=== PATIENT | female | born 1935 | race Caucasian/White ===

== ENCOUNTER 2020-03-22 14:43 | Outpatient (REF) | payer MEDICARE, SELFPAY ==
[2020-03-22 14:55] LABS: Basophils Percent Auto 0.1 % (0-2); Eosinophils Percent Auto 0.2 % (0-4); Hematocrit 34.4 % (37-47); Hemoglobin 11.2 g/dl (12.0-16.0); Imm Gran Abs Auto 0.11 X10*3/uL (0.00-0.03); Imm Gran Pct Auto 0.9 % (0.0-0.4); Lymphocytes Absolute Auto 0.6 X10*3/uL (1.2-4.9); Lymphocytes Percent Auto 4.6 % (20-40); MANUAL DIFF FLAG SCAN; Mean Corpuscular HGB Conc 32.6 g/dl (31.0-35.0); Mean Corpuscular Hemoglobin 31.7 pg (27.0-33.0); Mean Corpuscular Volume 97.5 fL (80-98); Mean Platelet Volume 9.9 fL (9.4-12.3); Monocytes Absolute Auto 0.4 X10*3/uL (0.1-1.2); Neutrophils Absolute Auto 11.2 X10*3/uL (2.0-8.3); Neutrophils Percent Auto 91.2 % (45-73); Platelet Count 164 X10*3/uL (160-400); Red Blood Count 3.53 X10*6/uL (4.20-5.50); Red Cell Distribution Width 17.9 % (11.0-16.0); SCAN SMEAR FLAG 1; White Blood Count 12.3 X10*3/uL (4.8-10.8)
[2020-03-22 15:30] LABS: Alanine Aminotransferase 16 U/L (0-31); Alkaline Phosphatase 65 U/L (39-117); Anion Gap 18 (12-20); Aspartate Amino Transferase 18 U/L (5-31); Bilirubin Total 1.1 mg/dL (0.0-1.0); Blood Urea Nitrogen 52 mg/dL (9-16); Calcium 8.4 mg/dL (8.4-10.2); Carbon Dioxide 26 mmol/L (22-29); Chloride 97 mmol/L (96-108); Estimated Glomerular Filt Rate 24; Glucose Random 171 mg/dL (60-115); Potassium 3.9 mmol/l (3.3-5.1); Sodium 137 mmol/L (135-145); Total Protein 6.2 g/dL (6.5-8.0)
[2020-03-22 15:32] LABS: SLIDE REVIEW VERIFIED
== END 2020-03-22 14:44 | disposition home or self-care (01) ==
LOC: HO.LNP 14:43
PROVIDERS: Visit Provider Internal Medicine Geriatric Medicine
DX: I12.9 Hypertensive chronic kidney disease with stage 1 through stage 4 chronic kidney disease, or unspecified chronic kidney disease (principal); I50.9 Heart failure, unspecified
CPT/HCPCS: 36415; 80053; 83735; 85025

== ENCOUNTER 2020-05-06 14:27 | Outpatient (REF) | payer MEDICARE, SELFPAY ==
[2020-05-06 14:33] LABS: MANUAL DIFF FLAG NO
[2020-05-06 14:37] LABS: Basophils Percent Auto 0.2 % (0-2); Eosinophils Absolute Auto 0.1 X10*3/uL (0.0-0.4); Eosinophils Percent Auto 0.6 % (0-4); Hematocrit 37.2 % (37-47); Hemoglobin 11.9 g/dl (12.0-16.0); Imm Gran Abs Auto 0.12 X10*3/uL (0.00-0.03); Imm Gran Pct Auto 1.1 % (0.0-0.4); Lymphocytes Absolute Auto 1.2 X10*3/uL (1.2-4.9); Lymphocytes Percent Auto 11.6 % (20-40); Mean Corpuscular Hemoglobin 31.2 pg (27.0-33.0); Mean Corpuscular Volume 97.6 fL (80-98); Monocytes Absolute Auto 0.8 X10*3/uL (0.1-1.2); Monocytes Percent Auto 7.2 % (2-11); Neutrophils Absolute Auto 8.4 X10*3/uL (2.0-8.3); Neutrophils Percent Auto 79.3 % (45-73); Platelet Count 172 X10*3/uL (160-400); Red Blood Count 3.81 X10*6/uL (4.20-5.50); Red Cell Distribution Width 16.1 % (11.0-16.0); White Blood Count 10.6 X10*3/uL (4.8-10.8)
[2020-05-06 15:14] LABS: Albumin Level 3.5 g/dL (3.5-5.0); Blood Urea Nitrogen 49 mg/dL (9-16); Estimated Glomerular Filt Rate 26
[2020-05-07 09:32] LABS: NT-proBNP 1150 pg/mL
== END 2020-05-06 14:28 | disposition home or self-care (01) ==
LOC: HO.LNP 14:27
PROVIDERS: Visit Provider Internal Medicine Geriatric Medicine
DX: I13.0 Hypertensive heart and chronic kidney disease with heart failure and stage 1 through stage 4 chronic kidney disease, or unspecified chronic kidney disease (principal); N18.9 Chronic kidney disease, unspecified; I50.9 Heart failure, unspecified
CPT/HCPCS: 36415; 82040; 82565; 83735; 83880; 84520; 85025

== ENCOUNTER 2020-05-11 15:36 | Outpatient (REF) | payer MEDICARE, SELFPAY ==
[2020-05-11 15:49] LABS: Appearance Urine CLOUDY; Color Urine YELLOW; Glucose Urine UA NEG (NEG); Leukocyte Esterase Urine 2+ (NEG); Nitrite Urine NEG (NEG); Urine Blood 2+ (NEG); Urine Ketones NEG (NEG); Urine Protein 2+ MG/DL (NEG-TRACE)
[2020-05-11 16:04] LABS: Bacteria Urine 3+ /LPF; Squamous Epithelial Cell Urine 1+ /LPF; WBC Urine TNTC /HPF (0-4)
== END 2020-05-11 15:37 | disposition home or self-care (01) ==
LOC: HO.LNP 15:36
PROVIDERS: Visit Provider Internal Medicine Geriatric Medicine
DX: R32 Unspecified urinary incontinence (principal)
CPT/HCPCS: 81001; 87086; 87088; 87186

== ENCOUNTER 2020-05-18 00:12 | Emergency (ER) | payer MEDICARE, SELFPAY ==
[2020-05-18 00:21] VITALS: BP 131/79; PULSE 76; RESP 16; TEMP 37.2; O2SAT 98; BMI 32.8
--- NOTE | 2020-05-18 00:29 | ED.ABDPAIN ---
HPI - Abdominal Pain General Chief Complaint: Abdominal Pain Stated Complaint: lower quad pain ?uti Time Seen by Provider: 05/18/20 00:27 Source: patient Mode of arrival: EMS Limitations: no limitations History of Present Illness HPI narrative: Patient came from assisted living with history of hypertension including renal disease atrial flutter coronary artery disease was treated for UTI will for 4-5 days on cephalexin UA grew E coli which was sensitive to cephalosporin patient was doing fine just an hour before arrival noticed sudden onset of pain on the right side no nausea no vomiting no fever abdominal distension patient never had any kidney stone before patient looks comfortable otherwise MD elicited complaint: abdominal pain Pertinent past history: past UTI Onset (ago): hour(s) (1) Location: RLQ Severity: mild Pain scale (0-10): 3 Quality: sharp Migration to: no migration Exacerbating factors: nothing Relieving factors: nothing Associated symptoms: denies other symptoms Related Data Allergies Allergy/AdvReac Type Severity Reaction Status Date / Time Iodinated Contrast Media Allergy Unknown UNKNOWN Verified 05/18/20 00:27 [IV CONTRAST] iodine [IODINE] Allergy Unknown UNKNOWN Verified 05/18/20 00:27 scallops [SCALLOPS] Allergy Unknown UNKNOWN Verified 05/18/20 00:27 amlodipine [AMLODIPINE] AdvReac Unknown LEG Verified 05/18/20 00:27 SWELLING Review of Systems Review of Systems Constitutional : No Weight loss, No Fever, No Chills ENT/Mouth : No sore throat, No Rhinorrhea Eyes: No Eye Pain, No Swelling Cardiovascular : No Chest Pain, no Dyspnea on Exertion, No Orthopnea, No Edema, No Palpitations, no SOB Respiratory : No Cough, No Sputum Gastrointestinal : no Nausea, No Vomiting, No Diarrhea, No Hematochezia, No Melena Genitourinary : No Dysuria, No Urinary Frequency Musculoskeletal : No joint pain, No Myalgias, No Joint Swelling Skin : No Skin Lesions, No rash Neuro : No Weakness, No Numbness, No Dizziness, No Headache Psych : No Anxiety/Panic, No Depression Heme/Lymph: No Bruising, No Lymphadenopathy Endocrine : No Polyuria, No Polydipsia All other systems reviewed and are negative Physical Exam Vital Signs: Vital Signs: Last Vital Signs Temp 100.2 F 05/18/20 05:00 Pulse 77 05/18/20 05:00 Resp 24 H 05/18/20 05:00 BP 159/53 H 05/18/20 05:00 Pulse Ox 88 L 05/18/20 05:00 Body Mass Index 32.8 Appearance: Alert. Oriented X3. No acute distress. Eyes: Pupils equal, round and reactive to light. ENT: Pharynx normal. Neck: Normal inspection. Neck supple. CVS: Normal heart rate and rhythm. Pulses normal. Respiratory: No respiratory distress. Breath sounds normal. Abdomen: Soft and tenderness R upper quadrant no rebound tenderness or guarding. Bowel sounds are present, no mass palpable, no CVA tenderness Skin: Skin warm and dry. Normal skin color. Normal skin turgor. Extremities: 4+ leg edema, pitting Neuro: Oriented X 3. No motor deficit. No sensory deficit. MDM - Abdominal Pain MDM Narrative Medical decision making narrative: Patient with right upper quadrant pain workup showed gallstones without any cholecystitis LFTs are normal at this time patient is comfortable to discharge her back urine with nitrite -5 to 9 wbc's patient already on Keflex will continue that Medical Records Attestation: I reviewed the patient's medical records. Lab Data Attestation: I reviewed the patient's lab results. Result diagrams: 05/18/20 01:03 05/18/20 01:03 Labs: Lab Results 05/18/20 05/18/20 05/18/20 Range/Units 01:03 01:03 01:21 WBC 10.8 (4.8-10.8) X10*3/uL RBC 3.78 L (4.20-5.50) X10*6/uL Hgb 11.8 L (12.0-16.0) g/dl Hct 36.3 L (37-47) % MCV 96.0 (80-98) fL MCH 31.2 (27.0-33.0) pg MCHC 32.5 (31.0-35.0) g/dl RDW 15.6 (11.0-16.0) % Plt Count 234 D (160-400) X10*3/uL MPV 9.7 (9.4-12.3) fL Immature Gran % (Auto) 4.7 H (0.0-0.4) % Neut % (Auto) 78.1 H (45-73) % Lymph % (Auto) 11.3 L (20-40) % [place] % (Auto) 4.8 (2-11) % Eos % (Auto) 0.8 (0-4) % Baso % (Auto) 0.3 (0-2) % Lymph # (Auto) 1.2 (1.2-4.9) X10*3/uL [place] # (Auto) 0.5 (0.1-1.2) X10*3/uL Eos # (Auto) 0.1 (0.0-0.4) X10*3/uL Baso # (Auto) 0.0 (0.0-0.2) X10*3/uL Abs Immat Gran (auto) 0.51 H (0.00-0.03) X10*3/uL Absolute Neuts (auto) 8.5 H (2.0-8.3) X10*3/uL Absolute Nucleated RBC 0.000 (0.0-0.012) X10*3/uL Nucleated RBC % (auto) 0.0 (0.0-0.2) /100WBC Sodium 138 (135-145) mmol/L Potassium 4.9 D (3.3-5.1) mmol/l Chloride 98 (96-108) mmol/L Carbon Dioxide 27 (22-29) mmol/L Anion Gap 18 (12-20) BUN 47 H (9-16) mg/dL Creatinine 2.00 H (0.5-1.4) mg/dL Estim Creat Clear Calc 21.8 Estimated GFR 24 Random Glucose 104 D (60-115) mg/dL Calcium 8.4 (8.4-10.2) mg/dL Total Bilirubin 0.6 (0.0-1.0) mg/dL Direct Bilirubin 0.2 (0.0-0.5) mg/dL AST 28 D (5-31) U/L ALT 12 (0-31) U/L Alkaline Phosphatase 76 (39-117) U/L Total Protein 6.6 (6.5-8.0) g/dL Albumin 3.5 (3.5-5.0) g/dL Lipase 73 (8-78) U/L Urine Color YELLOW Urine Appearance CLEAR Urine pH 7.0 (5.0-8.0) Ur Specific Reed 1.010 (1.005-1.025) Urine Protein TRACE (NEG-TRACE) MG/DL Urine Glucose (UA) NEG (NEG) MG/DL Urine Ketones NEG (NEG) MG/DL Urine Blood NEG (NEG) Urine Nitrite NEG (NEG) Ur Leukocyte Esterase 1+ H (NEG) Urine RBC 0 (0) /HPF Urine WBC 5-9 H (0-4) /HPF Urine WBC Clumps NOTED Ur Squamous Epith Cells 3+ /LPF Urine Bacteria 1+ /LPF Discharge Plan Discharge Clinical Impression: UTI (urinary tract infection) Qualifiers: Urinary tract infection type: acute cystitis Hematuria presence: without hematuria Qualified Code(s): N30.00 - Acute cystitis without hematuria Cholelithiases Qualifiers: Cholelithiasis location: gallbladder Cholecystitis presence: without cholecystitis Biliary obstruction: without biliary obstruction Qualified Code(s): K80.20 - Calculus of gallbladder without cholecystitis without obstruction Patient Disposition: er [facility] Instructions: Gallstones (ED), Urinary Tract Infection in Women (ED) Additional Instructions: Continue antibiotics as prescribed for UTI, urine is getting better. You have pain in right upper quadrant because of gallstones but it does not show any inflammation at this time. Avoid eating fried and greasy food. Follow-up with surgeon Report to the ER if high fever vomiting or increased pain Referrals: Tessy Don MD [Physician] - 1 week ([place]) [facility] Past Medical History Medical History AAA (abdominal aortic aneurysm) Atrial flutter C7 cervical fracture CAD (coronary artery disease) CKD (chronic kidney disease) Frequent UTI HTN (hypertension) Hypercholesteremia Kidney mass Osteopenia Restless leg Vitamin D deficiency Surgical History History of appendectomy Social History Social History Alcohol intake: never Smoked in Last 30 Days: No Use of substances other than those prescribed or required for medical reasons: No Advance Directives: No Advance Directives Information Provided: No
--- NOTE | 2020-05-18 00:40 | CT_ITS ---
EXAMINATION: CT ABDOMEN AND PELVIS WITHOUT CONTRAST CLINICAL INFORMATION: Right-sided pain. COMPARISON: 10/07/2018. TECHNIQUE: Contiguous axial thin section helical images of the abdomen and pelvis were performed without oral or IV contrast. The data set was reformatted in the coronal and sagittal planes and reviewed on an independent workstation. DLP: 698 mGy-cm. FINDINGS: The visualized lung bases are clear. The visualized portions of the heart are unremarkable. There is a moderate to large hiatal hernia. The liver is of normal size and attenuation without focal lesions nor intrahepatic biliary ductal dilation. There are calculi within the gallbladder lumen. There is no wall thickening or discernible pericholecystic fluid. The spleen, pancreas, adrenal glands are unremarkable. The right kidney is without hydronephrosis or nephrolithiasis. There is again noted to be cortical thinning to the left kidney. An aortobiiliac stent is in unchanged position. There is stable dilation to the right common iliac artery. There is no abdominal free fluid. There is neither mesenteric nor retroperitoneal lymphadenopathy. There is extensive diverticulosis without evidence of diverticulitis. Otherwise, unremarkable unopacified loops of small and large bowel are identified. There is no pelvic free fluid. The urinary bladder is unremarkable. There is neither pelvic nor inguinal lymphadenopathy. Bone windows: Neither sclerotic nor lytic bone lesions are identified. CT/CT abdomen pelvis wo con IMPRESSION: Cholelithiasis without evidence of cholecystitis. Diverticulosis without evidence of diverticulitis. Hiatal hernia. 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 Automated exposure control (Care Dose) Adjustment of the mA and/or kv according to patient size (this includes techniques or standardized protocols for targeted exams where dose is matched to indication / reason for exam; i.e. extremities or head).
[2020-05-18 01:07] LABS: Basophils Percent Auto 0.3 % (0-2); Eosinophils Absolute Auto 0.1 X10*3/uL (0.0-0.4); Eosinophils Percent Auto 0.8 % (0-4); Hematocrit 36.3 % (37-47); Hemoglobin 11.8 g/dl (12.0-16.0); Imm Gran Abs Auto 0.51 X10*3/uL (0.00-0.03); Imm Gran Pct Auto 4.7 % (0.0-0.4); Lymphocytes Absolute Auto 1.2 X10*3/uL (1.2-4.9); Lymphocytes Percent Auto 11.3 % (20-40); MANUAL DIFF FLAG NO; Mean Corpuscular HGB Conc 32.5 g/dl (31.0-35.0); Mean Corpuscular Hemoglobin 31.2 pg (27.0-33.0); Mean Platelet Volume 9.7 fL (9.4-12.3); Monocytes Absolute Auto 0.5 X10*3/uL (0.1-1.2); Monocytes Percent Auto 4.8 % (2-11); Neutrophils Absolute Auto 8.5 X10*3/uL (2.0-8.3); Neutrophils Percent Auto 78.1 % (45-73); Platelet Count 234 X10*3/uL (160-400); Red Blood Count 3.78 X10*6/uL (4.20-5.50); Red Cell Distribution Width 15.6 % (11.0-16.0); White Blood Count 10.8 X10*3/uL (4.8-10.8)
[2020-05-18 01:36] LABS: Anion Gap 18 (12-20); Blood Urea Nitrogen 47 mg/dL (9-16); Calcium 8.4 mg/dL (8.4-10.2); Carbon Dioxide 27 mmol/L (22-29); Chloride 98 mmol/L (96-108); Creatinine Clr Calc Pharmacy 21.8; Estimated Glomerular Filt Rate 24; Glucose Random 104 mg/dL (60-115); Potassium 4.9 mmol/l (3.3-5.1); Sodium 138 mmol/L (135-145)
[2020-05-18 01:37] LABS: Appearance Urine CLEAR; Color Urine YELLOW; Glucose Urine UA NEG (NEG); Leukocyte Esterase Urine 1+ (NEG); Nitrite Urine NEG (NEG); Urine Blood NEG (NEG); Urine Ketones NEG (NEG); Urine Protein TRACE MG/DL (NEG-TRACE)
[2020-05-18 01:47] LABS: Bacteria Urine 1+ /LPF; RBC Urine 0 /HPF (0); Squamous Epithelial Cell Urine 3+ /LPF; WBC Clumps Urine NOTED
[2020-05-18 02:41] LABS: Alanine Aminotransferase 12 U/L (0-31); Albumin Level 3.5 g/dL (3.5-5.0); Alkaline Phosphatase 76 U/L (39-117); Aspartate Amino Transferase 28 U/L (5-31); Bilirubin Direct 0.2 mg/dL (0.0-0.5); Bilirubin Total 0.6 mg/dL (0.0-1.0); Lipase 73 U/L (8-78); Total Protein 6.6 g/dL (6.5-8.0)
[2020-05-18 02:52] VITALS: BP 161/71; PULSE 79; RESP 16; TEMP 37.4; O2SAT 94
--- NOTE | 2020-05-18 03:12 | US_ITS ---
EXAMINATION: ABDOMINAL ULTRASOUND LIMITED CLINICAL INFORMATION: Right upper quadrant pain. COMPARISON: Same day abdominal and pelvic CT. TECHNIQUE: Real-time imaging of the right upper quadrant abdominal viscera. FINDINGS: PANCREAS: The visualized pancreatic head and body are normal in appearance. The remainder of the pancreas is obscured from visualization by the overlying bowel gas. LIVER: The liver is of normal size and echogenicity without focal lesions nor intrahepatic biliary ductal dilation. GALLBLADDER: There are calculi within the gallbladder lumen. There are manifestations of adenomyomatosis. There is no pericholecystic fluid. There is mild gallbladder wall thickening without adjacent hepatic edema. COMMON BILE DUCT: Normal in caliber measuring 0.4 cm in diameter. RIGHT KIDNEY: Normal. No hydronephrosis. No renal calculi or focal parenchymal lesions. The kidney measures 12.7 cm in maximum dimension. FREE FLUID: None. US/US abdomen limited IMPRESSION: Cholelithiasis and adenomyomatosis. While there is mild focal gallbladder wall thickening, that could be related to the likely adenomyomatosis. There is no pericholecystic fluid or adjacent hepatic edema.
[2020-05-18] MEDS: Morphine Sulfate 4 MG/ML CARTRIDGE 2 MG IVPUSH (04:17)
[2020-05-18] MEDS: ondansetron HCL 4 MG/2 ML VIAL IVPUSH (04:19)
[2020-05-18 05:00] VITALS: BP 159/53; PULSE 77; RESP 24; TEMP 37.9; O2SAT 88
--- NOTE | 2020-05-18 05:15 | XR_ITS ---
EXAMINATION: CHEST 1 VIEW CLINICAL INFORMATION: Shortness of breath. COMPARISON: February 19, 2020. TECHNIQUE: An AP view of the chest is provided. FINDINGS: The cardiac silhouette is stable. The mediastinal and hilar contours are unremarkable. There are neither pleural effusions nor pneumothoraces. There is a faint focus of opacification within the right midlung. The osseous structures are stable. XR/XR chest 1V IMPRESSION: Faint nonspecific focus of opacification within the right midlung. This could correspond to superimposition of shadows, atelectasis or developing infiltrate. Recommendation is for a followup chest series to be obtained following treatment and/or resolution of symptoms to assure resolution of this appearance.
--- NOTE | 2020-05-18 05:41 | PC.NURSE ---
PT ASSESSED AFTER ULTRASOUND AT 0500, FOUND TO HAVE LOW ROOM AIR SAT OF 88% AND WAS FEBRILE AT 100.2, DR. TUBBS AWARE. PLACED ON 02 NASAL CANNULA, OXYGEN SATURUATION UP TO 97%.
== END 2020-05-18 08:53 | disposition skilled nursing facility (03) ==
PROVIDERS: Emergency Provider Internal Medicine
DX: N30.00 Acute cystitis without hematuria (principal); K80.20 Calculus of gallbladder without cholecystitis without obstruction; R10.31 Right lower quadrant pain
CPT/HCPCS: 36415; 71045; 74176; 76705; 80048; 80076; 81001; 83690; 85025; 87086; 96374; 96375; 99284; J2270; J2405

== ENCOUNTER 2020-05-19 13:09 | Outpatient (REF) | payer MEDICARE, SELFPAY ==
[2020-05-19 14:36] LABS: Albumin Level 3.5 g/dL (3.5-5.0); Anion Gap 17 (12-20); Blood Urea Nitrogen 47 mg/dL (9-16); Carbon Dioxide 27 mmol/L (22-29); Chloride 97 mmol/L (96-108); Estimated Glomerular Filt Rate 19; Glucose Random 154 mg/dL (60-115); Magnesium 1.7 mg/dL (1.6-2.6); Phosphorus 3.1 mg/dL (2.7-4.5); Potassium 5.1 mmol/l (3.3-5.1); Sodium 136 mmol/L (135-145)
== END 2020-05-19 13:10 | disposition home or self-care (01) ==
LOC: HO.LNP 13:09
PROVIDERS: Visit Provider Internal Medicine Geriatric Medicine
DX: I13.0 Hypertensive heart and chronic kidney disease with heart failure and stage 1 through stage 4 chronic kidney disease, or unspecified chronic kidney disease (principal); N18.9 Chronic kidney disease, unspecified; I50.9 Heart failure, unspecified
CPT/HCPCS: 80048; 82040; 83735; 84100

== ENCOUNTER 2020-05-24 14:57 | Outpatient (REF) | payer MEDICARE, SELFPAY ==
[2020-05-24 15:37] LABS: Albumin Level 3.4 g/dL (3.5-5.0); Anion Gap 16 (12-20); Blood Urea Nitrogen 52 mg/dL (9-16); Calcium 8.1 mg/dL (8.4-10.2); Carbon Dioxide 26 mmol/L (22-29); Chloride 101 mmol/L (96-108); Estimated Glomerular Filt Rate 22; Glucose Random 110 mg/dL (60-115); Magnesium 1.8 mg/dL (1.6-2.6); Phosphorus 3.8 mg/dL (2.7-4.5); Potassium 4.2 mmol/l (3.3-5.1); Sodium 139 mmol/L (135-145)
[2020-05-24 15:39] LABS: B Type Natriuretic Peptide 120 pg/mL (<100)
== END 2020-05-24 14:58 | disposition home or self-care (01) ==
LOC: HO.HVNA 14:57
PROVIDERS: Visit Provider Internal Medicine Geriatric Medicine
DX: I13.0 Hypertensive heart and chronic kidney disease with heart failure and stage 1 through stage 4 chronic kidney disease, or unspecified chronic kidney disease (principal); N18.9 Chronic kidney disease, unspecified; I50.9 Heart failure, unspecified
CPT/HCPCS: 80048; 82040; 83735; 83880; 84100

== ENCOUNTER 2020-06-03 12:09 | Inpatient (IN) | payer MEDICARE, SELFPAY ==
[2020-06-03] VITALS (14 sets, daily range): BP systolic 140–156; BP diastolic 54–97; PULSE 69–90; RESP 16–31; TEMP 36.6–37.4; O2SAT 3–98; BMI 34.7
--- NOTE | 2020-06-03 12:20 | ECG_ITS ---
Test Reason : SOB Blood Pressure : / mmHG Vent. Rate : 071 BPM Atrial Rate : 071 BPM P-R Int : 272 ms QRS Dur : 066 ms QT Int : 338 ms P-R-T Axes : 075 -15 106 degrees QTc Int : 367 ms Poor data quality Undetermined rhythm Anteroseptal infarct , age undetermined Abnormal ECG When compared with ECG of 19-FEB-2020 23:31, Poor data quality in current ECG precludes serial comparison Referred By: Davide Catalan Electronically Signed By:Hammad Walsh
--- NOTE | 2020-06-03 12:20 | XR_ITS ---
EXAMINATION: XR CHEST CLINICAL INFORMATION: Shortness of breath and fever COMPARISON: May 18, 2020 and studies dating back to October 30, 2019 TECHNIQUE: AP portable view of the chest was obtained. FINDINGS: The cardiopericardial silhouette is enlarged. No evidence of pulmonary edema. No pneumothorax or significant pleural effusion. No confluent pneumonitis. There is scoliosis of the thoracic spine convex right. Status post previous instrumentation of the cervical spine. There is degenerative change of the left shoulder. XR/XR chest 1V IMPRESSION: No acute disease. Cardiomegaly without pulmonary edema.
[2020-06-03 13:04] LABS: Basophils Percent Auto 0.1 % (0-2); Eosinophils Percent Auto 0.1 % (0-4); Hematocrit 34.7 % (37-47); Imm Gran Abs Auto 0.13 X10*3/uL (0.00-0.03); Imm Gran Pct Auto 0.8 % (0.0-0.4); Lymphocytes Absolute Auto 0.9 X10*3/uL (1.2-4.9); Lymphocytes Percent Auto 5.4 % (20-40); MANUAL DIFF FLAG SCAN; Mean Corpuscular HGB Conc 31.7 g/dl (31.0-35.0); Mean Corpuscular Hemoglobin 30.8 pg (27.0-33.0); Mean Corpuscular Volume 97.2 fL (80-98); Mean Platelet Volume 9.5 fL (9.4-12.3); Monocytes Absolute Auto 1.9 X10*3/uL (0.1-1.2); Monocytes Percent Auto 10.7 % (2-11); Neutrophils Absolute Auto 14.3 X10*3/uL (2.0-8.3); Neutrophils Percent Auto 82.9 % (45-73); Platelet Count 196 X10*3/uL (160-400); Red Blood Count 3.57 X10*6/uL (4.20-5.50); Red Cell Distribution Width 15.9 % (11.0-16.0); SCAN SMEAR FLAG 1; White Blood Count 17.3 X10*3/uL (4.8-10.8)
[2020-06-03 13:09] LABS: INTERNATIONAL NORM RATIO 1.4 (0.9-1.1); Prothrombin Time 17.1 SEC (10.8-13.0)
[2020-06-03 13:12] LABS: Partial Thromboplastin Time 33.3 SEC (24.1-38.0)
[2020-06-03 13:18] LABS: Lactic Acid 1.1 mmol/L (0.5-2.0)
[2020-06-03 13:20] LABS: Bilirubin Total 1.2 mg/dL (0.0-1.0)
[2020-06-03 13:23] LABS: Glucose Urine UA NEG (NEG); Leukocyte Esterase Urine 2+ (NEG); Nitrite Urine NEG (NEG); Specific Gravity - Urine 1.015 (1.005-1.025); Urine Blood NEG (NEG); Urine Ketones NEG (NEG); Urine Protein 1+ MG/DL (NEG-TRACE)
[2020-06-03 13:25] LABS: Alanine Aminotransferase 20 U/L (0-31); Albumin Level 3.4 g/dL (3.5-5.0); Alkaline Phosphatase 131 U/L (39-117); Anion Gap 16 (12-20); Aspartate Amino Transferase 28 U/L (5-31); Bilirubin Direct 0.7 mg/dL (0.0-0.5); Bilirubin Total 1.2 mg/dL (0.0-1.0); Blood Urea Nitrogen 48 mg/dL (9-16); Calcium 8.4 mg/dL (8.4-10.2); Carbon Dioxide 27 mmol/L (22-29); Chloride 99 mmol/L (96-108); Estimated Glomerular Filt Rate 24; Glucose Random 142 mg/dL (60-115); Potassium 4.7 mmol/l (3.3-5.1); Sodium 137 mmol/L (135-145); Total Protein 6.3 g/dL (6.5-8.0)
[2020-06-03 13:25] LABS: Appearance Urine CLOUDY; Color Urine YELLOW
[2020-06-03 13:33] LABS: Bacteria Urine 3+ /LPF; RBC Urine 0-2 /HPF (0); WBC Urine TNTC /HPF (0-4)
[2020-06-03] MEDS: Bumetanide 1 MG/4 ML VIAL IVPUSH (13:36)
[2020-06-03 13:39] LABS: Influenza A PCR NEGATIVE (Negative); Influenza B PCR NEGATIVE (Negative); Resp Syncy Virus RNA Qual PCR NEGATIVE (Negative); SARS COV2 PCR INHOUSE NEGATIVE (Negative)
[2020-06-03 13:43] LABS: B Type Natriuretic Peptide 260 pg/mL (<100); Troponin-I High Sensitivity 25.9 ng/L (<3.5-17.0)
[2020-06-03 14:01] LABS: SLIDE REVIEW VERIFIED
[2020-06-03] MEDS: cefTRIAXone sodium 1 GM in 0.9 % Sodium Chloride 50 ML IV (14:38)
--- NOTE | 2020-06-03 14:47 | ED_ITS ---
HPI - General Adult General Chief complaint: Dyspnea Stated complaint: RESP DISTRESS Time Seen by Provider: 06/03/20 12:20 Source: EMS and RN notes reviewed Mode of arrival: EMS Limitations: other (Limited ability to talk secondary to respiratory distress) History of Present Illness HPI narrative: 85-year-old female who was brought to the emergency department by ambulance from [facility] for shortness of breath. According to EMS the 1st O2 saturation was 80% on room air. The patient had diminished lung sounds bilaterally. Patient was placed on CPAP and her O2 saturations went up to 97%. Her nursing facility was concerned that she might have a urinary tract infection and that she might have a fever as well. The patient was in respiratory distress and was placed on CPAP by the paramedics with improvement of her O2 saturation to 97%. History is limited since the patient could not talk through the BiPAP. According to the paramedics, the patient is supposed to take Bumex but she stopped her Bumex 2 days prior since she was urinating too much. Related Data Allergies Allergy/AdvReac Type Severity Reaction Status Date / Time Iodinated Contrast Media Allergy Unknown UNKNOWN Verified 05/18/20 00:27 [IV CONTRAST] iodine [IODINE] Allergy Unknown UNKNOWN Verified 05/18/20 00:27 scallops [SCALLOPS] Allergy Unknown UNKNOWN Verified 05/18/20 00:27 amlodipine [AMLODIPINE] AdvReac Unknown LEG Verified 05/18/20 00:27 SWELLING Review of Systems Review of Systems: Yes Unobtainable due to mental condition (Respiratory distr ess) Neurologic: Reports Abnormal speech present [facility] Past Medical History Medical History AAA (abdominal aortic aneurysm) Atrial flutter C7 cervical fracture CAD (coronary artery disease) CKD (chronic kidney disease) Frequent UTI HTN (hypertension) Hypercholesteremia Kidney mass Osteopenia Restless leg Vitamin D deficiency Surgical History History of appendectomy Social History Social History Alcohol intake: never Smoking Status: Never smoker Use of substances other than those prescribed or required for medical reasons: No Advance Directives: No Advance Directives Information Provided: No Physical Exam Vital Signs: Vital Signs: Last Vital Signs Temp 99.2 F 06/03/20 15:49 Pulse 72 06/03/20 15:49 Resp 19 06/03/20 15:49 BP 150/62 H 06/03/20 15:49 Pulse Ox 97 06/03/20 15:49 Body Mass Index 34.7 Const: General: cooperative, ill appearing and lethargic Orientation/consciousness: oriented to person and lethargic HENMT: Head: Yes normal to inspection, Yes normocephalic and Yes atraumatic Ears: external ears normal General nose exam: Normal external nose present Face and sinus: Yes normal facial exam Mouth: Normal oral and palatal mucosa present Throat: Yes posterior oropharynx normal Eyes: General: appearance normal, both eyes and all related structures Periorbital: periorbital findings normal Eyelids: Yes eyelids normal Conjunctivae: conjunctivae normal Sclerae: sclerae normal Corneas: corneas normal Pupils: Equal, round and reactive pupils present Direct Ophthalmoscopy: normal light reflex Neck: Neck: Yes normal visual inspection and Yes supple Lymphatic: no lymphadenopathy noted Chest: Chest palpation & inspection: normal inspection of the chest and normal palpation of entire chest wall Resp: Effort & Inspection: abnormal respiratory pattern, no audible wheezes and no respiratory distress Auscultation: no crackles, rales, no rhonchi and no wheezes Cardio: Rate: regular rate Rhythm: regular rhythm Heart sounds: S1 normal heart sound present, S2 normal heart sound present and Murmur heart sound present GI: Inspection: No distended Palpation (GI): Soft to palpation, nontender, no guarding and No hepatosplenomegaly present Auscultation: normal bowel sounds : General: Yes no CVA tenderness Back/Spine/Pelvis: Back: no CVA tenderness Cervical Spine: normal cervical lordosis Thoracic/Lumbar Spine: thoracic and lumbar spine normal to inspection Skin: General skin exam: no rashes or lesions noted Lesions: no lesions Rashes: no rashes Wounds: no wounds Neuro: General: oriented to person Cranial nerves: Yes CN's II-XII intact bilaterally and Yes Equal, round and reactive pupils present Cognition (Neur o): normal cognition Speech: Abnormal speech present Motor exam (neuro): 5/5 motor strength present throughout Extrem: General: Yes pedal edema (1to 2+ bilaterally) Psych: Appearance: grossly normal Affect: normal affect Attitude: cooperative Course Course Course Narrative: 85-year-old female who presented to the emergency department for evaluation of shortness of breath with low O2 saturations of 80% on room air treated with CPAP during transport and converted to BiPAP upon presentation to the emergency department. The patient reportedly stopped her Bumex 2 days prior. The patient also was felt to have a fever at her facility and there was a concern that she might have a urinary tract infection. Initial vital signs revealed a low-grade fever of 99.4 with an elevated respiratory rate of 24. The patient was in respiratory distress but did improve with BiPAP. She does appear to be fluid overloaded and she was ordered to give Bumex 1 mg IV. Yeager catheter was placed to follow her I/O's and the patient put out at least 600 mL urine. The patient improved on BiPAP and eventually was changed over to 3 L of oxygen via nasal cannula with O2 saturations in the 96% range. The patient's laboratory evaluation [place] [address], elevated BUN creatinine of 40 and 1.46 which I believe is consistent with chronic kidney disease your patient's urinalysis did reveal too numerous to count white blood cells and 3+ bacteria. The patient was ordered to get ceftriaxone 1 g IV. I will discuss the patient's presentation with the covering hospitalist. 1545: Patient's initial troponin was elevated at 25.9. Repeat after 2 hours revealed no significant change was 23.8. Twelve EKG revealed a first-degree AV block with no ST segment elevation depression. Fitness 1601: I did discuss the patient's presentation with the physician fast food sales assistant hospitalist, Christina Slater and the [place] will be [place] [facility]. Medical Decision Making Lab Data Result diagrams: 06/03/20 12:45 06/03/20 12:45 Labs: Lab Results 06/03/20 06/03/20 06/03/20 Range/Units 12:45 12:45 12:45 WBC 17.3 H (4.8-10.8) X10*3/uL RBC 3.57 L (4.20-5.50) X10*6/uL Hgb 11.0 L (12.0-16.0) g/dl Hct 34.7 L (37-47) % MCV 97.2 (80-98) fL MCH 30.8 (27.0-33.0) pg MCHC 31.7 (31.0-35.0) g/dl RDW 15.9 (11.0-16.0) % Plt Count 196 (160-400) X10*3/uL MPV 9.5 (9.4-12.3) fL Immature Gran % (Auto) 0.8 H (0.0-0.4) % Neut % (Auto) 82.9 H (45-73) % Lymph % (Auto) 5.4 L (20-40) % [place] % (Auto) 10.7 (2-11) % Eos % (Auto) 0.1 (0-4) % Baso % (Auto) 0.1 (0-2) % Lymph # (Auto) 0.9 L (1.2-4.9) X10*3/uL [place] # (Auto) 1.9 H (0.1-1.2) X10*3/uL Eos # (Auto) 0.0 (0.0-0.4) X10*3/uL Baso # (Auto) 0.0 (0.0-0.2) X10*3/uL Abs Immat Gran (auto) 0.13 H (0.00-0.03) X10*3/uL Absolute Neuts (auto) 14.3 H (2.0-8.3) X10*3/uL Absolute Nucleated RBC 0.000 (0.0-0.012) X10*3/uL Nucleated RBC % (auto) 0.0 (0.0-0.2) /100WBC Smear Tech's Comments VERIFIED PT (10.8-13.0) SEC INR (0.9-1.1) APTT (24.1-38.0) SEC Sodium 137 (135-145) mmol/L Potassium 4.7 (3.3-5.1) mmol/l Chloride 99 (96-108) mmol/L Carbon Dioxide 27 (22-29) mmol/L Anion Gap 16 (12-20) BUN 48 H (9-16) mg/dL Creatinine 1.96 H (0.5-1.4) mg/dL Estim Creat Clear Calc 23.0 Estimated GFR 24 Random Glucose 142 H (60-115) mg/dL Lactic Acid (0.5-2.0) mmol/L Calcium 8.4 (8.4-10.2) mg/dL Total Bilirubin 1.2 H (0.0-1.0) mg/dL Direct Bilirubin 0.7 H (0.0-0.5) mg/dL AST 28 (5-31) U/L ALT 20 (0-31) U/L Alkaline Phosphatase 131 H D (39-117) U/L Troponin I High Sens 25.9 H (<3.5-17.0) ng/L B-Natriuretic Peptide 260 H (<100) pg/mL Total Protein 6.3 L (6.5-8.0) g/dL Albumin 3.4 L (3.5-5.0) g/dL Urine Color Urine Appearance Urine pH (5.0-8.0) Ur Specific [place] (1.005-1.025) Urine Protein (NEG-TRACE) MG/DL Urine Glucose (UA) (NEG) MG/DL Urine Ketones (NEG) MG/DL Urine Blood (NEG) Urine Nitrite (NEG) Ur Leukocyte Esterase (NEG) Urine RBC (0) /HPF Urine WBC (0-4) /HPF Ur Squamous Epith Cells /LPF Urine Bacteria /LPF 06/03/20 06/03/20 06/03/20 Range/Units 12:45 12:45 12:46 WBC (4.8-10.8) X10*3/uL RBC (4.20-5.50) X10*6/uL Hgb (12.0-16.0) g/dl Hct (37-47) % MCV (80-98) fL MCH (27.0-33.0) pg MCHC (31.0-35.0) g/dl RDW (11.0-16.0) % Plt Count (160-400) X10*3/uL MPV (9.4-12.3) fL Immature Gran % (Auto) (0.0-0.4) % Neut % (Auto) (45-73) % Lymph % (Auto) (20-40) % [place] % (Auto) (2-11) % Eos % (Auto) (0-4) % Baso % (Auto) (0-2) % Lymph # (Auto) (1.2-4.9) X10*3/uL [place] # (Auto) (0.1-1.2) X10*3/uL Eos # (Auto) (0.0-0.4) X10*3/uL Baso # (Auto) (0.0-0.2) X10*3/uL Abs Immat Gran (auto) (0.00-0.03) X10*3/uL Absolute Neuts (auto) (2.0-8.3) X10*3/uL Absolute Nucleated RBC (0.0-0.012) X10*3/uL Nucleated RBC % (auto) (0.0-0.2) /100WBC Smear Tech's Comments PT 17.1 H (10.8-13.0) SEC INR 1.4 H (0.9-1.1) APTT 33.3 (24.1-38.0) SEC Sodium (135-145) mmol/L Potassium (3.3-5.1) mmol/l Chloride (96-108) mmol/L Carbon Dioxide (22-29) mmol/L Anion Gap (12-20) BUN (9-16) mg/dL Creatinine (0.5-1.4) mg/dL Estim Creat Clear Calc Estimated GFR Random Glucose (60-115) mg/dL Lactic Acid 1.1 (0.5-2.0) mmol/L Calcium (8.4-10.2) mg/dL Total Bilirubin 1.2 H (0.0-1.0) mg/dL Direct Bilirubin (0.0-0.5) mg/dL AST (5-31) U/L ALT (0-31) U/L Alkaline Phosphatase (39-117) U/L Troponin I High Sens (<3.5-17.0) ng/L B-Natriuretic Peptide (<100) pg/mL Total Protein (6.5-8.0) g/dL Albumin (3.5-5.0) g/dL Urine Color Urine Appearance Urine pH (5.0-8.0) Ur Specific [place] (1.005-1.025) Urine Protein (NEG-TRACE) MG/DL Urine Glucose (UA) (NEG) MG/DL Urine Ketones (NEG) MG/DL Urine Blood (NEG) Urine Nitrite (NEG) Ur Leukocyte Esterase (NEG) Urine RBC (0) /HPF Urine WBC (0-4) /HPF Ur Squamous Epith Cells /LPF Urine Bacteria /LPF 06/03/20 06/03/20 Range/Units 13:03 14:40 WBC (4.8-10.8) X10*3/uL RBC (4.20-5.50) X10*6/uL Hgb (12.0-16.0) g/dl Hct (37-47) % MCV (80-98) fL MCH (27.0-33.0) pg MCHC (31.0-35.0) g/dl RDW (11.0-16.0) % Plt Count (160-400) X10*3/uL MPV (9.4-12.3) fL Immature Gran % (Auto) (0.0-0.4) % Neut % (Auto) (45-73) % Lymph % (Auto) (20-40) % [place] % (Auto) (2-11) % Eos % (Auto) (0-4) % Baso % (Auto) (0-2) % Lymph # (Auto) (1.2-4.9) X10*3/uL [place] # (Auto) (0.1-1.2) X10*3/uL Eos # (Auto) (0.0-0.4) X10*3/uL Baso # (Auto) (0.0-0.2) X10*3/uL Abs Immat Gran (auto) (0.00-0.03) X10*3/uL Absolute Neuts (auto) (2.0-8.3) X10*3/uL Absolute Nucleated RBC (0.0-0.012) X10*3/uL Nucleated RBC % (auto) (0.0-0.2) /100WBC Smear Tech's Comments PT (10.8-13.0) SEC INR (0.9-1.1) APTT (24.1-38.0) SEC Sodium (135-145) mmol/L Potassium (3.3-5.1) mmol/l Chloride (96-108) mmol/L Carbon Dioxide (22-29) mmol/L Anion Gap (12-20) BUN (9-16) mg/dL Creatinine (0.5-1.4) mg/dL Estim Creat Clear Calc Estimated GFR Random Glucose (60-115) mg/dL Lactic Acid (0.5-2.0) mmol/L Calcium (8.4-10.2) mg/dL Total Bilirubin (0.0-1.0) mg/dL Direct Bilirubin (0.0-0.5) mg/dL AST (5-31) U/L ALT (0-31) U/L Alkaline Phosphatase (39-117) U/L Troponin I High Sens 23.8 H (<3.5-17.0) ng/L B-Natriuretic Peptide (<100) pg/mL Total Protein (6.5-8.0) g/dL Albumin (3.5-5.0) g/dL Urine Color YELLOW Urine Appearance CLOUDY Urine pH 6.0 (5.0-8.0) Ur Specific [place] 1.015 (1.005-1.025) Urine Protein 1+ H (NEG-TRACE) MG/DL Urine Glucose (UA) NEG (NEG) MG/DL Urine Ketones NEG (NEG) MG/DL Urine Blood NEG (NEG) Urine Nitrite NEG (NEG) Ur Leukocyte Esterase 2+ H (NEG) Urine RBC 0-2 (0) /HPF Urine WBC TNTC H (0-4) /HPF Ur Squamous Epith Cells NONE /LPF Urine Bacteria 3+ /LPF ECG Data Attestation: I personally reviewed and interpreted this ECG as follows: Interpretation: S sinus rhythm with a rate of 71, first-degree AV block with RI interval of 272 milliseconds, normal QTC interval, the baseline was very erratic making it difficult to interpret however I do not see any significant ST segment elevation or depression. Critical Care Time Critical Care Time Critical Care Time: Yes Total Critical Care Time: 75 Attestation: Critical Care: The patient was critically ill with a high probability of imminent or life threatening deterioration. I spent greater than 30 minutes of discontinuous time evaluating the patient,delivering critical care at the bedside, discussing and evaluating pertinent data with consultants. Critical care time does not include time spent performing separately billable procedures or teaching. Total time spent performing critical care was 75 minutes.
--- NOTE | 2020-06-03 15:15 | PC.NURSE ---
pt resting comfortably on stretcher, no distress observed. Ceftriaxone infusing after BC x 2 drawn. Troponin repeated at lab request, provider aware. Provider aware of pt urine appearance adn output since Bumex IVP.
[2020-06-03 15:31] LABS: Troponin-I High Sensitivity 23.8 ng/L (<3.5-17.0)
--- NOTE | 2020-06-03 15:41 | PC.NURSE ---
pt taking off bipap, now on 3 l nc and stating 97%. Pt ramon draining but very sediment and foul smelling.
--- NOTE | 2020-06-03 15:59 | ECG_ITS ---
Test Reason : Chest pain Blood Pressure : / mmHG Vent. Rate : 072 BPM Atrial Rate : 312 BPM P-R Int : 000 ms QRS Dur : 078 ms QT Int : 402 ms P-R-T Axes : 000 -36 134 degrees QTc Int : 440 ms Poor data quality Undetermined rhythm likely Atrial fibrillation Left axis deviation Possible Anterior infarct (cited on or before 03-JUN-2020) Abnormal ECG When compared with ECG of 03-JUN-2020 12:48, Poor data quality in current ECG precludes serial comparison Referred By: Davide Catalan Electronically Signed By:Hammad Walsh
--- NOTE | 2020-06-03 17:02 | PC.NURSE ---
hospitalist at bedside
--- NOTE | 2020-06-03 17:11 | P.HPHOSP_ITS ---
History of Present Illness Date of Service: 06/03/20 <DEYSI Trejo - Last Filed: 06/03/20 17:42> Chief Complaint: Shortness of breath. <DEYSI Trejo - Last Filed: 06/03/20 17:42> This is an 85-year-old female who was brought to the emergency department by ambulance due to shortness of breath. She reports a past few nights she has had shortness of breath while sleeping and also with exertion. Today her breathing was especially bad. Her Bumex was held for the past 2 days by the doc tor at [facility] because she was urinating too frequently and was ?too much for her.? EMS noted hypoxia with an oxygen saturation in the 80s and she was placed on CPAP EN route to the hospital. She was transitioned over to BiPAP in the emergency department. Lab work revealed leukocytosis of 17.3. Serum creatinine was 1.96 with which is within her baseline. Her cardiac enzymes remained flat. Her BNP was 260. Chest x-ray was unremarkable. Urinalysis was suggestive of UTI although patient denied any dysuria. She was started on IV ceftriaxone and also diuresed with IV Bumex. She was able to be weaned off the BiPAP to 3.5 L nasal cannula. <DEYSI Trejo - Last Filed: 06/03/20 17:42> Review of Systems Review of Systems: Yes all other systems are reviewed and are negative <DEYSI Trejo Last Filed: 06/03/20 17:42> Constitutional: Constitutional: Denies chills and Denies fever(s) <DEYSI Egan Last Filed: 06/03/20 17:42> Cardiovascular: Cardiovascular: Denies chest pain and Reports dyspnea <DEYSI Trejo Last Filed: 06/03/20 17:42> Respiratory: Respiratory: Denies cough and Reports dyspnea <DEYSI Trejo Last Filed: 06/03/20 17:42> Gastrointestinal: Gastrointestinal: Denies abdominal pain <DEYSI Trejo Last Filed: 06/03/20 17:42> Neurologic: Reports Abnormal speech present <DEYSI Trejo Last Filed: 06/03/20 17:42> [facility] Medical History: Medical History (Updated 06/03/20 @ 17:22 by DEYSI Trejo) AAA (abdominal aortic aneurysm) Atrial flutter C7 cervical fracture CAD (coronary artery disease) CKD (chronic kidney disease) Diastolic CHF Frequent UTI HTN (hypertension) Hypercholesteremia Kidney mass Osteopenia Restless leg Vitamin D deficiency <DEYSI Trejo - Last Filed: 06/03/20 17:42> Functional capacity: uses cane/walker <DEYSI Trejo - Last Filed: 06/03/20 17:42> Surgical History: Surgical History History of appendectomy <DEYSI Trejo - Last Filed: 06/03/20 17:42> Social History: Social History Household Members: None Housing: Assisted Living Facility Do you presently have visiting nurse or other home services: No Alcohol intake: never Smoking Status: Never smoker Use of substances other than those prescribed or required for medical reasons: No Have you been hit, kicked, punched, or otherwise hurt by someone within the past year? If so, by whom?: No Do you feel safe in your current relationship?: No Current Relationship Is there a partner from a previous relationship who is making you feel unsafe now?: No Are you made to feel afraid or neglected: No Advance Directives: No Advance Directives Information Provided: No Do you have thoughts of harming others: None Do you have a plan to hurt others: No Plan Recently lost weight without trying: No <DEYSI Trejo - Last Filed: 06/03/20 17:42> Meds Allergies/Adverse reactions: Allergies Allergy/AdvReac Type Severity Reaction Status Date / Time Iodinated Contrast Media Allergy Unknown UNKNOWN Verified 05/18/20 00:27 [IV CONTRAST] iodine [IODINE] Allergy Unknown UNKNOWN Verified 05/18/20 00:27 scallops [SCALLOPS] Allergy Unknown UNKNOWN Verified 05/18/20 00:27 amlodipine [AMLODIPINE] AdvReac Unknown LEG Verified 05/18/20 00:27 SWELLING <DEYSI Trejo - Last Filed: 06/03/20 17:42> Home medications: Home Medications Medication Instructions Recorded Confirmed Type albuterol sulfate [ProAir HFA] 2 puff INHALATION Q4-6H PRN 06/03/20 06/03/20 History apixaban [Eliquis] 2.5 mg PO BID 06/03/20 06/03/20 History atorvastatin 80 mg PO BEDTIME 06/03/20 06/03/20 History bumetanide 1 mg PO QAM 06/03/20 06/03/20 History calcitriol 0.25 mcg PO TUTH@0900 06/03/20 06/03/20 History ferrous sulfate 325 mg PO DAILY 06/03/20 06/03/20 History fluticasone propion-salmeterol 1 INHALATION BID 06/03/20 History [Advair Diskus] folic acid 1 mg PO DAILY 06/03/20 06/03/20 History hydralazine 100 mg PO TID 06/03/20 06/03/20 History ipratropium-albuterol [Combivent 1 puff INHALATION Q6H 06/03/20 06/03/20 History Respimat] isosorbide mononitrate 60 mg PO DAILY 06/03/20 06/03/20 History nifedipine [Nifedical XL] 60 mg PO DAILY 06/03/20 06/03/20 History pantoprazole 40 mg PO DAILY 06/03/20 06/03/20 History potassium chloride 27 meq PO BID 06/03/20 06/03/20 History prednisone 15 mg PO DAILY 06/03/20 06/03/20 History spironolactone 25 mg PO DAILY 06/03/20 06/03/20 History vit C,W-Ky-jcvsk-lutein-zeaxan 1 tab PO BID 06/03/20 06/03/20 History [PreserVision AREDS-2] <DEYSI Trejo - Last Filed: 06/03/20 17:42> Physical Exam Vital Signs and Narrative: Vital Signs: Last Vital Signs Temp 99.2 F 06/03/20 15:49 Pulse 72 06/03/20 15:49 Resp 19 06/03/20 15:49 BP 150/62 H 06/03/20 15:49 Pulse Ox 97 06/03/20 15:49 Body Mass Index 34.7 <DEYSI Trejo - Last Filed: 06/03/20 17:42> Const: General: alert and awake <DEYSI Trejo - Last Filed: 06/03/20 17:42> Nutritional Appearance: well nourished <DEYSI Trejo - Last Filed: 06/03/20 17:42> HENMT: Head: Yes normocephalic and Yes atraumatic <DEYSI Trejo - Last Filed: 06/03/20 17:42> Eyes: Sclerae: sclerae normal <DEYSI rTejo - Last Filed: 0 06/03/20 17:42> Chest: Chest palpation & inspection: normal inspection of the chest <DEYSI Trejo - Last Filed: 06/03/20 17:42> Resp: Effort & Inspection: tachypneic <DEYSI Trejo - Last Filed: 06/03/20 17:42> Auscultation: clear to auscultation bilaterally <DEYSI Trejo - Last Filed: 06/03/20 17:42> Cardio: Rate: regular rate <DEYSI Trejo - Last Filed: 06/03/20 17:42> Rhythm: regular rhythm <DEYSI Trejo - Last Filed: 06/03/20 17:42> GI: Palpation (GI): Soft to palpation and nontender <DEYSI Trejo - Last Filed: 06/03/20 17:42> Skin: General skin exam: no rashes or lesions noted <DEYSI Trejo - Last Filed: 06/03/20 17:42> Neuro: Cranial nerves: Yes CN's II-XII intact bilaterally and Yes Bilaterally intact EOM present <DEYSI Trejo - Last Filed: 06/03/20 17:42> Speech: Abnormal speech present <DEYSI Trejo - Last Filed: 06/03/20 17:42> Extrem: Other: b/l pitting edema <DEYSI Trejo - Last Filed: 06/03/20 17:42> Results Labs CBC and Chem 7: : 06/04/20 05:23 06/04/20 05:23 <DEYSI Trejo - Last Filed: 06/03/20 17:42> Labs: Laboratory Results - last 24 hr 06/03/20 06/03/20 06/03/20 12:45 12:45 12:45 MCV 97.2 MCH 30.8 MCHC 31.7 RDW 15.9 Plt Count 196 MPV 9.5 Immature Gran % (Auto) 0.8 H Neut % (Auto) 82.9 H Lymph % (Auto) 5.4 L [place] % (Auto) 10.7 Eos % (Auto) 0.1 Baso % (Auto) 0.1 Lymph # (Auto) 0.9 L [place] # (Auto) 1.9 H Eos # (Auto) 0.0 Baso # (Auto) 0.0 Abs Immat Gran (auto) 0.13 H Absolute Neuts (auto) 14.3 H Absolute Nucleated RBC 0.000 Nucleated RBC % (auto) 0.0 Smear Tech's Comments VERIFIED PT INR APTT Anion Gap 16 Estim Creat Clear Calc 23.0 Estimated GFR 24 Random Glucose 142 H Lactic Acid Calcium 8.4 Total Bilirubin 1.2 H Direct Bilirubin 0.7 H AST 28 ALT 20 Alkaline Phosphatase 131 H D Troponin I High Sens 25.9 H B-Natriuretic Peptide 260 H Total Protein 6.3 L Albumin 3.4 L Urine Color Urine Appearance Urine pH Ur Specific [place] Urine Protein Urine Glucose (UA) Urine Ketones Urine Blood Urine Nitrite Ur Leukocyte Esterase Urine RBC Urine WBC Ur Squamous Epith Cells Urine Bacteria Coronavirus (PCR) Influenza Type A (PCR) Influenza Type B (PCR) RSV RNA Qual (PCR) 06/03/20 06/03/20 06/03/20 12:45 12:45 12:46 MCV MCH MCHC RDW Plt Count MPV Immature Gran % (Auto) Neut % (Auto) Lymph % (Auto) [place] % (Auto) Eos % (Auto) Baso % (Auto) Lymph # (Auto) [place] # (Auto) Eos # (Auto) Baso # (Auto) Abs Immat Gran (auto) Absolute Neuts (auto) Absolute Nucleated RBC Nucleated RBC % (auto) Smear Tech's Comments PT 17.1 H INR 1.4 H APTT 33.3 Anion Gap Estim Creat Clear Calc Estimated GFR Random Glucose Lactic Acid 1.1 Calcium Total Bilirubin 1.2 H Direct Bilirubin AST ALT Alkaline Phosphatase Troponin I High Sens B-Natriuretic Peptide Total Protein Albumin Urine Color Urine Appearance Urine pH Ur Specific [place] Urine Protein Urine Glucose (UA) Urine Ketones Urine Blood Urine Nitrite Ur Leukocyte Esterase Urine RBC Urine WBC Ur Squamous Epith Cells Urine Bacteria Coronavirus (PCR) Influenza Type A (PCR) Influenza Type B (PCR) RSV RNA Qual (PCR) 06/03/20 06/03/20 06/03/20 12:49 13:03 14:40 MCV MCH MCHC RDW Plt Count MPV Immature Gran % (Auto) Neut % (Auto) Lymph % (Auto) [place] % (Auto) Eos % (Auto) Baso % (Auto) Lymph # (Auto) [place] # (Auto) Eos # (Auto) Baso # (Auto) Abs Immat Gran (auto) Absolute Neuts (auto) Absolute Nucleated RBC Nucleated RBC % (auto) Smear Tech's Comments PT INR APTT Anion Gap Estim Creat Clear Calc Estimated GFR Random Glucose Lactic Acid Calcium Total Bilirubin Direct Bilirubin AST ALT Alkaline Phosphatase Troponin I High Sens 23.8 H B-Natriuretic Peptide Total Protein Albumin Urine Color YELLOW Urine Appearance CLOUDY Urine pH 6.0 Ur Specific [place] 1.015 Urine Protein 1+ H Urine Glucose (UA) NEG Urine Ketones NEG Urine Blood NEG Urine Nitrite NEG Ur Leukocyte Esterase 2+ H Urine RBC 0-2 Urine WBC TNTC H Ur Squamous Epith Cells NONE Urine Bacteria 3+ Coronavirus (PCR) NEGATIVE Influenza Type A (PCR) NEGATIVE Influenza Type B (PCR) NEGATIVE RSV RNA Qual (PCR) NEGATIVE <DEYSI Trejo - Last Filed: 06/03/20 17:42> Imaging Radiologist's Impressions: Impressions Chest X-Ray 06/03/20 12:20 IMPRESSION: No acute disease. Cardiomegaly without pulmonary edema. <DEYSI Trejo - Last Filed: 06/03/20 17:42> Assessment and Plan (1) Acute respiratory failure with hypoxia: Status: Acute <DEYSI Trejo - Last Filed: 06/03/20 17:42> (2) Acute on chronic diastolic CHF (congestive heart failure): Status: Acute <DEYSI Trejo - Last Filed: 06/03/20 17:42> (3) UTI (urinary tract infection): Status: Acute <DEYSI Trejo - Last Filed: 06/03/20 17:42> This is an 85-year-old female old with a history of diastolic CHF, atrial flutter, CKD, CAD, others stents to the emergency department shortness of breath found to have acute exacerbation of CHF, UTI Acute respiratory failure with hypoxia Acute on chronic diastolic CHF Weaned off BiPAP and stable on 3.5 L IV Bumex, continue aldactone Is&Os, daily weight, Yeager placed in the ED Follow BNP Cardiology consult UTI h/o E coli IV ceftriaxone Follow-up urine cultures CKD4 Creatinine at baseline follow chemistries Anemia H/H at baseline A flutter Heart rate controlled Continue Eliquis, nifedipine Hypertension Continue nifedipine, aldactone CAD No chest pain Troponins flat Continue DVT prophylaxis-Eliquis Code status-MOLST form indicates wishes to be full code This case was discussed with Dr. Frye <DEYSI Trejo - Last Filed: 06/03/20 17:42>
--- NOTE | 2020-06-03 18:31 | PM.EVENT ---
Event Note Date of Service: 06/03/20 Event Note: Addendum to H and P by Mid-level Provider I saw and examined the patient and participated in the smith portion of the E/M service. I agree with the history and exam as documented by PA. Patient likely has exacerbation of systolic heart failure. Will admit for .IV diuretics and work up. Otherwise, I agree with assessment and plan as outlined in the H and P.
--- NOTE | 2020-06-03 19:18 | PC.NURSE ---
Pt sitting upright in bed, awake and alert, speaking full sentences at this time. Yeaegr draining freely, 1400 ml of UO noted. Pt denies pain/discomfort at this time, pt noted to be clean/dry at this time. Pt aware of plan to admit, awaiting bed assignment. Continue to monitor.
--- NOTE | 2020-06-03 21:12 | PC.NURSE ---
pt sleeping with oxygen saturation maintained w. 3 l nc stating 97%. Pt ramon draining with no issues. pt denies needing to be changed or repositioned in bed. call light within reach
--- NOTE | 2020-06-03 22:33 | PC.NURSE ---
Pt resting in bed, awake and alert, requesting crackers and apple juice, states she has not had anything PO intake since she arrived. Pt provided with crackers and one apple juice. VSS at this time. Pt requesting her Requip 0.5 mg, states she takes one tablet @ 1600 and three tablets @ 1900. This RN contacting hospitalist regarding medication request. Continue to monitor.
[2020-06-04] VITALS (11 sets, daily range): BP systolic 123–148; BP diastolic 51–79; PULSE 68–116; RESP 18–24; TEMP 36.6–37.4; O2SAT 93–98; BMI 34.7
[2020-06-04] MEDS: 0.9 % Sodium Chloride Flush 3 ML SYRINGE IVFLUSH ×3 (00:20→21:20)
[2020-06-04] MEDS: rOPINIRole HCL 0.5 MG TABLET PO (00:21)
--- NOTE | 2020-06-04 00:24 | PC.NURSE ---
Pt medicated with Requip per MAR. VSS. Pt provided with a warm blanket for comfort, resting in POC. Continue to monitor.
--- NOTE | 2020-06-04 03:18 | PC.NURSE ---
Pt awake and alert, repositioned in bed for comfort. Pt denies pain/discomfort/SOB. Continue to monitor.
--- NOTE | 2020-06-04 05:24 | PC.NURSE ---
AM labs obtained and sent. Pt provided with ice chips per request. VSS. Awaiting bed assignment. Continue to monitor.
[2020-06-04 05:33] LABS: Basophils Percent Auto 0.1 % (0-2); Eosinophils Percent Auto 0.3 % (0-4); Hematocrit 33.2 % (37-47); Hemoglobin 10.6 g/dl (12.0-16.0); Imm Gran Abs Auto 0.08 X10*3/uL (0.00-0.03); Imm Gran Pct Auto 0.6 % (0.0-0.4); Lymphocytes Absolute Auto 0.8 X10*3/uL (1.2-4.9); Lymphocytes Percent Auto 5.6 % (20-40); MANUAL DIFF FLAG NO; Mean Corpuscular HGB Conc 31.9 g/dl (31.0-35.0); Mean Corpuscular Hemoglobin 30.9 pg (27.0-33.0); Mean Corpuscular Volume 96.8 fL (80-98); Mean Platelet Volume 9.5 fL (9.4-12.3); Monocytes Absolute Auto 1.2 X10*3/uL (0.1-1.2); Monocytes Percent Auto 8.8 % (2-11); Neutrophils Absolute Auto 11.9 X10*3/uL (2.0-8.3); Neutrophils Percent Auto 84.6 % (45-73); Platelet Count 180 X10*3/uL (160-400); Red Blood Count 3.43 X10*6/uL (4.20-5.50); Red Cell Distribution Width 15.8 % (11.0-16.0); White Blood Count 14.1 X10*3/uL (4.8-10.8)
[2020-06-04] MEDS: cefTRIAXone sodium 1 GM in 0.9 % Sodium Chloride 50 ML IV (05:59)
--- NOTE | 2020-06-04 06:01 | PC.NURSE ---
Celia anthony per JUL. VSS. Continue to monitor.
[2020-06-04 06:05] LABS: Anion Gap 15 (12-20); Blood Urea Nitrogen 41 mg/dL (9-16); Carbon Dioxide 30 mmol/L (22-29); Chloride 97 mmol/L (96-108); Creatinine Clr Calc Pharmacy 25.3; Estimated Glomerular Filt Rate 27; Glucose Random 118 mg/dL (60-115); Potassium 3.9 mmol/l (3.3-5.1); Sodium 138 mmol/L (135-145)
[2020-06-04 06:09] LABS: B Type Natriuretic Peptide 334 pg/mL (<100)
--- NOTE | 2020-06-04 07:58 | PC.NURSE ---
report taken from anne nugent pt appears to be sleeping, vss. pt to be inpt admission r/t fluid overload. pt has patent urinary cath draining urine att. denies sob this morning. seen by hospitalist at bedside.
[2020-06-04] MEDS: Bumetanide 1 MG/4 ML VIAL IVPUSH ×2 (09:02→21:20)
--- NOTE | 2020-06-04 09:07 | PC.NURSE ---
second call for report unsuccessful
--- NOTE | 2020-06-04 09:27 | PC.NURSE ---
report given to imc rn
[2020-06-04] MEDS: Spironolactone 25 MG TABLET PO (11:30)
[2020-06-04] MEDS: Apixaban 2.5 MG TABLET PO ×2 (11:30→21:27)
[2020-06-04] MEDS: NIFEdipine ER 30 MG TAB.ER.24 PO (11:30)
--- NOTE | 2020-06-04 11:37 | P.CONCA_ITS ---
History of Present Illness History of Present Illness Date of Service: 06/04/20 Requesting physician: Lasha Frye Chief complaint: CHF, UTI Narrative: Pleasant 85-year-old female here for shortness of breath and congestive heart failure. She has known history of diastolic heart failure in the past. She also has coronary disease and went LAD PCI in the past she has paroxysmal atrial fibrillation and had Mobitz type 1 AV block previously. She presented with GI bleed in the past and was left on Eliquis only after that. She said at a nursing facility she has been short of breath chronically but over the last few days she had increased frequency of urination and her Lasix was stopped. She said she was short of breath before but then her breathing worse chrissy further leading to her coming to the emergency department. She was noticed to be hypoxic and chest x-ray showed concern for heart failure. She was given IV Bumex and has been admitted. She denies chest discomfort. She has no bleeding issues recently. She was also found to have a urinary tract infection and was started on IV antibiotics. Review of Systems Review of Systems: Shortness of breath, increased frequency urination. [facility] Past Medical History Medical History (Updated 06/04/20 @ 11:41 by Hammad Walsh MD) AAA (abdominal aortic aneurysm) Atrial flutter C7 cervical fracture CAD (coronary artery disease) CKD (chronic kidney disease) Diastolic CHF Frequent UTI HTN (hypertension) Hypercholesteremia Kidney mass Osteopenia Restless leg Vitamin D deficiency Functional capacity: uses cane/walker Surgical History Surgical History History of appendectomy Social History Social History Household Members: None Housing: Assisted Living Facility Do you presently have visiting nurse or other home services: No Alcohol intake: never Smoking Status: Never smoker Use of substances other than those prescribed or required for medical reasons: No Have you been hit, kicked, punched, or otherwise hurt by someone within the past year? If so, by whom?: No Do you feel safe in your current relationship?: No Current Relationship Is there a partner from a previous relationship who is making you feel unsafe now?: No Are you made to feel afraid or neglected: No Advance Directives: No Advance Directives Information Provided: No Do you have thoughts of harming others: None Do you have a plan to hurt others: No Plan Recently lost weight without trying: No Meds Allergies Allergy/AdvReac Type Severity Reaction Status Date / Time Iodinated Contrast Media Allergy Unknown UNKNOWN Verified 05/18/20 00:27 [IV CONTRAST] iodine [IODINE] Allergy Unknown UNKNOWN Verified 05/18/20 00:27 scallops [SCALLOPS] Allergy Unknown UNKNOWN Verified 05/18/20 00:27 amlodipine [AMLODIPINE] AdvReac Unknown LEG Verified 05/18/20 00:27 SWELLING Home Medications Medication Instructions Recorded Confirmed Type albuterol sulfate [ProAir HFA] 2 puff INHALATION Q4-6H PRN 06/03/20 06/03/20 History apixaban [Eliquis] 2.5 mg PO BID 06/03/20 06/03/20 History atorvastatin 80 mg PO BEDTIME 06/03/20 06/03/20 History bumetanide 1 mg PO QAM 06/03/20 06/03/20 History calcitriol 0.25 mcg PO TUTH@0900 06/03/20 06/03/20 History ferrous sulfate 325 mg PO DAILY 06/03/20 06/03/20 History fluticasone propion-salmeterol 1 INHALATION BID 06/03/20 History [Advair Diskus] folic acid 1 mg PO DAILY 06/03/20 06/03/20 History hydralazine 100 mg PO TID 06/03/20 06/03/20 History ipratropium-albuterol [Combivent 1 puff INHALATION Q6H 06/03/20 06/03/20 History Respimat] isosorbide mononitrate 60 mg PO DAILY 06/03/20 06/03/20 History nifedipine [Nifedical XL] 60 mg PO DAILY 06/03/20 06/03/20 History pantoprazole 40 mg PO DAILY 06/03/20 06/03/20 History potassium chloride 27 meq PO BID 06/03/20 06/03/20 History prednisone 15 mg PO DAILY 06/03/20 06/03/20 History spironolactone 25 mg PO DAILY 06/03/20 06/03/20 History vit C,M-Gd-fvpsu-lutein-zeaxan 1 tab PO BID 06/03/20 06/03/20 History [PreserVision AREDS-2] Physical Exam Vital Signs: Vital Signs: Last Vital Signs Temp 97.8 F 06/04/20 10:25 Pulse 112 H 06/04/20 11:30 Resp 22 H 06/04/20 10:25 BP 148/72 H 06/04/20 11:30 Pulse Ox 93 06/04/20 10:25 Body Mass Index 34.7 GENERAL APPEARANCE: Short of breath, obese. HEENT: unremarkable. HEAD: normocephalic, atraumatic. NECK/THYROID: no carotid bruit, JVD to angle of jaw. SKIN: no suspicious lesions, warm and dry. HEART: regular rate and rhythm, S1, S2 normal. LUNGS: Crackles at bases. ABDOMEN: normal, bowel sounds present, soft, nontender, nondistended. EXTREMITIES: no clubbing, cyanosis. 1+ pedal edema. PERIPHERAL PULSES: equal. NEUROLOGIC: nonfocal, alert and oriented. PSYCH: mood/affect full range. Results Labs and Meds Result diagrams: 06/04/20 05:23 06/04/20 05:23 Lab results: Laboratory Results - last 24 hr 06/03/20 06/03/20 06/03/20 12:45 12:45 12:45 WBC 17.3 H RBC 3.57 L Hgb 11.0 L Hct 34.7 L MCV 97.2 MCH 30.8 MCHC 31.7 RDW 15.9 Plt Count 196 MPV 9.5 Immature Gran % (Auto) 0.8 H Neut % (Auto) 82.9 H Lymph % (Auto) 5.4 L [place] % (Auto) 10.7 Eos % (Auto) 0.1 Baso % (Auto) 0.1 Lymph # (Auto) 0.9 L [place] # (Auto) 1.9 H Eos # (Auto) 0.0 Baso # (Auto) 0.0 Abs Immat Gran (auto) 0.13 H Absolute Neuts (auto) 14.3 H Absolute Nucleated RBC 0.000 Nucleated RBC % (auto) 0.0 Smear Tech's Comments VERIFIED PT INR APTT Sodium 137 Potassium 4.7 Chloride 99 Carbon Dioxide 27 Anion Gap 16 BUN 48 H Creatinine 1.96 H Estim Creat Clear Calc 23.0 Estimated GFR 24 Random Glucose 142 H Lactic Acid Calcium 8.4 Total Bilirubin 1.2 H Direct Bilirubin 0.7 H AST 28 ALT 20 Alkaline Phosphatase 131 H D Troponin I High Sens 25.9 H B-Natriuretic Peptide 260 H Total Protein 6.3 L Albumin 3.4 L Urine Color Urine Appearance Urine pH Ur Specific [place] Urine Protein Urine Glucose (UA) Urine Ketones Urine Blood Urine Nitrite Ur Leukocyte Esterase Urine RBC Urine WBC Ur Squamous Epith Cells Urine Bacteria Coronavirus (PCR) Influenza Type A (PCR) Influenza Type B (PCR) RSV RNA Qual (PCR) 06/03/20 06/03/20 06/03/20 12:45 12:45 12:46 WBC RBC Hgb Hct MCV MCH MCHC RDW Plt Count MPV Immature Gran % (Auto) Neut % (Auto) Lymph % (Auto) [place] % (Auto) Eos % (Auto) Baso % (Auto) Lymph # (Auto) [place] # (Auto) Eos # (Auto) Baso # (Auto) Abs Immat Gran (auto) Absolute Neuts (auto) Absolute Nucleated RBC Nucleated RBC % (auto) Smear Tech's Comments PT 17.1 H INR 1.4 H APTT 33.3 Sodium Potassium Chloride Carbon Dioxide Anion Gap BUN Creatinine Estim Creat Clear Calc Estimated GFR Random Glucose Lactic Acid 1.1 Calcium Total Bilirubin 1.2 H Direct Bilirubin AST ALT Alkaline Phosphatase Troponin I High Sens B-Natriuretic Peptide Total Protein Albumin Urine Color Urine Appearance Urine pH Ur Specific [place] Urine Protein Urine Glucose (UA) Urine Ketones Urine Blood Urine Nitrite Ur Leukocyte Esterase Urine RBC Urine WBC Ur Squamous Epith Cells Urine Bacteria Coronavirus (PCR) Influenza Type A (PCR) Influenza Type B (PCR) RSV RNA Qual (PCR) 06/03/20 06/03/20 06/03/20 12:49 13:03 14:40 WBC RBC Hgb Hct MCV MCH MCHC RDW Plt Count MPV Immature Gran % (Auto) Neut % (Auto) Lymph % (Auto) [place] % (Auto) Eos % (Auto) Baso % (Auto) Lymph # (Auto) [place] # (Auto) Eos # (Auto) Baso # (Auto) Abs Immat Gran (auto) Absolute Neuts (auto) Absolute Nucleated RBC Nucleated RBC % (auto) Smear Tech's Comments PT INR APTT Sodium Potassium Chloride Carbon Dioxide Anion Gap BUN Creatinine Estim Creat Clear Calc Estimated GFR Random Glucose Lactic Acid Calcium Total Bilirubin Direct Bilirubin AST ALT Alkaline Phosphatase Troponin I High Sens 23.8 H B-Natriuretic Peptide Total Protein Albumin Urine Color YELLOW Urine Appearance CLOUDY Urine pH 6.0 Ur Specific [place] 1.015 Urine Protein 1+ H Urine Glucose (UA) NEG Urine Ketones NEG Urine Blood NEG Urine Nitrite NEG Ur Leukocyte Esterase 2+ H Urine RBC 0-2 Urine WBC TNTC H Ur Squamous Epith Cells NONE Urine Bacteria 3+ Coronavirus (PCR) NEGATIVE Influenza Type A (PCR) NEGATIVE Influenza Type B (PCR) NEGATIVE RSV RNA Qual (PCR) NEGATIVE 06/04/20 06/04/20 06/04/20 05:23 05:23 05:23 WBC 14.1 H RBC 3.43 L Hgb 10.6 L Hct 33.2 L MCV 96.8 MCH 30.9 MCHC 31.9 RDW 15.8 Plt Count 180 MPV 9.5 Immature Gran % (Auto) 0.6 H Neut % (Auto) 84.6 H Lymph % (Auto) 5.6 L [place] % (Auto) 8.8 Eos % (Auto) 0.3 Baso % (Auto) 0.1 Lymph # (Auto) 0.8 L [place] # (Auto) 1.2 Eos # (Auto) 0.0 Baso # (Auto) 0.0 Abs Immat Gran (auto) 0.08 H Absolute Neuts (auto) 11.9 H Absolute Nucleated RBC 0.000 Nucleated RBC % (auto) 0.0 Smear Tech's Comments PT INR APTT Sodium 138 Potassium 3.9 Chloride 97 Carbon Dioxide 30 H Anion Gap 15 BUN 41 H Creatinine 1.78 H Estim Creat Clear Calc 25.3 Estimated GFR 27 Random Glucose 118 H Lactic Acid Calcium 8.0 L Total Bilirubin Direct Bilirubin AST ALT Alkaline Phosphatase Troponin I High Sens B-Natriuretic Peptide 334 H Total Protein Albumin Urine Color Urine Appearance Urine pH Ur Specific [place] Urine Protein Urine Glucose (UA) Urine Ketones Urine Blood Urine Nitrite Ur Leukocyte Esterase Urine RBC Urine WBC Ur Squamous Epith Cells Urine Bacteria Coronavirus (PCR) Influenza Type A (PCR) Influenza Type B (PCR) RSV RNA Qual (PCR) Imaging Radiologist's impression: Impressions Chest X-Ray 06/03/20 12:20 IMPRESSION: No acute disease. Cardiomegaly without pulmonary edema. Assessment and Plan (1) Acute on chronic diastolic CHF (congestive heart failure): Status: Acute (2) PAF (paroxysmal atrial fibrillation): Status: Acute Pleasant 85-year-old female here for shortness of breath and clinical heart failure. Volume overloaded by exam. Agree with Bumex IV 1 mg twice a day. She is on Eliquis 2.5 mg twice a day for AFib. Was previously on Plavix which was stopped because of GI bleed. She has known history of coronary disease with previous LAD PCI as well as [employer]. She goes in and out of atrial fibrillation usually and also has Mobitz type 1 Wenckebach on telemetry. Previously no indication for pacemaker was noticed. Blood pressure is mildly elevated but she is volume overloaded. I think less diurese her 1st and see how her blood pressure response to that. If he does not improve then we will adjust medications. Thank you for allowing me to participate in the care of your patient. Please feel free to contact me if you have any questions.
--- NOTE | 2020-06-04 11:48 | HO.PM.IMPN ---
Subjective Subjective Date of Service: 06/04/20 Interval History: Seen in f/u for heart failure exacerbation. Persitent sweling inthe legs, no sob. Review of Systems Shortness of breath, increased frequency urination. Constitutional Constitutional: Denies chills and Denies fever(s) Cardiovascular Cardiovascular: Denies chest pain and Reports dyspnea Respiratory Respiratory: Denies cough and Reports dyspnea Physical Exam Vital Signs: Vital Signs: Last Vital Signs Temp 97.8 F 06/04/20 10:25 Pulse 112 H 06/04/20 11:30 Resp 22 H 06/04/20 10:25 BP 148/72 H 06/04/20 11:30 Pulse Ox 93 06/04/20 10:25 Body Mass Index 34.7 Const: General: alert and awake Nutritional Appearance: well nourished Chest: Chest palpation & inspection: normal inspection of the chest Resp: Effort & Inspection: tachypneic Auscultation: clear to auscultation bilaterally Cardio: Rate: regular rate Rhythm: regular rhythm GI: Palpation (GI): Soft to palpation and nontender Skin: General skin exam: no rashes or lesions noted Extrem: Other: b/l pitting edema Objective Data Current Medications Generic Name Dose Route Start Last Admin Trade Name Freq PRN Reason Stop Dose Admin Acetaminophen 650 mg 06/03/20 17:10 Acetaminophen 325 Mg Tablet PO Q6H PRN Pain, Mild (Pain Scale 1-3) Albuterol Sulfate 2 puff 06/04/20 10:20 Albuterol Sulfate 90 Mcg 8 Gm Inhaler INHALE Q4H PRN Shortness Of Breath Apixaban 2.5 mg 06/04/20 10:20 06/04/20 11:30 Apixaban 2.5 Mg Tablet PO 2.5 mg BID YULIA Administration Atorvastatin Calcium 80 mg 06/04/20 21:00 Atorvastatin Calcium 80 Mg Tablet PO BEDTIME YULIA Bumetanide 1 mg 06/04/20 09:00 06/04/20 09:02 Bumetanide 1 Mg/4 Ml Vial IVPUSH 1 mg BID YULIA Administration Protocol Docusate Sodium 100 mg 06/03/20 17:10 Docusate Sodium 100 Mg Capsule PO DAILY PRN Constipation Ceftriaxone Sodium 1 gm/ 50 mls @ 100 mls/hr 06/04/20 06:00 06/04/20 06:30 Sodium Chloride IV Infused Q24H YULIA Infusion Nifedipine 30 mg 06/04/20 10:20 06/04/20 11:30 Nifedipine Er 30 Mg Tab.Er.24 PO 30 mg DAILY [facility] Administration Protocol Omeprazole 20 mg 06/04/20 06:30 06/04/20 11:27 Omeprazole 20 Mg Capsule.Dr PO Not Given DAILY@0630 [facility] Ondansetron HCl 4 mg 06/03/20 17:10 Ondansetron Hcl 4 Mg/2 Ml Vial IVPUSH Q8H PRN Nausea and Vomiting Sodium Chloride 3 ml 06/04/20 00:00 06/04/20 07:46 0.9 % Sodium Chloride Flush 3 Ml Syringe IVFLUSH Not Given QSHIFT [facility] Spironolactone 25 mg 06/04/20 10:20 06/04/20 11:30 Spironolactone 25 Mg Tablet PO 25 mg DAILY [facility] Administration Protocol Labs CBC & Chem 7: 06/04/20 05:23 06/04/20 05:23 Microbiology Microbiology Results: Microbiology 06/03/20 00:00 Urine [place] Urine Culture - Preliminary Gram negative christine 06/03/20 14:15 Blood - Venous Blood Culture - Preliminary Assessment and Plan (1) Acute respiratory failure with hypoxia: Status: Acute (2) Acute on chronic diastolic CHF (congestive heart failure): Status: Acute (3) UTI (urinary tract infection): Status: Acute Assessment and Plan: 85-year-old female old with a history of diastolic CHF, atrial flutter, CKD, CAD, others stents to the emergency department shortness of breath found to have acute exacerbation of CHF, UTI Acute respiratory failure with hypoxia Acute on chronic diastolic CHF Off BiPAP IV Bumex 1 bid, continue aldactone Cardiology following UTI h/o E coli IV ceftriaxone Follow-up urine cultures CKD4 Creatinine at baseline follow chemistries Anemia H/H at baseline A flutter Heart rate controlled Continue Eliquis, nifedipine Hypertension Continue nifedipine, aldactone CAD No chest pain Troponins flat Continue DVT prophylaxis-Eliquis Code status-MOLST form indicates wishes to be full code
--- NOTE | 2020-06-04 12:23 | MHC.CM.PN ---
pt lives at [facility], she says she likes it there. she uses a walker c ambulation and does not use o2. she has two adult children that live in the area and typically provide transportation for her , they will be giving patient a ride back to [facility]. pt does not want to go to [facility] as she has been to [facility] in the past and said it was terrible. she prefers to return to [facility] for which a ref. has been made. this is the co plan. cm to cont. to follow.
[2020-06-04] MEDS: Atorvastatin Calcium 80 MG TABLET PO (21:20)
[2020-06-05] VITALS: BP 137/63; PULSE 77; RESP 20; TEMP 36.9; O2SAT 96
[2020-06-05] MEDS: Docusate Sodium 100 MG CAPSULE PO ×2 (01:09→19:34)
[2020-06-05] MEDS: rOPINIRole HCL 1 MG TABLET PO (01:09)
--- NOTE | 2020-06-05 01:48 | PC.NURSE ---
0100 lab called with +blood culture 1/2 bottles gram + cocci in clusters. notified.
[2020-06-05] MEDS: Acetaminophen 325 MG TABLET 650 MG PO (02:24)
[2020-06-05 03:53] VITALS: BP 150/65; PULSE 67; RESP 20; O2SAT 96
[2020-06-05] MEDS: Gabapentin 100 MG CAPSULE 200 MG PO (04:06)
--- NOTE | 2020-06-05 04:27 | PC.NURSE ---
0400 P-PT C/O 02/04 THROBBING PAIN IN LEFT LEG.MEDICATED WITH TYLENOL AT 0230 WITH NO EFFECT. I- NOTIFIED.ORDERED GABAPENTIN 200MG PO.LEGS ELEVATED ON PILLOWS. E-WILL CONTINUE TO MONITOR
[2020-06-05] MEDS: cefTRIAXone sodium 1 GM in 0.9 % Sodium Chloride 50 ML IV (05:21)
--- NOTE | 2020-06-05 06:26 | PC.NURSE ---
pt states good effect from gabapentin
[2020-06-05 07:57] VITALS: BP 147/70; PULSE 86; RESP 18; TEMP 36.6; O2SAT 98
[2020-06-05] MEDS: 0.9 % Sodium Chloride Flush 3 ML SYRINGE IVFLUSH ×3 (09:02→23:58)
[2020-06-05] MEDS: NIFEdipine ER 30 MG TAB.ER.24 PO (09:03)
[2020-06-05] MEDS: Spironolactone 25 MG TABLET PO (09:03)
[2020-06-05] MEDS: Apixaban 2.5 MG TABLET PO ×2 (09:03→19:27)
[2020-06-05] MEDS: Bumetanide 1 MG/4 ML VIAL IVPUSH ×2 (09:03→19:27)
[2020-06-05 11:24] VITALS: BP 124/66; PULSE 55; RESP 20; TEMP 36.2; O2SAT 95
--- NOTE | 2020-06-05 12:13 | P.PNCA_ITS ---
Subjective Subjective Date of Service: 06/05/20 Principal diagnosis: Congestive heart failure, AFib Interval history: Patient examined at the bedside. Reports to be feeling better. Reports that her swelling in her legs decreased. Denies any CP, PND, palpitations, SOB. Review of Systems Constitutional: Reports no additional constitutional complaints Cardiovascular: Denies chest pain, Denies Epigastric Pain, Denies rapid heart rate, Reports pedal edema and Reports leg edema Respiratory: Reports no additional respiratory complaints Gastrointestinal: Reports no additional gastrointestinal complaints and Denies abdominal pain Musculoskeletal: Reports no additional musculoskeletal complaints Reports system reviewed and no additional complaints, except as documented Psychiatric: Reports no additional psychiatric complaints Physical Exam Vital Signs: Last Vital Signs Temp 97.2 F 06/05/20 11:24 Pulse 55 06/05/20 11:24 Resp 20 06/05/20 11:24 BP 124/66 06/05/20 11:24 Pulse Ox 95 06/05/20 11:24 Body Mass Index 34.7 Const General: cooperative, comfortable and no acute distress Orientation/consciousness: patient oriented x3 Neck Neck: Yes normal visual inspection, Yes trachea midline, Yes supple and Yes JVD (Mild) Resp Effort & Inspection: able to speak in complete sentences Auscultation: wheezes expiratory wheezes and upper bilaterally and diminished lung sounds bilateral in the lower lung hernandez Cardio Jugular venous distension: JVD (Mild) Rhythm: abnormal rhythm ( atrial flutter rate 60- 70s) GI Inspection: Yes normal to inspection and Yes distended Palpation (GI): nontender and no guarding Auscultation: normal bowel sounds Skin General skin exam: ecchymosis (BLE) Neuro General: patient oriented x3 Psych Mental Status: mental status grossly normal Speech and movement: Normal speech and movement present Affect: normal affect Results Labs and Meds Result diagrams: 06/04/20 05:23 06/04/20 05:23 Progress Note: A&P Assessment and plan (1) CHF (congestive heart failure): Status: Acute Assessment and Plan: Volume overloaded by exam. Lower extremity edema improving, however continue to have 3+ edema in BLE. Lung sounds diminished with expiratory wheeze. Continue on Bumex IV 1 mg twice a day. Diuresing with -635 fluid output in 24 hours. Monitor kidney functions and BNP. Blood pressure normalized this morning is 124/66. (2) PAF (paroxysmal atrial fibrillation): Status: Acute Assessment and Plan: Patient's monitor strips reviewed and looking more like A-flutter. Patient on Eliquis for AFib. on renal dose as her renal functions are abnormal. Yesterday BUN 41, creatinine 1.78, BNP 3 3 4. Please monitor kidney functions. Patient w as previously on Plavix that was stopped due to history of GI bleed. History of coronary disease PCI to LAD as well as [employer]. Tele atrial fib to atrial flutter. (3) Acute on chronic diastolic CHF (congestive heart failure): Status: Acute Assessment and Plan: Same as above. Symptoms improving however still volume overloaded on exam this morning. Continue Bumex IV, BNP and BMP in a.m.. Fall Risk Details Current Medications: Current Medications Generic Name Dose Route Start Last Admin Trade Name Freq PRN Reason Stop Dose Admin Acetaminophen 650 mg 06/03/20 17:10 06/05/20 02:24 Acetaminophen 325 Mg Tablet PO 650 mg Q6H PRN Administration Pain, Mild (Pain Scale 1-3) Albuterol Sulfate 2 puff 06/04/20 10:20 Albuterol Sulfate 90 Mcg 8 Gm Inhaler INHALE Q4H PRN Shortness Of Breath Apixaban 2.5 mg 06/04/20 10:20 06/05/20 09:03 Apixaban 2.5 Mg Tablet PO 2.5 mg BID YULIA Administration Atorvastatin Calcium 80 mg 06/04/20 21:00 06/04/20 21:20 Atorvastatin Calcium 80 Mg Tablet PO 80 mg BEDTIME YULIA Administration Bumetanide 1 mg 06/04/20 09:00 06/05/20 09:03 Bumetanide 1 Mg/4 Ml Vial IVPUSH 1 mg BID YULIA Administration Protocol Docusate Sodium 100 mg 06/03/20 17:10 06/05/20 01:09 Docusate Sodium 100 Mg Capsule PO 100 mg DAILY PRN Administration Constipation Ceftriaxone Sodium 1 gm/ 50 mls @ 100 mls/hr 06/04/20 06:00 06/05/20 06:06 Sodium Chloride IV Infused Q24H YULIA Infusion Nifedipine 30 mg 06/04/20 10:20 06/05/20 09:03 Nifedipine Er 30 Mg Tab.Er.24 PO 30 mg DAILY [facility] Administration Protocol Omeprazole 20 mg 06/04/20 06:30 06/05/20 05:22 Omeprazole 20 Mg Capsule. PO Not Given DAILY@0630 [facility] Ondansetron HCl 4 mg 06/03/20 17:10 Ondansetron Hcl 4 Mg/2 Ml Vial IVPUSH Q8H PRN Nausea and Vomiting Sodium Chloride 3 ml 06/04/20 00:00 06/05/20 09:02 0.9 % Sodium Chloride Flush 3 Ml Syringe IVFLUSH 3 ml QSHIFT YULIA Administration Spironolactone 25 mg 06/04/20 10:20 06/05/20 09:03 Spironolactone 25 Mg Tablet PO 25 mg DAILY [facility]ULIA Administration Protocol Time Spent With Patient Time: Total time spent is greater than 50% in coordination of care (as documented) at patient's floor/unit and/or counseling patient: Time with patient: 15 - 24 minutes
--- NOTE | 2020-06-05 12:20 | P.PNIM_ITS ---
Subjective Subjective Date of Service: 06/05/20 Interval History: Seen in f/u for heart failure exacerbation. Swelling is better and has no mild sob Review of Systems Shortness of breath, leg swelling Constitutional Constitutional: Denies chills and Denies fever(s) Cardiovascular Cardiovascular: Denies chest pain and Reports dyspnea Respiratory Respiratory: Denies cough and Reports dyspnea Physical Exam Vital Signs: Vital Signs: Last Vital Signs Temp 97.2 F 06/05/20 11:24 Pulse 55 06/05/20 11:24 Resp 20 06/05/20 11:24 BP 124/66 06/05/20 11:24 Pulse Ox 95 06/05/20 11:24 Body Mass Index 34.7 Const: General: alert and awake Nutritional Appearance: well nourished Resp: Effort & Inspection: tachypneic Auscultation: clear to auscultation bilaterally Cardio: Rhythm: regular rhythm GI: Palpation (GI): Soft to palpation and nontender Skin: General skin exam: no rashes or lesions noted Extrem: Other: b/l pitting edema Objective Data Current Medications Generic Name Dose Route Start Last Admin Trade Name Freq PRN Reason Stop Dose Admin Acetaminophen 650 mg 06/03/20 17:10 06/05/20 02:24 Acetaminophen 325 Mg Tablet PO 650 mg Q6H PRN Administration Pain, Mild (Pain Scale 1-3) Albuterol Sulfate 2 puff 06/04/20 10:20 Albuterol Sulfate 90 Mcg 8 Gm Inhaler INHALE Q4H PRN Shortness Of Breath Apixaban 2.5 mg 06/04/20 10:20 06/05/20 09:03 Apixaban 2.5 Mg Tablet PO 2.5 mg BID YULIA Administration Atorvastatin Calcium 80 mg 06/04/20 21:00 06/04/20 21:20 Atorvastatin Calcium 80 Mg Tablet PO 80 mg BEDTIME YULIA Administration Bumetanide 1 mg 06/04/20 09:00 06/05/20 09:03 Bumetanide 1 Mg/4 Ml Vial IVPUSH 1 mg BID YULIA Administration Protocol Docusate Sodium 100 mg 06/03/20 17:10 06/05/20 01:09 Docusate Sodium 100 Mg Capsule PO 100 mg DAILY PRN Administration Constipation Ceftriaxone Sodium 1 gm/ 50 mls @ 100 mls/hr 06/04/20 06:00 06/05/20 06:06 Sodium Chloride IV Infused Q24H YULIA Infusion Nifedipine 30 mg 06/04/20 10:20 06/05/20 09:03 Nifedipine Er 30 Mg Tab.Er.24 PO 30 mg DAILY [facility] Administration Protocol Omeprazole 20 mg 06/04/20 06:30 06/05/20 05:22 Omeprazole 20 Mg Capsule. PO Not Given DAILY@0630 [facility] Ondansetron HCl 4 mg 06/03/20 17:10 Ondansetron Hcl 4 Mg/2 Ml Vial IVPUSH Q8H PRN Nausea and Vomiting Sodium Chloride 3 ml 06/04/20 00:00 06/05/20 09:02 0.9 % Sodium Chloride Flush 3 Ml Syringe IVFLUSH 3 ml QSHIFT [facility] Administration Spironolactone 25 mg 06/04/20 10:20 06/05/20 09:03 Spironolactone 25 Mg Tablet PO 25 mg DAILY Y[facility]IA Administration Protocol Labs CBC & Chem 7: 06/04/20 05:23 06/04/20 05:23 Microbiology Microbiology Results: Microbiology 06/03/20 14:15 Blood - Venous Blood Culture - Preliminary Gram negative christine 06/03/20 00:00 Urine [place] Urine Culture - Final Escherichia coli 06/03/20 12:46 Blood - Venous Blood Culture - Preliminary Assessment and Plan (1) Acute respiratory failure with hypoxia: Status: Acute (2) Acute on chronic diastolic CHF (congestive heart failure): Status: Acute (3) UTI (urinary tract infection): Status: Acute Assessment and Plan: 85-year-old female old with a history of diastolic CHF, atrial flutter, CKD, CAD, others stents to the emergency department shortness of breath found to have acute exacerbation of CHF, UTI Acute respiratory failure with hypoxia Acute on chronic diastolic CHF Off BiPAP IV Bumex 1 bid for one more day, continue aldactone Cardiology following UTI--culture growing EColi Gram negative christine bacteremia IV ceftriaxone Follow-up urine cultures CKD4 Creatinine at baseline follow chemistries Anemia H/H at baseline A flutter Heart rate controlled Continue Eliquis, nifedipine Hypertension Continue nifedipine, aldactone CAD No chest pain Troponins flat Continue DVT prophylaxis-Eliquis Code status-MOLST form indicates wishes to be full code
[2020-06-05 15:59] VITALS: BP 126/60; PULSE 78; RESP 18; TEMP 36.8; O2SAT 98
[2020-06-05] MEDS: rOPINIRole HCL 0.5 MG TABLET 1.5 MG PO (19:27)
[2020-06-05] MEDS: Atorvastatin Calcium 80 MG TABLET PO (19:27)
[2020-06-05 19:28] VITALS: BP 130/62; PULSE 75; RESP 18; TEMP 37.3; O2SAT 97
[2020-06-06] VITALS (9 sets, daily range): BP systolic 141–179; BP diastolic 64–75; PULSE 58–73; RESP 18–20; TEMP 36.4–37.6; O2SAT 94–99; BMI 32.7
[2020-06-06] MEDS: cefTRIAXone sodium 1 GM in 0.9 % Sodium Chloride 50 ML IV (05:03)
[2020-06-06 07:43] LABS: B Type Natriuretic Peptide 190 pg/mL (<100)
[2020-06-06 07:44] LABS: Anion Gap 15 (12-20); Blood Urea Nitrogen 40 mg/dL (9-16); Calcium 7.7 mg/dL (8.4-10.2); Carbon Dioxide 31 mmol/L (22-29); Chloride 96 mmol/L (96-108); Creatinine Clr Calc Pharmacy 26.8; Estimated Glomerular Filt Rate 30; Glucose Random 117 mg/dL (60-115); Potassium 3.5 mmol/l (3.3-5.1); Sodium 138 mmol/L (135-145)
[2020-06-06] MEDS: NIFEdipine ER 30 MG TAB.ER.24 PO (08:28)
[2020-06-06] MEDS: Bumetanide 1 MG TABLET PO ×2 (08:28→16:21)
[2020-06-06] MEDS: 0.9 % Sodium Chloride Flush 3 ML SYRINGE IVFLUSH ×3 (08:29→19:50)
[2020-06-06] MEDS: Spironolactone 25 MG TABLET PO (08:29)
[2020-06-06] MEDS: Apixaban 2.5 MG TABLET PO ×2 (08:29→19:50)
--- NOTE | 2020-06-06 11:58 | P.PNIM_ITS ---
Subjective Subjective Date of Service: 06/07/20 Interval History: Seen in f/u for heart failure exacerbation. Swelling continues to go down Review of Systems Shortness of breath, leg swelling Constitutional Constitutional: Denies chills and Denies fever(s) Cardiovascular Cardiovascular: Denies chest pain, Denies dyspnea and Reports dyspnea on exertion Respiratory Respiratory: Denies cough, Denies dyspnea and Reports dyspnea on exertion Physical Exam Vital Signs: Vital Signs: Last Vital Signs Temp 97.6 F 06/06/20 11:40 Pulse 66 06/06/20 11:40 Resp 18 06/06/20 11:40 BP 179/75 H 06/06/20 11:40 Pulse Ox 95 06/06/20 11:40 Body Mass Index 32.7 Const: General: alert and awake Nutritional Appearance: well nourished Chest: Chest palpation & inspection: normal inspection of the chest Resp: Effort & Inspection: tachypneic Auscultation: clear to auscultation bilaterally Cardio: Rate: regular rate Rhythm: regular rhythm GI: Palpation (GI): Soft to palpation and nontender Skin: General skin exam: no rashes or lesions noted Extrem: Other: b/l pitting edema better Objective Data Current Medications Generic Name Dose Route Start Last Admin Trade Name Freq PRN Reason Stop Dose Admin Acetaminophen 650 mg 06/03/20 17:10 06/05/20 02:24 Acetaminophen 325 Mg Tablet PO 650 mg Q6H PRN Administration Pain, Mild (Pain Scale 1-3) Albuterol Sulfate 2 puff 06/04/20 10:20 Albuterol Sulfate 90 Mcg 8 Gm Inhaler INHALE Q4H PRN Shortness Of Breath Apixaban 2.5 mg 06/04/20 10:20 06/06/20 08:29 Apixaban 2.5 Mg Tablet PO 2.5 mg BID YULIA Administration Atorvastatin Calcium 80 mg 06/04/20 21:00 06/05/20 19:27 Atorvastatin Calcium 80 Mg Tablet PO 80 mg BEDTIME YULIA Administration Bumetanide 1 mg 06/06/20 08:00 06/06/20 08:28 Bumetanide 1 Mg Tablet PO 1 mg BID@0800,1700 YULIA Administration Protocol Docusate Sodium 100 mg 06/03/20 17:10 06/05/20 19:34 Docusate Sodium 100 Mg Capsule PO 100 mg DAILY PRN Administration Constipation Docusate Sodium 100 mg 06/06/20 12:00 Docusate Sodium 100 Mg Capsule PO BID [facility] Ceftriaxone Sodium 1 gm/ 50 mls @ 100 mls/hr 06/04/20 06:00 06/06/20 05:34 Sodium Chloride IV Infused Q24H [facility] Infusion Magnesium Hydroxide 30 ml 06/06/20 11:56 Milk Of Magnesia 30 Ml Oral.Susp PO DAILY PRN Constipation Nifedipine 30 mg 06/04/20 10:20 06/06/20 08:28 Nifedipine Er 30 Mg Tab.Er.24 PO 30 mg DAILY [facility] Administration Protocol Omeprazole 20 mg 06/04/20 06:30 06/06/20 05:34 Omeprazole 20 Mg Capsule.Dr PO Not Given DAILY@0630 [facility] Ondansetron HCl 4 mg 06/03/20 17:10 Ondansetron Hcl 4 Mg/2 Ml Vial IVPUSH Q8H PRN Nausea and Vomiting Polyethylene Glycol 17 gm 06/06/20 11:56 Polyethylene Glycol 3350 17 Gm Powd.Pack PO DAILY PRN Constipation Ropinirole HCl 0.5 mg 06/06/20 16:00 Ropinirole Hcl 0.5 Mg Tablet PO DAILY@1600 [facility] Ropinirole HCl 1.5 mg 06/05/20 19:00 06/05/20 19:27 Ropinirole Hcl 0.5 Mg Tablet PO 1.5 mg DAILY@1900 [facility] Administration Sodium Chloride 3 ml 06/04/20 00:00 06/06/20 08:29 0.9 % Sodium Chloride Flush 3 Ml Syringe IVFLUSH 3 ml QSHIFT [facility] Administration Spironolactone 25 mg 06/04/20 10:20 06/06/20 08:29 Spironolactone 25 Mg Tablet PO 25 mg DAILY [facility] Administration Protocol Labs CBC & Chem 7: 06/04/20 05:23 06/07/20 06:13 Microbiology Microbiology Results: Microbiology 06/03/20 12:46 Blood - Venous Blood Culture - Final Coag negative Staphylococcus 06/03/20 14:15 Blood - Venous Blood Culture - Final Escherichia coli 06/03/20 00:00 Urine [place] Urine Culture - Final Escherichia coli Assessment and Plan (1) Acute respiratory failure with hypoxia: Status: Acute (2) Acute on chronic diastolic CHF (congestive heart failure): Status: Acute (3) UTI (urinary tract infection): Status: Acute Assessment and Plan: 85-year-old female old with a history of diastolic CHF, atrial flutter, CKD, CAD, others stents to the emergency department shortness of breath found to have acute exacerbation of CHF, UTI Acute respiratory failure with hypoxia Acute on chronic diastolic CHF IV Bumex 1 to oral Bumex 1 bid , continue aldactone Cardiology following. check labs UTI--culture growing EColi Coga negative staph bacteremia--conamination change IV Ceftriaxone to PO Ceftin 250 bid Follow-up urine cultures CKD4 Creatinine at baseline follow chemistries Anemia H/H at baseline A flutter Heart rate controlled Continue Eliquis, nifedipine Hypertension Continue nifedipine, aldactone CAD No chest pain Troponins flat Continue DVT prophylaxis-Eliquis D/C in the morning Code status-MOLST form indicates wishes to be full code
[2020-06-06] MEDS: Milk of Magnesia 30 ML ORAL.SUSP PO (13:37)
[2020-06-06] MEDS: Docusate Sodium 100 MG CAPSULE PO ×2 (13:37→19:50)
[2020-06-06] MEDS: rOPINIRole HCL 0.5 MG TABLET PO (16:21)
--- NOTE | 2020-06-06 18:53 | P.PNCA_ITS ---
Subjective Subjective Date of Service: 06/06/20 Principal diagnosis: Congestive heart failure, AFib Interval history: She is saying she is feeling better. No chest pain. Edema improving. On p.o. Bumex now. Blood pressure is still elevated. Review of Systems Reports system reviewed and no additional complaints, except as documented Physical Exam Vital Signs: Last Vital Signs Temp 98.4 F 06/06/20 15:30 Pulse 71 06/06/20 15:30 Resp 19 06/06/20 15:30 BP 150/67 H 06/06/20 15:30 Pulse Ox 95 06/06/20 15:30 Body Mass Index 32.7 GENERAL APPEARANCE: Breathing better. HEENT: unremarkable. HEAD: normocephalic, atraumatic. NECK/THYROID: no carotid bruit, no significant JVD. SKIN: no suspicious lesions, warm and dry. HEART: regular rate and rhythm, S1, S2 normal. LUNGS: Crackles at bases. ABDOMEN: normal, bowel sounds present, soft, nontender, nondistended. EXTREMITIES: no clubbing, cyanosis. 1+ pedal edema. PERIPHERAL PULSES: equal. NEUROLOGIC: nonfocal, alert and oriented. PSYCH: mood/affect full range. Results Labs and Meds Result diagrams: 06/04/20 05:23 06/06/20 05:33 Lab results: Laboratory Results - last 24 hr 06/06/20 06/06/20 05:33 05:33 Sodium 138 Potassium 3.5 Chloride 96 Carbon Dioxide 31 H Anion Gap 15 BUN 40 H Creatinine 1.63 H Estim Creat Clear Calc 26.8 Estimated GFR 30 Random Glucose 117 H Calcium 7.7 L B-Natriuretic Peptide 190 H Progress Note: A&P Assessment and plan (1) CHF (congestive heart failure): Status: Acute Assessment and Plan: 85-year-old female who is presenting with shortness of breath and hypoxia and clinical heart failure. She has known history of heart failure and coronary disease with previous LAD PCI. She has SIGN ARTIST of the right coronary artery. She was significantly volume overloaded but is improving with diuresis. She has been changed back to oral Bumex which is appropriate. Her blood pressure is elevated and I think we can go back to her home dose of nifedipine 60 mg once a day. Continue anticoagulation as before for AFib. Thank you for allowing me to participate in the care of your patient. Please feel free to contact me if you have any questions. Fall Risk Details Current Medications: Current Medications Generic Name Dose Route Start Last Admin Trade Name Freq PRN Reason Stop Dose Admin Acetaminophen 650 mg 06/03/20 17:10 06/05/20 02:24 Acetaminophen 325 Mg Tablet PO 650 mg Q6H PRN Administration Pain, Mild (Pain Scale 1-3) Albuterol Sulfate 2 puff 06/04/20 10:20 Albuterol Sulfate 90 Mcg 8 Gm Inhaler INHALE Q4H PRN Shortness Of Breath Apixaban 2.5 mg 06/04/20 10:20 06/06/20 08:29 Apixaban 2.5 Mg Tablet PO 2.5 mg BID YULIA Administration Atorvastatin Calcium 80 mg 06/04/20 21:00 06/05/20 19:27 Atorvastatin Calcium 80 Mg Tablet PO 80 mg BEDTIME YULIA Administration Bumetanide 1 mg 06/06/20 08:00 06/06/20 16:21 Bumetanide 1 Mg Tablet PO 1 mg BID@0800,1700 [facility] Administration Protocol Cefuroxime Axetil 250 mg 06/07/20 08:00 Cefuroxime Axetil 250 Mg Tablet PO Q12H [facility] Docusate Sodium 100 mg 06/03/20 17:10 06/05/20 19:34 Docusate Sodium 100 Mg Capsule PO 100 mg DAILY PRN Administration Constipation Docusate Sodium 100 mg 06/06/20 12:00 06/06/20 13:37 Docusate Sodium 100 Mg Capsule PO 100 mg BID YULIA Administration Magnesium Hydroxide 30 ml 06/06/20 11:56 06/06/20 13:37 Milk Of Magnesia 30 Ml Oral.Susp PO 30 ml DAILY PRN Administration Constipation Nifedipine 30 mg 06/04/20 10:20 06/06/20 08:28 Nifedipine Er 30 Mg Tab.Er.24 PO 30 mg DAILY [facility] Administration Protocol Omeprazole 20 mg 06/04/20 06:30 06/06/20 05:34 Omeprazole 20 Mg Capsule.Dr PO Not Given DAILY@0630 [facility] Ondansetron HCl 4 mg 06/03/20 17:10 Ondansetron Hcl 4 Mg/2 Ml Vial IVPUSH Q8H PRN Nausea and Vomiting Polyethylene Glycol 17 gm 06/06/20 11:56 Polyethylene Glycol 3350 17 Gm Powd.Pack PO DAILY PRN Constipation Ropinirole HCl 0.5 mg 06/06/20 16:00 06/06/20 16:21 Ropinirole Hcl 0.5 Mg Tablet PO 0.5 mg DAILY@1600 [facility] Administration Ropinirole HCl 1.5 mg 06/05/20 19:00 06/05/20 19:27 Ropinirole Hcl 0.5 Mg Tablet PO 1.5 mg DAILY@1900 [facility] Administration Sodium Chloride 3 ml 06/04/20 00:00 06/06/20 16:22 0.9 % Sodium Chloride Flush 3 Ml Syringe IVFLUSH 3 ml QSHIFT [facility] Administration Spironolactone 25 mg 06/04/20 10:20 06/06/20 08:29 Spironolactone 25 Mg Tablet PO 25 mg DAILY [facility] Administration Protocol Time Spent With Patient Time: Total time spent is greater than 50% in coordination of care (as documented) at patient's floor/unit and/or counseling patient: Time with patient: less than 15 minutes
[2020-06-06] MEDS: Atorvastatin Calcium 80 MG TABLET PO (19:50)
[2020-06-06] MEDS: rOPINIRole HCL 0.5 MG TABLET 1.5 MG PO (19:51)
[2020-06-07] VITALS (7 sets, daily range): BP systolic 115–156; BP diastolic 54–86; PULSE 50–75; RESP 18–20; TEMP 36.2–37.2; O2SAT 92–100; BMI 32.3
[2020-06-07] MEDS: polyethylene glycoL 3350 17 GM POWD.PACK PO (04:50)
[2020-06-07 07:13] LABS: Anion Gap 15 (12-20); Blood Urea Nitrogen 38 mg/dL (9-16); Carbon Dioxide 31 mmol/L (22-29); Chloride 96 mmol/L (96-108); Creatinine Clr Calc Pharmacy 26.9; Estimated Glomerular Filt Rate 30; Glucose Random 108 mg/dL (60-115); Sodium 138 mmol/L (135-145)
[2020-06-07] MEDS: Spironolactone 25 MG TABLET PO (08:58)
[2020-06-07] MEDS: Docusate Sodium 100 MG CAPSULE PO ×3 (08:58→20:09)
[2020-06-07] MEDS: Bumetanide 1 MG TABLET PO ×2 (08:58→15:59)
[2020-06-07] MEDS: 0.9 % Sodium Chloride Flush 3 ML SYRINGE IVFLUSH ×3 (08:59→20:09)
[2020-06-07] MEDS: Apixaban 2.5 MG TABLET PO ×2 (08:59→20:08)
[2020-06-07] MEDS: NIFEdipine ER 60 MG TAB.ER.24 PO (08:59)
--- NOTE | 2020-06-07 09:14 | PC.NURSE ---
tristen removed at 0900. dtv #1 at 1500. Call ortega in reach.
--- NOTE | 2020-06-07 09:56 | PM.DS ---
DS: Providers Provider Date of Service: 06/28/20 Date of admission: 06/03/20 17:10 Primary care physician: Unknown Physician Consults: 06/03/20 17:10 Consult to Cardiology Routine Consulting Provider: Manjeet Nicholas Reason for consultation: CHF Has provider been notified: No DS: Diagnosis Discharge Diagnosis (1) Acute respiratory failure with hypoxia: Status: Acute (2) Acute on chronic diastolic CHF (congestive heart failure): Status: Acute (3) UTI (urinary tract infection): Status: Acute DS: Medications Discharge Medications Home Medications: Home Medications Medication Instructions Recorded Confirmed albuterol sulfate [ProAir HFA] 2 puff INHALATION Q4-6H PRN 06/03/20 06/03/20 apixaban [Eliquis] 2.5 mg PO BID 06/03/20 06/03/20 atorvastatin 80 mg PO BEDTIME 06/03/20 06/03/20 bumetanide 1 mg PO QAM 06/03/20 06/03/20 calcitriol 0.25 mcg PO TUTH@0900 06/03/20 06/03/20 ferrous sulfate 325 mg PO DAILY 06/03/20 06/03/20 fluticasone propion-salmeterol 1 INHALATION BID 06/03/20 [Advair Diskus] folic acid 1 mg PO DAILY 06/03/20 06/03/20 hydralazine 100 mg PO TID 06/03/20 06/03/20 ipratropium-albuterol [Combivent 1 puff INHALATION Q6H 06/03/20 06/03/20 Respimat] isosorbide mononitrate 60 mg PO DAILY 06/03/20 06/03/20 nifedipine [Nifedical XL] 60 mg PO DAILY 06/03/20 06/03/20 pantoprazole 40 mg PO DAILY 06/03/20 06/03/20 potassium chloride 27 meq PO BID 06/03/20 06/03/20 prednisone 15 mg PO DAILY 06/03/20 06/03/20 spironolactone 25 mg PO DAILY 06/03/20 06/03/20 vit C,T-Ku-acxpu-lutein-zeaxan 1 tab PO BID 06/03/20 06/03/20 [PreserVision AREDS-2] ropinirole 0.5 mg PO DAILY@1600 06/05/20 06/05/20 ropinirole 1.5 mg PO DAILY@1900 06/05/20 06/05/20 DS: Summary Hospital Course Hospital Course: HPI:Chief Complaint: Shortness of breath. <DEYSI Trejo - Last Filed: 06/03/20 17:42> This is an 85-year-old female who was brought to the emergency department by ambulance due to shortness of breath. She reports a past few nights she has had shortness of breath while sleeping and also with exertion. Today her breathing was especially bad. Her Bumex was held for the past 2 days by the doctor at [facility] because she was urinating too frequently and was ?too much for her.? EMS noted hypoxia with an oxygen saturation in the 80s and she was placed on CPAP EN route to the hospital. She was transitioned over to BiPAP in the emergency department. Lab work revealed leukocytosis of 17.3. Serum creatinine was 1.96 with which is within her baseline. Her cardiac enzymes remained flat. Her BNP was 260. Chest x-ray was unremarkable. Urinalysis was suggestive of UTI although patient denied any dysuria. She was started on IV ceftriaxone and also diuresed with IV Bumex. She was able to be weaned off the BiPAP to 3.5 L nasal cannula. Hospital course: Acute respiratory failure with hypoxia--due to a acute on chronic diastolic heart failure. Heart failure was managed with IV Bumex of 1 mg daily. She has significantly improved and at this point will be transitioned to oral Bumex at 1 mg twice a day which is double of her usual dose at home. Patient was seen in consultation by Cardiology. She will continue her Aldactone as well. Potassium level is normal. UTI--culture growing EColi--culture growing E coli that is multidrug sensitive. She has been on ceftriaxone while in the hospital. Will transition to oral Ceftin at discharge. CKD4--stable Anemia of chronic disease H/H at baseline A flutter Heart rate controlled Continue Eliquis, nifedipine Hypertension Continue nifedipine, aldactone CAD--stable. Patient will be going to short-term rehab before going back to her assisted living. Covid test is negative. Time Spent with Patient Time attestation: Total time spent providing and/or coordinating discharge services: Discharge coordination time: Greater than 30 minutes Physical Exam Vital Signs: Vital Signs: Last Vital Signs Temp 97.3 F 06/07/20 07:43 Pulse 50 06/07/20 07:43 Resp 20 06/07/20 07:43 BP 153/60 H 06/07/20 07:43 Pulse Ox 92 06/07/20 07:43 Body Mass Index 32.3 DS: Data Data Completed and Pending Labs on day of discharge: Laboratory Tests 06/03/20 06/03/20 06/03/20 12:45 12:45 12:45 WBC 17.3 H RBC 3.57 L Hgb 11.0 L Hct 34.7 L MCV 97.2 MCH 30.8 MCHC 31.7 RDW 15.9 Plt Count 196 MPV 9.5 Immature Gran % (Auto) 0.8 H Neut % (Auto) 82.9 H Lymph % (Auto) 5.4 L [place] % (Auto) 10.7 Eos % (Auto) 0.1 Baso % (Auto) 0.1 Lymph # (Auto) 0.9 L [place] # (Auto) 1.9 H Eos # (Auto) 0.0 Baso # (Auto) 0.0 Abs Immat Gran (auto) 0.13 H Absolute Neuts (auto) 14.3 H Absolute Nucleated RBC 0.000 Nucleated RBC % (auto) 0.0 Smear Tech's Comments VERIFIED PT INR APTT Sodium 137 Potassium 4.7 Chloride 99 Carbon Dioxide 27 Anion Gap 16 BUN 48 H Creatinine 1.96 H Estim Creat Clear Calc 23.0 Estimated GFR 24 Random Glucose 142 H Lactic Acid Calcium 8.4 Total Bilirubin 1.2 H Direct Bilirubin 0.7 H AST 28 ALT 20 Alkaline Phosphatase 131 H D Troponin I High Sens 25.9 H B-Natriuretic Peptide 260 H Total Protein 6.3 L Albumin 3.4 L Urine Color Urine Appearance Urine pH Ur Specific Nikolai Urine Protein Urine Glucose (UA) Urine Ketones Urine Blood Urine Nitrite Ur Leukocyte Esterase Urine RBC Urine WBC Ur Squamous Epith Cells Urine Bacteria Coronavirus (PCR) Influenza Type A (PCR) Influenza Type B (PCR) RSV RNA Qual (PCR) 06/03/20 06/03/20 06/03/20 12:45 12:45 12:46 WBC RBC Hgb Hct MCV MCH MCHC RDW Plt Count MPV Immature Gran % (Auto) Neut % (Auto) Lymph % (Auto) [place] % (Auto) Eos % (Auto) Baso % (Auto) Lymph # (Auto) [place] # (Auto) Eos # (Auto) Baso # (Auto) Abs Immat Gran (auto) Absolute Neuts (auto) Absolute Nucleated RBC Nucleated RBC % (auto) Smear Tech's Comments PT 17.1 H INR 1.4 H APTT 33.3 Sodium Potassium Chloride Carbon Dioxide Anion Gap BUN Creatinine Estim Creat Clear Calc Estimated GFR Random Glucose Lactic Acid 1.1 Calcium Total Bilirubin 1.2 H Direct Bilirubin AST ALT Alkaline Phosphatase Troponin I High Sens B-Natriuretic Peptide Total Protein Albumin Urine Color Urine Appearance Urine pH Ur Specific [place]ai Urine Protein Urine Glucose (UA) Urine Ketones Urine Blood Urine Nitrite Ur Leukocyte Esterase Urine RBC Urine WBC Ur Squamous Epith Cells Urine Bacteria Coronavirus (PCR) Influenza Type A (PCR) Influenza Type B (PCR) RSV RNA Qual (PCR) 06/03/20 06/03/20 06/03/20 12:49 13:03 14:40 WBC RBC Hgb Hct MCV MCH MCHC RDW Plt Count MPV Immature Gran % (Auto) Neut % (Auto) Lymph % (Auto) [place] % (Auto) Eos % (Auto) Baso % (Auto) Lymph # (Auto) [place] # (Auto) Eos # (Auto) Baso # (Auto) Abs Immat Gran (auto) Absolute Neuts (auto) Absolute Nucleated RBC Nucleated RBC % (auto) Smear Tech's Comments PT INR APTT Sodium Potassium Chloride Carbon Dioxide Anion Gap BUN Creatinine Estim Creat Clear Calc Estimated GFR Random Glucose Lactic Acid Calcium Total Bilirubin Direct Bilirubin AST ALT Alkaline Phosphatase Troponin I High Sens 23.8 H B-Natriuretic Peptide Total Protein Albumin Urine Color YELLOW Urine Appearance CLOUDY Urine pH 6.0 Ur Specific Nikolai 1.015 Urine Protein 1+ H Urine Glucose (UA) NEG Urine Ketones NEG Urine Blood NEG Urine Nitrite NEG Ur Leukocyte Esterase 2+ H Urine RBC 0-2 Urine WBC TNTC H Ur Squamous Epith Cells NONE Urine Bacteria 3+ Coronavirus (PCR) NEGATIVE Influenza Type A (PCR) NEGATIVE Influenza Type B (PCR) NEGATIVE RSV RNA Qual (PCR) NEGATIVE 06/04/20 06/04/20 06/04/20 05:23 05:23 05:23 WBC 14.1 H RBC 3.43 L Hgb 10.6 L Hct 33.2 L MCV 96.8 MCH 30.9 MCHC 31.9 RDW 15.8 Plt Count 180 MPV 9.5 Immature Gran % (Auto) 0.6 H Neut % (Auto) 84.6 H Lymph % (Auto) 5.6 L [place] % (Auto) 8.8 Eos % (Auto) 0.3 Baso % (Auto) 0.1 Lymph # (Auto) 0.8 L [place] # (Auto) 1.2 Eos # (Auto) 0.0 Baso # (Auto) 0.0 Abs Immat Gran (auto) 0.08 H Absolute Neuts (auto) 11.9 H Absolute Nucleated RBC 0.000 Nucleated RBC % (auto) 0.0 Smear Tech's Comments PT INR APTT Sodium 138 Potassium 3.9 Chloride 97 Carbon Dioxide 30 H Anion Gap 15 BUN 41 H Creatinine 1.78 H Estim Creat Clear Calc 25.3 Estimated GFR 27 Random Glucose 118 H Lactic Acid Calcium 8.0 L Total Bilirubin Direct Bilirubin AST ALT Alkaline Phosphatase Troponin I High Sens B-Natriuretic Peptide 334 H Total Protein Albumin Urine Color Urine Appearance Urine pH Ur Specific Nikolai Urine Protein Urine Glucose (UA) Urine Ketones Urine Blood Urine Nitrite Ur Leukocyte Esterase Urine RBC Urine WBC Ur Squamous Epith Cells Urine Bacteria Coronavirus (PCR) Influenza Type A (PCR) Influenza Type B (PCR) RSV RNA Qual (PCR) 06/06/20 06/06/20 06/07/20 05:33 05:33 06:13 WBC RBC Hgb Hct MCV MCH MCHC RDW Plt Count MPV Immature Gran % (Auto) Neut % (Auto) Lymph % (Auto) [place] % (Auto) Eos % (Auto) Baso % (Auto) Lymph # (Auto) [place] # (Auto) Eos # (Auto) Baso # (Auto) Abs Immat Gran (auto) Absolute Neuts (auto) Absolute Nucleated RBC Nucleated RBC % (auto) Smear Tech's Comments PT INR APTT Sodium 138 138 Potassium 3.5 4.0 Chloride 96 96 Carbon Dioxide 31 H 31 H Anion Gap 15 15 BUN 40 H 38 H Creatinine 1.63 H 1.61 H Estim Creat Clear Calc 26.8 26.9 Estimated GFR 30 30 Random Glucose 117 H 108 Lactic Acid Calcium 7.7 L 8.0 L Total Bilirubin Direct Bilirubin AST ALT Alkaline Phosphatase Troponin I High Sens B-Natriuretic Peptide 190 H Total Protein Albumin Urine Color Urine Appearance Urine pH Ur Specific [place]ai Urine Protein Urine Glucose (UA) Urine Ketones Urine Blood Urine Nitrite Ur Leukocyte Esterase Urine RBC Urine WBC Ur Squamous Epith Cells Urine Bacteria Coronavirus (PCR) Influenza Type A (PCR) Influenza Type B (PCR) RSV RNA Qual (PCR) Discharge Plan Discharge Anticipated Discharge Date/Time: 06/08/20 10:56 Patient Disposition: [facility] Referrals: Physician,Unknown [Primary Care Provider] - Discharge Medications: New docusate sodium [Colace] 100 mg capsule 100 mg PO BID Qty: 60 RF: 0 polyethylene glycol 3350 [Miralax] 17 gram/dose powder 17 g PO DAILY PRN (Reason: constipation) Qty: 238 RF: 0 Continued atorvastatin 80 mg Tablet 80 mg PO BEDTIME RF: 0 pantoprazole 40 mg Tablet,Delayed Release (Dr/Ec) 40 mg PO DAILY RF: 0 Eliquis 2.5 mg Tablet 2.5 mg PO BID RF: 0 nifedipine 30 mg Tablet Extended Release 24hr 60 mg PO DAILY RF: 0 spironolactone 25 mg Tablet 25 mg PO DAILY RF: 0 albuterol sulfate [ProAir HFA] 90 mcg/actuation Hfa Aerosol Inhaler 2 puff INHALATION Q4-6H PRN (Reason: Shortness Of Breath) RF: 0 calcitriol 0.25 mcg Capsule 0.25 mcg PO TUTH@0900 RF: 0 prednisone 10 mg Tablet 15 mg PO DAILY RF: 0 fluticasone propion-salmeterol [Advair Diskus] 250-50 mcg/dose Blister With Device 1 INHALATION BID RF: 0 potassium chloride 40 mEq/15 mL Liquid 27 meq PO BID RF: 0 ferrous sulfate 325 mg (65 mg iron) Tablet 325 mg PO DAILY RF: 0 folic acid 1 mg Tablet 1 mg PO DAILY RF: 0 hydralazine 50 mg Tablet 100 mg PO TID RF: 0 isosorbide mononitrate 60 mg Tablet Extended Release 24 Hr 60 mg PO DAILY RF: 0 PreserVision AREDS-2 [id number] Capsule 1 tab PO BID RF: 0 Combivent Respimat 20-100 mcg/actuation Mist 1 puff INHALATION Q6H RF: 0 ropinirole 0.5 mg tablet 0.5 mg PO DAILY@1600 RF: 0 ropinirole 0.5 mg tablet 1.5 mg PO DAILY@1900 RF: 0 Changed bumetanide 1 mg Tablet 1 mg PO BID Qty: 0 RF: 0 Discharge Orders: Discharge Order (Routine); Ordered 06/08/20 Ordered By: Lasha Frye Diet: advance to usual diet and low salt diet Activity on Discharge: As tolerated Visit Report Forms: Patient Portal Discharge page Care Plan Goals: Prevent flare of heart failure and rehospitalization. Health Concerns: Chronic heart failure Plan of Treatment: Taking medication as directed (Bumex has been increased to 1 mg twice a day). Follow-up with her primary care doctor within a week, call for appointment. Discharge Date/Time: 06/08/20 17:50
[2020-06-07] MEDS: Mineral OiL enema 133 ML ENEMA PR (12:17)
[2020-06-07 12:44] LABS: COVID-19 Test Negative (Negative)
--- NOTE | 2020-06-07 13:46 | MHC.CM.PN ---
CM met with pt this morning to discuss DC planning. Pt reported she feels she needs STR but does not know what facilities are contracted with her [facility] insurance. CM provided a list of contracted facilities from [facility]. Pt is aware referrals will be made to preferred facilities however a PT eval would be necessary in order to obtain insurance authorization. Pt has requested referrals be sent to [facility]. PT eval still pending as pt was unable to complete the first one attempted. Referrals were placed and they will review however cannot offer a bed until they receive pts eval.
--- NOTE | 2020-06-07 15:44 | PC.NURSE ---
P: patient reports constipation. I: Had been previously medicated with milk of mag yesterday, miralax this AM and is on scheduled colace. Requesting enema. Dr. Frye notified. Fleets enema ordered and given. E: No results from enema. Encouraged patient oob to BR but unable even with PT assistance.Patient requesting manual disimpaction. Dr. Frye notified. Attempt made for small amount hard stool. Patient reported too much pain and refused further disimpaction. Barrier cream applied to reddend buttocks.
[2020-06-07] MEDS: rOPINIRole HCL 0.5 MG TABLET PO (15:59)
[2020-06-07] MEDS: Milk of Magnesia 30 ML ORAL.SUSP PO (16:01)
--- NOTE | 2020-06-07 16:26 | MHC.CM.PN ---
[facility] OFFERING PT A BED HOWEVER [facility] HAS NOT YET PROVIDED AUTH. CURRENT DC PLAN IS FOR PT TO GO TO [facility] FOR STR ON SUNDAY VIA BLS
--- NOTE | 2020-06-07 18:03 | P.PNIM_ITS ---
Subjective Subjective Date of Service: 06/07/20 Interval History: Seen in f/u for heart failure exacerbation. Overall better. Legs swelling are better. Feel constipated Review of Systems Shortness of breath, leg swelling Constitutional Constitutional: Reports no additional constitutional complaints, Denies chills and Denies fever(s) Cardiovascular Cardiovascular: Denies chest pain, Reports leg edema, Denies dyspnea and Reports dyspnea on exertion Respiratory Respiratory: Reports no additional respiratory complaints, Denies cough, Denies dyspnea and Reports dyspnea on exertion Gastrointestinal Gastrointestinal: Reports no additional gastrointestinal complaints and Denies abdominal pain Musculoskeletal Musculoskeletal: Reports no additional musculoskeletal complaints Neurologic Neurologic: Reports system reviewed and no additional complaints, except as documented and Reports Abnormal speech present Psychiatric Psychiatric: Reports no additional psychiatric complaints Physical Exam Vital Signs: Vital Signs: Last Vital Signs Temp 98.2 F 06/07/20 16:00 Pulse 75 06/07/20 16:00 Resp 19 06/07/20 16:00 BP 115/86 06/07/20 16:00 Pulse Ox 93 06/07/20 16:00 Body Mass Index 32.3 Const: General: alert and awake Nutritional Appearance: well nourished Chest: Chest palpation & inspection: normal inspection of the chest Resp: Effort & Inspection: tachypneic Auscultation: clear to auscultation bilaterally Cardio: Rate: regular rate Rhythm: regular rhythm GI: Palpation (GI): Soft to palpation and nontender Skin: General skin exam: no rashes or lesions noted Neuro: Speech: Abnormal speech present Extrem: Other: b/l pitting edema better Objective Data Current Medications Generic Name Dose Route Start Last Admin Trade Name Freq PRN Reason Stop Dose Admin Acetaminophen 650 mg 06/03/20 17:10 06/05/20 02:24 Acetaminophen 325 Mg Tablet PO 650 mg Q6H PRN Administration Pain, Mild (Pain Scale 1-3) Albuterol Sulfate 2 puff 06/04/20 10:20 Albuterol Sulfate 90 Mcg 8 Gm Inhaler INHALE Q4H PRN Shortness Of Breath Apixaban 2.5 mg 06/04/20 10:20 06/07/20 08:59 Apixaban 2.5 Mg Tablet PO 2.5 mg BID YULIA Administration Atorvastatin Calcium 80 mg 06/04/20 21:00 06/06/20 19:50 Atorvastatin Calcium 80 Mg Tablet PO 80 mg BEDTIME YULIA Administration Bumetanide 1 mg 06/06/20 08:00 06/07/20 15:59 Bumetanide 1 Mg Tablet PO 1 mg BID@0800,1700 [facility] Administration Protocol Cefuroxime Axetil 250 mg 06/07/20 08:00 06/07/20 08:58 Cefuroxime Axetil 250 Mg Tablet PO 250 mg Q12H YULIA Administration Docusate Sodium 100 mg 06/03/20 17:10 06/05/20 19:34 Docusate Sodium 100 Mg Capsule PO 100 mg DAILY PRN Administration Constipation Docusate Sodium 100 mg 06/06/20 12:00 06/07/20 08:58 Docusate Sodium 100 Mg Capsule PO 100 mg BID YULIA Administration Magnesium Hydroxide 30 ml 06/06/20 11:56 06/07/20 16:01 Milk Of Magnesia 30 Ml Oral.Susp PO 30 ml DAILY PRN Administration Constipation Nifedipine 60 mg 06/07/20 09:00 06/07/20 08:59 Nifedipine Er 60 Mg Tab.Er.24 PO 60 mg DAILY [facility] Administration Protocol Omeprazole 20 mg 06/04/20 06:30 06/07/20 03:38 Omeprazole 20 Mg Capsule.Dr PO Not Given DAILY@0630 [facility] Ondansetron HCl 4 mg 06/03/20 17:10 Ondansetron Hcl 4 Mg/2 Ml Vial IVPUSH Q8H PRN Nausea and Vomiting Polyethylene Glycol 17 gm 06/06/20 11:56 06/07/20 04:50 Polyethylene Glycol 3350 17 Gm Powd.Pack PO 17 gm DAILY PRN Administration Constipation Ropinirole HCl 0.5 mg 06/06/20 16:00 06/07/20 15:59 Ropinirole Hcl 0.5 Mg Tablet PO 0.5 mg DAILY@1600 YULIA Administration Ropinirole HCl 1.5 mg 06/05/20 19:00 06/06/20 19:51 Ropinirole Hcl 0.5 Mg Tablet PO 1.5 mg DAILY@1900 [facility] Administration Sodium Chloride 3 ml 06/04/20 00:00 06/07/20 15:59 0.9 % Sodium Chloride Flush 3 Ml Syringe IVFLUSH 3 ml QSHIFT YULIA Administration Spironolactone 25 mg 06/04/20 10:20 06/07/20 08:58 Spironolactone 25 Mg Tablet PO 25 mg DAILY YULIA Administration Protocol Labs CBC & Chem 7: 06/04/20 05:23 06/07/20 06:13 Microbiology Microbiology Results: Microbiology 06/03/20 12:46 Blood - Venous Blood Culture - Final Coag negative Staphylococcus 06/03/20 14:15 Blood - Venous Blood Culture - Final Escherichia coli 06/03/20 00:00 Urine [place] Urine Culture - Final Escherichia coli Assessment and Plan (1) Acute respiratory failure with hypoxia: Status: Acute (2) Acute on chronic diastolic CHF (congestive heart failure): Status: Acute (3) UTI (urinary tract infection): Status: Acute Assessment and Plan: 85-year-old female old with a history of diastolic CHF, atrial flutter, CKD, CAD, others stents to the emergency department shortness of breath found to have acute exacerbation of CHF, UTI Acute respiratory failure with hypoxia Acute on chronic diastolic CHF Diuresse with IV Bumex and now on PO Cardiology following. UTI--culture growing EColi Coga negative staph bacteremia--conamination change IV Ceftriaxone to PO Ceftin 250 bid Follow-up urine cultures CKD4 Creatinine at baseline follow chemistries Anemia H/H at baseline A flutter Heart rate controlled Continue Eliquis, nifedipine Hypertension Continue nifedipine, aldactone CAD No chest pain Troponins flat Continue Constipation--Bowerl regimen DVT prophylaxis-Eliquis D/C in the morning Code status-MOLST form indicates wishes to be full code
[2020-06-07] MEDS: rOPINIRole HCL 0.5 MG TABLET 1.5 MG PO (18:27)
[2020-06-07] MEDS: Lactulose 20 GM/30 ML SOLUTION PO (18:27)
[2020-06-07] MEDS: Atorvastatin Calcium 80 MG TABLET PO (20:08)
[2020-06-07] MEDS: Acetaminophen 325 MG TABLET 650 MG PO (21:13)
[2020-06-08] VITALS (9 sets, daily range): BP systolic 133–183; BP diastolic 45–65; PULSE 56–82; RESP 16–18; TEMP 36.3–37; O2SAT 94–98; BMI 32.5
[2020-06-08] MEDS: Omeprazole 20 MG CAPSULE.DR PO (04:38)
[2020-06-08] MEDS: polyethylene glycoL 3350 17 GM POWD.PACK PO (04:41)
[2020-06-08] MEDS: Spironolactone 25 MG TABLET PO (07:54)
[2020-06-08] MEDS: 0.9 % Sodium Chloride Flush 3 ML SYRINGE IVFLUSH (07:54)
[2020-06-08] MEDS: ondansetron HCL 4 MG/2 ML VIAL IVPUSH (07:54)
[2020-06-08] MEDS: Bumetanide 1 MG TABLET PO ×2 (07:54→15:45)
[2020-06-08] MEDS: NIFEdipine ER 60 MG TAB.ER.24 PO (07:54)
[2020-06-08] MEDS: Apixaban 2.5 MG TABLET PO (07:55)
[2020-06-08] MEDS: Docusate Sodium 100 MG CAPSULE PO (07:55)
--- NOTE | 2020-06-08 10:58 | MHC.CM.PN ---
Addendum entered by Nicolasa Olson 06/08/20 14:38: recived confirmation of insurance authorization from, [facility] , action bls set up for transportation , call made to patient daughter brenden several times and the ine is busy, i called to secndary contact patient son diane and informed him of the planned d/c to [facility] and the insurance gave auth and transportation is set up for 4pm patient is aware as well as staff nurse and community health promoter Original Note: nurse healthcare technician note electronic medical record reviewed along with case discussed on mutiple disciplainry rounds, met with patient she is anticipating to be discharged to [facility] she reported that her daughter recived a call from the facility infomring her of their acceptance, clin ical updates sent to the facility awaiting insurance authorization . discharge plan medicare imm 06/08/20 ,[facility]SP[facility] ACTION BLS POST D/C FROM STR [facility] SKILLED NURSING PT/OT
[2020-06-08] MEDS: rOPINIRole HCL 0.5 MG TABLET PO (15:45)
== END 2020-06-08 17:50 | disposition skilled nursing facility (03) | DRG 291 ==
LOC: HO.ED 12:25 → HO.IMC 06-04 07:01 → HO.S3 06-07 04:09
PROVIDERS: Nurse Practitioner Family; Physician Assistant Medical; Admitting Provider Internal Medicine; Emergency Provider Emergency Medicine Emergency Medical Services; PCP Internal Medicine; Visit Provider Internal Medicine
DX: I13.0 Hypertensive heart and chronic kidney disease with heart failure and stage 1 through stage 4 chronic kidney disease, or unspecified chronic kidney disease (principal); J96.01 Acute respiratory failure with hypoxia; I50.33 Acute on chronic diastolic (congestive) heart failure; N39.0 Urinary tract infection, site not specified; N18.4 Chronic kidney disease, stage 4 (severe); I44.1 Atrioventricular block, second degree; D63.1 Anemia in chronic kidney disease; I48.0 Paroxysmal atrial fibrillation; B96.20 Unspecified Escherichia coli [E. coli] as the cause of diseases classified elsewhere; I25.10 Atherosclerotic heart disease of native coronary artery without angina pectoris; G25.81 Restless legs syndrome; Z20.828 Contact with and (suspected) exposure to other viral communicable diseases; Z87.440 Personal history of urinary (tract) infections; Z79.01 Long term (current) use of anticoagulants; Z79.899 Other long term (current) drug therapy
CPT/HCPCS: 0241U; 36415; 71045; 80048; 80076; 81001; 82247; 83605; 83880; 84484; 85025; 85610; 85730; 87040; 87086; 87088; 87147; 87186; 87205; 87635; 93005; 94660; 96365; 96375; 97162; 99285; 99291; 99292; J0696; J2405

== ENCOUNTER 2020-07-06 14:10 | Outpatient (REF) | payer MEDICARE, SELFPAY ==
[2020-07-06 14:21] LABS: MANUAL DIFF FLAG NO
[2020-07-06 14:25] LABS: Basophils Percent Auto 0.1 % (0-2); Eosinophils Absolute Auto 0.1 X10*3/uL (0.0-0.4); Eosinophils Percent Auto 0.9 % (0-4); Hematocrit 33.2 % (37-47); Hemoglobin 10.4 g/dl (12.0-16.0); Imm Gran Abs Auto 0.03 X10*3/uL (0.00-0.03); Imm Gran Pct Auto 0.4 % (0.0-0.4); Lymphocytes Absolute Auto 1.5 X10*3/uL (1.2-4.9); Lymphocytes Percent Auto 18.3 % (20-40); Mean Corpuscular HGB Conc 31.3 g/dl (31.0-35.0); Mean Corpuscular Hemoglobin 31.3 pg (27.0-33.0); Mean Platelet Volume 9.9 fL (9.4-12.3); Monocytes Absolute Auto 0.6 X10*3/uL (0.1-1.2); Monocytes Percent Auto 6.8 % (2-11); Neutrophils Percent Auto 73.5 % (45-73); Platelet Count 150 X10*3/uL (160-400); Red Blood Count 3.32 X10*6/uL (4.20-5.50); Red Cell Distribution Width 18.9 % (11.0-16.0); White Blood Count 8.2 X10*3/uL (4.8-10.8)
[2020-07-06 14:50] LABS: Anion Gap 12 (12-20); Blood Urea Nitrogen 29 mg/dL (9-16); Calcium 8.2 mg/dL (8.4-10.2); Carbon Dioxide 29 mmol/L (22-29); Chloride 101 mmol/L (96-108); Estimated Glomerular Filt Rate 31; Iron 43 mcg/dL (30-160); Percent Iron Saturation 17 % (15-50); Potassium 3.3 mmol/L (3.3-5.1); Sodium 139 mmol/L (135-145); Total Iron Binding Capacity 247 mcg/dL (228-428); Unsaturated Iron Binding 204 ug/dL
[2020-07-06 15:10] LABS: Ferritin 151 ng/mL (10-250)
[2020-07-06 15:14] LABS: Renal w Reflex Lab Use Only Order verified
== END 2020-07-06 14:11 | disposition home or self-care (01) ==
LOC: HO.LNP 14:10
PROVIDERS: Visit Provider Internal Medicine Nephrology
DX: N17.9 Acute kidney failure, unspecified (principal); I12.9 Hypertensive chronic kidney disease with stage 1 through stage 4 chronic kidney disease, or unspecified chronic kidney disease; N18.30 Chronic kidney disease, stage 3 unspecified; D63.1 Anemia in chronic kidney disease; I13.0 Hypertensive heart and chronic kidney disease with heart failure and stage 1 through stage 4 chronic kidney disease, or unspecified chronic kidney disease
CPT/HCPCS: 80051; 82310; 82565; 82728; 83540; 84100; 84520; 85025

== ENCOUNTER → 2020-07-07 10:51 | Outpatient (BNVA) | payer BC, SELFPAY | PROVIDERS: PCP Internal Medicine; Visit Provider Hospitalist ==

== ENCOUNTER 2020-07-09 10:54 | Outpatient (REF) | payer MEDICARE, SELFPAY ==
[2020-07-09 11:13] LABS: Glucose Urine UA NEG (NEG); Leukocyte Esterase Urine 3+ (NEG); Nitrite Urine NEG (NEG); Specific Gravity - Urine 1.015 (1.005-1.025); Urine Blood NEG (NEG); Urine Ketones NEG (NEG); Urine Protein 1+ MG/DL (NEG-TRACE)
[2020-07-09 11:15] LABS: Appearance Urine CLOUDY; Color Urine YELLOW
[2020-07-09 11:47] LABS: Bacteria Urine 3+ /LPF; RBC Urine 0 /HPF (0); Squamous Epithelial Cell Urine TRACE /LPF
== END 2020-07-09 10:55 | disposition home or self-care (01) ==
LOC: HO.LNP 10:54
PROVIDERS: Visit Provider Internal Medicine
DX: N39.0 Urinary tract infection, site not specified (principal); I50.20 Unspecified systolic (congestive) heart failure
CPT/HCPCS: 81001; 87086; 87088; 87186

== ENCOUNTER 2020-08-17 10:09 | Outpatient (REF) | payer MEDICARE, SELFPAY | END 2020-08-17 10:10 | disposition home or self-care (01) | LOC: HO.RESP 10:09 | PROVIDERS: PCP Internal Medicine; Visit Provider Hospitalist | DX: J41.8 Mixed simple and mucopurulent chronic bronchitis (principal) | CPT/HCPCS: 99212 ==

== ENCOUNTER 2020-09-12 16:19 | Emergency (ER) | payer MEDICARE, SELFPAY ==
--- NOTE | ~2020-09-12 | CT_ITS ---
EXAM: CT scan of the head and cervical spine. INDICATION: Reason for Exam fell, hit head TECHNIQUE: A noncontrast CT scan was performed from the skull base to the vertex. A noncontrast CT scan of the cervical spine was performed from the base of the skull through T1 at 2.5 mm and 1.25 mm collimation. Coronal and sagittal reformats were obtained at the acquisition workstation. This CT examination was performed using dose optimization techniques as appropriate, variously including the following: *Automated exposure control *Adjustment of mA and/or kV according to patient size (this includes techniques or standardized protocols for targeted exams where dose is matched to indication/reason for exam; i.e. extremities or head) *Use of iterative reconstruction technique DLP: 332 mGy-cm COMPARISON: 11/21/2019 FINDINGS: Head: There is no evidence of acute intracranial hemorrhage or territorial infarction. Fernandez-white matter differentiation is preserved. No abnormal mass effect or midline shift. No extra-axial fluid collections. No abnormal attenuation is demonstrated within the brain parenchyma. Scattered periventricular and deep white matter hypodensities consistent with microangiopathy. The ventricles and sulcal spaces are proportional without hydrocephalus. Proportional prominence of the ventricles and sulcal spaces. No acute osseous or soft tissue abnormalities. The mastoid air cells and visualized portions of the paranasal sinuses are well aerated. 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 The great 1/2 anterolisthesis at C3-C4 appears similar to baseline. There is a new finding at the C7-T1 level which favors a chronic finding as well. There is subtle anterior wedging of the T1 vertebral body which appears similar and slightly more pronounced anterolisthesis grade 1. There is posterior orthopedic hardware at this level unchanged from baseline. Advanced spondylosis again noted throughout. The atlantooccipital and atlantoaxial articulations remain well aligned. No evidence of acute fracture or subluxation. There is no prevertebral soft tissue swelling. The thyroid gland and remaining cervical soft tissues are normal in appearance. The lung apices demonstrate no abnormalities. CT/CT cervical spine wo con IMPRESSION: No acute intracranial pathology. No fracture. Slightly more accentuated anterolisthesis C7-T1 which may be due to patient's kyphosis. Orthopedic hardware again noted.
[2020-09-12 16:46] VITALS: BP 144/72; PULSE 74; RESP 20; TEMP 36.7; O2SAT 94; BMI 32.5
--- NOTE | 2020-09-12 17:38 | ED.FALL ---
HPI - Fall General Chief Complaint: Fall Stated Complaint: FALL Time Seen by Provider: 09/12/20 17:33 Source: patient Mode of arrival: wheelchair Limitations: no limitations History of Present Illness HPI Narrative: 85-year-old female with a past medical history of congestive heart failure, UTIs, AFib on Eliquis, congestive heart failure, COPD, hypertension, hyperlipidemia here with complaints of fall. Patient tells me she missed her chair falling backwards hitting her posterior head on the ground. Fall from standing. Witnessed by family. No loss of consciousness. No headache, vision changes, neck pain, back pain, vomiting. Patient is on Eliquis. complaint: fall Related Data Home Medications Medication Instructions Recorded Confirmed Combivent Respimat 1 puff INHALATION Q6H 06/03/20 08/17/20 Eliquis 2.5 mg PO BID 06/03/20 08/17/20 PreserVision AREDS-2 1 tab PO BID 06/03/20 08/17/20 albuterol sulfate [ProAir HFA] 2 puff INHALATION Q4-6H PRN 06/03/20 08/17/20 atorvastatin 80 mg PO BEDTIME 06/03/20 08/17/20 calcitriol 0.25 mcg PO TUTH@0900 06/03/20 08/17/20 ferrous sulfate 325 mg PO DAILY 06/03/20 08/17/20 fluticasone propion-salmeterol 1 INHALATION BID 06/03/20 08/17/20 [Advair Diskus] folic acid 1 mg PO DAILY 06/03/20 08/17/20 hydralazine 100 mg PO TID 06/03/20 08/17/20 isosorbide mononitrate 60 mg PO DAILY 06/03/20 08/17/20 nifedipine 60 mg PO DAILY 06/03/20 08/17/20 pantoprazole 40 mg PO DAILY 06/03/20 08/17/20 potassium chloride 27 meq PO BID 06/03/20 08/17/20 prednisone 15 mg PO DAILY 06/03/20 08/17/20 spironolactone 25 mg PO DAILY 06/03/20 08/17/20 ropinirole 0.5 mg PO DAILY@1600 06/05/20 08/17/20 ropinirole 1.5 mg PO DAILY@1900 06/05/20 07/07/20 COVID-19 vacc,mRNA(Pfizer)(PF) 30 ml IM 07/07/20 08/17/20 mcg/0.3 mL IM susp (EUA) darifenacin 7.5 mg tablet,extended 7.5 mg PO DAILY 08/17/20 08/17/20 release 24 hr fosfomycin tromethamine 3 gram 0 packet PO 08/17/20 08/17/20 oral packet nystatin 100,000 unit/gram topical TOPICAL 08/17/20 08/17/20 powder oxycodone 5 mg tablet 0 mg PO 08/17/20 08/17/20 Previous Rx's Medication Instructions Recorded bumetanide 1 mg PO BID #0 tab 06/07/20 docusate sodium [Colace] 100 mg PO BID #60 cap 06/08/20 polyethylene glycol 3350 [Miralax] 17 g PO DAILY PRN #238 g 06/08/20 budesonide 0.5 mg/2 mL suspension 0.5 mg INHALATION BID 30 Days #120 07/07/20 for nebulization ml ipratropium 0.5 mg-albuterol 3 mg 3 ml INHALATION BID 30 Days #180 ml 07/07/20 (2.5 mg base)/3 mL nebulization soln Allergies Allergy/AdvReac Type Severity Reaction Status Date / Time Iodinated Contrast Media Allergy Severe Vomiting Verified 08/17/20 11:30 [IV CONTRAST] scallops [SCALLOPS] Allergy Severe Vomiting Verified 08/17/20 11:30 amlodipine [AMLODIPINE] AdvReac Severe LEG Verified 08/17/20 11:30 SWELLING Review of Systems Review of Systems: Yes all other systems are reviewed and are negative Constitutional: Constitutional: Reports no additional constitutional complaints, Denies body ache(s), Denies chills, Denies fever(s), Denies headache(s) and Denies weakness Eyes: Eyes: Reports no additional eye complaints and Denies change in vision ENT: Reports system reviewed and no additional complaints, except as documented, Denies dizziness, Denies headache(s), Denies nasal congestion, Denies nasal discharge and Denies neck pain Cardiovascular: Cardiovascular: Reports no additional cardiovascular complaints, Denies chest pain, Denies leg edema and Denies dyspnea Respiratory: Respiratory: Reports no additional respiratory complaints, Denies cough and Denies dyspnea Gastrointestinal: Gastrointestinal: Reports no additional gastrointestinal complaints, Denies abdominal pain, Denies diarrhea, Denies nausea and Denies vomiting Genitourinary: Genitourinary: Reports no additional female genitourinary complaints and Denies urinary incontinence Musculoskeletal: Musculoskeletal: Reports no additional musculoskeletal complaints, Denies back pain, Denies arthralgias, Denies joint swelling, Denies neck pain, Denies numbness and Denies tingling Integumentary/Breasts: Skin/Breast: Reports system reviewed and no additional complaints, except as docu and Denies rash Neurologic: Reports system reviewed and no additional complaints, except as documented, Denies Abnormal speech present, Denies dizziness, Denies headache(s), Denies numbness, Denies tingling and Denies weakness PMFSH Past Medical History Attestation statement: The following information was validated with the patient. Source: old records reviewed and nursing notes reviewed Medical History AAA (abdominal aortic aneurysm) Afib Atrial flutter C7 cervical fracture CAD (coronary artery disease) Chronic restrictive lung disease CKD (chronic kidney disease) COPD (chronic obstructive pulmonary disease) Diastolic CHF Dyspnea Frequent UTI HTN (hypertension) Hypercholesteremia Kidney mass Osteopenia Restless leg Vitamin D deficiency Surgical History History of appendectomy Social History Social History Household Members: None Housing: Assisted Living Facility Alcohol intake: never Smoking Status: Never smoker Use of substances other than those prescribed or required for medical reasons: No Advance Directives: Yes Advance Directives on File: Yes Advance Directives Date on File: 05/19/20 service: No Current occupational status: retired Physical Exam Vital Signs: Vital Signs: Last Vital Signs Temp 98.1 F 09/12/20 16:46 Pulse 74 09/12/20 16:46 Resp 20 09/12/20 16:46 BP 144/72 H 09/12/20 16:46 Pulse Ox 94 09/12/20 16:46 Body Mass Index 32.5 Const: General: cooperative, healthy appearing, comfortable and no acute distress Orientation/consciousness: patient oriented x3 Limitations: no limitations HENMT: Head: Yes normal to inspection Ears: hearing grossly normal bilaterally General nose exam: Normal external nose present Face and sinus: Yes normal facial exam Mouth: Normal oral and palatal mucosa present Throat: Yes posterior oropharynx normal Eyes: General: appearance normal, both eyes and all related structures Pupils: Equal, round and reactive pupils present Neck: Other: No step-offs, midline tenderness or deformity Neck: Yes normal visual inspection, Yes full ROM and Yes no lymphadenopathy Chest: Chest palpation & inspection: normal inspection of the chest Resp: Effort & Inspection: normal respiratory effort Auscultation: clear to auscultation bilaterally Cardio: Rate: regular rate Rhythm: regular rhythm Peripheral pulses: Peripheral pulses 2+ throughout GI: Inspection: Yes normal to inspection Palpation (GI): Soft to palpation and nontender Auscultation: normal bowel sounds Back/Spine/Pelvis: Thoracic/Lumbar Spine: thoracic and lumbar spine normal to inspection Skin: General skin exam: no rashes or lesions noted Neuro: General: patient oriented x3, no focal motor deficits and normal sensation to monofilament Cranial nerves: Yes CN's II-XII intact bilaterally, Yes Equal, round and reactive pupils present, Yes Bilaterally intact EOM present, Yes Nystagmus not present, Yes Normal facial strength present and Yes Midline tongue present Cognition (Neuro): normal cognition Speech: No Abnormal speech present Gait exam (Neuro): Normal gait present Motor exam (neuro): 5/5 motor strength present throughout Sensory Exam: Normal double simultaneous stimulation for sensation Extrem: General: Yes normal to inspection Course Course Course Narrative: 85-year-old female here with posterior head pain status post mechanical fall. She is on Eliquis. No neck pain. Neuro intact. Will need CT head, neck. 1914-Imaging negative. There is orthopedic hardware noted in the cervical spine the patient tells me she had a previous fracture. No new fracture. She is at her baseline and neurologically is intact. Discharge in care of daughter. Reviewed worrisome signs and symptoms and when to return to the emergency department. Comfortable discharge home. MDM - Fall Medical Records Attestation: I reviewed the patient's medical records. Lab Data Attestation: I reviewed the patient's lab results. Imaging Data CT head/neck: Attestation: I personally reviewed and interpreted this imaging study as follows: Radiologist's impression: No acute intracranial pathology. No fracture. Slightly more accentuated anterolisthesis C7-T1 which may be due to patient's kyphosis. Orthopedic hardware again noted. Discharge Plan Discharge Clinical Impression: Contusion of head Patient Disposition: Home, Self-Care Instructions: Contusion in Adults (ED) Additional Instructions: Ice to the area as needed Return for changes in mental status, 2 more vomiting episodes, vision changes, severe headache Prescriptions: No Action atorvastatin 80 mg Tablet 80 mg PO BEDTIME RF: 0 pantoprazole 40 mg Tablet,Delayed Release (Dr/Ec) 40 mg PO DAILY RF: 0 Eliquis 2.5 mg Tablet 2.5 mg PO BID RF: 0 nifedipine 30 mg Tablet Extended Release 24hr 60 mg PO DAILY RF: 0 spironolactone 25 mg Tablet 25 mg PO DAILY RF: 0 albuterol sulfate [ProAir HFA] 90 mcg/actuation Hfa Aerosol Inhaler 2 puff INHALATION Q4-6H PRN (Reason: Shortness Of Breath) RF: 0 calcitriol 0.25 mcg Capsule 0.25 mcg PO TUTH@0900 RF: 0 prednisone 10 mg Tablet 15 mg PO DAILY RF: 0 fluticasone propion-salmeterol [Advair Diskus] 250-50 mcg/dose Blister With Device 1 INHALATION BID RF: 0 potassium chloride 40 mEq/15 mL Liquid 27 meq PO BID RF: 0 ferrous sulfate 325 mg (65 mg iron) Tablet 325 mg PO DAILY RF: 0 folic acid 1 mg Tablet 1 mg PO DAILY RF: 0 hydralazine 50 mg Tablet 100 mg PO TID RF: 0 isosorbide mononitrate 60 mg Tablet Extended Release 24 Hr 60 mg PO DAILY RF: 0 PreserVision AREDS-2 [phone] md-gebt-tn-mg Capsule 1 tab PO BID RF: 0 Combivent Respimat 20-100 mcg/actuation Mist 1 puff INHALATION Q6H RF: 0 ropinirole 0.5 mg tablet 0.5 mg PO DAILY@1600 RF: 0 ropinirole 0.5 mg tablet 1.5 mg PO DAILY@1900 RF: 0 bumetanide 1 mg Tablet 1 mg PO BID Qty: 0 RF: 0 docusate sodium [Colace] 100 mg capsule 100 mg PO BID Qty: 60 RF: 0 polyethylene glycol 3350 [Miralax] 17 gram/dose powder 17 g PO DAILY PRN (Reason: constipation) Qty: 238 RF: 0 Pfizer COVID-19 Vaccine (EUA) 30 mcg/0.3 mL suspension for reconstitution IM RF: 0 ipratropium-albuterol 0.5 mg-3 mg(2.5 mg base)/3 mL solution for nebulization 3 ml inhalation BID 30 Days Qty: 180 RF: 11 budesonide 0.5 mg/2 mL suspension for nebulization 0.5 mg inhalation BID 30 Days Qty: 120 RF: 11 fosfomycin tromethamine 3 gram packet 0 packet PO RF: 0 nystatin 100,000 unit/gram powder topical RF: 0 oxycodone 5 mg tablet 0 mg PO RF: 0 darifenacin 7.5 mg tablet extended release 24 hr 7.5 mg PO DAILY RF: 0 Referrals: hPoenix Garvin MD [Primary Care Provider] - 2 days
[2020-09-12 19:22] VITALS: BP 154/62; PULSE 72; RESP 16; O2SAT 93
== END 2020-09-12 19:30 | disposition home or self-care (01) ==
PROVIDERS: Emergency Provider Internal Medicine; PCP Internal Medicine
DX: S00.93XA Contusion of unspecified part of head, initial encounter (principal); W18.39XA Other fall on same level, initial encounter; Z91.81 History of falling; I13.0 Hypertensive heart and chronic kidney disease with heart failure and stage 1 through stage 4 chronic kidney disease, or unspecified chronic kidney disease; N18.9 Chronic kidney disease, unspecified; I50.30 Unspecified diastolic (congestive) heart failure; I48.91 Unspecified atrial fibrillation; J44.9 Chronic obstructive pulmonary disease, unspecified; Y93.89 Activity, other specified; Y92.099 Unspecified place in other non-institutional residence as the place of occurrence of the external cause; Y99.9 Unspecified external cause status; Z79.01 Long term (current) use of anticoagulants; Z87.440 Personal history of urinary (tract) infections; Z79.899 Other long term (current) drug therapy
CPT/HCPCS: 70450; 72125; 99284

== ENCOUNTER 2020-09-22 17:51 | Inpatient (IN) | payer MEDICARE, SELFPAY ==
--- NOTE | ~2020-09-22 | NM_ITS ---
EXAMINATION: NM BONE SCAN OF THE WHOLE BODY CLINICAL INFORMATION: Vertebral body fracture COMPARISON: Bone windows from CT dated 05/18/2020, MR report from 09/23/2020 TECHNIQUE: Multiple gamma scintillation camera images of the whole body were performed 2.75 hours following the intravenous administration of 31 mCi Tc-99m MDP. FINDINGS: In the head, unremarkable In the thoracic cage and upper extremities, unremarkable. Some uptake at the sternoclavicular joint on the right is likely degenerative in nature In the spine, planar uptake at D11. This correlates to compression injury reported on MR. Uptake is moderate Only mild uptake in the region of L5 which is also plain are but more in the left versus the right In the pelvis, unremarkable In the lower extremities, some uptake in the left tarsal region likely degenerative in nature No other definite bony abnormalities are noted. The urinary bladder and faint visualization of both kidneys are noted. NM/NM bone scan whole body IMPRESSION: Exam is demonstrating moderate uptake at T11 consistent with compression fracture documented on MR from 09/23/2020. More mild uptake at L5 correlating to area of injury there. Otherwise mild degenerative changes are felt to be present. No scintigraphic evidence for metastatic disease
--- NOTE | ~2020-09-22 | XR_ITS ---
EXAMINATION: XR LUMBOSACRAL SPINE CLINICAL INFORMATION: Low back pain COMPARISON: CT 05/16/2020 TECHNIQUE: Three views of the lumbosacral spine. FINDINGS: There are age-indeterminate superior endplate fractures of T11 and L5, new since 05/16/2020. Normal alignment and lordosis with mild to moderate multilevel degenerative disc disease and advanced facet arthropathy at the lower lumbar levels. Aortobiiliac stent graft is noted. XR/XR lumbar spine 2-3V IMPRESSION: Age-indeterminate mild superior endplate fractures of T11 and L5, new since 05/18/2020.
--- NOTE | ~2020-09-22 | CT_ITS ---
EXAMINATION: CT ABDOMEN AND PELVIS WITHOUT CONTRAST CLINICAL INFORMATION: Acute low back pain. COMPARISON: CT abdomen and pelvis 05/18/2020. TECHNIQUE: Multidetector volumetric imaging was performed from the superior aspect of the liver through the pubic symphysis. Sagittal and coronal reformatted images were obtained on the technologist's workstation. This CT examination was performed using dose optimization techniques as appropriate, variously including the following: *Automated exposure control. *Adjustment of mA and/or kV according to patient size (this includes techniques or standardized protocols for targeted exams where dose is matched to indication/reason for exam; i.e. extremities or head). *Use of iterative reconstruction technique. DLP: 875 mGy-cm FINDINGS: LUNG BASES: Heart size is enlarged. Large hiatal hernia. Normal aeration of the lung bases. No pleural effusion. LIVER, GALLBLADDER, AND BILIARY TREE: The liver is normal in size, shape, and attenuation. No focal hepatic lesion or biliary ductal dilatation is present. Gallstones in the gallbladder. There is no edema around the gallbladder. There is no bile duct dilatation. PANCREAS: There is fatty atrophy of the pancreas. No inflammation or mass. SPLEEN: Unremarkable. ADRENAL GLANDS: Unremarkable. KIDNEYS AND URETERS: The left kidney is atrophic. There are multiple cysts in the left kidney. These are unchanged since prior study of 05/18/2020. No follow up imaging is recommended for simple renal cyst. No renal or ureteral calculi. No hydronephrosis. BLADDER: Unremarkable. GASTROINTESTINAL TRACT: There are numerous diverticula throughout the colon. Diverticula most severe at the sigmoid colon. There is no diverticulitis. There is no bowel wall thickening/edema. There is no bowel obstruction. There is a moderate to large volume of stool in the colon. The appendix is not visualized. The small bowel loops are unremarkable. There is a large hiatal hernia. ABDOMINAL WALL: No significant hernia is appreciated. LYMPH NODES: Normal. VASCULAR: Vascular stent in the aorta and iliac arteries. These are stable in appearance since prior CAT scan of 05/18/2020. 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 PELVIC VISCERA: Unremarkable. OSSEOUS STRUCTURES: Multilevel degenerative spondylosis of the spine. There is a comminuted compression fracture of L5 vertebrae with about 30% loss of height of the vertebral body. This is acute. There is also compression deformity of the T11 vertebrae with about 50% loss of height of the vertebral body. No displaced fracture fragment seen. The vertebrae appears to be a osteosclerotic. This is likely old. This was not present however on the CAT scan of 05/18/2020. Multilevel degenerative spondylosis of the spine. Moderate degenerative joint disease of hips. CT/CT abdomen pelvis wo con IMPRESSION: 1. Acute compression fracture of the L5 vertebrae. Compression deformity of T11 vertebrae as well. This vertebrae is osteosclerotic and the compression deformity may therefore be old. 2. Aortoiliac vascular stents unchanged since CAT scan of 05/18/2020. 3. Chronic atrophic left kidney with multiple cysts. 4. Large hiatal hernia. Diverticulosis of the colon. There is no acute abnormality of the bowel. 5. Cholelithiasis. No edema around the gallbladder or bile duct dilatation.
--- NOTE | ~2020-09-22 | MR_ITS ---
EXAMINATION: MR LUMBAR SPINE WITHOUT CONTRAST CLINICAL INFORMATION: L5 fracture. Back pain. COMPARISON: CT scan of the abdomen and pelvis 09/22/2020. TECHNIQUE: MRI of the lumbar spine was obtained using routine sequences without contrast. FINDINGS: There is bone marrow edema associated with compression fractures of the T11 and L5 vertebral bodies. There are also subtle sclerotic changes associated with an upper T12 endplate impaction that is new when compared to prior imaging from 05/18/2020. There is 40% vertebral height loss centrally at T11 with plantar wedging. No retropulsion of posterior cortex. The compression fracture at L5 is distracted in the supine position with separation of the upper L5 endplate with the resulting cleft filled with blood. In the supine position there is approximately 20% vertebral height loss centrally at this level. There is grade 1 anterolisthesis of L4 on L5. There is slight loss of intervertebral disc height and T2 signal intensity at multiple levels related to disc degeneration. The tip of the conus medullaris is located at L1-L2. No mass effect on the conus. Visualized distal cord signal intensity is normal. At L1-L2 the annular contour is normal. No canal or neuroforaminal compromise. At L2-L3 there is a slightly bulging disc. Bilateral facet degenerative change. No canal stenosis. No mass effect on the traversing or foraminal nerve roots. At L3-L4 there is a diffusely bulging disc. Bilateral facet degenerative change. No canal stenosis. No mass effect on the traversing or foraminal nerve roots. At L4-L5 there is a pseudodisc bulge. Advanced bilateral facet degenerative change. Mild canal stenosis. Subarticular zone narrowing causes abutment and possible compression of both traversing L5 nerve roots. No foraminal nerve root compression. At L5-S1 there is an asymmetrically bulging disc to the left. Advanced bilateral facet degenerative change. No canal stenosis. No mass effect on the traversing or foraminal nerve roots. Limited visualization of the retroperitoneal anatomy reveals multiple well marginated benign-appearing cystic lesions within both kidneys. The left kidney is atrophic. Chronic changes related to the endovascular repair of an abdominal aortic aneurysm is noted. MR/MR lumbar spine wo con IMPRESSION: There is bone marrow edema associated with acute to subacute compression fractures of the T11 and L5 vertebral bodies. There is also subtle impaction of the upper T12 endplate with no substantial loss of vertebral body height at this level. In addition there is multilevel degenerative spondylosis of the lumbar spine with slight grade 1 anterolisthesis of L4 on L5 related to advanced facet degenerative changes at this level. Mild canal stenosis at L4-L5. Otherwise no canal compromise. No distal cord compression.
[2020-09-22 18:02] VITALS: BP 157/55; PULSE 75; RESP 18; TEMP 37.1; O2SAT 94; BMI 33.5
[2020-09-22] MEDS: Morphine Sulfate 2 MG/ML CARTRIDGE IVPUSH (19:14)
[2020-09-22 19:15] VITALS: BP 157/58; PULSE 75; RESP 16; O2SAT 96
[2020-09-22 19:16] LABS: MANUAL DIFF FLAG NO
[2020-09-22 19:18] LABS: Basophils Percent Auto 0.2 % (0-2); Eosinophils Absolute Auto 0.1 X10*3/uL (0.0-0.4); Eosinophils Percent Auto 1.1 % (0-4); Hematocrit 39.1 % (37-47); Hemoglobin 12.6 g/dl (12.0-16.0); Imm Gran Abs Auto 0.07 X10*3/uL (0.00-0.03); Imm Gran Pct Auto 0.7 % (0.0-0.4); Lymphocytes Absolute Auto 1.7 X10*3/uL (1.2-4.9); Lymphocytes Percent Auto 17.5 % (20-40); Mean Corpuscular HGB Conc 32.2 g/dl (31.0-35.0); Mean Corpuscular Hemoglobin 31.8 pg (27.0-33.0); Mean Corpuscular Volume 98.7 fL (80-98); Mean Platelet Volume 9.3 fL (9.4-12.3); Monocytes Absolute Auto 1.1 X10*3/uL (0.1-1.2); Monocytes Percent Auto 10.8 % (2-11); Neutrophils Absolute Auto 6.9 X10*3/uL (2.0-8.3); Neutrophils Percent Auto 69.7 % (45-73); Platelet Count 175 X10*3/uL (160-400); Red Blood Count 3.96 X10*6/uL (4.20-5.50); Red Cell Distribution Width 15.2 % (11.0-16.0); White Blood Count 9.9 X10*3/uL (4.8-10.8)
--- NOTE | 2020-09-22 19:30 | PC.NURSE ---
PT C/O BACK. IV PLACED AND LABS DRAWN PER ORDERS. PT MEDICATED FOR PAIN PER EMAR. PT RATING PAIN 10/10. FAMILY AT BEDSIDE WITH PT. PT DENIES ANY OTHER COMPLAINTS. WILL CONTINUE TO MONITOR PT.
[2020-09-22 19:44] VITALS: BP 151/55; PULSE 74; RESP 16; O2SAT 94
[2020-09-22 19:45] LABS: Alanine Aminotransferase 8 U/L (0-31); Albumin Level 3.5 g/dL (3.5-5.0); Alkaline Phosphatase 83 U/L (39-117); Anion Gap 17 (12-20); Aspartate Amino Transferase 17 U/L (5-31); Bilirubin Direct 0.4 mg/dL (0.0-0.5); Bilirubin Total 0.9 mg/dL (0.0-1.0); Blood Urea Nitrogen 33 mg/dL (9-16); Calcium 8.5 mg/dL (8.4-10.2); Carbon Dioxide 28 mmol/L (22-29); Chloride 100 mmol/L (96-108); Creatinine Clr Calc Pharmacy 32.6; Estimated Glomerular Filt Rate 37; Glucose Random 118 mg/dL (60-115); Lipase 36 U/L (8-78); Potassium 3.9 mmol/L (3.3-5.1); Sodium 141 mmol/L (135-145)
[2020-09-22 20:06] VITALS: BP 147/58; PULSE 72; RESP 18; O2SAT 93
[2020-09-22] MEDS: Morphine Sulfate 4 MG/ML CARTRIDGE IVPUSH (20:18)
[2020-09-22] MEDS: ondansetron HCL 4 MG/2 ML VIAL IVPUSH (20:18)
--- NOTE | 2020-09-22 20:52 | ED_ITS ---
HPI - Back Pain/Injury General Chief Complaint: Back Pain/Injury Stated Complaint: BACK PAIN Time Seen by Provider: 09/22/20 18:14 Source: patient Mode of arrival: ambulatory Limitations: no limitations History of Present Illness HPI Narrative: Patient complaining of low back pain for last 4 days apparently fell 1 week ago without injuring back, at that time no back pain , hit her head at that time woke up 4 days ago noticed pain in the lower back. No nausea no vomiting no abdominal pain no fever no chills no urinary symptoms no blood in the urine bowel movements are normal no focal weakness MD elicited complaint: back pain Related Data Home Medications Medication Instructions Recorded Confirmed apixaban [Eliquis] 1 tab PO BID 09/22/20 09/22/20 budesonide 1 vial INHALATION BID 09/22/20 09/22/20 bumetanide 1 tab PO DAILY 09/22/20 09/22/20 darifenacin 1 tab PO DAILY 09/22/20 09/22/20 hydralazine 1 tab PO DAILY 09/22/20 09/22/20 ipratropium-albuterol 3 ml INHALATION BID 09/22/20 09/22/20 isosorbide mononitrate 1 tab PO DAILY 09/22/20 09/22/20 nifedipine 1 tab PO DAILY 09/22/20 09/22/20 nystatin [Nyamyc] 1 appl TOPICAL DAILY 09/22/20 09/22/20 oxycodone 1 tab PO Q6-8H PRN 09/22/20 09/22/20 prednisone 1 tab PO BID 09/22/20 09/22/20 ropinirole 1 tab PO DAILY 09/22/20 09/22/20 spironolactone 1 tab PO DAILY 09/22/20 09/22/20 Allergies Allergy/AdvReac Type Severity Reaction Status Date / Time Iodinated Contrast Media Allergy Severe Vomiting Verified 08/17/20 11:30 [IV CONTRAST] scallops [SCALLOPS] Allergy Severe Vomiting Verified 08/17/20 11:30 amlodipine [AMLODIPINE] AdvReac Severe LEG Verified 08/17/20 11:30 SWELLING Review of Systems Review of Systems: Constitutional : No Weight loss, No Fever, No Chills ENT/Mouth : No sore throat, No Rhinorrhea Eyes: No Eye Pain, No Swelling Cardiovascular : No Chest Pain, no palpitations Respiratory : No Cough, No Sputum, no shortness of breath Gastrointestinal : no Nausea, No Vomiting, No Diarrhea, No abdominal Pain, no black stools Genitourinary : No Dysuria, No Urinary Frequency Musculoskeletal : No joint pain, No Myalgias, No Joint Swelling Skin : No Skin Lesions, No rash Neuro : No Weakness, No Numbness, No Dizziness, No Headache Psych : No Anxiety/Panic, No Depression Heme/Lymph: No Bruising, No Lymphadenopathy Endocrine : No Polyuria, No Polydipsia All other systems reviewed and are negative [facility] Past Medical History Medical History AAA (abdominal aortic aneurysm) Afib Atrial flutter C7 cervical fracture CAD (coronary artery disease) Chronic restrictive lung disease CKD (chronic kidney disease) COPD (chronic obstructive pulmonary disease) Diastolic CHF Dyspnea Frequent UTI HTN (hypertension) Hypercholesteremia Kidney mass Osteopenia Restless leg Vitamin D deficiency Surgical History History of appendectomy Social History Social History Household Members: None Housing: Assisted Living Facility Alcohol intake: never Smoking Status: Never smoker Advance Directives: Yes Advance Directives on File: Yes Advance Directives Date on File: 05/19/20 service: No Current occupational status: retired Physical Exam Vital Signs: Vital Signs: Last Vital Signs Temp 98.7 F 09/22/20 18:02 Pulse 72 09/22/20 20:06 Resp 18 09/22/20 20:06 BP 147/58 H 09/22/20 20:06 Pulse Ox 93 09/22/20 20:06 Body Mass Index 33.5 Appearance: Alert. Oriented X3. No acute distress. Eyes: PERRLA, No Nystagmus ENT: Pharynx normal. Oral Mucosa moist Neck: Normal inspection. Neck supple. CVS: Normal heart rate and rhythm. Pulses normal. Respiratory: No respiratory distress. Equal air entry bilateral, no wheezing/rales/rhonchi Abdomen: Soft and nontender. Bowel sounds are present, no mass palpable, no CVA tenderness Skin: Skin warm and dry. Normal skin color. Normal skin turgor. Extremities: No lower extremity edema. No calf tenderness back: Focal tenderness L4-L5 and T12. No deformity, no signs of cord compression, no sacral sparing of sensation Neuro: Oriented X 3. No motor deficit. No sensory deficit.No cerebellar signs , cranial nerves II-XII intact MDM - Back Pain/Injury MDM Narrative Medical decision making narrative: Patient with lower back pain CT scan showed L5 compression fracture patient unable to ambulate and function because of pain will admit patient for pain control and possible vertebroplasty in the morning Medical Records Attestation: I reviewed the patient's medical records. Lab Data Attestation: I reviewed the patient's lab results. Result diagrams: 09/22/20 19:04 09/22/20 19:04 Labs: Lab Results 09/22/20 09/22/20 09/22/20 Range/Units 19:04 19:04 20:55 WBC 9.9 (4.8-10.8) X10*3/uL RBC 3.96 L (4.20-5.50) X10*6/uL Hgb 12.6 D (12.0-16.0) g/dl Hct 39.1 (37-47) % MCV 98.7 H (80-98) fL MCH 31.8 (27.0-33.0) pg MCHC 32.2 (31.0-35.0) g/dl RDW 15.2 (11.0-16.0) % Plt Count 175 (160-400) X10*3/uL MPV 9.3 L (9.4-12.3) fL Immature Gran % (Auto) 0.7 H (0.0-0.4) % Neut % (Auto) 69.7 (45-73) % Lymph % (Auto) 17.5 L (20-40) % [place] % (Auto) 10.8 (2-11) % Eos % (Auto) 1.1 (0-4) % Baso % (Auto) 0.2 (0-2) % Lymph # (Auto) 1.7 (1.2-4.9) X10*3/uL [place] # (Auto) 1.1 (0.1-1.2) X10*3/uL Eos # (Auto) 0.1 (0.0-0.4) X10*3/uL Baso # (Auto) 0.0 (0.0-0.2) X10*3/uL Abs Immat Gran (auto) 0.07 H (0.00-0.03) X10*3/uL Absolute Neuts (auto) 6.9 (2.0-8.3) X10*3/uL Absolute Nucleated RBC 0.000 (0.0-0.012) X10*3/uL Nucleated RBC % (auto) 0.0 (0.0-0.2) /100WBC Sodium 141 (135-145) mmol/L Potassium 3.9 (3.3-5.1) mmol/L Chloride 100 (96-108) mmol/L Carbon Dioxide 28 (22-29) mmol/L Anion Gap 17 (12-20) BUN 33 H (9-16) mg/dL Creatinine 1.36 (0.5-1.4) mg/dL Estim Creat Clear Calc 32.6 Estimated GFR 37 Random Glucose 118 H (60-115) mg/dL Calcium 8.5 (8.4-10.2) mg/dL Total Bilirubin 0.9 (0.0-1.0) mg/dL Direct Bilirubin 0.4 (0.0-0.5) mg/dL AST 17 (5-31) U/L ALT 8 (0-31) U/L Alkaline Phosphatase 83 D (39-117) U/L Total Protein 6.0 L (6.5-8.0) g/dL Albumin 3.5 (3.5-5.0) g/dL Lipase 36 (8-78) U/L COVID-19 (NICOL) Negative (Negative) COVID-19 Clin Com See Note
--- NOTE | 2020-09-22 20:56 | PC.NURSE ---
SHILPA OBTAINED TO LAB
[2020-09-22 21:19] LABS: COVID-19 Test Negative (Negative)
--- NOTE | 2020-09-22 22:02 | P.HPHOSP_ITS ---
History of Present Illness Date of Service: 09/22/20 Chief Complaint: Back pain 85-year-old female with a past medical history of hypertension, hyperlipidemia, diastolic CHF, chronic kidney disease, COPD, CAD, history of C7 cervical fracture, atrial flutter, abdominal aortic aneurysm, osteoporosis, vitamin-D deficiency presented to the hospital with a chief complaint of acute onset of back pain since last Sunday. Patient denies any fall or trauma. Patient mentioned that she had a fall few days ago when she came to the ER and with a CT head done which was negative and subsequently sent home. Denies any headaches or blurry visions. Denies any numbness tingling. Denies any focal weakness in the legs. Denies any urinary trouble or stool incontinence. Mentioned that her back pain is severe/03/06 and limiting her ambulation. Generally she uses walker at home. Denies any urinary symptoms. Review of all other systems is negative except mentioned above ER course: Per ER team patient exam was nonfocal, CT scan showed acute L5 compression fracture and T11 fracture-old; admitted to the hospital for further management. REPLACED BY [facility] Medical History AAA (abdominal aortic aneurysm) Afib Atrial flutter C7 cervical fracture CAD (coronary artery disease) Chronic restrictive lung disease CKD (chronic kidney disease) COPD (chronic obstructive pulmonary disease) Diastolic CHF Dyspnea Frequent UTI HTN (hypertension) Hypercholesteremia Kidney mass Osteopenia Restless leg Vitamin D deficiency Surgical History History of appendectomy Social History Household Members: Children Housing: House Do you presently have visiting nurse or other home services: Yes (visiting [employer] that helps bathe her on Mondays and ) Alcohol intake: never Smoking Status: Former smoker Use of substances other than those prescribed or required for medical reasons: No Currently Displaying Signs/Symptoms of Drug Intoxication Withdrawal: No Have you been hit, kicked, punched, or otherwise hurt by someone within the past year? If so, by whom?: No Do you feel safe in your current relationship?: No Is there a partner from a previous relationship who is making you feel unsafe n ow?: No Are you made to feel afraid or neglected: No Advance Directives: Yes Advance Directives Information Provided: No Advance Directives on File: Yes Advance Directives Date on File: 05/19/20 Do you have thoughts of harming others: None Do you have a plan to hurt others: No Plan Recently lost weight without trying: No service: No Current occupational status: retired Meds Allergies Allergy/AdvReac Type Severity Reaction Status Date / Time Iodinated Contrast Media Allergy Severe Vomiting Verified 08/17/20 11:30 [IV CONTRAST] scallops [SCALLOPS] Allergy Severe Vomiting Verified 08/17/20 11:30 amlodipine [AMLODIPINE] AdvReac Severe LEG Verified 08/17/20 11:30 SWELLING Active Medications: Current Medications Generic Name Dose Route Start Last Admin Trade Name Freq PRN Reason Stop Dose Admin Acetaminophen 650 mg 09/22/20 21:58 Acetaminophen 325 Mg Tablet PO Q6H PRN Pain, Mild (Pain Scale 1-3) Albuterol/Ipratropium 3 ml 09/22/20 21:58 Albuterol/Iprat 2.5/0.5mg 3 Ml Ampul.Neb INHALE RQ4H PRN Shortness of Breath/Wheezing Docusate Sodium 100 mg 09/23/20 09:00 Docusate Sodium 100 Mg Capsule PO BID YULIA Hydromorphone HCl 0.5 mg 09/22/20 21:58 Hydromorphone Hcl 0.5 Mg/0.5 Ml Syringe IVPUSH Q4H PRN Pain, Severe (Pain Scale 7-10) Senna 17.2 mg 09/22/20 21:58 Sennosides 8.6 Mg Tablet PO BEDTIME PRN Constipation Sodium Chloride 3 ml 09/23/20 00:00 0.9 % Sodium Chloride Flush 3 Ml Syringe IVFLUSH QSHIFT [facility] Home Medications Medication Instructions Recorded Confirmed Last Taken Type apixaban [Eliquis] 1 tab PO BID 09/22/20 09/22/20 Unknown History budesonide 1 vial INHALATION BID 09/22/20 09/22/20 Unknown History bumetanide 1 tab PO DAILY 09/22/20 09/22/20 Unknown History darifenacin 1 tab PO DAILY 09/22/20 09/22/20 Unknown History hydralazine 1 tab PO DAILY 09/22/20 09/22/20 Unknown History ipratropium-albuterol 3 ml INHALATION BID 09/22/20 09/22/20 Unknown History isosorbide mononitrate 1 tab PO DAILY 09/22/20 09/22/20 Unknown History nifedipine 1 tab PO DAILY 09/22/20 09/22/20 Unknown History nystatin [Nyamyc] 1 appl TOPICAL DAILY 09/22/20 09/22/20 Unknown History oxycodone 1 tab PO Q6-8H PRN 09/22/20 09/22/20 Unknown History prednisone 1 tab PO BID 09/22/20 09/22/20 Unknown History ropinirole 1 tab PO DAILY 09/22/20 09/22/20 Unknown History spironolactone 1 tab PO DAILY 09/22/20 09/22/20 Unknown History Physical Exam Vital Signs and Narrative: Vital Signs: Last Vital Signs Temp 98.7 F 09/22/20 18:02 Pulse 72 09/22/20 20:06 Resp 18 09/22/20 20:06 BP 147/58 H 09/22/20 20:06 Pulse Ox 93 09/22/20 20:06 Body Mass Index 33.5 Gen: Appears be in no acute distress HEENT: NCAT, Moist mucosa. Pulmonary: Vesicular breath sounds, fair air entry CVS: Normal S1-S2 Abdomen: BS+, Soft, Nontender Extremities: Warm well perfused Neuro: Alert and awake. Grossly nonfocal; sensations intact. Able to move all extremities equally. Exam is partially limited secondary to pain Results Labs CBC and Chem 7: 09/23/20 06:19 09/23/20 06:19 Labs: Laboratory Results - last 24 hr 09/22/20 09/22/20 09/22/20 19:04 19:04 20:55 MCV 98.7 H MCH 31.8 MCHC 32.2 RDW 15.2 Plt Count 175 MPV 9.3 L Immature Gran % (Auto) 0.7 H Neut % (Auto) 69.7 Lymph % (Auto) 17.5 L [place] % (Auto) 10.8 Eos % (Auto) 1.1 Baso % (Auto) 0.2 Lymph # (Auto) 1.7 [place] # (Auto) 1.1 Eos # (Auto) 0.1 Baso # (Auto) 0.0 Abs Immat Gran (auto) 0.07 H Absolute Neuts (auto) 6.9 Absolute Nucleated RBC 0.000 Nucleated RBC % (auto) 0.0 Anion Gap 17 Estim Creat Clear Calc 32.6 Estimated GFR 37 Random Glucose 118 H Calcium 8.5 Total Bilirubin 0.9 Direct Bilirubin 0.4 AST 17 ALT 8 Alkaline Phosphatase 83 D Total Protein 6.0 L Albumin 3.5 Lipase 36 COVID-19 (NICOL) Negative COVID-19 Clin Com See Note Imaging Radiologist's Impressions: Impressions Lumbar Spine X-Ray 09/22/20 18:14 IMPRESSION: Age-indeterminate mild superior endplate fractures of T11 and L5, new since 05/18/2020. Abdomen/Pelvis CT 09/22/20 19:00 IMPRESSION: 1. Acute compression fracture of the L5 vertebrae. Compression deformity of T11 vertebrae as well. This vertebrae is osteosclerotic and the compression deformity may therefore be old. 2. Aortoiliac vascular stents unchanged since CAT scan of 05/18/2020. 3. Chronic atrophic left kidney with multiple cysts. 4. Large hiatal hernia. Diverticulosis of the colon. There is no acute abnormality of the bowel. 5. Cholelithiasis. No edema around the gallbladder or bile duct dilatation. Assessment and Plan (1) Compression fracture of L5 vertebra: Status: Acute 85-year-old female with past medical history of hypertension, hyperlipidemia, CAD, CHF, osteopenia, vitamin-D deficiency, paroxysmal AFib, CO PD, restless legs syndrome presented to the hospital with a chief complaint of back pain since last Sunday. Noted to have acute L5 compression fracture. Acute L5 compression fracture/subacute to old T11 compression fracture: Patient grossly nonfocal. Pain control with Dilaudid and bowel regimen p.r.n.. Spoke to the patient and patient's son Elieser-mention that no neurosurgery available at [facility]-agreed to stay in the hospital. Given the exam is partially limited secondary to the pain will also obtain MRI L spine. History of CHF: Euvolemic. Continue home medications. History of COPD: Stable. Hypertension/hyperlipidemia: Continue home medications. Afib: rate controlled;Hold home eliquis for now DVT prophylaxis: SCD boots Code status: Full code
[2020-09-22] MEDS: HYDROmorphone HCl 0.5 MG/0.5 ML SYRINGE IVPUSH (22:58)
[2020-09-23] VITALS (11 sets, daily range): BP systolic 129–182; BP diastolic 55–90; PULSE 47–72; RESP 16–20; TEMP 36–36.6; O2SAT 87–98
--- NOTE | 2020-09-23 01:05 | PC.NURSE ---
PT SLEEPING, WAKES TO VOICE, RESPIRATIONS EASY, N/L. SKIN W/D.
[2020-09-23] MEDS: 0.9 % Sodium Chloride Flush 3 ML SYRINGE IVFLUSH ×4 (02:18→21:41)
[2020-09-23] MEDS: HYDROmorphone HCl 0.5 MG/0.5 ML SYRINGE IVPUSH ×3 (03:04→21:41)
--- NOTE | 2020-09-23 03:18 | PC.NURSE ---
PT C/O PAIN TO BACK. PT MEDICATED FOR PAIN PER EMAR.
--- NOTE | 2020-09-23 03:19 | PC.NURSE ---
REPORT GIVEN TO FLOOR. PT TO FLOOR ON STRETCHER AT THIS TIME. PT LEFT ED IN NAD.
[2020-09-23] MEDS: Acetaminophen 325 MG TABLET 650 MG PO (04:29)
[2020-09-23] MEDS: oxyCODONE HCl Immed Release 5 MG TABLET PO ×2 (04:29→15:03)
[2020-09-23 06:35] LABS: MANUAL DIFF FLAG NO
[2020-09-23 06:56] LABS: Basophils Percent Auto 0.3 % (0-2); Eosinophils Absolute Auto 0.1 X10*3/uL (0.0-0.4); Eosinophils Percent Auto 1.7 % (0-4); Hematocrit 36.9 % (37-47); Hemoglobin 11.6 g/dl (12.0-16.0); Imm Gran Abs Auto 0.05 X10*3/uL (0.00-0.03); Imm Gran Pct Auto 0.7 % (0.0-0.4); Lymphocytes Absolute Auto 1.1 X10*3/uL (1.2-4.9); Lymphocytes Percent Auto 14.8 % (20-40); Mean Corpuscular HGB Conc 31.4 g/dl (31.0-35.0); Mean Corpuscular Hemoglobin 31.8 pg (27.0-33.0); Mean Corpuscular Volume 101.1 fL (80-98); Mean Platelet Volume 9.4 fL (9.4-12.3); Monocytes Absolute Auto 0.9 X10*3/uL (0.1-1.2); Monocytes Percent Auto 11.6 % (2-11); Neutrophils Absolute Auto 5.3 X10*3/uL (2.0-8.3); Neutrophils Percent Auto 70.9 % (45-73); Platelet Count 147 X10*3/uL (160-400); Red Blood Count 3.65 X10*6/uL (4.20-5.50); Red Cell Distribution Width 15.4 % (11.0-16.0); White Blood Count 7.5 X10*3/uL (4.8-10.8)
[2020-09-23] MEDS: Albuterol/Iprat 2.5/0.5MG 3 ML AMPUL.NEB INHALE ×2 (07:45→20:19)
[2020-09-23 07:48] LABS: Anion Gap 12 (12-20); Blood Urea Nitrogen 30 mg/dL (9-16); Calcium 8.3 mg/dL (8.4-10.2); Carbon Dioxide 33 mmol/L (22-29); Chloride 101 mmol/L (96-108); Creatinine Clr Calc Pharmacy 32.7; Estimated Glomerular Filt Rate 37; Glucose Random 140 mg/dL (60-115); Potassium 3.8 mmol/L (3.3-5.1); Sodium 142 mmol/L (135-145)
[2020-09-23] MEDS: hydrALAZINE HCl 50 MG TABLET PO (08:01)
[2020-09-23] MEDS: NIFEdipine ER 30 MG TAB.ER.24 PO (08:01)
[2020-09-23] MEDS: Bumetanide 1 MG TABLET PO (08:01)
[2020-09-23] MEDS: Docusate Sodium 100 MG CAPSULE PO ×2 (08:01→21:41)
[2020-09-23] MEDS: Isosorbide Mononitrate 60 MG TAB.ER.24H PO (08:02)
[2020-09-23] MEDS: Spironolactone 25 MG TABLET PO (08:02)
[2020-09-23] MEDS: rOPINIRole HCL 0.5 MG TABLET PO (08:02)
[2020-09-23] MEDS: predniSONE 10 MG TABLET PO ×2 (08:02→21:41)
--- NOTE | 2020-09-23 08:10 | PC.NURSE ---
Patient BP 182/90, Dr. Frye made aware. NNO. Medicated with scheduled medications
--- NOTE | 2020-09-23 08:51 | HO.PM.IMPN ---
Subjective Subjective Date of Service: 09/23/20 Interval History: Seen in f/u for compression fracture of L-spine, has signficiant pain with movment. Review of Systems Gen: no fever Resp: no sob, no cough CV: no chest, no MORRISON, no leg edema GI: No n/v, no abd pain Neuro: No confusion MusK: back pain Physical Exam Vital Signs: Vital Signs: Last Vital Signs Temp 97.8 F 09/23/20 07:20 Pulse 60 09/23/20 08:02 Resp 20 09/23/20 08:01 BP 182/90 H 09/23/20 08:02 Pulse Ox 91 L 09/23/20 07:20 Body Mass Index 33.5 Const: Other: General: AO X 3, no acute distress Resp: CTA bilateral CVS: S1,S2,RRR GI: +BS, NT, no distention Skin: some brusies Neuro: motor grossly intact Psych: appropriate affect Objective Data Current Medications Generic Name Dose Route Start Last Admin Trade Name Freq PRN Reason Stop Dose Admin Acetaminophen 650 mg 09/22/20 21:58 09/23/20 04:29 Acetaminophen 325 Mg Tablet PO 650 mg Q6H PRN Administration Pain, Mild (Pain Scale 1-3) Albuterol/Ipratropium 3 ml 09/22/20 21:58 Albuterol/Iprat 2.5/0.5mg 3 Ml Ampul.Neb INHALE Q4H PRN Shortness of Breath/Wheezing Albuterol/Ipratropium 3 ml 09/23/20 09:00 09/23/20 07:45 Albuterol/Iprat 2.5/0.5mg 3 Ml Ampul.Neb INHALE 3 ml BID YULIA Administration Bumetanide 1 mg 09/23/20 09:00 09/23/20 08:01 Bumetanide 1 Mg Tablet PO 1 mg DAILY YULIA Administration Protocol Docusate Sodium 100 mg 09/23/20 09:00 09/23/20 08:01 Docusate Sodium 100 Mg Capsule PO 100 mg BID YULIA Administration Hydralazine HCl 50 mg 09/23/20 09:00 09/23/20 08:01 Hydralazine Hcl 50 Mg Tablet PO 50 mg DAILY YULIA Administration Protocol Hydromorphone HCl 0.5 mg 09/22/20 21:58 09/23/20 08:01 Hydromorphone Hcl 0.5 Mg/0.5 Ml Syringe IVPUSH 0.5 mg Q4H PRN Administration Pain, Severe (Pain Scale 7-10) Isosorbide Mononitrate 60 mg 09/23/20 09:00 09/23/20 08:02 Isosorbide Mononitrate 60 Mg Tab.Er.24h PO 60 mg DAILY YULIA Administration Protocol Nifedipine 30 mg 09/23/20 09:00 09/23/20 08:01 Nifedipine Er 30 Mg Tab.Er.24 PO 30 mg DAILY YULIA Administration Protocol Oxycodone HCl 5 mg 09/22/20 22:17 09/23/20 04:29 Oxycodone Hcl Immed Release 5 Mg Tablet PO 5 mg Q6H PRN Administration pain Prednisone 10 mg 09/23/20 09:00 09/23/20 08:02 Prednisone 10 Mg Tablet PO 10 mg BID YULIA Administration Ropinirole HCl 0.5 mg 09/23/20 09:00 09/23/20 08:02 Ropinirole Hcl 0.5 Mg Tablet PO 0.5 mg DAILY YULIA Administration Senna 17.2 mg 09/22/20 21:58 Sennosides 8.6 Mg Tablet PO BEDTIME PRN Constipation Sodium Chloride 3 ml 09/23/20 00:00 09/23/20 08:02 0.9 % Sodium Chloride Flush 3 Ml Syringe IVFLUSH 3 ml QSHIFT YULIA Administration Spironolactone 25 mg 09/23/20 09:00 09/23/20 08:02 Spironolactone 25 Mg Tablet PO 25 mg DAILY YULIA Administration Protocol Labs CBC & Chem 7: 09/23/20 06:19 09/23/20 06:19 Assessment and Plan (1) Compression fracture of L5 vertebra: Status: Acute Assessment and Plan: 85-year-old female with past medical history of hypertension, hyperlipidemia, CAD, CHF, osteopenia, vitamin-D deficiency, paroxysmal AFib, COPD, restless legs syndrome presented to the hospital with a chief complaint of back pain since last Sunday. Noted to have acute L5 compression fracture. Acute L5 compression fracture/subacute to old T11 compression fracture: Pain control with Dilaudid PRN IR consult for Kyphoplaysty Add Calcitonin nasal spray MRI is requested but uncertain if she can tolerate this History of CHF: Euvolemic. -continue Bumex History of COPD: Stable. Hypertension/hyperlipidemia: Continue home medications. Afib: rate controlled. Hold Eliquis for possible procedure DVT prophylaxis: SCD boots Code status: Full code
--- NOTE | 2020-09-23 09:13 | PC.NURSE ---
Pt heart rate 52, Dr. Frye made aware
[2020-09-23 09:33] LABS: INTERNATIONAL NORM RATIO 1.1 (0.9-1.1)
--- NOTE | 2020-09-23 13:32 | MHC.CM.PN ---
PATIENT LIVES WITH HER DAUGHTER AND FAMILY HCP IS ON FILE AND VERIFIED. COPY PLACED IN FRONT OF CHART. PLAN WAS FOR KYPHOPLASTY TODAY, BUT THAT IS NOW CHANGED UNTIL TOMORROW. PATIENT HAS PRIVATE PAY OFFICE SUPPORT 2X/WEEK, AND MONTHLY RN VISITS [facility]ROUGH [facility]. PATIENT IS AWARE OF LIKELY NEED FOR REHAB, AND WOULD LIKE TO COMPLETE THIS AT HOME. CASE MANAGEMENT FOLLOWING FOR DISCHARGE PLANS. IMM 09/23 IN CHART.
[2020-09-24] VITALS (9 sets, daily range): BP systolic 138–192; BP diastolic 66–80; PULSE 53–72; RESP 16–20; TEMP 36–37.1; O2SAT 92–97
[2020-09-24] MEDS: HYDROmorphone HCl 0.5 MG/0.5 ML SYRINGE IVPUSH ×4 (01:45→20:42)
[2020-09-24] MEDS: rOPINIRole HCL 0.5 MG TABLET PO (08:11)
[2020-09-24] MEDS: Spironolactone 25 MG TABLET PO (08:12)
[2020-09-24] MEDS: predniSONE 10 MG TABLET PO ×2 (08:12→20:42)
[2020-09-24] MEDS: Isosorbide Mononitrate 60 MG TAB.ER.24H PO (08:12)
[2020-09-24] MEDS: hydrALAZINE HCl 50 MG TABLET PO (08:12)
[2020-09-24] MEDS: NIFEdipine ER 30 MG TAB.ER.24 PO (08:13)
[2020-09-24] MEDS: Bumetanide 1 MG TABLET PO (08:13)
[2020-09-24] MEDS: 0.9 % Sodium Chloride Flush 3 ML SYRINGE IVFLUSH ×3 (08:13→20:45)
[2020-09-24] MEDS: Docusate Sodium 100 MG CAPSULE PO ×2 (08:19→20:42)
[2020-09-24] MEDS: Albuterol/Iprat 2.5/0.5MG 3 ML AMPUL.NEB INHALE ×2 (08:21→19:55)
--- NOTE | 2020-09-24 09:28 | P.PNIM_ITS ---
Subjective Subjective Date of Service: 09/24/20 Interval History: Examined at bedside. She feels slightly better today. She reports that her back pain is 8/10, would like to get out of bed with physical therapy. denies any N/V, diarrhea or constipation. She denies any urinary symptoms. Physical Exam Vital Signs: Vital Signs: Last Vital Signs Temp 97.6 F 09/24/20 07:34 Pulse 59 09/24/20 08:23 Resp 19 09/24/20 07:34 BP 173/70 H 09/24/20 07:34 Pulse Ox 95 09/24/20 07:34 Body Mass Index 33.5 Const: General: cooperative and no acute distress Orientation/co nsciousness: patient oriented x3 Eyes: General: appearance normal, both eyes and all related structures Resp: Effort & Inspection: normal respiratory effort and able to speak in co mplete sentences Cardio: Rate: regular rate Rhythm: regular rhythm GI: Palpation (GI): Soft to palpation Auscultation: normal bowel sounds Skin: General skin exam: no rashes or lesions noted Neuro: General: patient oriented x3 Cognition (Neuro): normal cognition Extrem: General: Yes normal to inspection Objective Data Current Medications Generic Name Dose Route Start Last Admin Trade Name Freq PRN Reason Stop Dose Admin Acetaminophen 650 mg 09/22/20 21:58 09/23/20 04:29 Acetaminophen 325 Mg Tablet PO 650 mg Q6H PRN Administration Pain, Mild (Pain Scale 1-3) Albuterol/Ipratropium 3 ml 09/22/20 21:58 09/23/20 20:19 Albuterol/Iprat 2.5/0.5mg 3 Ml Ampul.Neb INHALE 3 ml Q4H PRN Administration Shortness of Breath/Wheezing Albuterol/Ipratropium 3 ml 09/23/20 09:00 09/24/20 08:21 Albuterol/Iprat 2.5/0.5mg 3 Ml Ampul.Neb INHALE 3 ml BID YULIA Administration Bumetanide 1 mg 09/23/20 09:00 09/24/20 08:13 Bumetanide 1 Mg Tablet PO 1 mg DAILY YULIA Administration Protocol Docusate Sodium 100 mg 09/23/20 09:00 09/24/20 08:19 Docusate Sodium 100 Mg Capsule PO 100 mg BID YULIA Administration Hydralazine HCl 50 mg 09/23/20 09:00 09/24/20 08:12 Hydralazine Hcl 50 Mg Tablet PO 50 mg DAILY YULIA Administration Protocol Hydromorphone HCl 0.5 mg 09/22/20 21:58 09/24/20 08:11 Hydromorphone Hcl 0.5 Mg/0.5 Ml Syringe IVPUSH 0.5 mg Q4H PRN Administration Pain, Severe (Pain Scale 7-10) Isosorbide Mononitrate 60 mg 09/23/20 09:00 09/24/20 08:12 Isosorbide Mononitrate 60 Mg Tab.Er.24h PO 60 mg DAILY YULIA Administration Protocol Nifedipine 30 mg 09/23/20 09:00 09/24/20 08:13 Nifedipine Er 30 Mg Tab.Er.24 PO 30 mg DAILY [facility] Administration Protocol Oxycodone HCl 5 mg 09/22/20 22:17 09/23/20 15:03 Oxycodone Hcl Immed Release 5 Mg Tablet PO 5 mg Q6H PRN Administration pain Prednisone 10 mg 09/23/20 09:00 09/24/20 08:12 Prednisone 10 Mg Tablet PO 10 mg BID YULIA Administration Ropinirole HCl 0.5 mg 09/23/20 09:00 09/24/20 08:11 Ropinirole Hcl 0.5 Mg Tablet PO 0.5 mg DAILY YULIA Administration Senna 17.2 mg 09/22/20 21:58 Sennosides 8.6 Mg Tablet PO BEDTIME PRN Constipation Sodium Chloride 3 ml 09/23/20 00:00 09/24/20 08:13 0.9 % Sodium Chloride Flush 3 Ml Syringe IVFLUSH 3 ml QSHIFT YULIA Administration Spironolactone 25 mg 09/23/20 09:00 09/24/20 08:12 Spironolactone 25 Mg Tablet PO 25 mg DAILY [facility] Administration Protocol Labs CBC & Chem 7: 09/23/20 06:19 09/23/20 06:19 Assessment and Plan (1) Compression fracture of L5 vertebra: Status: Acute Assessment and Plan: 85-year-old female with past medical history of hypertension, hyperlipidemia, CAD, CHF, osteopenia, vitamin-D deficiency, paroxysmal AFib, COPD, restless legs syndrome presented to the hospital with a chief complaint of back pain since last Sunday. Noted to have acute L5 compression fracture. # Acute L5 compression fracture/subacute to old T11 compression fracture: - Pt reports pain is still 01/04 - will continue Pain control with Dilaudid PRN - IR consult for Kyphoplaysty - will need to be off her Eliqyis for 3 total days - Calcitonin nasal spray - MRI of spine showed bone marrow edema associated with acute to subacute compression fracture of the T11 and L5 vertebral bodies. Subtle impaction of the upper T12 endplate with no substantial loss of vertebral body height. Spondylosis at multiple levels, #History of CHF: - Euvolemic with no acute exacerbation -continue Bumex # History of COPD: - Stable #Hypertension/hyperlipidemia: - Continue home medications. #Afib: - rate controlled. - Hold Eliquis for kyphoplasty DVT prophylaxis: SCD boots Code status: Full code
[2020-09-24 10:39] LABS: Alanine Aminotransferase 9 U/L (0-31); Albumin Level 3.5 g/dL (3.5-5.0); Alkaline Phosphatase 77 U/L (39-117); Anion Gap 15 (12-20); Aspartate Amino Transferase 13 U/L (5-31); Bilirubin Total 0.9 mg/dL (0.0-1.0); Blood Urea Nitrogen 28 mg/dL (9-16); Calcium 8.5 mg/dL (8.4-10.2); Carbon Dioxide 33 mmol/L (22-29); Chloride 97 mmol/L (96-108); Creatinine Clr Calc Pharmacy 46.6; Estimated Glomerular Filt Rate 56; Glucose Random 155 mg/dL (60-115); Potassium 4.1 mmol/L (3.3-5.1); Sodium 141 mmol/L (135-145); Total Protein 5.8 g/dL (6.5-8.0)
[2020-09-24] MEDS: Calcitonin,Salmon,Synth Nasal 3.7 ML BOTTLE 1 SPRAY NOSTRILALT (12:24)
[2020-09-24 14:12] LABS: Appearance Urine CLEAR; Color Urine YELLOW; Glucose Urine UA NEG (NEG); Leukocyte Esterase Urine NEG (NEG); Nitrite Urine NEG (NEG); Specific Gravity - Urine 1.015 (1.005-1.025); Urine Blood NEG (NEG); Urine Ketones NEG (NEG); Urine Protein NEG (NEG-TRACE)
--- NOTE | 2020-09-24 14:53 | MHC.CM.PN ---
PLAN IS NOW FOR [facility] Sunday09/27/20. PLAN IS FOR PATIENT TO RETURN HOME WITH POSSIBLE SERVICES. CASE MANAGEMENT FOLLOWING
[2020-09-24] MEDS: oxyCODONE HCl Immed Release 5 MG TABLET PO ×2 (16:00→22:52)
[2020-09-25] VITALS (10 sets, daily range): BP systolic 158–173; BP diastolic 59–97; PULSE 52–74; RESP 16–20; TEMP 36.2–37.5; O2SAT 92–98
[2020-09-25] MEDS: HYDROmorphone HCl 0.5 MG/0.5 ML SYRINGE IVPUSH ×3 (01:13→21:40)
[2020-09-25] MEDS: oxyCODONE HCl Immed Release 5 MG TABLET PO ×2 (07:12→14:33)
[2020-09-25] MEDS: rOPINIRole HCL 0.5 MG TABLET PO (07:12)
[2020-09-25] MEDS: Docusate Sodium 100 MG CAPSULE PO ×2 (07:13→21:40)
[2020-09-25] MEDS: Calcitonin,Salmon,Synth Nasal 3.7 ML BOTTLE 1 SPRAY NOSTRILALT (07:14)
[2020-09-25] MEDS: 0.9 % Sodium Chloride Flush 3 ML SYRINGE IVFLUSH ×3 (07:15→23:42)
[2020-09-25] MEDS: Albuterol/Iprat 2.5/0.5MG 3 ML AMPUL.NEB INHALE ×2 (07:37→20:07)
[2020-09-25] MEDS: Bumetanide 1 MG TABLET PO (08:21)
[2020-09-25] MEDS: NIFEdipine ER 30 MG TAB.ER.24 PO (08:22)
[2020-09-25] MEDS: Spironolactone 25 MG TABLET PO (08:22)
[2020-09-25] MEDS: predniSONE 10 MG TABLET PO ×2 (08:22→21:40)
[2020-09-25] MEDS: hydrALAZINE HCl 50 MG TABLET PO (08:22)
[2020-09-25] MEDS: Isosorbide Mononitrate 60 MG TAB.ER.24H PO (08:22)
--- NOTE | 2020-09-25 09:55 | P.PNIM_ITS ---
Subjective Subjective Date of Service: 09/25/20 Interval History: Seen in follow-up for back pain due to L5 compression fracture. She continued to have pain albeit better. Review of Systems Gen: no fever Resp: no sob, no cough CV: no chest, no MORRISON, no leg edema GI: No n/v, no abd pain Neuro: No confusion MusK: back pain Physical Exam Vital Signs: Vital Signs: Last Vital Signs Temp 98.6 F 09/25/20 07:59 Pulse 71 09/25/20 07:59 Resp 19 09/25/20 07:59 BP 170/97 H 09/25/20 07:59 Pulse Ox 95 09/25/20 07:59 Body Mass Index 33.5 Const: Other: General: AO X 3, no acute distress Resp: CTA bilateral CVS: S1,S2,RRR GI: +BS, NT, no distention Skin: some brusies on arms Neuro: motor grossly intact Psych: appropriate affect Objective Data Current Medications Generic Name Dose Route Start Last Admin Trade Name Freq PRN Reason Stop Dose Admin Acetaminophen 650 mg 09/22/20 21:58 09/23/20 04:29 Acetaminophen 325 Mg Tablet PO 650 mg Q6H PRN Administration Pain, Mild (Pain Scale 1-3) Albuterol/Ipratropium 3 ml 09/22/20 21:58 09/23/20 20:19 Albuterol/Iprat 2.5/0.5mg 3 Ml Ampul.Neb INHALE 3 ml Q4H PRN Administration Shortness of Breath/Wheezing Albuterol/Ipratropium 3 ml 09/23/20 09:00 09/25/20 07:37 Albuterol/Iprat 2.5/0.5mg 3 Ml Ampul.Neb INHALE 3 ml BID YULIA Administration Bumetanide 1 mg 09/23/20 09:00 09/25/20 08:21 Bumetanide 1 Mg Tablet PO 1 mg DAILY YULIA Administration Protocol Calcitonin [place] 1 spray 09/24/20 10:00 09/25/20 07:14 Calcitonin,[place],Synth Nasal 3.7 Ml Bottle NOSTRILALT 1 spray DAILY YULIA Administration Docusate Sodium 100 mg 09/23/20 09:00 09/25/20 07:13 Docusate Sodium 100 Mg Capsule PO 100 mg BID YULIA Administration Hydralazine HCl 50 mg 09/23/20 09:00 09/25/20 08:22 Hydralazine Hcl 50 Mg Tablet PO 50 mg DAILY YULIA Administration Protocol Hydromorphone HCl 0.5 mg 09/22/20 21:58 09/25/20 01:13 Hydromorphone Hcl 0.5 Mg/0.5 Ml Syringe IVPUSH 0.5 mg Q4H PRN Administration Pain, Severe (Pain Scale 7-10) Isosorbide Mononitrate 60 mg 09/23/20 09:00 09/25/20 08:22 Isosorbide Mononitrate 60 Mg Tab.Er.24h PO 60 mg DAILY YULIA Administration Protocol Nifedipine 30 mg 09/23/20 09:00 09/25/20 08:22 Nifedipine Er 30 Mg Tab.Er.24 PO 30 mg DAILY YULIA Administration Protocol Oxycodone HCl 5 mg 09/22/20 22:17 09/25/20 07:12 Oxycodone Hcl Immed Release 5 Mg Tablet PO 5 mg Q6H PRN Administration pain Prednisone 10 mg 09/23/20 09:00 09/25/20 08:22 Prednisone 10 Mg Tablet PO 10 mg BID YULIA Administration Ropinirole HCl 0.5 mg 09/23/20 09:00 09/25/20 07:12 Ropinirole Hcl 0.5 Mg Tablet PO 0.5 mg DAILY YULIA Administration Senna 17.2 mg 09/22/20 21:58 Sennosides 8.6 Mg Tablet PO BEDTIME PRN Constipation Sodium Chloride 3 ml 09/23/20 00:00 09/25/20 07:15 0.9 % Sodium Chloride Flush 3 Ml Syringe IVFLUSH 3 ml QSHIFT YULIA Administration Spironolactone 25 mg 09/23/20 09:00 09/25/20 08:22 Spironolactone 25 Mg Tablet PO 25 mg DAILY [facility] Administration Protocol Labs CBC & Chem 7: 09/23/20 06:19 09/24/20 09:46 Assessment and Plan (1) Compression fracture of L5 vertebra: Status: Acute Assessment and Plan: 85-year-old female with past medical history of hypertension, hyperlipidemia, CAD, CHF, osteopenia, vitamin-D deficiency, paroxysmal AFib, COPD, restless legs syndrome presented to the hospital with a chief complaint of back pain since last Sunday. Noted to have acute L5 compression fracture. # Acute L5 compression fracture/subacute to old T11 compression fracture:- MRI of spine showed bone marrow edema associated with acute to subacute compression fracture of the T11 and L5 vertebral bodies. Subtle impaction of the upper T12 endplate with no substantial loss of vertebral body height. Spondylosis at multiple levels, - has persistent debilitating pain. - will continue Pain control with Dilaudid PRN -kyphoplasty on Sunday - will need to be off her Eliqyis for 3 total days - Calcitonin nasal spray #History of CHF: - Euvolemic with no acute exacerbation -continue Bumex # History of COPD: - Stable #Hypertension/hyperlipidemia: - Continue home medications. #Afib: - rate controlled. - Hold Eliquis for kyphoplasty DVT prophylaxis: SCD boots Code status: Full code
[2020-09-26] VITALS (9 sets, daily range): BP systolic 140–186; BP diastolic 65–92; PULSE 50–79; RESP 14–20; TEMP 36.4–36.8; O2SAT 93–99
[2020-09-26] MEDS: hydrALAZINE HCl 10 MG TABLET PO (05:36)
[2020-09-26] MEDS: Isosorbide Mononitrate 60 MG TAB.ER.24H PO (07:58)
[2020-09-26] MEDS: NIFEdipine ER 30 MG TAB.ER.24 PO (07:58)
[2020-09-26] MEDS: rOPINIRole HCL 0.5 MG TABLET PO (07:58)
[2020-09-26] MEDS: predniSONE 10 MG TABLET PO ×2 (07:58→21:56)
[2020-09-26] MEDS: hydrALAZINE HCl 50 MG TABLET PO (07:58)
[2020-09-26] MEDS: Bumetanide 1 MG TABLET PO (07:58)
[2020-09-26] MEDS: Spironolactone 25 MG TABLET PO (07:59)
[2020-09-26] MEDS: Docusate Sodium 100 MG CAPSULE PO ×2 (07:59→21:56)
[2020-09-26] MEDS: 0.9 % Sodium Chloride Flush 3 ML SYRINGE IVFLUSH ×3 (08:00→21:56)
[2020-09-26] MEDS: Albuterol/Iprat 2.5/0.5MG 3 ML AMPUL.NEB INHALE ×2 (08:48→19:46)
[2020-09-26] MEDS: Calcitonin,Salmon,Synth Nasal 3.7 ML BOTTLE 1 SPRAY NOSTRILALT (09:39)
[2020-09-26] MEDS: oxyCODONE HCl Immed Release 5 MG TABLET PO ×2 (09:41→16:29)
--- NOTE | 2020-09-26 10:05 | HO.PM.IMPN ---
Subjective Subjective Date of Service: 09/26/20 Interval History: Seen in follow-up for back pain due to L5 compression fracture. has 8/10 pain worse with movment Review of Systems Gen: no fever Resp: no sob, no cough CV: no chest, no MORRISON, no leg edema GI: No n/v, no abd pain Neuro: No confusion MusK: back pain Physical Exam Vital Signs: Vital Signs: Last Vital Signs Temp 98.2 F 09/26/20 07:44 Pulse 66 09/26/20 08:49 Resp 19 09/26/20 07:44 BP 172/65 H 09/26/20 07:44 Pulse Ox 96 09/26/20 07:44 Body Mass Index 33.5 Const: Other: General: AO X 3, no acute distress Resp: CTA bilateral CVS: S1,S2,RRR GI: +BS, NT, no distention Skin: some brusies on arms--unchanged Neuro: motor grossly intact Psych: appropriate affect Objective Data Current Medications Generic Name Dose Route Start Last Admin Trade Name Mariana PRN Reason Stop Dose Admin Acetaminophen 650 mg 09/22/20 21:58 09/23/20 04:29 Acetaminophen 325 Mg Tablet PO 650 mg Q6H PRN Administration Pain, Mild (Pain Scale 1-3) Albuterol/Ipratropium 3 ml 09/22/20 21:58 09/23/20 20:19 Albuterol/Iprat 2.5/0.5mg 3 Ml Ampul.Neb INHALE 3 ml Q4H PRN Administration Shortness of Breath/Wheezing Albuterol/Ipratropium 3 ml 09/23/20 09:00 09/26/20 08:48 Albuterol/Iprat 2.5/0.5mg 3 Ml Ampul.Neb INHALE 3 ml BID YUILA Administration Bumetanide 1 mg 09/23/20 09:00 09/26/20 07:58 Bumetanide 1 Mg Tablet PO 1 mg DAILY YULIA Administration Protocol Calcitonin [place] 1 spray 09/24/20 10:00 09/26/20 09:39 Calcitonin,[place],Synth Nasal 3.7 Ml Bottle NOSTRILALT 1 spray DAILY YULIA Administration Docusate Sodium 100 mg 09/23/20 09:00 09/26/20 07:59 Docusate Sodium 100 Mg Capsule PO 100 mg BID YULIA Administration Hydralazine HCl 50 mg 09/23/20 09:00 09/26/20 07:58 Hydralazine Hcl 50 Mg Tablet PO 50 mg DAILY YULIA Administration Protocol Hydromorphone HCl 0.5 mg 09/22/20 21:58 09/25/20 21:40 Hydromorphone Hcl 0.5 Mg/0.5 Ml Syringe IVPUSH 0.5 mg Q4H PRN Administration Pain, Severe (Pain Scale 7-10) Isosorbide Mononitrate 60 mg 09/23/20 09:00 09/26/20 07:58 Isosorbide Mononitrate 60 Mg Tab.Er.24h PO 60 mg DAILY [facility] Administration Protocol Nifedipine 30 mg 09/23/20 09:00 09/26/20 07:58 Nifedipine Er 30 Mg Tab.Er.24 PO 30 mg DAILY [facility] Administration Protocol Oxycodone HCl 5 mg 09/22/20 22:17 09/26/20 09:41 Oxycodone Hcl Immed Release 5 Mg Tablet PO 5 mg Q6H PRN Administration pain Prednisone 10 mg 09/23/20 09:00 09/26/20 07:58 Prednisone 10 Mg Tablet PO 10 mg BID YULIA Administration Ropinirole HCl 0.5 mg 09/23/20 09:00 09/26/20 07:58 Ropinirole Hcl 0.5 Mg Tablet PO 0.5 mg DAILY YULIA Administration Senna 17.2 mg 09/22/20 21:58 Sennosides 8.6 Mg Tablet PO BEDTIME PRN Constipation Sodium Chloride 3 ml 09/23/20 00:00 09/26/20 08:00 0.9 % Sodium Chloride Flush 3 Ml Syringe IVFLUSH 3 ml QSHIFT YULIA Administration Spironolactone 25 mg 09/23/20 09:00 09/26/20 07:59 Spironolactone 25 Mg Tablet PO 25 mg DAILY [facility] Administration Protocol Labs CBC & Chem 7: 09/23/20 06:19 09/24/20 09:46 Assessment and Plan (1) Compression fracture of L5 vertebra: Status: Acute Assessment and Plan: 85-year-old female with past medical history of hypertension, hyperlipidemia, CAD, CHF, osteopenia, vitamin-D deficiency, paroxysmal AFib, COPD, restless legs syndrome presented to the hospital with a chief complaint of back pain since last Sunday. Noted to have acute L5 compression fracture. # Acute L5 compression fracture/subacute to old T11 compression fracture:- MRI of spine showed bone marrow edema associated with acute to subacute compression fracture of the T11 and L5 vertebral bodies. Subtle impaction of the upper T12 endplate with no substantial loss of vertebral body height. Spondylosis at multiple levels, - has persistent debilitating pain. - will continue Pain control with Dilaudid PRN -kyphoplasty on Wednesday 09/27 - will need to be off her Eliqyis for 3 total days - Calcitonin nasal spray #History of CHF: - Euvolemic with no acute exacerbation -continue Bumex # History of COPD: - Stable #Hypertension/hyperlipidemia: - Continue home medications. #Afib: - rate controlled. - Hold Eliquis for kyphoplasty DVT prophylaxis: SCD boots Code status: Full code
[2020-09-26] MEDS: HYDROmorphone HCl 0.5 MG/0.5 ML SYRINGE IVPUSH (21:56)
[2020-09-27] VITALS (8 sets, daily range): BP systolic 121–186; BP diastolic 65–88; PULSE 48–82; RESP 16–18; TEMP 36.6–37.2; O2SAT 92–98
[2020-09-27] MEDS: HYDROmorphone HCl 0.5 MG/0.5 ML SYRINGE IVPUSH ×2 (02:52→08:01)
[2020-09-27] MEDS: Albuterol/Iprat 2.5/0.5MG 3 ML AMPUL.NEB INHALE ×2 (07:30→20:34)
[2020-09-27] MEDS: predniSONE 10 MG TABLET PO ×2 (07:56→19:32)
[2020-09-27] MEDS: rOPINIRole HCL 0.5 MG TABLET PO (07:56)
[2020-09-27] MEDS: Isosorbide Mononitrate 60 MG TAB.ER.24H PO (07:57)
[2020-09-27] MEDS: 0.9 % Sodium Chloride Flush 3 ML SYRINGE IVFLUSH ×3 (07:57→23:07)
[2020-09-27] MEDS: NIFEdipine ER 30 MG TAB.ER.24 PO (07:57)
[2020-09-27] MEDS: hydrALAZINE HCl 50 MG TABLET PO (07:57)
[2020-09-27] MEDS: Calcitonin,Salmon,Synth Nasal 3.7 ML BOTTLE 1 SPRAY NOSTRILALT (08:10)
[2020-09-27] MEDS: Spironolactone 25 MG TABLET PO (08:48)
[2020-09-27] MEDS: Docusate Sodium 100 MG CAPSULE PO ×2 (08:48→19:32)
[2020-09-27] MEDS: Bumetanide 1 MG TABLET PO (08:48)
--- NOTE | 2020-09-27 09:39 | HO.PM.IMPN ---
Subjective Subjective Date of Service: 09/27/20 Interval History: Seen in follow-up for back pain due to L5 compression fracture. She 01/04, worse with movment. Procedure is now planned for tomorrow Review of Systems Gen: no fever Resp: no sob, no cough CV: no chest, no MORRISON, no leg edema GI: No n/v, no abd pain Neuro: No confusion MusK: back pain Physical Exam Vital Signs: Vital Signs: Last Vital Signs Temp 97.8 F 09/27/20 07:36 Pulse 49 L 09/27/20 07:36 Resp 18 09/27/20 07:36 BP 186/79 H 09/27/20 07:36 Pulse Ox 96 09/27/20 07:36 Body Mass Index 33.5 Const: Other: General: AO X 3, no acute distress Resp: CTA bilateral CVS: S1,S2,RRR GI: +BS, NT, no distention Skin: some brusies on arms--unchanged Neuro: motor grossly intact Psych: appropriate affect Objective Data Current Medications Generic Name Dose Route Start Last Admin Trade Name Mariana PRN Reason Stop Dose Admin Acetaminophen 650 mg 09/22/20 21:58 09/23/20 04:29 Acetaminophen 325 Mg Tablet PO 650 mg Q6H PRN Administration Pain, Mild (Pain Scale 1-3) Albuterol/Ipratropium 3 ml 09/22/20 21:58 09/23/20 20:19 Albuterol/Iprat 2.5/0.5mg 3 Ml Ampul.Neb INHALE 3 ml Q4H PRN Administration Shortness of Breath/Wheezing Albuterol/Ipratropium 3 ml 09/23/20 09:00 09/27/20 07:30 Albuterol/Iprat 2.5/0.5mg 3 Ml Ampul.Neb INHALE 3 ml BID YULIA Administration Bumetanide 1 mg 09/23/20 09:00 09/27/20 08:48 Bumetanide 1 Mg Tablet PO 1 mg DAILY YULIA Administration Protocol Calcitonin [place] 1 spray 09/24/20 10:00 09/27/20 08:10 Calcitonin,[place],Synth Nasal 3.7 Ml Bottle NOSTRILALT 1 spray DAILY YULIA Administration Docusate Sodium 100 mg 09/23/20 09:00 09/27/20 08:48 Docusate Sodium 100 Mg Capsule PO 100 mg BID YULIA Administration Hydralazine HCl 50 mg 09/23/20 09:00 09/27/20 07:57 Hydralazine Hcl 50 Mg Tablet PO 50 mg DAILY YULIA Administration Protocol Hydromorphone HCl 0.5 mg 09/22/20 21:58 09/27/20 08:01 Hydromorphone Hcl 0.5 Mg/0.5 Ml Syringe IVPUSH 0.5 mg Q4H PRN Administration Pain, Severe (Pain Scale 7-10) Isosorbide Mononitrate 60 mg 09/23/20 09:00 09/27/20 07:57 Isosorbide Mononitrate 60 Mg Tab.Er.24h PO 60 mg DAILY [facility] Administration Protocol Nifedipine 30 mg 09/23/20 09:00 09/27/20 07:57 Nifedipine Er 30 Mg Tab.Er.24 PO 30 mg DAILY [facility] Administration Protocol Oxycodone HCl 5 mg 09/22/20 22:17 09/26/20 16:29 Oxycodone Hcl Immed Release 5 Mg Tablet PO 5 mg Q6H PRN Administration pain Prednisone 10 mg 09/23/20 09:00 09/27/20 07:56 Prednisone 10 Mg Tablet PO 10 mg BID YULIA Administration Ropinirole HCl 0.5 mg 09/23/20 09:00 09/27/20 07:56 Ropinirole Hcl 0.5 Mg Tablet PO 0.5 mg DAILY YULIA Administration Senna 17.2 mg 09/22/20 21:58 Sennosides 8.6 Mg Tablet PO BEDTIME PRN Constipation Sodium Chloride 3 ml 09/23/20 00:00 09/27/20 07:57 0.9 % Sodium Chloride Flush 3 Ml Syringe IVFLUSH 3 ml QSHIFT YULIA Administration Spironolactone 25 mg 09/23/20 09:00 09/27/20 08:48 Spironolactone 25 Mg Tablet PO 25 mg DAILY [facility] Administration Protocol Labs CBC & Chem 7: 09/23/20 06:19 09/24/20 09:46 Assessment and Plan (1) Compression fracture of L5 vertebra: Status: Acute Assessment and Plan: 85-year-old female with past medical history of hypertension, hyperlipidemia, CAD, CHF, osteopenia, vitamin-D deficiency, paroxysmal AFib, COPD, restless legs syndrome presented to the hospital with a chief complaint of back pain since last Sunday. Noted to have acute L5 compression fracture. # Acute L5 compression fracture/subacute to old T11 compression fracture:- MRI of spine showed bone marrow edema associated with acute to subacute compression fracture of the T11 and L5 vertebral bodies. Subtle impaction of the upper T12 endplate with no substantial loss of vertebral body height. Spondylosis at multiple levels, - has persistent debilitating pain. - will continue Pain control with Dilaudid PRN, add xycodne -kyphoplasty on Thursday 09/28 - will need to be off her Eliquis for 3 total days - Calcitonin nasal spray #History of CHF: - Euvolemic with no acute exacerbation -continue Bumex # History of COPD: - Stable #Hypertension/hyperlipidemia: - Continue home medications and adjust as needed #Afib: - rate controlled. - Hold Eliquis for kyphoplasty DVT prophylaxis: SCD boots Code status: Full code
--- NOTE | 2020-09-27 12:08 | MHC.CM.PN ---
CM MET W/PT TO DISCUSS D/C PLAN, PER PT SHE WOULD LIKE TO WAIT TO SEE HOW PROCEDURE GOES BEFORE DECIDING WHETHER SHE WILL GO TO [facility], PT DID REPORT IF SHE WERE TO GO SHE WOULD WANT TO GO TO [facility] AND BELIEVES SHE WAS IN THE [facility], CM TO SEND REFERRAL TO [facility]IA [employer]. D/C PLAN HOME W/SERVICES VS STR, FAMILY VS BLS TRANSPORT
[2020-09-27] MEDS: oxyCODONE HCl Immed Release 5 MG TABLET PO (14:35)
[2020-09-28] VITALS (12 sets, daily range): BP systolic 151–195; BP diastolic 66–85; PULSE 48–137; RESP 18–20; TEMP 36–36.8; O2SAT 93–99
--- NOTE | 2020-09-28 | ECG_ITS ---
Test Reason : CP Blood Pressure : / mmHG Vent. Rate : 038 BPM Atrial Rate : 293 BPM P-R Int : 000 ms QRS Dur : 082 ms QT Int : 458 ms P-R-T Axes : 242 -22 096 degrees QTc Int : 364 ms Atrial flutter with variable A-V block Left ventricular hypertrophy with repolarization abnormality Abnormal ECG When compared with ECG of 04-JUN-2020 07:20, Vent. rate has decreased BY 34 BPM Referred By: Lasha Frye Electronically Signed By:CARMEN MANZANO
[2020-09-28] MEDS: HYDROmorphone HCl 0.5 MG/0.5 ML SYRINGE IVPUSH ×2 (03:10→20:49)
[2020-09-28] MEDS: NIFEdipine ER 30 MG TAB.ER.24 PO (07:22)
[2020-09-28] MEDS: Isosorbide Mononitrate 60 MG TAB.ER.24H PO (07:22)
[2020-09-28] MEDS: hydrALAZINE HCl 50 MG TABLET PO ×3 (07:23→20:47)
--- NOTE | 2020-09-28 08:06 | PC.NURSE ---
patient omid to 35, asymptomatic. Afib/flutter on monitor. pacer pads in place. anesthesia aware. bp 180/63, 16/66
--- NOTE | 2020-09-28 08:17 | PC.NURSE ---
anesthesia spoke to Dr Frye, pt to be transferred to monitored bed and assessed by Dr Walsh. Dr Woodall spoke to Dr Walsh pt remains asymptomatic, hr down to 35bpm at times. patient aware of plan. Kyphoplasty cancelled.
--- NOTE | 2020-09-28 08:29 | P.CONAN_ITS ---
[facility] Active Problems Active Problems: All Active Problems (Updated 09/23/20 @ 01:54 by Femi Gudino MD) Compression fracture of L5 vertebra (Acute) Acute respiratory failure with hypoxia (Acute) Acute on chronic diastolic CHF (congestive heart failure) (Acute) UTI (urinary tract infection) (Acute) PAF (paroxysmal atrial fibrillation) (Acute) CHF (congestive heart failure) (Acute) Dyspnea (Acute) Chronic restrictive lung disease (Acute) COPD (chronic obstructive pulmonary disease) (Acute) Past Medical History Medical History AAA (abdominal aortic aneurysm) Afib Atrial flutter C7 cervical fracture CAD (coronary artery disease) Chronic restrictive lung disease CKD (chronic kidney disease) COPD (chronic obstructive pulmonary disease) Diastolic CHF Dyspnea Frequent UTI HTN (hypertension) Hypercholesteremia Kidney mass Osteopenia Restless leg Vitamin D deficiency Surgical History Surgical History History of appendectomy Social History Social History Household Members: Children Housing: House Do you presently have visiting nurse or other home services: Yes (visiting [employer] that helps bathe her on Mondays and ) Alcohol intake: never Smoking Status: Former smoker Use of substances other than those prescribed or required for medical reasons: No Currently Displaying Signs/Symptoms of Drug Intoxication Withdrawal: No Have you been hit, kicked, punched, or otherwise hurt by someone within the past year? If so, by whom?: No Do you feel safe in your current relationship?: No Is there a partner from a previous relationship who is making you feel unsafe now?: No Are you made to feel afraid or neglected: No Advance Directives: Yes Advance Directives Information Provided: No Advance Directives on File: Yes Advance Directives Date on File: 05/19/20 Do you have thoughts of harming others: None Do you have a plan to hurt others: No Plan Recently lost weight without trying: No Eating poorly because of decreased appetite: No Nutrition Risks: No Nutritional Risk service: No Current occupational status: retired Meds Allergies Allergy/AdvReac Type Severity Reaction Status Date / Time Iodinated Contrast Media Allergy Severe Vomiting Verified 08/17/20 11:30 [IV CONTRAST] scallops [SCALLOPS] Allergy Severe Vomiting Verified 08/17/20 11:30 amlodipine [AMLODIPINE] AdvReac Severe LEG Verified 08/17/20 11:30 SWELLING Active Medications: Current Medications Generic Name Dose Route Start Last Admin Trade Name Freq PRN Reason Stop Dose Admin Acetaminophen 650 mg 09/22/20 21:58 09/23/20 04:29 Acetaminophen 325 Mg Tablet PO 650 mg Q6H PRN Administration Pain, Mild (Pain Scale 1-3) Albuterol/Ipratropium 3 ml 09/22/20 21:58 09/23/20 20:19 Albuterol/Iprat 2.5/0.5mg 3 Ml Ampul.Neb INHALE 3 ml Q4H PRN Administration Shortness of Breath/Wheezing Albuterol/Ipratropium 3 ml 09/23/20 09:00 09/28/20 08:05 Albuterol/Iprat 2.5/0.5mg 3 Ml Ampul.Neb INHALE Not Given BID YULIA Bumetanide 1 mg 09/23/20 09:00 09/27/20 08:48 Bumetanide 1 Mg Tablet PO 1 mg DAILY [facility] Administration Protocol Calcitonin [place] 1 spray 09/24/20 10:00 09/27/20 08:10 Calcitonin,[place],Synth Nasal 3.7 Ml Bottle NOSTRILALT 1 spray DAILY [facility] Administration Docusate Sodium 100 mg 09/23/20 09:00 09/27/20 19:32 Docusate Sodium 100 Mg Capsule PO 100 mg BID YULIA Administration Hydralazine HCl 50 mg 09/23/20 09:00 09/28/20 07:23 Hydralazine Hcl 50 Mg Tablet PO 50 mg DAILY [facility] Administration Protocol Hydromorphone HCl 0.5 mg 09/28/20 00:23 09/28/20 03:10 Hydromorphone Hcl 0.5 Mg/0.5 Ml Syringe IVPUSH 0.5 mg Q4H PRN Administration Pain, Severe (Pain Scale 7-10) Isosorbide Mononitrate 60 mg 09/23/20 09:00 09/28/20 07:22 Isosorbide Mononitrate 60 Mg Tab.Er.24h PO 60 mg DAILY [facility] Administration Protocol Nifedipine 30 mg 09/23/20 09:00 09/28/20 07:22 Nifedipine Er 30 Mg Tab.Er.24 PO 30 mg DAILY [facility] Administration Protocol Oxycodone HCl 5 mg 09/28/20 00:22 Oxycodone Hcl Immed Release 5 Mg Tablet PO Q6H PRN Pain, Moderate (Pain Scale 4-6 Prednisone 10 mg 09/23/20 09:00 09/27/20 19:32 Prednisone 10 Mg Tablet PO 10 mg BID [facility] Administration Ropinirole HCl 0.5 mg 09/23/20 09:00 09/27/20 07:56 Ropinirole Hcl 0.5 Mg Tablet PO 0.5 mg DAILY [facility] Administration Senna 17.2 mg 09/22/20 21:58 Sennosides 8.6 Mg Tablet PO BEDTIME PRN Constipation Sodium Chloride 3 ml 09/23/20 00:00 09/27/20 23:07 0.9 % Sodium Chloride Flush 3 Ml Syringe IVFLUSH 3 ml QSHIFT [facility] Administration Spironolactone 25 mg 09/23/20 09:00 09/27/20 08:48 Spironolactone 25 Mg Tablet PO 25 mg DAILY [facility] Administration Protocol Home Medications Medication Instructions Recorded Confirmed Last Taken Type apixaban [Eliquis] 1 tab PO BID 09/22/20 09/22/20 Unknown History budesonide 1 vial INHALATION BID 09/22/20 09/22/20 Unknown History bumetanide 1 tab PO DAILY 09/22/20 09/22/20 Unknown History darifenacin 1 tab PO DAILY 09/22/20 09/22/20 Unknown History hydralazine 1 tab PO DAILY 09/22/20 09/22/20 Unknown History ipratropium-albuterol 3 ml INHALATION BID 09/22/20 09/22/20 Unknown History isosorbide mononitrate 1 tab PO DAILY 09/22/20 09/22/20 Unknown History nifedipine 1 tab PO DAILY 09/22/20 09/22/20 Unknown History nystatin [Nyamyc] 1 appl TOPICAL DAILY 09/22/20 09/22/20 Unknown History oxycodone 1 tab PO Q6-8H PRN 09/22/20 09/22/20 Unknown History prednisone 1 tab PO BID 09/22/20 09/22/20 Unknown History ropinirole 1 tab PO DAILY 09/22/20 09/22/20 Unknown History spironolactone 1 tab PO DAILY 09/22/20 09/22/20 Unknown History Exam Exam Date and Time: September 28, 2020 0829 Height,Weight and Vital Signs: Height 5 ft 4 in Weight 88.451 kg Last Vital Signs Temp 97.6 F 09/28/20 03:33 Pulse 60 09/28/20 07:23 Resp 20 09/28/20 03:33 BP 178/84 H 09/28/20 07:23 Pulse Ox 99 09/28/20 03:33 Pertinent Lab Results Pertinent Lab Results: Laboratory Tests 09/22/20 09/22/20 09/22/20 19:04 19:04 20:55 WBC 9.9 RBC 3.96 L Hgb 12.6 D Hct 39.1 MCV 98.7 H MCH 31.8 MCHC 32.2 RDW 15.2 Plt Count 175 MPV 9.3 L Immature Gran % (Auto) 0.7 H Neut % (Auto) 69.7 Lymph % (Auto) 17.5 L [place] % (Auto) 10.8 Eos % (Auto) 1.1 Baso % (Auto) 0.2 Lymph # (Auto) 1.7 [place] # (Auto) 1.1 Eos # (Auto) 0.1 Baso # (Auto) 0.0 Abs Immat Gran (auto) 0.07 H Absolute Neuts (auto) 6.9 Absolute Nucleated RBC 0.000 Nucleated RBC % (auto) 0.0 PT INR Sodium 141 Potassium 3.9 Chloride 100 Carbon Dioxide 28 Anion Gap 17 BUN 33 H Creatinine 1.36 Estim Creat Clear Calc 32.6 Estimated GFR 37 Random Glucose 118 H Calcium 8.5 Total Bilirubin 0.9 Direct Bilirubin 0.4 AST 17 ALT 8 Alkaline Phosphatase 83 D Total Protein 6.0 L Albumin 3.5 Lipase 36 Urine Color Urine Appearance Urine pH Ur Specific [place] Urine Protein Urine Glucose (UA) Urine Ketones Urine Blood Urine Nitrite Ur Leukocyte Esterase COVID-19 (NICOL) Negative COVID-19 Clin Com See Note 09/23/20 09/23/20 09/23/20 06:19 06:19 09:21 WBC 7.5 RBC 3.65 L Hgb 11.6 L Hct 36.9 L MCV 101.1 H MCH 31.8 MCHC 31.4 RDW 15.4 Plt Count 147 L MPV 9.4 Immature Gran % (Auto) 0.7 H Neut % (Auto) 70.9 Lymph % (Auto) 14.8 L [place] % (Auto) 11.6 H Eos % (Auto) 1.7 Baso % (Auto) 0.3 Lymph # (Auto) 1.1 L [place] # (Auto) 0.9 Eos # (Auto) 0.1 Baso # (Auto) 0.0 Abs Immat Gran (auto) 0.05 H Absolute Neuts (auto) 5.3 Absolute Nucleated RBC 0.000 Nucleated RBC % (auto) 0.0 PT 13.0 D INR 1.1 Sodium 142 Potassium 3.8 Chloride 101 Carbon Dioxide 33 H Anion Gap 12 BUN 30 H Creatinine 1.35 Estim Creat Clear Calc 32.7 Estimated GFR 37 Random Glucose 140 H Calcium 8.3 L Total Bilirubin Direct Bilirubin AST ALT Alkaline Phosphatase Total Protein Albumin Lipase Urine Color Urine Appearance Urine pH Ur Specific [place] Urine Protein Urine Glucose (UA) Urine Ketones Urine Blood Urine Nitrite Ur Leukocyte Esterase COVID-19 (NICOL) [email or web address] 09/24/20 09/24/20 09/24/20 09:46 09:46 14:00 WBC RBC Hgb Hct MCV MCH MCHC RDW Plt Count MPV Immature Gran % (Auto) Neut % (Auto) Lymph % (Auto) [place] % (Auto) Eos % (Auto) Baso % (Auto) Lymph # (Auto) [place] # (Auto) Eos # (Auto) Baso # (Auto) Abs Immat Gran (auto) Absolute Neuts (auto) Absolute Nucleated RBC Nucleated RBC % (auto) PT INR Sodium Cancelled 141 Potassium Cancelled 4.1 Chloride Cancelled 97 Carbon Dioxide Cancelled 33 H Anion Gap Cancelled 15 BUN Cancelled 28 H Creatinine Cancelled 0.95 Estim Creat Clear Calc Cancelled 46.6 Estimated GFR Cancelled 56 Random Glucose Cancelled 155 H Calcium Cancelled 8.5 Total Bilirubin 0.9 Direct Bilirubin AST 13 ALT 9 Alkaline Phosphatase 77 Total Protein 5.8 L Albumin 3.5 Lipase Urine Color YELLOW Urine Appearance CLEAR Urine pH 6.0 Ur Specific [place] 1.015 Urine Protein NEG Urine Glucose (UA) NEG Urine Ketones NEG Urine Blood NEG Urine Nitrite NEG Ur Leukocyte Esterase NEG COVID-19 (NICOL) COVID-19 [facility] 09/28/20 07:43 WBC RBC Hgb Hct MCV MCH MCHC RDW Plt Count MPV Immature Gran % (Auto) Neut % (Auto) Lymph % (Auto) [place] % (Auto) Eos % (Auto) Baso % (Auto) Lymph # (Auto) [place] # (Auto) Eos # (Auto) Baso # (Auto) Abs Immat Gran (auto) Absolute Neuts (auto) Absolute Nucleated RBC Nucleated RBC % (auto) PT 12.0 INR 1.0 Sodium Potassium Chloride Carbon Dioxide Anion Gap BUN Creatinine Estim Creat Clear Calc Estimated GFR Random Glucose Calcium Total Bilirubin Direct Bilirubin AST ALT Alkaline Phosphatase Total Protein Albumin Lipase Urine Color Urine Appearance Urine pH Ur Specific [place] Urine Protein Urine Glucose (UA) Urine Ketones Urine Blood Urine Nitrite Ur Leukocyte Esterase COVID-19 (NIOCL) COVID-19 Clin Com Narrative Narrative: Patient arrived to preop holding area with rhythm of atrial flutter (chronic) and HR dropping frequently to the 30s with bp stable. Will cancel planned sedation for khyphoplasty today. Spoke with Dr. Alcantar who will return patient to a monitored bed on the floor pending cardiology input. Spoke with Dr. Walsh who has seen patient in the past; he suggested calling ribbon lap machine tender pit hoist operator Dr. Gutierrez.
--- NOTE | 2020-09-28 09:08 | MHC.CM.PN ---
CM NOTIFIED PT IN AFIB, KYPHOPLASTY CANCELLED FOR TODAY, REFERRALS HAVE BEEN DONE FOR [facility] IN ANTIC OF HOME SERVICES PER INITIAL PT EVAL, PT DOES MONTHLY RN VISITS ONLY. REFERRAL ALSO DONE FOR [facility] IN CASE STR IS RECOMMENDED. CM TO CONT TO FOLLOW FOR D/C NEEDS.
--- NOTE | 2020-09-28 10:30 | HO.PM.IMPN ---
Subjective Subjective Date of Service: 09/28/20 Interval History: Seen in follow-up for back pain due to L5 compression fracture. Kyphoplasty was cancelled because heart rate was in 30s and 40, this chronic, and assymptomatic, she's not BB and is hemodynamically stable. Review of Systems Gen: no fever Resp: no sob, no cough CV: no chest, no MORRISON, no leg edema GI: No n/v, no abd pain Neuro: No confusion MusK: back pain Physical Exam Vital Signs: Vital Signs: Last Vital Signs Temp 97.0 F 09/28/20 08:45 Pulse 48 L 09/28/20 08:45 Resp 19 09/28/20 08:45 BP 195/70 H 09/28/20 08:45 Pulse Ox 95 09/28/20 08:45 Body Mass Index 33.5 Const: Other: General: AO X 3, no acute distress Resp: CTA bilateral CVS: S1,S2,RRR GI: +BS, NT, no distention Skin: some brusies on arms--unchanged Neuro: motor grossly intact Psych: appropriate affect Objective Data Current Medications Generic Name Dose Route Start Last Admin Trade Name Freq PRN Reason Stop Dose Admin Acetaminophen 650 mg 09/22/20 21:58 09/23/20 04:29 Acetaminophen 325 Mg Tablet PO 650 mg Q6H PRN Administration Pain, Mild (Pain Scale 1-3) Albuterol/Ipratropium 3 ml 09/22/20 21:58 09/23/20 20:19 Albuterol/Iprat 2.5/0.5mg 3 Ml Ampul.Neb INHALE 3 ml Q4H PRN Administration Shortness of Breath/Wheezing Albuterol/Ipratropium 3 ml 09/23/20 09:00 09/28/20 08:05 Albuterol/Iprat 2.5/0.5mg 3 Ml Ampul.Neb INHALE Not Given BID YULIA Bumetanide 1 mg 09/23/20 09:00 09/27/20 08:48 Bumetanide 1 Mg Tablet PO 1 mg DAILY [facility] Administration Protocol Calcitonin [place] 1 spray 09/24/20 10:00 09/27/20 08:10 Calcitonin,[place],Synth Nasal 3.7 Ml Bottle NOSTRILALT 1 spray DAILY [facility] Administration Docusate Sodium 100 mg 09/23/20 09:00 09/27/20 19:32 Docusate Sodium 100 Mg Capsule PO 100 mg BID [facility] Administration Hydralazine HCl 50 mg 09/23/20 09:00 09/28/20 07:23 Hydralazine Hcl 50 Mg Tablet PO 50 mg DAILY [facility] Administration Protocol Hydromorphone HCl 0.5 mg 09/28/20 00:23 09/28/20 03:10 Hydromorphone Hcl 0.5 Mg/0.5 Ml Syringe IVPUSH 0.5 mg Q4H PRN Administration Pain, Severe (Pain Scale 7-10) Isosorbide Mononitrate 60 mg 09/23/20 09:00 09/28/20 07:22 Isosorbide Mononitrate 60 Mg Tab.Er.24h PO 60 mg DAILY [facility] Administration Protocol Nifedipine 30 mg 09/23/20 09:00 09/28/20 07:22 Nifedipine Er 30 Mg Tab.Er.24 PO 30 mg DAILY [facility] Administration Protocol Oxycodone HCl 5 mg 09/28/20 00:22 Oxycodone Hcl Immed Release 5 Mg Tablet PO Q6H PRN Pain, Moderate (Pain Scale 4-6 Prednisone 10 mg 09/23/20 09:00 09/27/20 19:32 Prednisone 10 Mg Tablet PO 10 mg BID Y[facility] Administration Ropinirole HCl 0.5 mg 09/23/20 09:00 09/27/20 07:56 Ropinirole Hcl 0.5 Mg Tablet PO 0.5 mg DAILY [facility] Administration Senna 17.2 mg 09/22/20 21:58 Sennosides 8.6 Mg Tablet PO BEDTIME PRN Constipation Sodium Chloride 3 ml 09/23/20 00:00 09/27/20 23:07 0.9 % Sodium Chloride Flush 3 Ml Syringe IVFLUSH 3 ml QSHIFT [facility] Administration Spironolactone 25 mg 09/23/20 09:00 09/27/20 08:48 Spironolactone 25 Mg Tablet PO 25 mg DAILY [facility] Administration Protocol Labs CBC & Chem 7: 09/23/20 06:19 09/24/20 09:46 Assessment and Plan (1) Compression fracture of L5 vertebra: Status: Acute Assessment and Plan: 85-year-old female with past medical history of hypertension, hyperlipidemia, CAD, CHF, osteopenia, vitamin-D deficiency, paroxysmal AFib, COPD, restless legs syndrome presented to the hospital with a chief complaint of back pain since last Sunday. Noted to have acute L5 compression fracture. # Acute L5 compression fracture/subacute to old T11 compression fracture:- MRI of spine showed bone marrow edema associated with acute to subacute compression fracture of the T11 and L5 vertebral bodies. Subtle impaction of the upper T12 endplate with no substantial loss of vertebral body height. Spondylosis at multiple levels, -Kyphoplasty cancelled again, will attempt pain control with oral pain med and consider STR, as it is unclear if this will ever be done #History of CHF: - Euvolemic with no acute exacerbation -continue Bumex # History of COPD: - Stable #Hypertensio--ABDIRAHMAN remains high on hydralazine, Nifedipine and Bumex, increase Hydralazine to 50 tid hyperlipidemia: - Continue home medications and adjust as needed #Afib with likly SSS, no sinus pauses, hemodynamically stable and no indication for pace maker at this time - Restart eliquis as there is no indication she will have kyphoplasty done DVT prophylaxis: SCD boots Code status: Full code
--- NOTE | 2020-09-28 10:36 | PM.CNCAR ---
History of Present Illness History of Present Illness Date of Service: 09/28/20 Consult reason: pre-op evaluation Chief complaint: L5 compress fracture Narrative: This is a cardiology consultation regarding preoperative risk stratification for kyphoplasty procedure. She was actually taken for the procedure today but then noted to be bradycardic and hence it was canceled. Patient has a history of coronary disease and based on the last consultation, LAD PCI. She also has chronic atrial flutter versus fibrillation but not on any rate control meds. Current admission is mainly for back pain and in that context, kyphoplasty has been planned. Due to bradycardia, we have been asked to see her. Patient states that she has no cardiac symptoms whatsoever at this time. She has no dizziness, presyncope or in fact any other cardiac symptoms. She has chronic shortness of breath related to her COPD. No anginal-type symptoms. Review of Systems Review of Systems: Yes all other systems are reviewed and are negative Cardiovascular: Cardiovascular: Reports as per HPI, Reports no additional cardiovascular complaints, Denies acrocyanosis, Denies cool extremities, Denies painful fingertips, Denies chest pain, Denies chest pain at rest, Denies diaphoresis, Denies syncope, Denies irregular heart rhythm, Denies claudication, Denies leg edema, Denies lightheadedness, Denies palpitations and Reports dyspnea Respiratory: Respiratory: Reports dyspnea Neurologic: Denies syncope Endocrine: Endocrine: Denies palpitations [facility] Past Medical History Medical History (Updated 09/28/20 @ 10:44 by Junior Gutierrez MD) AAA (abdominal aortic aneurysm) Afib Atherosclerotic cardiovascular disease Atrial flutter C7 cervical fracture CAD (coronary artery disease) Chronic restrictive lung disease CKD (chronic kidney disease) COPD (chronic obstructive pulmonary disease) Diastolic CHF Dyspnea Essential hypertension Frequent UTI HTN (hypertension) Hypercholesteremia Kidney mass Osteopenia Restless leg Vitamin D deficiency Surgical History Surgical History History of appendectomy Social History Social History Household Members: Children Housing: House Alcohol intake: never Smoking Status: Former smoker Advance Directives Date on File: 05/19/20 service: No Current occupational status: retired Meds Allergies Allergy/AdvReac Type Severity Reaction Status Date / Time Iodinated Contrast Media Allergy Severe Vomiting Verified 08/17/20 11:30 [IV CONTRAST] scallops [SCALLOPS] Allergy Severe Vomiting Verified 08/17/20 11:30 amlodipine [AMLODIPINE] AdvReac Severe LEG Verified 08/17/20 11:30 SWELLING Active Medications: Current Medications Generic Name Dose Route Start Last Admin Trade Name Freq PRN Reason Stop Dose Admin Acetaminophen 650 mg 09/22/20 21:58 09/23/20 04:29 Acetaminophen 325 Mg Tablet PO 650 mg Q6H PRN Administration Pain, Mild (Pain Scale 1-3) Albuterol/Ipratropium 3 ml 09/22/20 21:58 09/23/20 20:19 Albuterol/Iprat 2.5/0.5mg 3 Ml Ampul.Neb INHALE 3 ml Q4H PRN Administration Shortness of Breath/Wheezing Albuterol/Ipratropium 3 ml 09/23/20 09:00 09/28/20 08:05 Albuterol/Iprat 2.5/0.5mg 3 Ml Ampul.Neb INHALE Not Given BID YULIA Bumetanide 1 mg 09/23/20 09:00 09/27/20 08:48 Bumetanide 1 Mg Tablet PO 1 mg DAILY [facility] Administration Protocol Calcitonin [place] 1 spray 09/24/20 10:00 09/27/20 08:10 Calcitonin,[place],Synth Nasal 3.7 Ml Bottle NOSTRILALT 1 spray DAILY [facility] Administration Docusate Sodium 100 mg 09/23/20 09:00 09/27/20 19:32 Docusate Sodium 100 Mg Capsule PO 100 mg BID [facility] Administration Hydralazine HCl 50 mg 09/23/20 09:00 09/28/20 07:23 Hydralazine Hcl 50 Mg Tablet PO 50 mg DAILY [facility] Administration Protocol Hydromorphone HCl 0.5 mg 09/28/20 00:23 09/28/20 03:10 Hydromorphone Hcl 0.5 Mg/0.5 Ml Syringe IVPUSH 0.5 mg Q4H PRN Administration Pain, Severe (Pain Scale 7-10) Isosorbide Mononitrate 60 mg 09/23/20 09:00 09/28/20 07:22 Isosorbide Mononitrate 60 Mg Tab.Er.24h PO 60 mg DAILY [facility] Administration Protocol Nifedipine 30 mg 09/23/20 09:00 09/28/20 07:22 Nifedipine Er 30 Mg Tab.Er.24 PO 30 mg DAILY [facility] Administration Protocol Oxycodone HCl 5 mg 09/28/20 00:22 Oxycodone Hcl Immed Release 5 Mg Tablet PO Q6H PRN Pain, Moderate (Pain Scale 4-6 Prednisone 10 mg 09/23/20 09:00 09/27/20 19:32 Prednisone 10 Mg Tablet PO 10 mg BID [facility] Administration Ropinirole HCl 0.5 mg 09/23/20 09:00 09/27/20 07:56 Ropinirole Hcl 0.5 Mg Tablet PO 0.5 mg DAILY [facility] Administration Senna 17.2 mg 09/22/20 21:58 Sennosides 8.6 Mg Tablet PO BEDTIME PRN Constipation Sodium Chloride 3 ml 09/23/20 00:00 09/27/20 23:07 0.9 % Sodium Chloride Flush 3 Ml Syringe IVFLUSH 3 ml QSHIFT [facility] Administration Spironolactone 25 mg 09/23/20 09:00 09/27/20 08:48 Spironolactone 25 Mg Tablet PO 25 mg DAILY [facility] Administration Protocol Home Medications Medication Instructions Recorded Confirmed Last Taken Type apixaban [Eliquis] 1 tab PO BID 09/22/20 09/22/20 Unknown History budesonide 1 vial INHALATION BID 09/22/20 09/22/20 Unknown History bumetanide 1 tab PO DAILY 09/22/20 09/22/20 Unknown History darifenacin 1 tab PO DAILY 09/22/20 09/22/20 Unknown History hydralazine 1 tab PO DAILY 09/22/20 09/22/20 Unknown History ipratropium-albuterol 3 ml INHALATION BID 09/22/20 09/22/20 Unknown History isosorbide mononitrate 1 tab PO DAILY 09/22/20 09/22/20 Unknown History nifedipine 1 tab PO DAILY 09/22/20 09/22/20 Unknown History nystatin [Nyamyc] 1 appl TOPICAL DAILY 09/22/20 09/22/20 Unknown History oxycodone 1 tab PO Q6-8H PRN 09/22/20 09/22/20 Unknown History prednisone 1 tab PO BID 09/22/20 09/22/20 Unknown History ropinirole 1 tab PO DAILY 09/22/20 09/22/20 Unknown History spironolactone 1 tab PO DAILY 09/22/20 09/22/20 Unknown History Physical Exam Vital Signs: Vital Signs: Last Vital Signs Temp 97.0 F 09/28/20 08:45 Pulse 48 L 09/28/20 08:45 Resp 19 09/28/20 08:45 BP 195/70 H 09/28/20 08:45 Pulse Ox 95 09/28/20 08:45 Body Mass Index 33.5 Const: General: cooperative, comfortable and no acute distress Orientation/consciousness: patient oriented x3 HENMT: Other: Unremarkable Neck: Neck: Yes normal visual inspection Chest: Chest palpation & inspection: normal inspection of the chest Resp: Auscultation: rhonchi and diminished lung sounds Cardio: Jugular venous distension: no JVD Palpation: normal PMI Heart sounds: S1 normal heart sound present, S2 normal heart sound present, no gallops, Murmur heart sound present systolic early and II/ and no rubs GI: Palpation (GI): Soft to palpation Back/Spine/Pelvis: Other: unremarkable Skin: General skin exam: no rashes or lesions noted Neuro: General: patient oriented x3 Extrem: General: Yes no clubbing, cyanosis or edema Psych: Mental Status: mental status grossly normal Results Labs and Meds Result diagrams: 09/23/20 06:19 09/24/20 09:46 Lab results: Laboratory Results - last 24 hr 09/28/20 07:43 PT 12.0 INR 1.0 ECG Attestation: I personally reviewed and interpreted this ECG as follows: Interpretation: Last EKGs from May of this year in that shows underlying atrial fibrillation versus flutter at about 72/Min. In telemetry, atrial flutter in 40s to 50s. Assessment and Plan (1) Preoperative cardiovascular examination: Status: Acute (2) Chronic atrial flutter: Status: Acute (3) Atherosclerotic cardiovascular disease: Status: Acute (4) Essential hypertension: Status: Acute With regard to the atrial flutter, slow rate, clinically she has no symptoms. Does not require permanent pacemaker for that reason. However from the preoperative perspective, she is bradycardic and medications used for sedation purposes may slow her down further. Discussed with the patient about this and she understands. If the procedure needs to be performed for pain relief, then use temporary pacer pads. Atropine could be used as needed. Will discuss with Anesthesia about this. Otherwise, her blood pressure is quite high. Unclear if that is from pain. May consider going up on hydralazine. Last echocardiogram is from 2019 and she has preserved LVEF without any significant valvular pathology then. She needs a 12 lead EKG as there is nothing in the last 3-4 months.
[2020-09-28] MEDS: rOPINIRole HCL 0.5 MG TABLET PO (10:47)
[2020-09-28] MEDS: Bumetanide 1 MG TABLET PO (10:47)
[2020-09-28] MEDS: predniSONE 10 MG TABLET PO ×2 (10:47→20:47)
[2020-09-28] MEDS: Docusate Sodium 100 MG CAPSULE PO ×2 (10:47→20:47)
[2020-09-28] MEDS: oxyCODONE HCl Immed Release 5 MG TABLET PO (10:47)
[2020-09-28] MEDS: Spironolactone 25 MG TABLET PO (10:47)
[2020-09-28] MEDS: 0.9 % Sodium Chloride Flush 3 ML SYRINGE IVFLUSH ×3 (10:48→20:49)
[2020-09-28] MEDS: Acetaminophen 325 MG TABLET 650 MG PO (10:48)
[2020-09-28] MEDS: Calcitonin,Salmon,Synth Nasal 3.7 ML BOTTLE 1 SPRAY NOSTRILALT (10:49)
[2020-09-28] MEDS: Atropine Sulfate 1 MG/10 ML SYRINGE 0.5 MG IVPUSH (14:32)
[2020-09-28] MEDS: Apixaban 2.5 MG TABLET PO (20:47)
[2020-09-28] MEDS: Albuterol/Iprat 2.5/0.5MG 3 ML AMPUL.NEB INHALE (21:37)
[2020-09-29] VITALS (12 sets, daily range): BP systolic 125–194; BP diastolic 58–81; PULSE 48–95; RESP 18–20; TEMP 36.7–37.3; O2SAT 94–98
[2020-09-29] MEDS: HYDROmorphone HCl 0.5 MG/0.5 ML SYRINGE IVPUSH ×3 (03:18→23:58)
[2020-09-29] MEDS: rOPINIRole HCL 0.5 MG TABLET PO (07:42)
[2020-09-29] MEDS: Isosorbide Mononitrate 60 MG TAB.ER.24H PO (07:42)
[2020-09-29] MEDS: hydrALAZINE HCl 50 MG TABLET PO ×3 (07:42→21:06)
[2020-09-29] MEDS: Apixaban 2.5 MG TABLET PO ×2 (07:42→21:06)
[2020-09-29] MEDS: NIFEdipine ER 30 MG TAB.ER.24 PO (07:43)
[2020-09-29] MEDS: Docusate Sodium 100 MG CAPSULE PO ×2 (07:43→21:06)
[2020-09-29] MEDS: 0.9 % Sodium Chloride Flush 3 ML SYRINGE IVFLUSH ×2 (07:43→14:28)
[2020-09-29] MEDS: predniSONE 10 MG TABLET PO ×2 (07:43→21:06)
[2020-09-29] MEDS: oxyCODONE HCl Immed Release 5 MG TABLET PO (08:09)
[2020-09-29] MEDS: Albuterol/Iprat 2.5/0.5MG 3 ML AMPUL.NEB INHALE ×3 (08:17→21:21)
--- NOTE | 2020-09-29 09:46 | CA_ITS ---
Transthoracic Echocardiogram Patient (Last, First, Middle): Sayda Reynolds, Gender: Female Date of : 1935 Age: 85 Procedure Date: 09/29/2020 Procedure Type: Transthoracic Echocardiogram Location[place] [facility] [place] Height: 162.56 cm Weight: 88.45 kg BSA: 1.94 m2 Heart Rate: bpm BP: 185 / 74 mmHg Milk Treater: Referring MD: Junior Gutierrez MD Symptoms: Aortic sclerosis/stenosis Study Quality: Fair ECG Rhythm: Atrial flutter Conclusions: - The left ventricular systolic function is hyperdynamic. The visually estimated ejection fraction is >70%. - There is mild calcification of the aortic valve. - No obvious valvular pathology seen on this study. Findings Left Ventricle Normal left ventricular cavity size. There is mildly increased left ventricular wall thickness. The left ventricular systolic function is hyperdynamic. The visually estimated ejection fraction is >70%. There is no evidence of regional wall motion abnormalities. Diastolic function is indeterminate on the basis of available data. Right Ventricle Mildly increased right ventricular cavity size. There is normal right ventricular systolic function. Atria The left atrium is moderately dilated. The right atrium is mildly dilated. Aortic Valve There is mild calcification of the aortic valve. There is no aortic valve stenosis. The mean gradient is 6 mmHg. There is no aortic valve regurgitation. Mitral Valve The mitral valve appears normal. There is trace mitral valve regurgitation. There is no mitral valve stenosis. Pulmonic Valve The pulmonic valve was not well visualized. Tricuspid Valve The tricuspid valve was not well visualized. There is trace tricuspid valve regurgitation. The pulmonary artery systolic pressure is normal. Great Vessels The aortic annulus, sinuses of valsalva, and asc aorta are normal in size. Venous The inferior vena cava is normal in size and collapses greater than 50% with inspiration. Pericardium/Pleural There is no evidence of pericardial effusion. Prior Study Comparison No significant change compared to prior study dated: 02/26/2019. Recommendations, Care & Conclusions No obvious valvular pathology seen on this study. Measurements 2D Linear Measurements IVSd: 1.21 0.6-0.9/0.6-1.0 cm LVIDd: 3.96 3.9-5.3/4.2-5.9 cm LVIDd Index: 2.04 2.4-3.2/2.2-3.1 cm/m2 LVIDs: 2.20 2.0-3.6 cm LVPWd: 1.25 0.7-1.1 cm Ao Root: 3.20 2.1-3.5 cm LA Diam: 4.00 2.7-3.8/3.0-4.0 cm LAIDs Index: 2.06 1.5-2.3 cm/m2 LV Mass: 210.61 67-162/88-224 g LV Mass Index: 108.56 43-95/49-115 g/m2 LVOT Diam: 2.00 3.0+(-)1.3 cm Mitral Valve MV Pk E: 1.14 MV Decel Time: 158.00 E'Lateral: 17.30 E'Medial: 11.70 E/E' Med: 9.70 E/E' Lat: 6.60 PHT: 46.00 MVA PHT: 4.78 Decel Beckham: 7.23 Aortic Valve AoV Pk Gibson: 1.84 AoV Mn Gibson: 1.12 AoV VTI: 0.36 AoV Pk Grad: 14.00 Aov Mn Grad: 6.00 HETAL Cont.VTI: 1.70 LVOT LVOT Pk Gibson: 0.84 LVOT Mn Gibson: 0.55 LVOT VTI: 0.20 LVOT Pk Grad: 3.00 LVOT Mn Grad: 2.00 LVOT Diam: 2.00 LVOT Area: 3.14 Diastolic Function MV Pk E: 1.14 E'Medial: 11.70 E/E' Med: 9.70 E' Laterial: 17.30 E/E' Lat: 6.60 Tricuspid Valve TR Pk Gibson: 2.53 TR Pk Grad: 26.00 RA Press: 3.00 RVSP: 29.00 Great Vessels Aorta Ao Root-2D: 3.20 2.0-3.7 cm Ao Asc: 3.10 2.1-3.4 cm Pulmonary Valve PV Pk Gibson: 1.85 Peak PV Grad: 14.00 Updated in Other Vendor System with Status of Final Junior Gutierrez MD electronically signed on 09/29/2020 3:48:54 PM with status of Final
--- NOTE | 2020-09-29 10:19 | PM.PNCARD ---
Subjective Subjective Date of Service: 09/29/20 Interval history: She states that she feels okay from cardiac. No dizziness or presyncopal symptoms or in fact anything else cardiac. Review of Systems Review of Systems Yes all other systems are reviewed and are negative Cardiovascular: Reports as per HPI, Reports no additional cardiovascular complaints, Denies acrocyanosis, Denies cool extremities, Denies painful fingertips, Denies chest pain, Denies chest pain at rest, Denies diaphoresis, Denies syncope, Denies irregular heart rhythm, Denies claudication, Denies leg edema, Denies lightheadedness, Denies palpitations and Reports dyspnea Respiratory: Reports dyspnea Denies syncope Endocrine: Denies palpitations Physical Exam Vital Signs: Last Vital Signs Temp 98.2 F 09/29/20 07:29 Pulse 60 09/29/20 08:19 Resp 20 09/29/20 07:29 BP 185/74 H 09/29/20 07:29 Pulse Ox 98 09/29/20 07:29 Body Mass Index 33.5 Const General: cooperative, comfortable and no acute distress Orientation/consciousness: patient oriented x3 HENMT Other: Unremarkable Neck Neck: Yes normal visual inspection Chest Chest palpation & inspection: normal inspection of the chest Resp Auscultation: rhonchi and diminished lung sounds Cardio Jugular venous distension: no JVD Palpation: normal PMI Heart sounds: S1 normal heart sound present, S2 normal heart sound present, no gallops, Murmur heart sound present systolic early and II/ and no rubs GI Palpation (GI): Soft to palpation Back/Spine/Pelvis Other: unremarkable Skin General skin exam: no rashes or lesions noted Neuro General: patient oriented x3 Extrem General: Yes no clubbing, cyanosis or edema Psych Mental Status: mental status grossly normal Results Labs and Meds Result diagrams: 09/23/20 06:19 09/24/20 09:46 Progress Note: A&P Assessment and plan (1) Preoperative cardiovascular examination: Status: Acute (2) Chronic atrial flutter: Status: Acute (3) Atherosclerotic cardiovascular disease: Status: Acute (4) Essential hypertension: Status: Acute Assessment and Plan: After discussion with Anesthesia, her procedure for back pain-kyphoplasty has been cancel due to bradycardia concerns. However, her heart rate is approximately 50/Min at this time. Overnight rates have been lower but clinically she has no symptoms whatsoever. Hence no indication for a pacemaker at this time. May optimize pain medications at this time. She does have an aortic sclerotic murmur on auscultation and may get an echocardiogram. Otherwise her blood pressures are still running high and meds will need to be optimized. May go up on the nifedipine. Not clear if that is due to pain causing the blood pressure elevation. Fall Risk Details Current Medications: Current Medications Generic Name Dose Route Start Last Admin Trade Name Robertq PRN Reason Stop Dose Admin Acetaminophen 650 mg 09/22/20 21:58 09/28/20 10:48 Acetaminophen 325 Mg Tablet PO 650 mg Q6H PRN Administration Pain, Mild (Pain Scale 1-3) Albuterol/Ipratropium 3 ml 09/22/20 21:58 09/29/20 08:17 Albuterol/Iprat 2.5/0.5mg 3 Ml Ampul.Neb INHALE 3 ml Q4H PRN Administration Shortness of Breath/Wheezing Albuterol/Ipratropium 3 ml 09/23/20 09:00 09/29/20 08:19 Albuterol/Iprat 2.5/0.5mg 3 Ml Ampul.Neb INHALE 3 ml BID YULIA Administration Apixaban 2.5 mg 09/28/20 21:00 09/29/20 07:42 Apixaban 2.5 Mg Tablet PO 2.5 mg BID YULIA Administration Bumetanide 1 mg 09/23/20 09:00 09/28/20 10:47 Bumetanide 1 Mg Tablet PO 1 mg DAILY YULIA Administration Protocol Calcitonin [place] 1 spray 09/24/20 10:00 09/28/20 10:49 Calcitonin,[place],Synth Nasal 3.7 Ml Bottle NOSTRILALT 1 spray DAILY YULIA Administration Docusate Sodium 100 mg 09/23/20 09:00 09/29/20 07:43 Docusate Sodium 100 Mg Capsule PO 100 mg BID YULIA Administration Hydralazine HCl 50 mg 09/28/20 15:00 09/29/20 07:42 Hydralazine Hcl 50 Mg Tablet PO 50 mg TID YULIA Administration Protocol Hydromorphone HCl 0.5 mg 09/28/20 00:23 09/29/20 03:18 Hydromorphone Hcl 0.5 Mg/0.5 Ml Syringe IVPUSH 0.5 mg Q4H PRN Administration Pain, Severe (Pain Scale 7-10) Isosorbide Mononitrate 60 mg 09/23/20 09:00 09/29/20 07:42 Isosorbide Mononitrate 60 Mg Tab.Er.24h PO 60 mg DAILY [facility] Administration Protocol Nifedipine 30 mg 09/23/20 09:00 09/29/20 07:43 Nifedipine Er 30 Mg Tab.Er.24 PO 30 mg DAILY YULIA Administration Protocol Oxycodone HCl 5 mg 09/28/20 00:22 09/28/20 10:47 Oxycodone Hcl Immed Release 5 Mg Tablet PO 5 mg Q6H PRN Administration Pain, Moderate (Pain Scale 4-6 Oxycodone HCl 5 mg 09/28/20 13:54 09/29/20 08:09 Oxycodone Hcl Immed Release 5 Mg Tablet PO 5 mg Q6H PRN Administration Pain, Severe (Pain Scale 7-10) Prednisone 10 mg 09/23/20 09:00 09/29/20 07:43 Prednisone 10 Mg Tablet PO 10 mg BID YULIA Administration Ropinirole HCl 0.5 mg 09/23/20 09:00 09/29/20 07:42 Ropinirole Hcl 0.5 Mg Tablet PO 0.5 mg DAILY YULIA Administration Senna 17.2 mg 09/22/20 21:58 Sennosides 8.6 Mg Tablet PO BEDTIME PRN Constipation Sodium Chloride 3 ml 09/23/20 00:00 09/29/20 07:43 0.9 % Sodium Chloride Flush 3 Ml Syringe IVFLUSH 3 ml QSHIFT YULIA Administration Spironolactone 25 mg 09/23/20 09:00 09/28/20 10:47 Spironolactone 25 Mg Tablet PO 25 mg DAILY [facility] Administration Protocol Time Spent With Patient Time: Total time spent is greater than 50% in coordination of care (as documented) at patient's floor/unit and/or counseling patient: Time with patient: less than 15 minutes
[2020-09-29] MEDS: Calcitonin,Salmon,Synth Nasal 3.7 ML BOTTLE 1 SPRAY NOSTRILALT (11:02)
[2020-09-29] MEDS: Spironolactone 25 MG TABLET PO (11:03)
[2020-09-29] MEDS: Bumetanide 1 MG TABLET PO (11:06)
--- NOTE | 2020-09-29 12:07 | MHC.CM.PN ---
per rounds pts bp is elevated md expects dc [facility] notified and requested them to go for b auth as dc ?of
--- NOTE | 2020-09-29 16:26 | HO.PM.IMPN ---
Subjective Subjective Date of Service: 09/29/20 Interval History: Seen in f/u for compression fracture, back pain and braycardia. Heart rate is much better at this point, she still has pain but better. Kyphoplasty is not being done Review of Systems Back pain no chest pain no dizziness Physical Exam Vital Signs: Vital Signs: Last Vital Signs Temp 99.1 F 09/29/20 15:08 Pulse 76 09/29/20 15:08 Resp 19 09/29/20 15:08 BP 137/62 09/29/20 15:08 Pulse Ox 95 09/29/20 15:08 Body Mass Index 33.5 General: AO X 3, no acute distress Resp: CTA bilateral CVS: iregular iregular GI: +BS, NT, no distention Skin:bruses on arms Neuro: motor grossly intact Psych: appropriate affect Objective Data Current Medications Generic Name Dose Route Start Last Admin Trade Name Freq PRN Reason Stop Dose Admin Acetaminophen 650 mg 09/22/20 21:58 09/28/20 10:48 Acetaminophen 325 Mg Tablet PO 650 mg Q6H PRN Administration Pain, Mild (Pain Scale 1-3) Albuterol/Ipratropium 3 ml 09/22/20 21:58 09/29/20 08:17 Albuterol/Iprat 2.5/0.5mg 3 Ml Ampul.Neb INHALE 3 ml Q4H PRN Administration Shortness of Breath/Wheezing Albuterol/Ipratropium 3 ml 09/23/20 09:00 09/29/20 08:19 Albuterol/Iprat 2.5/0.5mg 3 Ml Ampul.Neb INHALE 3 ml BID YULIA Administration Apixaban 2.5 mg 09/28/20 21:00 09/29/20 07:42 Apixaban 2.5 Mg Tablet PO 2.5 mg BID YULIA Administration Bumetanide 1 mg 09/23/20 09:00 09/29/20 11:06 Bumetanide 1 Mg Tablet PO 1 mg DAILY YULIA Administration Protocol Calcitonin [place] 1 spray 09/24/20 10:00 09/29/20 11:02 Calcitonin,[place],Synth Nasal 3.7 Ml Bottle NOSTRILALT 1 spray DAILY YULIA Administration Docusate Sodium 100 mg 09/23/20 09:00 09/29/20 07:43 Docusate Sodium 100 Mg Capsule PO 100 mg BID YULIA Administration Hydralazine HCl 50 mg 09/28/20 15:00 09/29/20 14:28 Hydralazine Hcl 50 Mg Tablet PO 50 mg TID [facility] Administration Protocol Hydromorphone HCl 0.5 mg 09/28/20 00:23 09/29/20 14:28 Hydromorphone Hcl 0.5 Mg/0.5 Ml Syringe IVPUSH 0.5 mg Q4H PRN Administration Pain, Severe (Pain Scale 7-10) Isosorbide Mononitrate 60 mg 09/23/20 09:00 09/29/20 07:42 Isosorbide Mononitrate 60 Mg Tab.Er.24h PO 60 mg DAILY [facility] Administration Protocol Nifedipine 30 mg 09/23/20 09:00 09/29/20 07:43 Nifedipine Er 30 Mg Tab.Er.24 PO 30 mg DAILY [facility] Administration Protocol Oxycodone HCl 5 mg 09/28/20 00:22 09/28/20 10:47 Oxycodone Hcl Immed Release 5 Mg Tablet PO 5 mg Q6H PRN Administration Pain, Moderate (Pain Scale 4-6 Oxycodone HCl 5 mg 09/28/20 13:54 09/29/20 08:09 Oxycodone Hcl Immed Release 5 Mg Tablet PO 5 mg Q6H PRN Administration Pain, Severe (Pain Scale 7-10) Prednisone 10 mg 09/23/20 09:00 09/29/20 07:43 Prednisone 10 Mg Tablet PO 10 mg BID YULIA Administration Ropinirole HCl 0.5 mg 09/23/20 09:00 09/29/20 07:42 Ropinirole Hcl 0.5 Mg Tablet PO 0.5 mg DAILY [facility] Administration Senna 17.2 mg 09/22/20 21:58 Sennosides 8.6 Mg Tablet PO BEDTIME PRN Constipation Sodium Chloride 3 ml 09/23/20 00:00 09/29/20 14:28 0.9 % Sodium Chloride Flush 3 Ml Syringe IVFLUSH 3 ml QSHIFT [facility] Administration Spironolactone 25 mg 09/23/20 09:00 09/29/20 11:03 Spironolactone 25 Mg Tablet PO 25 mg DAILY [facility] Administration Protocol Labs CBC & Chem 7: 09/23/20 06:19 09/24/20 09:46 Assessment and Plan (1) Preoperative cardiovascular examination: Status: Acute (2) Chronic atrial flutter: Status: Acute (3) Atherosclerotic cardiovascular disease: Status: Acute (4) Essential hypertension: Status: Acute Assessment and Plan: 85-year-old female with past medical history of hypertension, hyperlipidemia, CAD, CHF, osteopenia, vitamin-D deficiency, paroxysmal AFib, COPD, restless legs syndrome presented to the hospital with a chief complaint of back pain since last Sunday. Noted to have acute L5 compression fracture. # Acute L5 compression. MRI of spine showed bone marrow edema associated with acute to subacute compression fracture of the T11 and L5 vertebral bodies. Subtle impaction of the upper T12 endplate with no substantial loss of vertebral body height. Spondylosis at multiple levels, -Kyphoplasty is off due to concern for bradycardia #History of CHF: - Euvolemic with no acute exacerbation -continue Bumex # History of COPD: - Stable #Hypertensio--Blood pressure is finally better, #Afib with likly SSS, no sinus pauses, hemodynamically stable and no indication for pace maker at this time, restarted eliquid. DVT prophylaxis: SCD boots Code status: Full code
[2020-09-30] MEDS: 0.9 % Sodium Chloride Flush 3 ML SYRINGE IVFLUSH ×2 (00:01→07:44)
[2020-09-30 03:36] VITALS: BP 130/69; PULSE 70; RESP 18; TEMP 36.6; O2SAT 96
[2020-09-30 07:07] VITALS: PULSE 47
[2020-09-30] MEDS: Albuterol/Iprat 2.5/0.5MG 3 ML AMPUL.NEB INHALE (07:07)
[2020-09-30 07:15] VITALS: BP 181/78; PULSE 86; RESP 19; TEMP 36.4; O2SAT 99
[2020-09-30 07:41] VITALS: BP 150/62; PULSE 86
[2020-09-30] MEDS: Bumetanide 1 MG TABLET PO (07:41)
[2020-09-30] MEDS: Spironolactone 25 MG TABLET PO (07:41)
[2020-09-30] MEDS: Isosorbide Mononitrate 60 MG TAB.ER.24H PO (07:41)
[2020-09-30] MEDS: predniSONE 10 MG TABLET PO (07:41)
[2020-09-30] MEDS: Apixaban 2.5 MG TABLET PO (07:41)
[2020-09-30 07:42] VITALS: BP 150/62; PULSE 86
[2020-09-30] MEDS: NIFEdipine ER 30 MG TAB.ER.24 PO (07:42)
[2020-09-30] MEDS: Docusate Sodium 100 MG CAPSULE PO (07:42)
[2020-09-30] MEDS: hydrALAZINE HCl 50 MG TABLET PO (07:42)
[2020-09-30] MEDS: rOPINIRole HCL 0.5 MG TABLET PO (07:42)
[2020-09-30] MEDS: Calcitonin,Salmon,Synth Nasal 3.7 ML BOTTLE 1 SPRAY NOSTRILALT (07:44)
[2020-09-30 09:27] LABS: COVID-19 Test Negative (Negative)
--- NOTE | 2020-09-30 09:37 | MHC.CM.PN ---
CM met with Patient at bedside. Per Patient, he is being transferred to [facility] today for Cardiac Cath. Patient lives in an apartment with his Girlfriend and he is functionally independent. New PCP is Dr. Carolina Mcgovern and 1st PCP apt. is . CM has initiated and will follow for dc planning.
--- NOTE | 2020-09-30 10:09 | PM.DS ---
DS: Providers Provider Date of Service: 10/06/20 Date of admission: 09/22/20 21:58 Primary care physician: Unknown Physician Consults: 09/28/20 08:48 Consult to Cardiology Routine Consulting Provider: Junior Gutierrez Reason for consultation: afib, omid DS: Diagnosis Discharge Diagnosis (1) Preoperative cardiovascular examination: Status: Acute (2) Chronic atrial flutter: Status: Acute (3) Atherosclerotic cardiovascular disease: Status: Acute (4) Essential hypertension: Status: Acute DS: Medications Discharge Medications Home Medications: Home Medications Medication Instructions Recorded Confirmed apixaban [Eliquis] 1 tab PO BID 09/22/20 09/22/20 budesonide 1 vial INHALATION BID 09/22/20 09/22/20 bumetanide 1 tab PO DAILY 09/22/20 09/22/20 darifenacin 1 tab PO DAILY 09/22/20 09/22/20 hydralazine 1 tab PO DAILY 09/22/20 09/22/20 ipratropium-albuterol 3 ml INHALATION BID 09/22/20 09/22/20 isosorbide mononitrate 1 tab PO DAILY 09/22/20 09/22/20 nifedipine 1 tab PO DAILY 09/22/20 09/22/20 nystatin [Nyamyc] 1 appl TOPICAL DAILY 09/22/20 09/22/20 oxycodone 1 tab PO Q6-8H PRN 09/22/20 09/22/20 prednisone 1 tab PO BID 09/22/20 09/22/20 ropinirole 1 tab PO DAILY 09/22/20 09/22/20 spironolactone 1 tab PO DAILY 09/22/20 09/22/20 Previous Rx's Medication Instructions Recorded oxycodone 5 mg PO Q6H PRN #20 tab 09/30/20 DS: Summary Hospital Course Hospital Course: Date of Service: 09/22/20 Chief Complaint: Back pain 85-year-old female with a past medical history of hypertension, hyperlipidemia, diastolic CHF, chronic kidney disease, COPD, CAD, history of C7 cervical fracture, atrial flutter, abdominal aortic aneurysm, osteoporosis, vitamin-D deficiency presented to the hospital with a chief complaint of acute onset of back pain since last Sunday. Patient denies any fall or trauma. Patient mentioned that she had a fall few days ago when she came to the ER and with a CT head done which was negative and subsequently sent home. Denies any headaches or blurry visions. Denies any numbness tingling. Denies any focal weakness in the legs. Denies any urinary trouble or stool incontinence. Mentioned that her back pain is severe/10/10 and limiting her ambulation. Generally she uses walker at home. Denies any urinary symptoms. Review of all other systems is negative except mentioned above ER course: Per ER team patient exam was nonfocal, CT scan showed acute L5 compression fracture and T11 fracture-old; admitted to the hospital for further management. Hospital course: # Acute L5 compression fracture MRI of spine showed bone marrow edema associated with acute to subacute compression fracture of the T11 and L5 vertebral bodies. Subtle impaction of the upper T12 endplate with no substantial loss of vertebral body height. Spondylosis at multiple levels. Kyphoplasty was considered bed because the patient was on Eliquis the procedures was delayed. When she was finally ready to have it done on Sunday, while under the watch of anesthesia she was noted to be bradycardic with heart rate dropping to as low as in the 30s. She was subsequently sent back up and was evaluated by cardiology she did not have cardia pause. Her heart rate has been mainly in the 40s to 50s and has been evaluated about for the need for pacemaker bed at this point we do not believe that is indication for pacemaker however given the possibility of her heart rate going down to as low as the 30s anesthesia and I enter ventral Radiology are not comfortable proceeding with a such a procedure and therefore the procedure was canceled and instead patient's out compression fracture is been managed with pain medication present with oxycodone calcitonin nasal spray and calcium with vitamin D. She should be re-evaluated on outpatient basis for a need for this kyphoplasty if she continued to be having significant pain. #History of CHF: - Euvolemic with no acute exacerbation -continue Bumex # History of COPD: - Stable #Hypertensio--Blood pressure is finally better, we have increase Hydralazine to TID #Afib with likly SSS, no sinus pauses, hemodynamically stable and no indication for pace maker at this time, restarted eliquid. She is not on beta gracia or calcium lynnette gracia Discharge plan discussed with son and daughter over the phone Time Spent with Patient Time attestation: Total time spent providing and/or coordinating discharge services: Discharge coordination time: Greater than 30 minutes Physical Exam Vital Signs: Vital Signs: Last Vital Signs Temp 97.5 F 09/30/20 07:15 Pulse 86 09/30/20 07:42 Resp 19 09/30/20 07:15 BP 150/62 H 09/30/20 07:42 Pulse Ox 99 09/30/20 07:15 Body Mass Index 33.5 Const: General: cooperative, comfortable and no acute distress Orientation/consciousness: patient oriented x3 Eyes: General: appearance normal, both eyes and all related structures Neck: Neck: Yes normal visual inspection Chest: Chest palpation & inspection: normal inspection of the chest Resp: Effort & Inspection: normal respiratory effort and able to speak in complete sentences Auscultation: rhonchi and diminished lung sounds Cardio: Jugular venous distension: no JVD Palpation: normal PMI Rate: regular rate Rhythm: regular rhythm Heart sounds: S1 normal heart sound present, S2 normal heart sound present, no gallops, Murmur heart sound present systolic early and II/ and no rubs GI: Palpation (GI): Soft to palpation Auscultation: normal bowel sounds Skin: General skin exam: no rashes or lesions noted Neuro: General: patient oriented x3 Cognition (Neuro): normal cognition Extrem: General: Yes normal to inspection and Yes no clubbing, cyanosis or edema Psych: Mental Status: mental status grossly normal DS: Data Data Completed and Pending Completed studies during hospitalization [Text1]: Procedures Assistance with Respiratory Ventilation, Less than 24 Consecutive Hours, Continuous Positive Airway Pressure (06/03/20) Labs on day of discharge: Laboratory Results - last 24 hr 09/30/20 09:06 COVID-19 (NICOL) Negative COVID-19 Clin Com See Note Discharge Plan Discharge Anticipated Discharge Date/Time: 09/30/20 10:01 Patient Disposition: Xfer SNF Discharge Diagnosis: Compression fracture Referrals: [facility] [Outside] - 1 Week Physician,Unknown [Primary Care Provider] - 1 Week Discharge Medications: New oxycodone 5 mg Tablet 5 mg PO Q6H PRN (Reason: Pain, Moderate (Pain Scale 4-6) Qty: 20 RF: 0 calcitonin (salmon) 200 unit/actuation [place],Non-Aerosol 1 spray intranasal (ALT) DAILY Qty: 3.7 RF: 0 acetaminophen 325 mg Tablet 650 mg PO Q6H PRN (Reason: Pain, Mild (Pain Scale 1-3)) Qty: 30 RF: 0 docusate sodium [Colace] 100 mg capsule 100 mg PO BID Qty: 60 RF: 0 calcium carbonate-vitamin D3 [Calcium 500 + D] 500 mg(1,250mg) -400 unit tablet 1 tab PO BID Qty: 60 RF: 0 Continued nifedipine 30 mg tablet extended release 24hr 1 tab PO DAILY RF: 0 prednisone 10 mg tablet 1 tab PO BID RF: 0 ipratropium-albuterol 0.5 mg-3 mg(2.5 mg base)/3 mL solution for nebulization 3 ml inhalation BID RF: 0 spironolactone 25 mg tablet 1 tab PO DAILY RF: 0 isosorbide mononitrate 60 mg tablet extended release 24 hr 1 tab PO DAILY RF: 0 ropinirole 0.5 mg tablet 1 tab PO DAILY RF: 0 budesonide 0.5 mg/2 mL suspension for nebulization 1 vial inhalation BID RF: 0 bumetanide 1 mg tablet 1 tab PO DAILY RF: 0 nystatin [Nyamyc] 100,000 unit/gram powder 1 appl topical DAILY RF: 0 oxycodone 5 mg tablet 1 tab PO Q6-8H PRN (Reason: pain) RF: 0 darifenacin 7.5 mg tablet extended release 24 hr 1 tab PO DAILY RF: 0 Eliquis 2.5 mg tablet 1 tab PO BID RF: 0 Changed hydralazine 50 mg tablet 1 tab PO TID Qty: 0 RF: 0 Discharge Orders: Discharge Order (Routine); Ordered 09/30/20 Ordered By: Lasha Frye Diet: advance to usual diet Activity on Discharge: As tolerated Stand Alone Forms: Patient Portal Discharge page Care Plan Goals: compression Health Concerns: compression fracture Plan of Treatment: Pain management Assessment: To short rehab Discharge Date/Time: 09/30/20 13:10
[2020-09-30] MEDS: oxyCODONE HCl Immed Release 5 MG TABLET PO (10:37)
[2020-09-30 11:19] VITALS: BP 170/62; PULSE 71; RESP 19; TEMP 36.7; O2SAT 94
--- NOTE | 2020-09-30 11:21 | MHC.CM.PN ---
Per MD, Patient will be medically cleared for dc to STR/SNF today at 1PM, going to [facility] via [facility].Last IMM addressed on 09/29/20.Patient and Daughter/Andrey @ [phone] [place] of and in agreement with the dc plan.
== END 2020-09-30 13:10 | disposition skilled nursing facility (03) | DRG 552 ==
LOC: HO.ED 18:02 → HO.EDOVER 22:05 → HO.S3 09-23 01:30 → HO.IMC 09-28 10:40
PROVIDERS: Internal Medicine; Admitting Provider Hospitalist; Emergency Provider Internal Medicine; PCP Internal Medicine Geriatric Medicine; Visit Provider Internal Medicine
DX: S32.050A Wedge compression fracture of fifth lumbar vertebra, initial encounter for closed fracture (principal); I25.10 Atherosclerotic heart disease of native coronary artery without angina pectoris; G25.81 Restless legs syndrome; E78.5 Hyperlipidemia, unspecified; I48.91 Unspecified atrial fibrillation; J44.9 Chronic obstructive pulmonary disease, unspecified; I11.0 Hypertensive heart disease with heart failure; I49.5 Sick sinus syndrome; W19.XXXA Unspecified fall, initial encounter; Y93.9 Activity, unspecified; Y92.009 Unspecified place in unspecified non-institutional (private) residence as the place of occurrence of the external cause; Y99.9 Unspecified external cause status; Z20.822 Contact with and (suspected) exposure to COVID-19; Z87.891 Personal history of nicotine dependence; Z79.01 Long term (current) use of anticoagulants; Z79.890 Hormone replacement therapy; Z79.899 Other long term (current) drug therapy
CPT/HCPCS: 36415; 72100; 72148; 74176; 78306; 80048; 80053; 80076; 81003; 83690; 85025; 85610; 87635; 93005; 93306; 94640; 94644; 96374; 96375; 97116; 97162; 97166; 97530; 97535; 99284; 99285; A9503; J0461; J1170; J2270; J2405

== ENCOUNTER → 2020-11-01 11:10 | Outpatient (BNVA) | payer MEDICARE, SELFPAY | PROVIDERS: PCP Internal Medicine; Referring Provider Internal Medicine; Visit Provider Internal Medicine Cardiovascular Disease | DX: I48.0 Paroxysmal atrial fibrillation (principal); I11.0 Hypertensive heart disease with heart failure; I50.9 Heart failure, unspecified | CPT/HCPCS: 99212 ==

== ENCOUNTER → 2020-12-10 13:39 | Outpatient (BNVA) | payer MEDICARE, SELFPAY | PROVIDERS: PCP Internal Medicine; Visit Provider Hospitalist | DX: J96.01 Acute respiratory failure with hypoxia (principal); J41.8 Mixed simple and mucopurulent chronic bronchitis; J98.4 Other disorders of lung; I50.9 Heart failure, unspecified | CPT/HCPCS: 99212 ==

== ENCOUNTER 2020-12-11 11:34 | Outpatient (REF) | payer MEDICARE, SELFPAY ==
[2020-12-11 13:51] LABS: MANUAL DIFF FLAG NO
[2020-12-11 13:53] LABS: Basophils Percent Auto 0.4 % (0-2); Eosinophils Absolute Auto 0.1 X10*3/uL (0.0-0.4); Eosinophils Percent Auto 1.1 % (0-4); Hematocrit 40.7 % (37-47); Hemoglobin 12.7 g/dl (12.0-16.0); Imm Gran Abs Auto 0.04 X10*3/uL (0.00-0.03); Imm Gran Pct Auto 0.5 % (0.0-0.4); Lymphocytes Absolute Auto 2.1 X10*3/uL (1.2-4.9); Lymphocytes Percent Auto 24.6 % (20-40); Mean Corpuscular HGB Conc 31.2 g/dl (31.0-35.0); Mean Corpuscular Hemoglobin 32.2 pg (27.0-33.0); Mean Platelet Volume 9.6 fL (9.4-12.3); Monocytes Absolute Auto 0.7 X10*3/uL (0.1-1.2); Monocytes Percent Auto 8.5 % (2-11); Neutrophils Absolute Auto 5.4 X10*3/uL (2.0-8.3); Neutrophils Percent Auto 64.9 % (45-73); Platelet Count 194 X10*3/uL (160-400); Red Blood Count 3.95 X10*6/uL (4.20-5.50); Red Cell Distribution Width 14.7 % (11.0-16.0); White Blood Count 8.3 X10*3/uL (4.8-10.8)
[2020-12-11 14:07] LABS: Iron 66 mcg/dL (30-160); Percent Iron Saturation 28 % (15-50); Total Iron Binding Capacity 239 mcg/dL (228-428); Unsaturated Iron Binding 173 ug/dL
[2020-12-11 14:26] LABS: Anion Gap 15 (12-20); Blood Urea Nitrogen 33 mg/dL (9-16); Calcium 9.1 mg/dL (8.4-10.2); Carbon Dioxide 28 mmol/L (22-29); Chloride 100 mmol/L (96-108); Estimated Glomerular Filt Rate 39; Potassium 3.4 mmol/L (3.3-5.1); Sodium 140 mmol/L (135-145)
[2020-12-11 14:27] LABS: Ferritin 288 ng/mL (10-250)
== END 2020-12-11 11:35 | disposition home or self-care (01) ==
LOC: HO.HMGCLNP 11:34
PROVIDERS: Visit Provider Internal Medicine Nephrology
DX: N18.32 Chronic kidney disease, stage 3b (principal)
CPT/HCPCS: 80051; 82310; 82565; 82728; 83540; 84520; 85025

== ENCOUNTER → 2021-03-03 13:58 | Outpatient (BNVA) | payer MEDICARE, SELFPAY | PROVIDERS: PCP Internal Medicine; Referring Provider Internal Medicine; Visit Provider Internal Medicine Cardiovascular Disease | DX: I48.0 Paroxysmal atrial fibrillation (principal); I11.0 Hypertensive heart disease with heart failure; I50.9 Heart failure, unspecified | CPT/HCPCS: 99212 ==

== ENCOUNTER 2021-06-15 18:31 | Inpatient (IN) | payer MEDICARE, SELFPAY ==
--- NOTE | ~2021-06-15 | XR_ITS ---
EXAMINATION: XR CHEST CLINICAL INFORMATION: CHF. COMPARISON: Chest 06/03/2020 TECHNIQUE: Frontal view of the chest was obtained. FINDINGS: The lungs are hypoexpanded with patchy opacity right middle lobe likely new infiltrate. There is prominent interstitial markings seen throughout both lungs. Heart size is borderline enlarged. Pulmonary vascularity is normal. Ectatic right brachiocephalic arteries seen. XR/XR chest 1V IMPRESSION: New right middle lobe infiltrate. Cardiomegaly. Prominent interstitial markings in both lungs.
--- NOTE | 2021-06-15 18:43 | ED_ITS ---
HPI - General Adult General Chief complaint: Weakness Stated complaint: WEAKNESS Time Seen by Provider: 06/15/21 18:41 Source: patient and EMS Mode of arrival: EMS Limitations: no limitations History of Present Illness HPI narrative: Patient with history of diastolic heart failure spinal AFib COPD nonspecific weakness since morning today. Patient does feel weak all day no fever no chills no cough no chest pain no dysuria or frequency no hematuria no abdominal pain no back pain no other family member sick. Patient has received COVID vaccine along with booster dose Related Data Home Medications Medication Instructions Recorded Confirmed apixaban 2.5 mg tablet (Eliquis) 1 tab PO BID 09/22/20 06/15/21 bumetanide 1 mg tablet 1 tab PO DAILY 09/22/20 06/15/21 darifenacin 7.5 mg tablet,extended 1 tab PO DAILY 09/22/20 06/15/21 release 24 hr isosorbide mononitrate 60 mg 1 tab PO DAILY 09/22/20 06/15/21 tablet,extended release 24 hr nifedipine 30 mg tablet,extended 1 tab PO DAILY 09/22/20 06/15/21 release 24 hr ropinirole 0.5 mg tablet 1 tab PO QPM 09/22/20 06/15/21 spironolactone 25 mg tablet 1 tab PO DAILY 09/22/20 06/15/21 prednisone 10 mg tablet 15 mg PO DAILY tab 11/01/20 06/15/21 calcitriol 0.25 mcg capsule 250 mcg PO USEASDIRECTD 12/10/20 06/15/21 ferrous sulfate 325 mg (65 mg 325 mg PO QPM 12/10/20 06/15/21 iron) tablet folic acid 1 mg tablet 1 mg PO QPM 12/10/20 06/15/21 docusate sodium 100 mg capsule 100 mg PO BID PRN 06/15/21 06/15/21 (Colace) guaifenesin 100 mg/5 mL oral syrup 200 mg PO Q4H PRN 06/15/21 06/15/21 hydralazine 50 mg tablet 2 tab PO TID 06/15/21 06/15/21 pantoprazole 40 mg tablet,delayed 1 tab PO BEDTIME 06/15/21 06/15/21 release ropinirole 0.5 mg tablet 3 tab PO BEDTIME 06/15/21 06/15/21 Allergies Allergy/AdvReac Type Severity Reaction Status Date / Time Iodinated Contrast Media Allergy Severe Vomiting Verified 03/03/21 13:59 [IV CONTRAST] scallops [SCALLOPS] Allergy Severe Vomiting Verified 03/03/21 13:59 amlodipine [AMLODIPINE] AdvReac Severe LEG Verified 03/03/21 13:59 SWELLING Review of Systems Review of Systems: Yes all other systems are reviewed and are negative [facility] Past Medical History Medical History AAA (abdominal aortic aneurysm) Afib Atherosclerotic cardiovascular disease Atrial flutter C7 cervical fracture CAD (coronary artery disease) Chronic atrial flutter Chronic respiratory failure Chronic restrictive lung disease CKD (chronic kidney disease) COPD (chronic obstructive pulmonary disease) Diastolic CHF Dyspnea Essential hypertension Frequent UTI HTN (hypertension) Hypercholesteremia Kidney mass Osteopenia Preoperative cardiovascular examination Restless leg Vitamin D deficiency Surgical History H/O cervical spine surgery History of appendectomy S/P AAA repair Family History Family History Mother Aortic aneurysm Father Stroke Social History Social History Household Members: Children Housing: House Do you presently have visiting nurse or other home services: Yes (visiting [employer] that helps bathe her on Mondays and ) Alcohol intake: never Patient Tobacco Use Status: Former Tobacco user Quit Date: 2000 Years Smoked: 40 Advance Directives: Yes Advance Directives on File: Yes Advance Directives Date on File: 05/19/20 service: No Current occupational status: retired Physical Exam 2 Vital Signs: Vital Signs: Last Vital Signs Temp 98.2 F 06/15/21 22:24 Pulse 45 L 06/15/21 22:24 Resp 16 06/15/21 22:24 BP 162/51 H 06/15/21 22:24 Pulse Ox 96 06/15/21 22:24 Oxygen Flow Rate 4 06/15/21 19:12 BMI result Body Mass Index 33.1 Appearance: Alert. Oriented X3. No acute distress. Eyes: No pallor or icterus ENT: Pharynx normal. Oral Mucosa moist Neck: Normal inspection. Neck supple. CVS: Normal heart rate and rhythm. Pulses normal. Respiratory: No respiratory distress. Equal air entry bilateral, no wheezing/rales/rhonchi Abdomen: Soft and nontender. Bowel sounds are present, no mass palpable, no CVA tenderness Skin: Skin warm and dry. Normal skin color. Normal skin turgor. Extremities: Chronic left lower extremity edema. No calf tenderness Neuro: Oriented X 3. No motor deficit. Medical Decision Making MDM Narrative Medical decision making narrative: Patient has generalized weakness no fever no cough workup showed slight leukocytosis chest x-ray showed right middle lobe pneumonia possible aspiration. Will admit patient for IV antibiotics Lab Data Lab results reviewed: Yes I reviewed the patient's lab results. Result diagrams: 06/15/21 20:55 06/15/21 20:55 Labs: Lab Results 06/15/21 06/15/21 06/15/21 Range/Units 19:47 20:55 20:55 WBC 12.4 H (4.8-10.8) X10*3/uL RBC 3.86 L (4.20-5.50) X10*6/uL Hgb 12.1 (12.0-16.0) g/dl Hct 37.9 (37.0-47.0) % MCV 98.2 H (80.0-98.0) fL MCH 31.3 (27.0-33.0) pg MCHC 31.9 (31.0-35.0) g/dl RDW 15.3 (11.0-16.0) % Plt Count 144 L (160-400) X10*3/uL MPV 9.6 (9.4-12.3) fL Immature Gran % (Auto) 0.3 (0.0-0.4) % Neut % (Auto) 84.8 H (45-73) % Lymph % (Auto) 8.1 L (20-40) % [place] % (Auto) 6.4 (2-11) % Eos % (Auto) 0.2 (0-4) % Baso % (Auto) 0.2 (0-2) % Lymph # (Auto) 1.0 L (1.2-4.9) X10*3/uL [place] # (Auto) 0.8 (0.1-1.2) X10*3/uL Eos # (Auto) 0.0 (0.0-0.4) X10*3/uL Baso # (Auto) 0.0 (0.0-0.2) X10*3/uL Abs Immat Gran (auto) 0.04 H (0.00-0.03) X10*3/uL Absolute Neuts (auto) 10.5 H (2.0-8.3) x10*3/uL Absolute Nucleated RBC 0.000 (0.0-0.012) X10*3/uL Nucleated RBC % (auto) 0.0 (0.0-0.2) /100WBC Sodium 142 (135-145) mmol/L Potassium 4.1 D (3.3-5.1) mmol/L Chloride 101 (96-108) mmol/L Carbon Dioxide 34 H (22-29) mmol/L Anion Gap 11 L (12-20) BUN 33 H (9-16) mg/dL Creatinine 1.33 (0.5-1.4) mg/dL Estim Creat Clear Calc 32.5 Estimated GFR 38 Random Glucose 99 (60-115) mg/dL Calcium 8.5 D (8.4-10.2) mg/dL Total Bilirubin 1.1 H (0.0-1.0) mg/dL AST 18 (5-31) U/L ALT 13 (0-31) U/L Alkaline Phosphatase 85 (39-117) U/L B-Natriuretic Peptide (<100) pg/mL Total Protein 5.3 L (6.5-8.0) g/dL Albumin 3.1 L (3.5-5.0) g/dL Urine Color YELLOW Urine Appearance CLEAR Urine pH 6.0 (5.0-8.0) Ur Specific [place] 1.010 (1.005-1.025) Urine Protein NEG (NEG-TRACE) MG/DL Urine Glucose (UA) NEG (NEG) MG/DL Urine Ketones NEG (NEG) MG/DL Urine Blood NEG (NEG) Urine Nitrite NEG (NEG) Ur Leukocyte Esterase NEG (NEG) COVID-19 (NICOL) (Negative) COVID-19 Clin Com 06/15/21 06/15/21 Range/Units 20:55 20:55 WBC (4.8-10.8) X10*3/uL RBC (4.20-5.50) X10*6/uL Hgb (12.0-16.0) g/dl Hct (37.0-47.0) % MCV (80.0-98.0) fL MCH (27.0-33.0) pg MCHC (31.0-35.0) g/dl RDW (11.0-16.0) % Plt Count (160-400) X10*3/uL MPV (9.4-12.3) fL Immature Gran % (Auto) (0.0-0.4) % Neut % (Auto) (45-73) % Lymph % (Auto) (20-40) % [place] % (Auto) (2-11) % Eos % (Auto) (0-4) % Baso % (Auto) (0-2) % Lymph # (Auto) (1.2-4.9) X10*3/uL [place] # (Auto) (0.1-1.2) X10*3/uL Eos # (Auto) (0.0-0.4) X10*3/uL Baso # (Auto) (0.0-0.2) X10*3/uL Abs Immat Gran (auto) (0.00-0.03) X10*3/uL Absolute Neuts (auto) (2.0-8.3) x10*3/uL Absolute Nucleated RBC (0.0-0.012) X10*3/uL Nucleated RBC % (auto) (0.0-0.2) /100WBC Sodium (135-145) mmol/L Potassium (3.3-5.1) mmol/L Chloride (96-108) mmol/L Carbon Dioxide (22-29) mmol/L Anion Gap (12-20) BUN (9-16) mg/dL Creatinine (0.5-1.4) mg/dL Estim Creat Clear Calc Estimated GFR Random Glucose (60-115) mg/dL Calcium (8.4-10.2) mg/dL Total Bilirubin (0.0-1.0) mg/dL AST (5-31) U/L ALT (0-31) U/L Alkaline Phosphatase (39-117) U/L B-Natriuretic Peptide 117 H (<100) pg/mL Total Protein (6.5-8.0) g/dL Albumin (3.5-5.0) g/dL Urine Color Urine Appearance Urine pH (5.0-8.0) Ur Specific [place] (1.005-1.025) Urine Protein (NEG-TRACE) MG/DL Urine Glucose (UA) (NEG) MG/DL Urine Ketones (NEG) MG/DL Urine Blood (NEG) Urine Nitrite (NEG) Ur Leukocyte Esterase (NEG) COVID-19 (NICOL) Negative (Negative) COVID-19 Clin Com See Note ECG Data Attestation: I personally reviewed and interpreted this ECG as follows: Interpretation: Atrial flutter left axis deviation LVH heart rate 66 beats per minute no acute ischemic changes Discharge Plan Discharge Clinical Impression: Weakness Pneumonia Qualifiers: Pneumonia type: due to unspecified organism Laterality: right Lung location: middle lobe of lung Qualified Code(s): J18.9 - Pneumonia, unspecified organism Patient Disposition: Admitted As Inpatient
--- NOTE | 2021-06-15 18:51 | ECG_ITS ---
Test Reason : WEAKNESS Blood Pressure : / mmHG Vent. Rate : 066 BPM Atrial Rate : 258 BPM P-R Int : 000 ms QRS Dur : 128 ms QT Int : 436 ms P-R-T Axes : 102 -46 101 degrees QTc Int : 457 ms Atrial flutter with 4:1 A-V conduction Left axis deviation Left ventricular hypertrophy with QRS widening ( R in aVL , Ramses product ) Abnormal ECG When compared with ECG of 28-SEP-2020 11:09, Vent. rate has increased BY 28 BPM QRS duration has increased QT has lengthened Referred By: Femi Yeh Electronically Signed By:Hammad Walsh
[2021-06-15 19:12] VITALS: BP 117/56; PULSE 69; RESP 22; TEMP 37.1; O2SAT 95; BMI 33.1
[2021-06-15 20:06] LABS: Appearance Urine CLEAR; Color Urine YELLOW; Glucose Urine UA NEG (NEG); Leukocyte Esterase Urine NEG (NEG); Nitrite Urine NEG (NEG); Urine Blood NEG (NEG); Urine Ketones NEG (NEG); Urine Protein NEG (NEG-TRACE)
[2021-06-15 20:59] LABS: MANUAL DIFF FLAG NO
[2021-06-15 21:01] LABS: Basophils Percent Auto 0.2 % (0-2); Eosinophils Percent Auto 0.2 % (0-4); Hematocrit 37.9 % (37.0-47.0); Hemoglobin 12.1 g/dl (12.0-16.0); Imm Gran Abs Auto 0.04 X10*3/uL (0.00-0.03); Imm Gran Pct Auto 0.3 % (0.0-0.4); Lymphocytes Percent Auto 8.1 % (20-40); Mean Corpuscular HGB Conc 31.9 g/dl (31.0-35.0); Mean Corpuscular Hemoglobin 31.3 pg (27.0-33.0); Mean Corpuscular Volume 98.2 fL (80.0-98.0); Mean Platelet Volume 9.6 fL (9.4-12.3); Monocytes Absolute Auto 0.8 X10*3/uL (0.1-1.2); Monocytes Percent Auto 6.4 % (2-11); Neutrophils Absolute Auto 10.5 x10*3/uL (2.0-8.3); Neutrophils Percent Auto 84.8 % (45-73); Platelet Count 144 X10*3/uL (160-400); Red Blood Count 3.86 X10*6/uL (4.20-5.50); Red Cell Distribution Width 15.3 % (11.0-16.0); White Blood Count 12.4 X10*3/uL (4.8-10.8)
[2021-06-15 21:17] LABS: COVID-19 Test Negative (Negative); IDNOW Serial# 55D5AD1C
[2021-06-15 21:19] LABS: Alanine Aminotransferase 13 U/L (0-31); Albumin Level 3.1 g/dL (3.5-5.0); Alkaline Phosphatase 85 U/L (39-117); Anion Gap 11 (12-20); Aspartate Amino Transferase 18 U/L (5-31); Bilirubin Total 1.1 mg/dL (0.0-1.0); Blood Urea Nitrogen 33 mg/dL (9-16); Calcium 8.5 mg/dL (8.4-10.2); Carbon Dioxide 34 mmol/L (22-29); Chloride 101 mmol/L (96-108); Creatinine Clr Calc Pharmacy 32.5; Estimated Glomerular Filt Rate 38; Glucose Random 99 mg/dL (60-115); Potassium 4.1 mmol/L (3.3-5.1); Sodium 142 mmol/L (135-145); Total Protein 5.3 g/dL (6.5-8.0)
[2021-06-15 21:24] LABS: B Type Natriuretic Peptide 117 pg/mL (<100)
[2021-06-15 22:24] VITALS: BP 162/51; PULSE 45; RESP 16; TEMP 36.8; O2SAT 96
--- NOTE | 2021-06-15 22:28 | P.HPHOSP_ITS ---
History of Present Illness Date of Service: 06/15/21 Chief Complaint: not feeling well/cough 86-year-old female with a past medical history of hypertension, hyperlipidemia, diabetes, diastolic CHF, CAD, atrial flutter / AFib on Eliquis, osteopenia, history of recurrent UTIs, COPD, chronic kidney disease, restrictive lung disease, abdominal aortic aneurysm status post repair, history of cervical spine surgery presented to the hospital with a chief complaint of generalized weakness/ not feeling well over the past few days. pt reports cough but denies any sputum production. says feels congested. denies any aspiration. Denies any fever chills. Denies any chest pain or palpitations. Denies any shortness of breath or dyspnea on exertion. Review of all other systems is negative except mentioned above ER course: Per ER team patient on presentation noted mild leukocytosis a labs; exam fairly benign; chest x-ray showed right middle lobe pneumonia; urinalysis negative; admitted to the hospital for further management. Given IV antibiotics. [facility] Medical History AAA (abdominal aortic aneurysm) Afib Atherosclerotic cardiovascular disease Atrial flutter C7 cervical fracture CAD (coronary artery disease) Chronic atrial flutter Chronic respiratory failure Chronic restrictive lung disease CKD (chronic kidney disease) COPD (chronic obstructive pulmonary disease) Diastolic CHF Dyspnea Essential hypertension Frequent UTI HTN (hypertension) Hypercholesteremia Kidney mass Osteopenia Preoperative cardiovascular examination Restless leg Vitamin D deficiency Family History Mother Aortic aneurysm Father Stroke Pertinent family history: as above Surgical History H/O cervical spine surgery History of appendectomy S/P AAA repair Social History Household Members: Children Housing: House Do you presently have visiting nurse or other home services: Yes (visiting [employer] that helps bathe her on Mondays and ) Alcohol intake: never Patient Tobacco Use Status: Former Tobacco user Quit Date: 2000 Years Smoked: 40 Advance Directives: Yes Advance Directives on File: Yes Advance Directives Date on File: 05/19/20 service: No Current occupational status: retired Meds Allergies Allergy/AdvReac Type Severity Reaction Status Date / Time Iodinated Contrast Media Allergy Severe Vomiting Verified 03/03/21 13:59 [IV CONTRAST] scallops [SCALLOPS] Allergy Severe Vomiting Verified 03/03/21 13:59 amlodipine [AMLODIPINE] AdvReac Severe LEG Verified 03/03/21 13:59 SWELLING Active Medications: Current Medications Doxycycline Hyclate 100 mg/ (Sodium Chloride) 250 mls @ 166.67 mls/hr IV ONCE ONE Stop: 06/15/21 23:12 Ceftriaxone Sodium 1 gm/ (Sodium Chloride) 50 mls @ 100 mls/hr IV Q24H YULIA Ceftriaxone Sodium 1 gm/ (Sodium Chloride) 50 mls @ 100 mls/hr IV ONCE ONE Stop: 06/16/21 22:12 Doxycycline Hyclate 100 mg/ (Sodium Chloride) 250 mls @ 166.67 mls/hr IV Q12H YULIA Melatonin (Melatonin 3 Mg Tablet) 6 mg PO BEDTIME PRN PRN Reason: Insomnia Pharmacy Consult (Consult Rx Perform Med Rec) 1 each MISCELLANE ONCE PRN PRN Reason: Consult order Senna (Sennosides 8.6 Mg Tablet) 17.2 mg PO BEDTIME PRN PRN Reason: Constipation Sodium Chloride (0.9 % Sodium Chloride Flush 3 Ml Syringe) 3 ml IVFLUSH QSHIFT [facility] Home Medications Medication Instructions Recorded Confirmed Last Taken Type apixaban 2.5 mg 1 tab PO BID 09/22/20 06/15/21 06/15/21 History tablet (Eliquis) bumetanide 1 mg 1 tab PO DAILY 09/22/20 06/15/21 06/15/21 History tablet darifenacin 7.5 1 tab PO DAILY 09/22/20 06/15/21 Unknown History mg tablet,extended release 24 hr isosorbide 1 tab PO DAILY 09/22/20 06/15/21 06/15/21 History mononitrate 60 mg tablet,extended release 24 hr nifedipine 30 mg 1 tab PO DAILY 09/22/20 06/15/21 Unknown History tablet,extended release 24 hr ropinirole 0.5 mg 1 tab PO QPM 09/22/20 06/15/21 Unknown History tablet spironolactone 25 1 tab PO DAILY 09/22/20 06/15/21 Unknown History mg tablet prednisone 10 mg 15 mg PO DAILY 11/01/20 06/15/21 06/15/21 History tablet tab calcitriol 0.25 250 mcg PO 12/10/20 06/15/21 Unknown History mcg capsule USEASDIRECTD ferrous sulfate 325 mg PO QPM 12/10/20 06/15/21 06/15/21 History 325 mg (65 mg iron) tablet folic acid 1 mg 1 mg PO QPM 12/10/20 06/15/21 Unknown History tablet docusate sodium 100 mg PO BID 06/15/21 06/15/21 Unknown History 100 mg capsule PRN (Colace) guaifenesin 100 200 mg PO Q4H 06/15/21 06/15/21 Unknown History mg/5 mL oral PRN syrup hydralazine 50 mg 2 tab PO TID 06/15/21 06/15/21 Unknown History tablet pantoprazole 40 1 tab PO BEDTIME 06/15/21 06/15/21 Unknown History mg tablet,delayed release ropinirole 0.5 mg 3 tab PO BEDTIME 06/15/21 06/15/21 Unknown History tablet Physical Exam Verdana 4l Vital Signs and Narrative: Verdana 4d Verdana 4d Vital Signs: Verdana 4d Verdana 4Bd Last Vital Signs Verdana 4d Cookie Breaker New 4d Cookie Breaker New 4d Temp 98.8 F 06/15/21 19:12 Cookie Breaker New 4d Pulse 69 06/15/21 19:12 Cookie Breaker NewNew 4d Resp 22 H 06/15/21 19:12 BP 117/56 L 06/15/21 19:12 Pulse Ox 95 06/15/21 19:12 Oxygen Flow Rate 4 06/15/21 19:12 BMI result Body Mass Index 33.1 Results Labs CBC and Chem 7: 06/15/21 20:55 06/15/21 20:55 Labs: Laboratory Results - last 24 hr 06/15/21 06/15/21 06/15/21 19:47 20:55 20:55 MCV 98.2 H MCH 31.3 MCHC 31.9 RDW 15.3 Plt Count 144 L MPV 9.6 Immature Gran % (Auto) 0.3 Neut % (Auto) 84.8 H Lymph % (Auto) 8.1 L [place] % (Auto) 6.4 Eos % (Auto) 0.2 Baso % (Auto) 0.2 Lymph # (Auto) 1.0 L [place] # (Auto) 0.8 Eos # (Auto) 0.0 Baso # (Auto) 0.0 Abs Immat Gran (auto) 0.04 H Absolute Neuts (auto) 10.5 H Absolute Nucleated RBC 0.000 Nucleated RBC % (auto) 0.0 Anion Gap 11 L Estim Creat Clear Calc 32.5 Estimated GFR 38 Random Glucose 99 Calcium 8.5 D Total Bilirubin 1.1 H AST 18 ALT 13 Alkaline Phosphatase 85 B-Natriuretic Peptide Total Protein 5.3 L Albumin 3.1 L Urine Color YELLOW Urine Appearance CLEAR Urine pH 6.0 Ur Specific [place] 1.010 Urine Protein NEG Urine Glucose (UA) NEG Urine Ketones NEG Urine Blood NEG Urine Nitrite NEG Ur Leukocyte Esterase NEG COVID-19 (NICOL) COVID-Mobile Embrace 06/15/21 06/15/21 20:55 20:55 MCV MCH MCHC RDW Plt Count MPV Immature Gran % (Auto) Neut % (Auto) Lymph % (Auto) [place] % (Auto) Eos % (Auto) Baso % (Auto) Lymph # (Auto) [place] # (Auto) Eos # (Auto) Baso # (Auto) Abs Immat Gran (auto) Absolute Neuts (auto) Absolute Nucleated RBC Nucleated RBC % (auto) Anion Gap Estim Creat Clear Calc Estimated GFR Random Glucose Calcium Total Bilirubin AST ALT Alkaline Phosphatase B-Natriuretic Peptide 117 H Total Protein Albumin Urine Color Urine Appearance Urine pH Ur Specific [place] Urine Protein Urine Glucose (UA) Urine Ketones Urine Blood Urine Nitrite Ur Leukocyte Esterase COVID-19 (NICOL) Negative COVID-19 Clin Com See Note Imaging Radiologist's Impressions: Impressions Chest X-Ray 06/15/21 16:20 IMPRESSION: New right middle lobe infiltrate. Cardiomegaly. Prominent interstitial markings in both lungs. Assessment and Plan 86-year-old female with a past medical history of hypertension, hyperlipidemia, diabetes, diastolic CHF, CAD, atrial flutter / AFib on Eliquis, osteopenia, history of recurrent UTIs, COPD, chronic kidney disease, restrictive lung disease, abdominal aortic aneurysm status post repair, history of cervical spine surgery presented to the hospital with a chief complaint of generalized weakness/ not feeling well Noted to have right middle lobe pneumonia. Admitted for further management. Right middle lobe pneumonia: Patient denies any signs of aspiration. Speech and swallow eval Continue ceftriaxone Doxycycline Bradycardia: patient noted to be ready as low as 29 on telemetry. Patient asymptomatic. Cardiology consult. Bedside pacer placed. history of CHF: Currently not in fluid overload. Continue home diuretics. History of AFib: Rate controlled. Continue home Eliquis History of diabetes: Insulin sliding scale History of hypertension /hyperlipidemia: Continue home medications History of COPD: Stable. [place] p.r.n. DVT prophylaxis: Patient on Eliquis Code status: Full code Quality Stroke Does the patient have a stroke diagnosis?: No VTE Prior VTE?: No VTE Risk Level:: Medical - moderate - high VTE Device Contraindication: N/A - Device Ordered VTE Drug Contraindication: Treatment Not Indicated
[2021-06-15] MEDS: cefTRIAXone sodium 1 GM in 0.9 % Sodium Chloride 50 ML IV (22:39)
[2021-06-15] MEDS: Doxycycline Hyclate 100 MG in 0.9 % Sodium Chloride 250 ML 166.67 MG IV (22:41)
[2021-06-15 22:45] LABS: Lactic Acid 0.5 mmol/L (0.5-2.0)
[2021-06-16] VITALS (11 sets, daily range): BP systolic 119–179; BP diastolic 39–73; PULSE 36–67; RESP 15–22; TEMP 36.4–37.4; O2SAT 94–97
[2021-06-16] MEDS: Apixaban 2.5 MG TABLET PO ×3 (00:39→21:38)
[2021-06-16] MEDS: hydrALAZINE HCl 50 MG TABLET 100 MG PO ×5 (00:39→21:38)
--- NOTE | 2021-06-16 01:31 | PC.NURSE ---
After scanning ropinerole and melatonin, attempted to administer, pt too lethargic to take pills. Wakes to voice but falls right back asleep. Meds not administered
--- NOTE | 2021-06-16 01:37 | PC.NURSE ---
Pt requiring sternal rub to wake and continues to immediately fall back to sleep. MD Gonzáles notified of change. Vitals as charted, sugar WNL.
[2021-06-16 01:40] LABS: Glucose, Whole Blood 98 mg/dL (60-115)
[2021-06-16 06:28] LABS: MANUAL DIFF FLAG NO
[2021-06-16 06:33] LABS: Basophils Percent Auto 0.2 % (0-2); Eosinophils Absolute Auto 0.1 X10*3/uL (0.0-0.4); Eosinophils Percent Auto 0.6 % (0-4); Hematocrit 38.4 % (37.0-47.0); Hemoglobin 11.9 g/dl (12.0-16.0); Imm Gran Abs Auto 0.04 X10*3/uL (0.00-0.03); Imm Gran Pct Auto 0.5 % (0.0-0.4); Lymphocytes Absolute Auto 1.4 X10*3/uL (1.2-4.9); Lymphocytes Percent Auto 16.2 % (20-40); Mean Corpuscular Hemoglobin 30.7 pg (27.0-33.0); Mean Corpuscular Volume 99.2 fL (80.0-98.0); Mean Platelet Volume 9.8 fL (9.4-12.3); Monocytes Absolute Auto 0.6 X10*3/uL (0.1-1.2); Monocytes Percent Auto 7.4 % (2-11); Neutrophils Absolute Auto 6.3 x10*3/uL (2.0-8.3); Neutrophils Percent Auto 75.1 % (45-73); Platelet Count 142 X10*3/uL (160-400); Red Blood Count 3.87 X10*6/uL (4.20-5.50); Red Cell Distribution Width 15.2 % (11.0-16.0); White Blood Count 8.4 X10*3/uL (4.8-10.8)
[2021-06-16 06:49] LABS: Anion Gap 13 (12-20); Blood Urea Nitrogen 32 mg/dL (9-16); Calcium 8.5 mg/dL (8.4-10.2); Carbon Dioxide 34 mmol/L (22-29); Chloride 99 mmol/L (96-108); Creatinine Clr Calc Pharmacy 32.5; Estimated Glomerular Filt Rate 38; Glucose Random 163 mg/dL (60-115); Potassium 3.5 mmol/L (3.3-5.1); Sodium 142 mmol/L (135-145)
[2021-06-16 07:35] LABS: Glucose, Whole Blood 129 mg/dL (60-115)
--- NOTE | 2021-06-16 09:09 | PC.NURSE ---
update to mat, daughter [phone]. baseline is axox3 with moderate ability for ADLs. HR dips to 20's while sleeping routinely.
--- NOTE | 2021-06-16 09:50 | PC.NURSE ---
axox3 once awake. able to assist with bed mobility and changing. pure wick in place and putting out sml amounts of urine. has been evaluated by hospitalist and speech. sitting up to eat breakfast. skin pwd. unlabored resp at rest. good skin integrity
--- NOTE | 2021-06-16 09:53 | P.CONCA_ITS ---
History of Present Illness History of Present Illness Date of Service: 06/16/21 Requesting physician: Rishi Pretty Chief complaint: PNA, bradycardia Narrative: 86-year-old female who has background history of diastolic heart failure, atrial fibrillation, coronary artery disease with previous LAD PCI and chronic total occlusion of the right coronary artery. She has a longstanding history of bradycardia and previously was admitted at [facility] with bradycardia incidentally found while she was admitted for heart failure. She mostly had AV Wenckebach. She mostly is in atrial flutter with variable block and the has bradycardia at baseline. She has been completely asymptomatic from the bradycardia point of view. No dizziness or lightheadedness. She is now presenting for fatigue and pneumonia. She has been noticed to have heart rate in 30s to 40s in atrial flutter. While awake she is in 40s right now and has no symptoms. She is saying after antibiotics she is feeling better. Blood pressure is elevated. [facility] Past Medical History Medical History AAA (abdominal aortic aneurysm) Afib Atherosclerotic cardiovascular disease Atrial flutter C7 cervical fracture CAD (coronary artery disease) Chronic atrial flutter Chronic respiratory failure Chronic restrictive lung disease CKD (chronic kidney disease) COPD (chronic obstructive pulmonary disease) Diastolic CHF Dyspnea Essential hypertension Frequent UTI HTN (hypertension) Hypercholesteremia Kidney mass Osteopenia Preoperative cardiovascular examination Restless leg Vitamin D deficiency Family History Family History Mother Aortic aneurysm Father Stroke Surgical History Surgical History H/O cervical spine surgery History of appendectomy S/P AAA repair Social History Social History Household Members: Children Housing: House Do you presently have visiting nurse or other home services: Yes (visiting [employer] that helps bathe her on Mondays and ) Alcohol intake: never Patient Tobacco Use Status: Former Tobacco user Quit Date: 2000 Years Smoked: 40 Use of substances other than those prescribed or required for medical reasons: No Advance Directives: Yes Advance Directives on File: Yes Advance Directives Date on File: 05/19/20 service: No Current occupational status: retired Meds Allergies Allergy/AdvReac Type Severity Reaction Status Date / Time Iodinated Contrast Media Allergy Severe Vomiting Verified 03/03/21 13:59 [IV CONTRAST] scallops [SCALLOPS] Allergy Severe Vomiting Verified 03/03/21 13:59 amlodipine [AMLODIPINE] AdvReac Severe LEG Verified 03/03/21 13:59 SWELLING Active Medications: Current Medications Albuterol/Ipratropium (Albuterol/Iprat 2.5/0.5mg 3 Ml Ampul.Neb) 3 ml INHALE Q4H PRN PRN Reason: Shortness of Breath/Wheezing Apixaban (Apixaban 2.5 Mg Tablet) 2.5 mg PO BID [facility] Last Admin: 06/16/21 00:39 Dose: 2.5 mg Documented by: Bumetanide (Bumetanide 1 Mg Tablet) 1 mg PO DAILY [facility]; Protocol Dextrose (Dextrose 50 % 25 Gm/50 Ml Syringe) 25 gm IVPUSH Q15M PRN; Protocol PRN Reason: per Hypoglycemia Standing Ord. Docusate Sodium (Docusate Sodium 100 Mg Capsule) 100 mg PO BID PRN PRN Reason: Constipation Folic Acid (Folic Acid 1 Mg Tablet) 1 mg PO BEDTIME [facility] Last Admin: 06/16/21 00:39 Dose: Not Given Documented by: Glucose (Glucose Gel 15 Gm Gel..Gram.) 15 gm PO Q15M PRN; Protocol PRN Reason: per Hypoglycemia Standing Ord. Hydralazine HCl (Hydralazine Hcl 50 Mg Tablet) 100 mg PO TID [facility]; Protocol Last Admin: 06/16/21 00:39 Dose: 100 mg Documented by: Doxycycline Hyclate 100 mg/ (Sodium Chloride) 250 mls @ 166.67 mls/hr IV Q12H YULIA Ceftriaxone Sodium 1 gm/ (Sodium Chloride) 50 mls @ 100 mls/hr IV Q24H [facility] Last Infusion: 06/16/21 00:47 Dose: Infused Documented by: Insulin Human Lispro (Insulin Lispro 100 Unit/Ml 3 Ml Vial) 0 unit SUBCUT QIDACHS [facility]; Protocol Last Admin: 06/16/21 09:16 Dose: Not Given Documented by: Isosorbide Mononitrate (Isosorbide Mononitrate 60 Mg Tab.Er.24h) 60 mg PO DAILY [facility]; Protocol Lidocaine (Lidocaine 4 % Patch Adh..Patch) 1 patch TRANSDERMA DAILY [facility]; Protocol Melatonin (Melatonin 3 Mg Tablet) 6 mg PO BEDTIME PRN PRN Reason: Insomnia Nifedipine (Nifedipine Er 30 Mg Tab.Er.24) 30 mg PO DAILY [facility]; Protocol Non-Formulary Medication (Darifenacin) 1 tab PO DAILY [facility] Omeprazole (Omeprazole 20 Mg Capsule.Dr) 20 mg PO BEDTIME [facility] Pharmacy Consult (Consult Rx Perform Med Rec) 1 each MISCELLANE ONCE PRN PRN Reason: Consult order Ropinirole HCl (Ropinirole Hcl 0.5 Mg Tablet) 0.5 mg PO DAILY@1700 [facility] Ropinirole HCl (Ropinirole Hcl 0.25 Mg Tablet) 1.5 mg PO BEDTIME [facility] Last Admin: 06/16/21 01:41 Dose: Not Given Documented by: Senna (Sennosides 8.6 Mg Tablet) 17.2 mg PO BEDTIME PRN PRN Reason: Constipation Sodium Chloride (0.9 % Sodium Chloride Flush 3 Ml Syringe) 3 ml IVFLUSH QSHIFT [facility] Last Admin: 06/16/21 09:16 Dose: Not Given Documented by: Spironolactone (Spironolactone 25 Mg Tablet) 25 mg PO DAILY [facility]; Protocol Home Medications Medication Instructions Recorded Confirmed Last Taken Type apixaban 2.5 mg tablet (Eliquis) 1 tab PO BID 09/22/20 06/15/21 06/15/21 History bumetanide 1 mg tablet 1 tab PO DAILY 09/22/20 06/15/21 06/15/21 History darifenacin 7.5 mg tablet,extended 1 tab PO DAILY 09/22/20 06/15/21 Unknown History release 24 hr isosorbide mononitrate 60 mg 1 tab PO DAILY 09/22/20 06/15/21 06/15/21 History tablet,extended release 24 hr nifedipine 30 mg tablet,extended 1 tab PO DAILY 09/22/20 06/15/21 Unknown History release 24 hr ropinirole 0.5 mg tablet 1 tab PO DAILY@1600 09/22/20 06/16/21 Unknown History spironolactone 25 mg tablet 1 tab PO DAILY 09/22/20 06/15/21 Unknown History prednisone 10 mg tablet 15 mg PO DAILY tab 11/01/20 06/15/21 06/15/21 History calcitriol 0.25 mcg capsule 250 mcg PO TUTH@159912/10/20 06/16/21 Unknown History ferrous sulfate 325 mg (65 mg 325 mg PO DAILY@159912/10/20 06/16/21 06/15/21 History iron) tablet folic acid 1 mg tablet 1 mg PO DAILY@159912/10/20 06/16/21 Unknown History docusate sodium 100 mg capsule 100 mg PO BID PRN 06/15/21 06/15/21 Unknown History (Colace) guaifenesin 100 mg/5 mL oral syrup 200 mg PO Q4H PRN 06/15/21 06/15/21 Unknown History hydralazine 50 mg tablet 2 tab PO TID 06/15/21 06/15/21 Unknown History pantoprazole 40 mg tablet,delayed 1 tab PO BEDTIME 06/15/21 06/15/21 Unknown History release ropinirole 0.5 mg tablet 3 tab PO BEDTIME 06/15/21 06/15/21 Unknown History Physical Exam Vital Signs: Vital Signs: Last Vital Signs Temp 97.8 F 06/16/21 09:35 Pulse 38 L 06/16/21 09:35 Resp 18 06/16/21 09:35 BP 148/56 H 06/16/21 09:35 Pulse Ox 96 06/16/21 09:35 Oxygen Flow Rate 4 06/15/21 19:12 BMI result Body Mass Index 33.1 GENERAL APPEARANCE: in no acute distress, pleasant. NECK: no carotid bruit, no jugular venous distention. SKIN: no suspicious lesions, warm and dry. HEART: no murmurs, bradycardic. LUNGS: clear to auscultation bilaterally. ABDOMEN: soft, nontender. EXTREMITIES: no edema. PERIPHERAL PULSES: equal. NEUROLOGIC: No gross deficits, AAO X 3 Objective Labs and Meds Result diagrams: 06/16/21 06:22 06/16/21 06:22 Lab results: Laboratory Results - last 24 hr 06/15/21 06/15/21 06/15/21 19:47 20:55 20:55 WBC 12.4 H RBC 3.86 L Hgb 12.1 Hct 37.9 MCV 98.2 H MCH 31.3 MCHC 31.9 RDW 15.3 Plt Count 144 L MPV 9.6 Immature Gran % (Auto) 0.3 Neut % (Auto) 84.8 H Lymph % (Auto) 8.1 L [place] % (Auto) 6.4 Eos % (Auto) 0.2 Baso % (Auto) 0.2 Lymph # (Auto) 1.0 L [place] # (Auto) 0.8 Eos # (Auto) 0.0 Baso # (Auto) 0.0 Abs Immat Gran (auto) 0.04 H Absolute Neuts (auto) 10.5 H Absolute Nucleated RBC 0.000 Nucleated RBC % (auto) 0.0 Sodium 142 Potassium 4.1 D Chloride 101 Carbon Dioxide 34 H Anion Gap 11 L BUN 33 H Creatinine 1.33 Estim Creat Clear Calc 32.5 Estimated GFR 38 POC Glucose Random Glucose 99 Lactic Acid Calcium 8.5 D Total Bilirubin 1.1 H AST 18 ALT 13 Alkaline Phosphatase 85 B-Natriuretic Peptide Total Protein 5.3 L Albumin 3.1 L Urine Color YELLOW Urine Appearance CLEAR Urine pH 6.0 Ur Specific [place] 1.010 Urine Protein NEG Urine Glucose (UA) NEG Urine Ketones NEG Urine Blood NEG Urine Nitrite NEG Ur Leukocyte Esterase NEG COVID-19 (NICOL) COVID-[employer] 06/15/21 06/15/21 06/15/21 20:55 20:55 22:22 WBC RBC Hgb Hct MCV MCH MCHC RDW Plt Count MPV Immature Gran % (Auto) Neut % (Auto) Lymph % (Auto) [place] % (Auto) Eos % (Auto) Baso % (Auto) Lymph # (Auto) [place] # (Auto) Eos # (Auto) Baso # (Auto) Abs Immat Gran (auto) Absolute Neuts (auto) Absolute Nucleated RBC Nucleated RBC % (auto) Sodium Potassium Chloride Carbon Dioxide Anion Gap BUN Creatinine Estim Creat Clear Calc Estimated GFR POC Glucose Random Glucose Lactic Acid 0.5 Calcium Total Bilirubin AST ALT Alkaline Phosphatase B-Natriuretic Peptide 117 H Total Protein Albumin Urine Color Urine Appearance Urine pH Ur Specific [place] Urine Protein Urine Glucose (UA) Urine Ketones Urine Blood Urine Nitrite Ur Leukocyte Esterase COVID-19 (NICOL) Negative COVID-[employer] See Note 06/16/21 06/16/21 06/16/21 01:36 06:22 06:22 WBC 8.4 RBC 3.87 L Hgb 11.9 L Hct 38.4 MCV 99.2 H MCH 30.7 MCHC 31.0 RDW 15.2 Plt Count 142 L MPV 9.8 Immature Gran % (Auto) 0.5 H Neut % (Auto) 75.1 H Lymph % (Auto) 16.2 L [place] % (Auto) 7.4 Eos % (Auto) 0.6 Baso % (Auto) 0.2 Lymph # (Auto) 1.4 [place] # (Auto) 0.6 Eos # (Auto) 0.1 Baso # (Auto) 0.0 Abs Immat Gran (auto) 0.04 H Absolute Neuts (auto) 6.3 Absolute Nucleated RBC 0.000 Nucleated RBC % (auto) 0.0 Sodium 142 Potassium 3.5 Chloride 99 Carbon Dioxide 34 H Anion Gap 13 BUN 32 H Creatinine 1.33 Estim Creat Clear Calc 32.5 Estimated GFR 38 POC Glucose 98 Random Glucose 163 H Lactic Acid Calcium 8.5 Total Bilirubin AST ALT Alkaline Phosphatase B-Natriuretic Peptide Total Protein Albumin Urine Color Urine Appearance Urine pH Ur Specific [place] Urine Protein Urine Glucose (UA) Urine Ketones Urine Blood Urine Nitrite Ur Leukocyte Esterase COVID-19 (NICOL) [employer] 06/16/21 07:31 WBC RBC Hgb Hct MCV MCH MCHC RDW Plt Count MPV Immature Gran % (Auto) Neut % (Auto) Lymph % (Auto) [place] % (Auto) Eos % (Auto) Baso % (Auto) Lymph # (Auto) [place] # (Auto) Eos # (Auto) Baso # (Auto) Abs Immat Gran (auto) Absolute Neuts (auto) Absolute Nucleated RBC Nucleated RBC % (auto) Sodium Potassium Chloride Carbon Dioxide Anion Gap BUN Creatinine Estim Creat Clear Calc Estimated GFR POC Glucose 129 H Random Glucose Lactic Acid Calcium Total Bilirubin AST ALT Alkaline Phosphatase B-Natriuretic Peptide Total Protein Albumin Urine Color Urine Appearance Urine pH Ur Specific [place] Urine Protein Urine Glucose (UA) Urine Ketones Urine Blood Urine Nitrite Ur Leukocyte Esterase COVID-19 (NICOL) COVID-19 [facility] Com Imaging Radiologist's impression: Impressions Chest X-Ray 06/15/21 16:20 IMPRESSION: New right middle lobe infiltrate. Cardiomegaly. Prominent interstitial markings in both lungs. Assessment and Plan (1) Pneumonia: Qualifiers: Laterality: right Lung location: middle lobe of lung Pneumonia type: due to unspecified organism Qualified Code(s): J18.9 - Pneumonia, unspecified organism Status: Acute (2) HTN (hypertension): Status: Acute (3) Bradycardia: Status: Acute 86-year-old female who is presenting for pneumonia and fatigue. She also is noted to be bradycardic. She has longstanding history of bradycardia with AV Wenckebach in the past. She also has mostly atrial flutter and heart rates in 40s. She has no dizziness or lightheadedness and actually is hypertensive while bradycardic. Her blood pressure medications need to be titrated and I think we increase the nifedipine to 60 mg once a day. From bradycardia point of view she has been stable at this is not a new finding. If while awake she has bradycardia and any symptoms then we can consider discussion for pacemaker otherwise right now this is a chronic issue. He may have worsening of bradycar delmi in her sleep due to increased vagal tone which is a normal finding. Clinically euvolemic right now. Thank you for allowing me to participate in the care of your patient. Please feel free to contact me if you have any questions. Procedures Date of Service Date of Service: 06/16/21
[2021-06-16] MEDS: Spironolactone 25 MG TABLET PO (09:54)
[2021-06-16] MEDS: Bumetanide 1 MG TABLET PO (09:55)
[2021-06-16] MEDS: Isosorbide Mononitrate 60 MG TAB.ER.24H PO (09:55)
[2021-06-16] MEDS: NIFEdipine ER 30 MG TAB.ER.24 PO (09:55)
--- NOTE | 2021-06-16 11:18 | MHC.SL.SWA ---
Speech Pathologist Impression: Within Functional Limits Risk of Aspiration Due to: History of Pneumonia Dysphasia Diet Status: Liquid Consistency and Strategies for Safe Swallow: Liquid Intake Recommendation: Thin Liquid Intake Strategies: Small Sips Solid Food Consistency: Dietary Recommendations: Regular Additional Modifications to Solid Foods: Alternate liquid and solid consistencies. Pt will need assistance w/ tray and to have food cut up into bites to aid self-feeding, due to vision issues. Oral Medication Intake: Whole with Liquid Compensatory Strategies and Precautions to be Taken for Safe Swallow: Sitting Upright (90 deg) Liquids from Cup Alternate Liquids/Solids Supervision While Eating and Drinking for Safe Swallow: Intermittent Supervision Foods to Avoid: Swallowing Recommended Treatments: Compens. Strategy Educat. Recommendation for Speech: NA:Typical Evaluation Comment: Pt presents w/ swallow function WNL, w/timely oral and pharyngeal phases of swallow, evident swallow trigger and laryngeal transit wnl, on all consistencies presented. Pt has advanced macular degeneration, has difficulty seeing, and therefore will need some assistance during meals (set up of tray, utensils w/in clear reach, some foods may need to be cut up to make it easier to access if she is self feeding). Recommend PT Continue on Regular Diet w/thin liquids, w/ Pills whole w/liquid. Nursing aware of recommendation, , Property Economist sent recommendation by secure text. ENTRY LEVEL MANAGER will see 1X to check for toleration of diet recommendations, then d/c Frequency/Duration: 1X for toleration of regular diet. Date Range for Service Req: Timeline to reassess: Bridal Consultant Clinican/Clinical Fellow: No Supervisory Statement: I have reviewed and agree with the student/clinical fellow's documentation: N/A Speech Language Pathologist: Aliyah Oliva M.A., [facility]-ENTRY LEVEL MANAGER
[2021-06-16] MEDS: Doxycycline Hyclate 100 MG in 0.9 % Sodium Chloride 250 ML 166.67 MG IV (12:16)
[2021-06-16 12:18] LABS: Glucose, Whole Blood 82 mg/dL (60-115)
--- NOTE | 2021-06-16 12:24 | PC.NURSE ---
patient a&ox3, mold cleaner intact- a-flutter 40s, vitals stable, pt medicated with antibiotics per order, call ortega within reach, will continue to monitor.
--- NOTE | 2021-06-16 13:09 | HO.PM.IMPN ---
Subjective Subjective Date of Service: 06/16/21 Interval History: cc: weakness interval history: still weak Cardiovascular Cardiovascular: Reports no additional cardiovascular complaints Respiratory Respiratory: Reports no additional respiratory complaints Physical Exam Vital Signs: Vital Signs: Last Vital Signs Temp 98.0 F 06/16/21 12:24 Pulse 47 L 06/16/21 12:24 Resp 17 06/16/21 12:24 BP 179/65 H 06/16/21 12:24 Pulse Ox 96 06/16/21 12:24 Oxygen Flow Rate 4 06/15/21 19:12 BMI result Body Mass Index 33.1 General: AO X 3, no acute distress Resp: CTA bilateral, no accessory muscles used CVS: S1,S2,RRR GI: soft, non tender, non distended Neuro: motor grossly intact, alert Psych: appropriate affect, appropriate insight Objective Data Active Medications Albuterol/Ipratropium (Albuterol/Iprat 2.5/0.5mg 3 Ml Ampul.Neb) 3 ml INHALE Q4H PRN PRN Reason: Shortness of Breath/Wheezing Apixaban (Apixaban 2.5 Mg Tablet) 2.5 mg PO BID [facility] Last Admin: 06/16/21 09:54 Dose: 2.5 mg Documented by: ALEC Bumetanide (Bumetanide 1 Mg Tablet) 1 mg PO DAILY [facility]; Protocol Last Admin: 06/16/21 09:55 Dose: 1 mg Documented by: ALEC Dextrose (Dextrose 50 % 25 Gm/50 Ml Syringe) 25 gm IVPUSH Q15M PRN; Protocol PRN Reason: per Hypoglycemia Standing Ord. Docusate Sodium (Docusate Sodium 100 Mg Capsule) 100 mg PO BID PRN PRN Reason: Constipation Folic Acid (Folic Acid 1 Mg Tablet) 1 mg PO BEDTIME [facility] Last Admin: 06/16/21 00:39 Dose: Not Given Documented by: GEORGIANA Non-Admin Reason: Previously Administered Glucose (Glucose Gel 15 Gm Gel..Gram.) 15 gm PO Q15M PRN; Protocol PRN Reason: per Hypoglycemia Standing Ord. Hydralazine HCl (Hydralazine Hcl 50 Mg Tablet) 100 mg PO TID [facility]; Protocol Last Admin: 06/16/21 09:59 Dose: 100 mg Documented by: ALEC Doxycycline Hyclate 100 mg/ (Sodium Chloride) 250 mls @ 166.67 mls/hr IV Q12H [facility] Last Admin: 06/16/21 12:16 Dose: 166.67 mls/hr Documented by: GEOVANNA Ceftriaxone Sodium 1 gm/ (Sodium Chloride) 50 mls @ 100 mls/hr IV Q24H [facility] Last Infusion: 06/16/21 00:47 Dose: 0 mls/hr Documented by: GEORGIANA Insulin Human Lispro (Insulin Lispro 100 Unit/Ml 3 Ml Vial) 0 unit SUBCUT QIDACHS [facility]; Protocol Last Admin: 06/16/21 12:16 Dose: Not Given Documented by: GEOVANNA Non-Admin Reason: No Insulin Coverage Isosorbide Mononitrate (Isosorbide Mononitrate 60 Mg Tab.Er.24h) 60 mg PO DAILY [facility]; Protocol Last Admin: 06/16/21 09:55 Dose: 60 mg Documented by: ALEC Lidocaine (Lidocaine 4 % Patch Adh..Patch) 1 patch TRANSDERMA DAILY [facility]; Protocol Last Admin: 06/16/21 09:58 Dose: Not Given Documented by: ALEC Non-Admin Reason: Patient Refused Melatonin (Melatonin 3 Mg Tablet) 6 mg PO BEDTIME PRN PRN Reason: Insomnia Nifedipine (Nifedipine Er 30 Mg Tab.Er.24) 60 mg PO DAILY [facility]; Protocol Non-Formulary Medication (Darifenacin) 1 tab PO DAILY [facility] Omeprazole (Omeprazole 20 Mg Capsule.Dr) 20 mg PO BEDTIME [facility] Pharmacy Consult (Consult Rx Perform Med Rec) 1 each MISCELLANE ONCE PRN PRN Reason: Consult order Ropinirole HCl (Ropinirole Hcl 0.5 Mg Tablet) 0.5 mg PO DAILY@1700 [facility] Ropinirole HCl (Ropinirole Hcl 0.25 Mg Tablet) 1.5 mg PO BEDTIME [facility] Last Admin: 06/16/21 01:41 Dose: Not Given Documented by: GEORGIANA Non-Admin Reason: See Note Senna (Sennosides 8.6 Mg Tablet) 17.2 mg PO BEDTIME PRN PRN Reason: Constipation Sodium Chloride (0.9 % Sodium Chloride Flush 3 Ml Syringe) 3 ml IVFLUSH QSHIFT [facility] Last Admin: 06/16/21 09:16 Dose: Not Given Documented by: ALEC Non-Admin Reason: IV Running Spironolactone (Spironolactone 25 Mg Tablet) 25 mg PO DAILY [facility]; Protocol Last Admin: 06/16/21 09:54 Dose: 25 mg Documented by: ALEC Labs CBC & Chem 7: 06/16/21 06:22 06/16/21 06:22 Labs: Laboratory Results - last 24 hr 06/15/21 06/15/21 06/15/21 19:47 20:55 20:55 MCV 98.2 H MCH 31.3 MCHC 31.9 RDW 15.3 Plt Count 144 L MPV 9.6 Immature Gran % (Auto) 0.3 Neut % (Auto) 84.8 H Lymph % (Auto) 8.1 L [place] % (Auto) 6.4 Eos % (Auto) 0.2 Baso % (Auto) 0.2 Lymph # (Auto) 1.0 L [place] # (Auto) 0.8 Eos # (Auto) 0.0 Baso # (Auto) 0.0 Abs Immat Gran (auto) 0.04 H Absolute Neuts (auto) 10.5 H Absolute Nucleated RBC 0.000 Nucleated RBC % (auto) 0.0 Anion Gap 11 L Estim Creat Clear Calc 32.5 Estimated GFR 38 POC Glucose Random Glucose 99 Lactic Acid Calcium 8.5 D Total Bilirubin 1.1 H AST 18 ALT 13 Alkaline Phosphatase 85 B-Natriuretic Peptide Total Protein 5.3 L Albumin 3.1 L Urine Color YELLOW Urine Appearance CLEAR Urine pH 6.0 Ur Specific [place] 1.010 Urine Protein NEG Urine Glucose (UA) NEG Urine Ketones NEG Urine Blood NEG Urine Nitrite NEG Ur Leukocyte Esterase NEG COVID-19 (NICOL) COVID-19 Clin Com 06/15/21 06/15/21 06/15/21 20:55 20:55 22:22 MCV MCH MCHC RDW Plt Count MPV Immature Gran % (Auto) Neut % (Auto) Lymph % (Auto) [place] % (Auto) Eos % (Auto) Baso % (Auto) Lymph # (Auto) [place] # (Auto) Eos # (Auto) Baso # (Auto) Abs Immat Gran (auto) Absolute Neuts (auto) Absolute Nucleated RBC Nucleated RBC % (auto) Anion Gap Estim Creat Clear Calc Estimated GFR POC Glucose Random Glucose Lactic Acid 0.5 Calcium Total Bilirubin AST ALT Alkaline Phosphatase B-Natriuretic Peptide 117 H Total Protein Albumin Urine Color Urine Appearance Urine pH Ur Specific [place] Urine Protein Urine Glucose (UA) Urine Ketones Urine Blood Urine Nitrite Ur Leukocyte Esterase COVID-19 (NICOL) Negative COVID-19 [employer] Com See Note 06/16/21 06/16/21 06/16/21 01:36 06:22 06:22 MCV 99.2 H MCH 30.7 MCHC 31.0 RDW 15.2 Plt Count 142 L MPV 9.8 Immature Gran % (Auto) 0.5 H Neut % (Auto) 75.1 H Lymph % (Auto) 16.2 L [place] % (Auto) 7.4 Eos % (Auto) 0.6 Baso % (Auto) 0.2 Lymph # (Auto) 1.4 [place] # (Auto) 0.6 Eos # (Auto) 0.1 Baso # (Auto) 0.0 Abs Immat Gran (auto) 0.04 H Absolute Neuts (auto) 6.3 Absolute Nucleated RBC 0.000 Nucleated RBC % (auto) 0.0 Anion Gap 13 Estim Creat Clear Calc 32.5 Estimated GFR 38 POC Glucose 98 Random Glucose 163 H Lactic Acid Calcium 8.5 Total Bilirubin AST ALT Alkaline Phosphatase B-Natriuretic Peptide Total Protein Albumin Urine Color Urine Appearance Urine pH Ur Specific [place] Urine Protein Urine Glucose (UA) Urine Ketones Urine Blood Urine Nitrite Ur Leukocyte Esterase COVID-19 (NICOL) COVID-[employer] 06/16/21 06/16/21 07:31 12:12 MCV MCH MCHC RDW Plt Count MPV Immature Gran % (Auto) Neut % (Auto) Lymph % (Auto) [place] % (Auto) Eos % (Auto) Baso % (Auto) Lymph # (Auto) [place] # (Auto) Eos # (Auto) Baso # (Auto) Abs Immat Gran (auto) Absolute Neuts (auto) Absolute Nucleated RBC Nucleated RBC % (auto) Anion Gap Estim Creat Clear Calc Estimated GFR POC Glucose 129 H 82 Random Glucose Lactic Acid Calcium Total Bilirubin AST ALT Alkaline Phosphatase B-Natriuretic Peptide Total Protein Albumin Urine Color Urine Appearance Urine pH Ur Specific [place] Urine Protein Urine Glucose (UA) Urine Ketones Urine Blood Urine Nitrite Ur Leukocyte Esterase COVID-19 (NICOL) COVID-19 [employer] Com Assessment and Plan (1) Pneumonia: Status: Acute Assessment and Plan: 86F prsented with weakness, found to have RML pneumonia right middle lobe pneumonia continue rocephin, doxy did well with [employer] chronic atrial flutter with slow ventricular response omid is chronic, asymptomatic, cardio appreciate, no plan for pacer for now eliquis chronic diastolic chf euvolemic, continue bumex htn, uncontrolled increased nifedipine to 60mg daily continue imdur, hydralazine, aldactone copd, uses home o2 only at night nebs as needed ?DM dont see mentioned previously, not on meds check a1c, monitor poc, will dc insulin for now CAD eliquis, not on statin? full code dispo - likely home with daughter in next 24-48hrs if improved Quality Stroke Does the patient have a stroke diagnosis?: No VTE Prior VTE?: No VTE Risk Level:: Medical - moderate - high VTE Device Contraindication: N/A - Device Ordered VTE Drug Contraindication: Treatment Not Indicated
[2021-06-16 13:46] LABS: Estimated Average Glucose 91 mg/dL; Hemoglobin A1c % 4.8 %
[2021-06-16] MEDS: rOPINIRole HCL 0.5 MG TABLET PO (15:44)
[2021-06-16] MEDS: 0.9 % Sodium Chloride Flush 3 ML SYRINGE IVFLUSH (15:48)
[2021-06-16 16:03] LABS: Glucose, Whole Blood 157 mg/dL (60-115)
--- NOTE | 2021-06-16 16:19 | MHC.CM.PN ---
CM CALLED PTS DAUGHTER, ESPINOZA ([phone]) WHO REPORTS THE PT LIVES WITH HER. SHE REPORTS THE PT HAS A PRIVATELY PAID ENTRY LEVEL RECEPTIONIST THAT COMES 2X/WEEK TO HELP HER WITH BATHING AND A RN FROM [facility] THAT CHECKS IN 1X/MONTH SHE REPORTS THE PTS PCP IS ROSEMARY JOY PT HAS A HCP AND MAHI ON FILE SHE REPORTS THE PT HAS RECEIVED THE COVID-19 VACCINE (PFIZER X 3) PTS MEDICARE RIGHTS WERE REVIEWED, A COPY WAS EMAILED TO ESPINOZA AT PER HER REQUEST, AND A COPY WAS SENT TO [facility] CURRENT DC PLAN IS HOME WITH RESUMPTION OF CARE FAMILY TO TRANSPORT
[2021-06-16] MEDS: Omeprazole 20 MG CAPSULE.DR PO (21:38)
[2021-06-16] MEDS: Folic Acid 1 MG TABLET PO (21:38)
[2021-06-16] MEDS: rOPINIRole HCL 1 MG TABLET 1.5 MG PO (21:38)
[2021-06-16] MEDS: cefTRIAXone sodium 1 GM in 0.9 % Sodium Chloride 50 ML IV (21:39)
[2021-06-17] MEDS: Doxycycline Hyclate 100 MG in 0.9 % Sodium Chloride 250 ML 166.67 MG IV ×2 (00:55→09:42)
[2021-06-17] MEDS: 0.9 % Sodium Chloride Flush 3 ML SYRINGE IVFLUSH ×3 (00:56→15:52)
[2021-06-17] MEDS: Melatonin 3 MG TABLET 6 MG PO (01:06)
--- NOTE | 2021-06-17 03:02 | PC.NURSE ---
0230; [facility] calls to report pt is omid in atrial flutter. This rn assessed patient, patient is asymptomatic. Dr. Gonzáles made aware. Per notes, omid is chronic, cardio is following patient.
[2021-06-17 03:03] VITALS: BP 156/71; PULSE 65; RESP 17; TEMP 36.3; O2SAT 97
[2021-06-17 05:47] LABS: Hematocrit 36.5 % (37.0-47.0); Hemoglobin 11.3 g/dl (12.0-16.0); Mean Corpuscular Hemoglobin 30.7 pg (27.0-33.0); Mean Corpuscular Volume 99.2 fL (80.0-98.0); Mean Platelet Volume 10.2 fL (9.4-12.3); Platelet Count 154 X10*3/uL (160-400); Red Blood Count 3.68 X10*6/uL (4.20-5.50); White Blood Count 7.7 X10*3/uL (4.8-10.8)
[2021-06-17 06:22] LABS: Anion Gap 12 (12-20); Blood Urea Nitrogen 33 mg/dL (9-16); Calcium 8.6 mg/dL (8.4-10.2); Carbon Dioxide 36 mmol/L (22-29); Chloride 98 mmol/L (96-108); Creatinine Clr Calc Pharmacy 33.2; Estimated Glomerular Filt Rate 39; Glucose Fasting 98 mg/dL (60-99); Potassium 3.7 mmol/L (3.3-5.1); Sodium 142 mmol/L (135-145)
[2021-06-17 07:32] VITALS: BP 175/70; PULSE 64; RESP 19; TEMP 36.1; O2SAT 94
[2021-06-17] MEDS: Isosorbide Mononitrate 60 MG TAB.ER.24H PO (09:42)
[2021-06-17] MEDS: Lidocaine 4 % Patch ADH..PATCH 1 PATCH TRANSDERMA (09:42)
[2021-06-17] MEDS: hydrALAZINE HCl 50 MG TABLET 100 MG PO (09:42)
[2021-06-17] MEDS: Apixaban 2.5 MG TABLET PO ×2 (09:43→21:49)
[2021-06-17] MEDS: NIFEdipine ER 60 MG TAB.ER.24 PO (09:43)
[2021-06-17] MEDS: Bumetanide 1 MG TABLET PO (09:43)
[2021-06-17] MEDS: Spironolactone 25 MG TABLET PO (09:43)
--- NOTE | 2021-06-17 11:49 | MHC.SL.SWA ---
Speech Pathologist Impression: Within Functional Limits Risk of Aspiration Due to: History of Pneumonia Dysphasia Diet Status: Liquid Consistency and Strategies for Safe Swallow: Liquid Intake Recommendation: Thin Liquid Intake Strategies: Unrestricted Solid Food Consistency: Dietary Recommendations: Regular Additional Modifications to Solid Foods: Patient was unaware of her allergy to shellfish (scallops) as detailed when she tried to order a clam chowder for lunch and had difficulty understanding why she could not have it. No follow-up with PAINTER APPRENTICE services warranted Oral Medication Intake: Whole with Liquid Compensatory Strategies and Precautions to be Taken for Safe Swallow: Sitting Upright (90 deg) Supervision While Eating and Drinking for Safe Swallow: Intermittent Supervision Foods to Avoid: shellfish Swallowing Recommended Treatments: Compens. Strategy Educat. Recommendation for Speech: NA:RADHA Handle Turner Clinican/Clinical Fellow: No Supervisory Statement: I have reviewed and agree with the student/clinical fellow's documentation: N/A Speech Language Pathologist: Roseanna Desir MA, CCC-PAINTER APPRENTICE
[2021-06-17 11:57] VITALS: BP 128/60; PULSE 62; RESP 18; TEMP 36.9; O2SAT 93
--- NOTE | 2021-06-17 13:14 | HO.PM.IMPN ---
Subjective Subjective Date of Service: 06/17/21 Interval History: Pt seen and examined at bedside. No overnight events. Reports no chest pain, no increased work of breathing. continues to have cough. no fever or chills this am or overnight . no abd pain, no diarhea or constipation Review of Systems Review of Systems: Yes all other systems are reviewed and are negative Physical Exam Vital Signs: Vital Signs: Last Vital Signs Temp 98.4 F 06/17/21 11:57 Pulse 62 06/17/21 11:57 Resp 18 06/17/21 11:57 BP 128/60 06/17/21 11:57 Pulse Ox 93 06/17/21 11:57 Oxygen Flow Rate 4 06/15/21 19:12 BMI result Body Mass Index 33.1 Const: General: cooperative and no acute distress Orientation/consciousness: patient oriented x3 Resp: Effort & Inspection: normal respiratory effort Cardio: Rate: regular rate Rhythm: regular rhythm GI: Palpation (GI): Soft to palpation Auscultation: normal bowel sounds Neuro: General: patient oriented x3 Extrem: General: Yes normal to inspection and Yes no pedal edema Objective Data Active Medications Albuterol/Ipratropium (Albuterol/Iprat 2.5/0.5mg 3 Ml Ampul.Neb) 3 ml INHALE Q4H PRN PRN Reason: Shortness of Breath/Wheezing Apixaban (Apixaban 2.5 Mg Tablet) 2.5 mg PO BID [facility] Last Admin: 06/17/21 09:43 Dose: 2.5 mg Documented by: SAURABH Bumetanide (Bumetanide 1 Mg Tablet) 1 mg PO DAILY [facility]; Protocol Last Admin: 06/17/21 09:43 Dose: 1 mg Documented by: SAURABH Docusate Sodium (Docusate Sodium 100 Mg Capsule) 100 mg PO BID PRN PRN Reason: Constipation Folic Acid (Folic Acid 1 Mg Tablet) 1 mg PO BEDTIME [facility] Last Admin: 06/16/21 21:38 Dose: 1 mg Documented by: MATHEW Hydralazine HCl (Hydralazine Hcl 50 Mg Tablet) 150 mg PO TID [facility]; Protocol Doxycycline Hyclate 100 mg/ (Sodium Chloride) 250 mls @ 166.67 mls/hr IV Q12H [facility] Last Infusion: 06/17/21 11:34 Dose: 0 mls/hr Documented by: SAURABH Ceftriaxone Sodium 1 gm/ (Sodium Chloride) 50 mls @ 100 mls/hr IV Q24H [facility] Last Infusion: 06/16/21 22:55 Dose: 0 mls/hr Documented by: MATHEW Isosorbide Mononitrate (Isosorbide Mononitrate 60 Mg Tab.Er.24h) 60 mg PO DAILY [facility]; Protocol Last Admin: 06/17/21 09:42 Dose: 60 mg Documented by: SAURABH Lidocaine (Lidocaine 4 % Patch Adh..Patch) 1 patch TRANSDERMA DAILY [facility]; Protocol Last Admin: 06/17/21 09:42 Dose: 1 patch Documented by: SAURABH Melatonin (Melatonin 3 Mg Tablet) 6 mg PO BEDTIME PRN PRN Reason: Insomnia Last Admin: 06/17/21 01:06 Dose: 6 mg Documented by: SIDDHARTHA Nifedipine (Nifedipine Er 60 Mg Tab.Er.24) 60 mg PO DAILY [facility]; Protocol Last Admin: 06/17/21 09:43 Dose: 60 mg Documented by: SAURABH Non-Formulary Medication (Darifenacin) 1 tab PO DAILY [facility] Omeprazole (Omeprazole 20 Mg Capsule.Dr) 20 mg PO BEDTIME [facility] Last Admin: 06/16/21 21:38 Dose: 20 mg Documented by: MATHEW Pharmacy Consult (Consult Rx Perform Med Rec) 1 each MISCELLANE ONCE PRN PRN Reason: Consult order Ropinirole HCl (Ropinirole Hcl 0.5 Mg Tablet) 0.5 mg PO DAILY@1700 [facility] Last Admin: 06/16/21 15:44 Dose: 0.5 mg Documented by: MATHEW Ropinirole HCl (Ropinirole Hcl 1 Mg Tablet) 1.5 mg PO BEDTIME [facility] Last Admin: 06/16/21 21:38 Dose: 1.5 mg Documented by: MATHEW Senna (Sennosides 8.6 Mg Tablet) 17.2 mg PO BEDTIME PRN PRN Reason: Constipation Sodium Chloride (0.9 % Sodium Chloride Flush 3 Ml Syringe) 3 ml IVFLUSH QSHIFT [facility] Last Admin: 06/17/21 09:41 Dose: 3 ml Documented by: SAURABH Spironolactone (Spironolactone 25 Mg Tablet) 25 mg PO DAILY [facility]; Protocol Last Admin: 06/17/21 09:43 Dose: 25 mg Documented by: SAURABH Labs CBC & Chem 7: 06/17/21 04:54 06/17/21 04:54 Labs: Laboratory Results - last 24 hr 06/16/21 06/16/21 06/17/21 06:22 15:50 04:54 MCV 99.2 H MCH 30.7 MCHC 31.0 RDW 15.0 Plt Count 154 L MPV 10.2 Absolute Nucleated RBC 0.000 Nucleated RBC % (auto) 0.0 Anion Gap Estim Creat Clear Calc Estimated GFR POC Glucose 157 H Fasting Glucose Estimat Average Glucose 91 Hemoglobin A1c % 4.8 Calcium 06/17/21 04:54 MCV MCH MCHC RDW Plt Count MPV Absolute Nucleated RBC Nucleated RBC % (auto) Anion Gap 12 Estim Creat Clear Calc 33.2 Estimated GFR 39 POC Glucose Fasting Glucose 98 Estimat Average Glucose Hemoglobin A1c % Calcium 8.6 Microbiology Microbiology Results: Microbiology 06/15/21 22:22 Blood Culture - Preliminary Blood - Venous No growth after 24 hours. 06/15/21 22:22 Blood Culture - Preliminary Blood - Venous No growth after 24 hours. 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 full code dispo - likely home with daughter in next 24-48hrs if improved Quality Stroke Does the patient have a stroke diagnosis?: No VTE Prior VTE?: No VTE Risk Level:: Medical - moderate - high VTE Device Contraindication: N/A - Device Ordered VTE Drug Contraindication: Treatment Not Indicated
--- NOTE | 2021-06-17 14:02 | PC.NURSE ---
Pt is alert and oriented x3. pt is slow AFIB/Aflutter on tele. Hr dipped down to the 30s this afternoon while sleeping. notified via [employer]. Pt up on the recliner this am. Pt is weak, ambulates with a walker and 1-2 assist OOB. Oxygen weaned off at 0930. O2 sats at the time were 19524%. At 11am Oxygen reccked and it was 93%. Dr.Mazreah ziegler aware
[2021-06-17 15:06] VITALS: BP 150/67; PULSE 43; RESP 17; TEMP 36.9; O2SAT 92
[2021-06-17] MEDS: rOPINIRole HCL 0.5 MG TABLET PO (15:36)
[2021-06-17 15:48] VITALS: PULSE 42; O2SAT 95
--- NOTE | 2021-06-17 15:50 | PC.NURSE ---
BP 150/[address] Stephens notified E OK to adm Hydralazine as ordered
[2021-06-17] MEDS: hydrALAZINE HCl 50 MG TABLET 150 MG PO ×2 (15:51→21:49)
--- NOTE | 2021-06-17 16:10 | PC.NURSE ---
P SAT 88% on RA I patient repositioned,oxygen applied on ,Dr. Stephens notified E Sat 95% on 4 L of oxygen via [place]
[2021-06-17 19:12] VITALS: BP 136/61; PULSE 43; RESP 17; TEMP 36.3; O2SAT 97
[2021-06-17] MEDS: rOPINIRole HCL 1 MG TABLET 1.5 MG PO (21:49)
[2021-06-17] MEDS: Omeprazole 20 MG CAPSULE.DR PO (21:49)
[2021-06-17] MEDS: Folic Acid 1 MG TABLET PO (21:49)
[2021-06-17] MEDS: cefTRIAXone sodium 1 GM in 0.9 % Sodium Chloride 50 ML IV (21:50)
[2021-06-17] MEDS: Doxycycline Hyclate 100 MG in 0.9 % Sodium Chloride 250 ML 166.6 MG IV (22:45)
[2021-06-18] VITALS (9 sets, daily range): BP systolic 130–153; BP diastolic 60–70; PULSE 50–66; RESP 17–18; TEMP 36.1–36.6; O2SAT 95–97
[2021-06-18] MEDS: 0.9 % Sodium Chloride Flush 3 ML SYRINGE IVFLUSH ×4 (00:42→22:27)
[2021-06-18] MEDS: Melatonin 3 MG TABLET 6 MG PO ×2 (01:50→20:31)
[2021-06-18] MEDS: diphenhydrAMINE HCL 25 MG TABLET PO ×2 (05:15→20:55)
--- NOTE | 2021-06-18 05:59 | PC.NURSE ---
Patient c/o itching to back several times tonight and for the RN previous to my shift. Dry skin throughout body, some redness to back. no hives or other signs of allergic reaction. Lotion applied several times with reoccurring discomfort. Patient unable to sleep due to itch, MD notified and benadryl given. sleeping currently.
[2021-06-18] MEDS: hydrALAZINE HCl 50 MG TABLET 150 MG PO ×3 (09:07→20:31)
[2021-06-18] MEDS: Isosorbide Mononitrate 60 MG TAB.ER.24H PO (09:07)
[2021-06-18] MEDS: Apixaban 2.5 MG TABLET PO ×2 (09:07→20:31)
[2021-06-18] MEDS: NIFEdipine ER 60 MG TAB.ER.24 PO (09:07)
[2021-06-18] MEDS: Bumetanide 1 MG TABLET PO (09:07)
[2021-06-18] MEDS: Spironolactone 25 MG TABLET PO (09:08)
[2021-06-18] MEDS: Doxycycline Hyclate 100 MG in 0.9 % Sodium Chloride 250 ML 166.7 MG IV (09:11)
[2021-06-18 09:41] LABS: MANUAL DIFF FLAG NO
[2021-06-18 09:53] LABS: Basophils Percent Auto 0.1 % (0-2); Eosinophils Absolute Auto 0.1 X10*3/uL (0.0-0.4); Hematocrit 37.8 % (37.0-47.0); Imm Gran Abs Auto 0.02 X10*3/uL (0.00-0.03); Imm Gran Pct Auto 0.3 % (0.0-0.4); Lymphocytes Absolute Auto 1.3 X10*3/uL (1.2-4.9); Mean Corpuscular HGB Conc 31.7 g/dl (31.0-35.0); Mean Corpuscular Hemoglobin 31.3 pg (27.0-33.0); Mean Corpuscular Volume 98.7 fL (80.0-98.0); Mean Platelet Volume 10.2 fL (9.4-12.3); Monocytes Absolute Auto 0.6 X10*3/uL (0.1-1.2); Monocytes Percent Auto 8.4 % (2-11); Neutrophils Absolute Auto 4.9 x10*3/uL (2.0-8.3); Neutrophils Percent Auto 71.2 % (45-73); Platelet Count 162 X10*3/uL (160-400); Red Blood Count 3.83 X10*6/uL (4.20-5.50); White Blood Count 6.9 X10*3/uL (4.8-10.8)
[2021-06-18 10:12] LABS: Anion Gap 14 (12-20); Blood Urea Nitrogen 25 mg/dL (9-16); Calcium 9.2 mg/dL (8.4-10.2); Carbon Dioxide 34 mmol/L (22-29); Chloride 98 mmol/L (96-108); Creatinine Clr Calc Pharmacy 37.9; Estimated Glomerular Filt Rate 45; Glucose Random 122 mg/dL (60-115); Potassium 3.6 mmol/L (3.3-5.1); Sodium 142 mmol/L (135-145)
--- NOTE | 2021-06-18 12:26 | P.PNIM_ITS ---
Subjective Subjective Date of Service: 06/18/21 Interval History: pt seen and examined at bedside. No overnight events she reports improvement of her SOB, no worsening cough. denies any chest pain . no abd pain, no n,v. mo urinary sx. would like to get out bed Review of Systems Review of Systems: Yes all other systems are reviewed and are negative Physical Exam Vital Signs: Vital Signs: Last Vital Signs Temp 97.2 F 06/18/21 12:00 Pulse 63 06/18/21 12:00 Resp 18 06/18/21 12:00 BP 153/70 H 06/18/21 12:00 Pulse Ox 96 06/18/21 12:00 Oxygen Flow Rate 4 06/15/21 19:12 BMI result Body Mass Index 33.1 Const: General: cooperative and no acute distress O rientation/consciousness: patient oriented x3 Resp: Other: crackles Effort & Inspection: normal respiratory effort Auscultation: clear to auscultation bilaterally Cardio: Rate: regular rate Rhythm: regular rhythm GI: Palpation (GI): Soft to palpation Auscultation: normal bowel sounds Neuro: General: patient oriented x3 Extrem: General: Yes normal to inspection and Yes no pedal edema Objective Data Active Medications Albuterol/Ipratropium (Albuterol/Iprat 2.5/0.5mg 3 Ml Ampul.Neb) 3 ml INHALE Q4H PRN PRN Reason: Shortness of Breath/Wheezing Apixaban (Apixaban 2.5 Mg Tablet) 2.5 mg PO BID [facility] Last Admin: 06/18/21 09:07 Dose: 2.5 mg Documented by: SAURABH Bumetanide (Bumetanide 1 Mg Tablet) 1 mg PO DAILY [facility]; Protocol Last Admin: 06/18/21 09:07 Dose: 1 mg Documented by: SAURABH Docusate Sodium (Docusate Sodium 100 Mg Capsule) 100 mg PO BID PRN PRN Reason: Constipation Folic Acid (Folic Acid 1 Mg Tablet) 1 mg PO BEDTIME [facility] Last Admin: 06/17/21 21:49 Dose: 1 mg Documented by: BRENT Hydralazine HCl (Hydralazine Hcl 50 Mg Tablet) 150 mg PO TID [facility]; Protocol Last Admin: 06/18/21 09:07 Dose: 150 mg Documented by: SAURABH Doxycycline Hyclate 100 mg/ (Sodium Chloride) 250 mls @ 166.67 mls/hr IV Q12H [facility] Last Infusion: 06/18/21 11:46 Dose: 0 mls/hr Documented by: SAURABH Ceftriaxone Sodium 1 gm/ (Sodium Chloride) 50 mls @ 100 mls/hr IV Q24H [facility] Last Infusion: 06/17/21 22:41 Dose: 0 mls/hr Documented by: BRENT Isosorbide Mononitrate (Isosorbide Mononitrate 60 Mg Tab.Er.24h) 60 mg PO DAILY [facility]; Protocol Last Admin: 06/18/21 09:07 Dose: 60 mg Documented by: SAURABH Lidocaine (Lidocaine 4 % Patch Adh..Patch) 1 patch TRANSDERMA DAILY [facility]; Protocol Last Admin: 06/18/21 09:08 Dose: Not Given Documented by: SAURABH Non-Admin Reason: Patient Refused Melatonin (Melatonin 3 Mg Tablet) 6 mg PO BEDTIME PRN PRN Reason: Insomnia Last Admin: 06/18/21 01:50 Dose: 6 mg Documented by: MILENA Nifedipine (Nifedipine Er 60 Mg Tab.Er.24) 60 mg PO DAILY [facility]; Protocol Last Admin: 06/18/21 09:07 Dose: 60 mg Documented by: SAURABH Non-Formulary Medication (Darifenacin) 1 tab PO DAILY [facility] Omeprazole (Omeprazole 20 Mg Capsule.Dr) 20 mg PO BEDTIME [facility] Last Admin: 06/17/21 21:49 Dose: 20 mg Documented by: BRENT Pharmacy Consult (Consult Rx Perform Med Rec) 1 each MISCELLANE ONCE PRN PRN Reason: Consult order Ropinirole HCl (Ropinirole Hcl 0.5 Mg Tablet) 0.5 mg PO DAILY@1700 [facility] Last Admin: 06/17/21 15:36 Dose: 0.5 mg Documented by: BRENT Ropinirole HCl (Ropinirole Hcl 1 Mg Tablet) 1.5 mg PO BEDTIME [facility] Last Admin: 06/17/21 21:49 Dose: 1.5 mg Documented by: BRENT Senna (Sennosides 8.6 Mg Tablet) 17.2 mg PO BEDTIME PRN PRN Reason: Constipation Sodium Chloride (0.9 % Sodium Chloride Flush 3 Ml Syringe) 3 ml IVFLUSH QSHIFT [facility] Last Admin: 06/18/21 09:07 Dose: 3 ml Documented by: SAURABH Spironolactone (Spironolactone 25 Mg Tablet) 25 mg PO DAILY [facility]; Protocol Last Admin: 06/18/21 09:08 Dose: 25 mg Documented by: SAURABH Labs CBC & Chem 7: 06/18/21 08:52 06/18/21 08:52 Labs: Laboratory Results - last 24 hr 06/18/21 06/18/21 08:52 08:52 MCV 98.7 H MCH 31.3 MCHC 31.7 RDW 15.0 Plt Count 162 MPV 10.2 Immature Gran % (Auto) 0.3 Neut % (Auto) 71.2 Lymph % (Auto) 19.0 L [place] % (Auto) 8.4 Eos % (Auto) 1.0 Baso % (Auto) 0.1 Lymph # (Auto) 1.3 [place] # (Auto) 0.6 Eos # (Auto) 0.1 Baso # (Auto) 0.0 Abs Immat Gran (auto) 0.02 Absolute Neuts (auto) 4.9 Absolute Nucleated RBC 0.000 Nucleated RBC % (auto) 0.0 Anion Gap 14 Estim Creat Clear Calc 37.9 Estimated GFR 45 Random Glucose 122 H Calcium 9.2 D Microbiology Microbiology Results: Microbiology 06/15/21 22:22 Blood Culture - Preliminary Blood - Venous No growth after 48 hours. 06/15/21 22:22 Blood Culture - Preliminary Blood - Venous No growth after 48 hours. 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 full code dispo - likely home with daughter in next 24-48hrs if improved Quality Stroke Does the patient have a stroke diagnosis?: No VTE Prior VTE?: No VTE Risk Level:: Medical - moderate - high VTE Device Contraindication: N/A - Device Ordered VTE Drug Contraindication: Treatment Not Indicated
[2021-06-18] MEDS: rOPINIRole HCL 0.5 MG TABLET PO (15:16)
[2021-06-18] MEDS: rOPINIRole HCL 1 MG TABLET 1.5 MG PO (20:31)
[2021-06-18] MEDS: Folic Acid 1 MG TABLET PO (20:31)
[2021-06-18] MEDS: cefTRIAXone sodium 1 GM in 0.9 % Sodium Chloride 50 ML IV (21:38)
[2021-06-18] MEDS: Doxycycline Hyclate 100 MG in 0.9 % Sodium Chloride 250 ML 166.67 MG IV (22:27)
[2021-06-19 03:50] VITALS: BP 160/74; PULSE 65; RESP 22; TEMP 36.1; O2SAT 93
[2021-06-19 08:00] VITALS: BP 156/72; PULSE 61; RESP 18; TEMP 35.9; O2SAT 97
[2021-06-19] MEDS: Doxycycline Hyclate 100 MG in 0.9 % Sodium Chloride 250 ML 166.67 MG IV ×2 (09:36→23:14)
[2021-06-19] MEDS: Apixaban 2.5 MG TABLET PO ×2 (09:37→21:22)
[2021-06-19] MEDS: Bumetanide 1 MG TABLET PO (09:37)
[2021-06-19] MEDS: Isosorbide Mononitrate 60 MG TAB.ER.24H PO (09:37)
[2021-06-19] MEDS: Spironolactone 25 MG TABLET PO (09:37)
[2021-06-19] MEDS: 0.9 % Sodium Chloride Flush 3 ML SYRINGE IVFLUSH ×3 (09:37→23:14)
[2021-06-19] MEDS: hydrALAZINE HCl 50 MG TABLET 150 MG PO ×3 (09:38→21:23)
--- NOTE | 2021-06-19 11:15 | P.PNCA_ITS ---
Subjective Subjective Date of Service: 06/19/21 Interval history: Continues to have flutter with bradycardia off and on into 30s. She has no symptoms when she is bradycardic. Physical Exam Vital Signs: Last Vital Signs Temp 96.7 F L 06/19/21 08:00 Pulse 61 06/19/21 08:00 Resp 18 06/19/21 08:00 BP 156/72 H 06/19/21 08:00 Pulse Ox 97 06/19/21 08:00 Oxygen Flow Rate 4 06/15/21 19:12 BMI result Body Mass Index 33.1 GENERAL APPEARANCE: in no acute distress, pleasant. NECK: no carotid bruit, no jugular venous distention. SKIN: no suspicious lesions, warm and dry. HEART: no murmurs, bradycardic. LUNGS: clear to auscultation bilaterally. ABDOMEN: soft, nontender. EXTREMITIES: no edema. PERIPHERAL PULSES: equal. NEUROLOGIC: No gross deficits, AAO X 3 Objective Labs and Meds Result diagrams: 06/18/21 08:52 06/18/21 08:52 Progress Note: A&P Assessment and plan (1) Bradycardia: Status: Acute (2) Pneumonia: Status: Acute (3) HTN (hypertension): Status: Acute Assessment and Plan: [age] year female with chronic diastolic heart failure, hypertension, coronary disease and atrial flutter. She has chronic bradycardia and has been asymptomatic with that. Has been noted to be bradycardic on telemetry but completely asymptomatic. At home also she had no dizziness or lightheadedness. I think right now we should just observe her and not do pacemaker. Blood pressure control is improving with titration off nifedipine. Thank you for allowing me to participate in the care of your patient. Please feel free to contact me if you have any questions. Fall Risk Details Current Medications: Current Medications Albuterol/Ipratropium (Albuterol/Iprat 2.5/0.5mg 3 Ml Ampul.Neb) 3 ml INHALE Q4H PRN PRN Reason: Shortness of Breath/Wheezing Apixaban (Apixaban 2.5 Mg Tablet) 2.5 mg PO BID [facility] Last Admin: 06/19/21 09:37 Dose: 2.5 mg Documented by: Bumetanide (Bumetanide 1 Mg Tablet) 1 mg PO DAILY [facility]; Protocol Last Admin: 06/19/21 09:37 Dose: 1 mg Documented by: Diphenhydramine HCl (Diphenhydramine Hcl 25 Mg Tablet) 25 mg PO Q8H PRN PRN Reason: Itching Last Admin: 06/18/21 20:55 Dose: 25 mg Documented by: Docusate Sodium (Docusate Sodium 100 Mg Capsule) 100 mg PO BID PRN PRN Reason: Constipation Folic Acid (Folic Acid 1 Mg Tablet) 1 mg PO BEDTIME [facility] Last Admin: 06/18/21 20:31 Dose: 1 mg Documented by: Hydralazine HCl (Hydralazine Hcl 50 Mg Tablet) 150 mg PO TID [facility]; Protocol Last Admin: 06/19/21 09:38 Dose: 150 mg Documented by: Doxycycline Hyclate 100 mg/ (Sodium Chloride) 250 mls @ 166.67 mls/hr IV Q12H [facility] Last Admin: 06/19/21 09:36 Dose: 166.67 mls/hr Documented by: Ceftriaxone Sodium 1 gm/ (Sodium Chloride) 50 mls @ 100 mls/hr IV Q24H [facility] Last Infusion: 06/18/21 22:10 Dose: Infused Documented by: Isosorbide Mononitrate (Isosorbide Mononitrate 60 Mg Tab.Er.24h) 60 mg PO DAILY [facility]; Protocol Last Admin: 06/19/21 09:37 Dose: 60 mg Documented by: Lidocaine (Lidocaine 4 % Patch Adh..Patch) 1 patch TRANSDERMA DAILY [facility]; Protocol Last Admin: 06/19/21 09:48 Dose: Not Given Documented by: Melatonin (Melatonin 3 Mg Tablet) 6 mg PO BEDTIME PRN PRN Reason: Insomnia Last Admin: 06/18/21 20:31 Dose: 6 mg Documented by: Nifedipine (Nifedipine Er 90 Mg Tab.Er.24) 90 mg PO DAILY [facility]; Protocol Non-Formulary Medication (Darifenacin) 1 tab PO DAILY [facility] Omeprazole (Omeprazole 20 Mg Capsule.Dr) 20 mg PO BEDTIME [facility] Last Admin: 06/18/21 20:36 Dose: Not Given Documented by: Pharmacy Consult (Consult Rx Perform Med Rec) 1 each MISCELLANE ONCE PRN PRN Reason: Consult order Prednisone (Prednisone 10 Mg Tablet) 10 mg PO DAILY [facility] Ropinirole HCl (Ropinirole Hcl 0.5 Mg Tablet) 0.5 mg PO DAILY@1700 [facility] Last Admin: 06/18/21 15:16 Dose: 0.5 mg Documented by: Ropinirole HCl (Ropinirole Hcl 1 Mg Tablet) 1.5 mg PO BEDTIME [facility] Last Admin: 06/18/21 20:31 Dose: 1.5 mg Documented by: Senna (Sennosides 8.6 Mg Tablet) 17.2 mg PO BEDTIME PRN PRN Reason: Constipation Sodium Chloride (0.9 % Sodium Chloride Flush 3 Ml Syringe) 3 ml IVFLUSH QSHIFT [facility] Last Admin: 06/19/21 09:37 Dose: 3 ml Documented by: Spironolactone (Spironolactone 25 Mg Tablet) 25 mg PO DAILY [facility]; Protocol Last Admin: 06/19/21 09:37 Dose: 25 mg Documented by: Time Spent With Patient Time: Total time spent is greater than 50% in coordination of care (as documented) at patient's floor/unit and/or counseling patient: Time with patient: 15 - 24 minutes Progress Note: Quality Stroke Does the patient have a stroke diagnosis?: No Procedures Date of Service Date of Service: 06/19/21
[2021-06-19] MEDS: NIFEdipine ER 90 MG TAB.ER.24 PO (11:52)
[2021-06-19] MEDS: predniSONE 10 MG TABLET PO (11:53)
[2021-06-19 12:00] VITALS: BP 128/60; PULSE 64; RESP 20; TEMP 36; O2SAT 96
--- NOTE | 2021-06-19 12:13 | P.PNIM_ITS ---
Subjective Subjective Date of Service: 06/19/21 Interval History: pt seen and examined at bedside. Pt has no acute compalaints. reports breathing better. cough improving. no fever recorded. no chills. no abd pain. no chest pain. moving her bowels. no urinary sx Review of Systems Review of Systems: Yes all other systems are reviewed and are negative Physical Exam Vital Signs: Vital Signs: Last Vital Signs Temp 96.7 F L 06/19/21 08:00 Pulse 61 06/19/21 08:00 Resp 18 06/19/21 08:00 BP 156/72 H 06/19/21 08:00 Pulse Ox 97 06/19/21 08:00 Oxygen Flow Rate 4 06/15/21 19:12 BMI result Body Mass Index 33.1 Const: General: cooperative and no acute distress O rientation/consciousness: patient oriented x3 Resp: Other: crackles Effort & Inspection: normal respiratory effort Cardio: Rate: regular rate Rhythm: regular rhythm GI: Palpation (GI): Soft to palpation Auscultation: normal bowel sounds Neuro: General: patient oriented x3 Extrem: General: Yes normal to inspection and Yes no pedal edema Objective Data Active Medications Albuterol/Ipratropium (Albuterol/Iprat 2.5/0.5mg 3 Ml Ampul.Neb) 3 ml INHALE Q4H PRN PRN Reason: Shortness of Breath/Wheezing Apixaban (Apixaban 2.5 Mg Tablet) 2.5 mg PO BID [facility] Last Admin: 06/19/21 09:37 Dose: 2.5 mg Documented by: SAURABH Bumetanide (Bumetanide 1 Mg Tablet) 1 mg PO DAILY [facility]; Protocol Last Admin: 06/19/21 09:37 Dose: 1 mg Documented by: SAURABH Diphenhydramine HCl (Diphenhydramine Hcl 25 Mg Tablet) 25 mg PO Q8H PRN PRN Reason: Itching Last Admin: 06/18/21 20:55 Dose: 25 mg Documented by: DEEJAY Docusate Sodium (Docusate Sodium 100 Mg Capsule) 100 mg PO BID PRN PRN Reason: Constipation Folic Acid (Folic Acid 1 Mg Tablet) 1 mg PO BEDTIME [facility] Last Admin: 06/18/21 20:31 Dose: 1 mg Documented by: DEEJAY Hydralazine HCl (Hydralazine Hcl 50 Mg Tablet) 150 mg PO TID [facility]; Protocol Last Admin: 06/19/21 09:38 Dose: 150 mg Documented by: SAURABH Doxycycline Hyclate 100 mg/ (Sodium Chloride) 250 mls @ 166.67 mls/hr IV Q12H [facility] Last Infusion: 06/19/21 11:15 Dose: 0 mls/hr Documented by: SAURABH Ceftriaxone Sodium 1 gm/ (Sodium Chloride) 50 mls @ 100 mls/hr IV Q24H [facility] Last Infusion: 06/18/21 22:10 Dose: 0 mls/hr Documented by: DEEJAY Isosorbide Mononitrate (Isosorbide Mononitrate 60 Mg Tab.Er.24h) 60 mg PO DAILY [facility]; Protocol Last Admin: 06/19/21 09:37 Dose: 60 mg Documented by: SAURABH Lidocaine (Lidocaine 4 % Patch Adh..Patch) 1 patch TRANSDERMA DAILY [facility]; Protocol Last Admin: 06/19/21 09:48 Dose: Not Given Documented by: SAURABH Non-Admin Reason: Patient Refused Melatonin (Melatonin 3 Mg Tablet) 6 mg PO BEDTIME PRN PRN Reason: Insomnia Last Admin: 06/18/21 20:31 Dose: 6 mg Documented by: DEEJAY Nifedipine (Nifedipine Er 90 Mg Tab.Er.24) 90 mg PO DAILY [facility]; Protocol Last Admin: 06/19/21 11:52 Dose: 90 mg Documented by: SAURABH Non-Formulary Medication (Darifenacin) 1 tab PO DAILY [facility] Omeprazole (Omeprazole 20 Mg Capsule.Dr) 20 mg PO BEDTIME [facility] Last Admin: 06/18/21 20:36 Dose: Not Given Documented by: DEEJAY Non-Admin Reason: Patient Refused Pharmacy Consult (Consult Rx Perform Med Rec) 1 each MISCELLANE ONCE PRN PRN Reason: Consult order Prednisone (Prednisone 10 Mg Tablet) 10 mg PO DAILY [facility] Last Admin: 06/19/21 11:53 Dose: 10 mg Documented by: SAURABH Ropinirole HCl (Ropinirole Hcl 0.5 Mg Tablet) 0.5 mg PO DAILY@1700 [facility] Last Admin: 06/18/21 15:16 Dose: 0.5 mg Documented by: SAURABH Ropinirole HCl (Ropinirole Hcl 1 Mg Tablet) 1.5 mg PO BEDTIME [facility] Last Admin: 06/18/21 20:31 Dose: 1.5 mg Documented by: DEEJAY Senna (Sennosides 8.6 Mg Tablet) 17.2 mg PO BEDTIME PRN PRN Reason: Constipation Sodium Chloride (0.9 % Sodium Chloride Flush 3 Ml Syringe) 3 ml IVFLUSH QSHIFT [facility] Last Admin: 06/19/21 09:37 Dose: 3 ml Documented by: SAURABH Spironolactone (Spironolactone 25 Mg Tablet) 25 mg PO DAILY [facility]; Protocol Last Admin: 06/19/21 09:37 Dose: 25 mg Documented by: SAURABH Labs CBC & Chem 7: 06/18/21 08:52 06/18/21 08:52 Assessment and Plan (1) Bradycardia: Status: Acute (2) Pneumonia: Status: Acute Assessment and Plan: 86F prsented with weakness, found to have RML pneumonia # right middle lobe pneumonia - continue rocephin, doxy day 4 - 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 - continue O2 as required - titrate O2 as tolerated - uses 2 L of O2 at bedtime at home - may needu evaluation for daytime O2 before dc # chronic atrial flutter with slow ventricular response - HR 20s-80s - omid is chronic, asymptomatic, - cardio follwing- as pt is aysmptomatic, there is no plan for pacer for now - Continue eliquis # chronic diastolic chf - euvolemic, continue bumex # htn, uncontrolled - improving - nifedipine increased to 60mg daily - Will continue imdur, hydralazine, aldactone # copd, uses home o2 only at night - nebs as needed ?DM dont see mentioned previously, not on meds check a1c, monitor poc, will dc insulin for now CAD eliquis, not on statin? full code dispo - PT evaluated pt - hme with home health/PT- likely discharge in AM if O2 requirements < Quality Stroke Does the patient have a stroke diagnosis?: No VTE Prior VTE?: No VTE Risk Level:: Medical - moderate - high VTE Device Contraindication: N/A - Device Ordered VTE Drug Contraindication: Treatment Not Indicated
[2021-06-19 16:00] VITALS: BP 123/60; PULSE 61; RESP 22; TEMP 35.9; O2SAT 97
[2021-06-19] MEDS: rOPINIRole HCL 0.5 MG TABLET PO (16:39)
[2021-06-19 19:38] VITALS: BP 147/51; PULSE 63; RESP 16; TEMP 36.6; O2SAT 97
[2021-06-19] MEDS: cefTRIAXone sodium 1 GM in 0.9 % Sodium Chloride 50 ML IV (21:22)
[2021-06-19] MEDS: Folic Acid 1 MG TABLET PO (21:23)
[2021-06-19] MEDS: rOPINIRole HCL 1 MG TABLET 1.5 MG PO (21:23)
[2021-06-19] MEDS: Omeprazole 20 MG CAPSULE.DR PO (21:23)
[2021-06-19 23:16] VITALS: BP 141/65; PULSE 63; RESP 18; TEMP 36.4; O2SAT 95
[2021-06-20] VITALS (7 sets, daily range): BP systolic 128–168; BP diastolic 57–76; PULSE 63–74; RESP 18–20; TEMP 36.4–37.1; O2SAT 94–96
[2021-06-20] MEDS: Isosorbide Mononitrate 60 MG TAB.ER.24H PO (09:00)
[2021-06-20] MEDS: Bumetanide 1 MG TABLET PO (09:00)
[2021-06-20] MEDS: predniSONE 10 MG TABLET PO (09:00)
[2021-06-20] MEDS: Apixaban 2.5 MG TABLET PO ×2 (09:00→20:24)
[2021-06-20] MEDS: NIFEdipine ER 90 MG TAB.ER.24 PO (09:00)
[2021-06-20] MEDS: Spironolactone 25 MG TABLET PO (09:00)
[2021-06-20] MEDS: hydrALAZINE HCl 50 MG TABLET 150 MG PO ×3 (09:00→20:24)
[2021-06-20] MEDS: 0.9 % Sodium Chloride Flush 3 ML SYRINGE IVFLUSH ×3 (09:01→21:43)
--- NOTE | 2021-06-20 10:46 | W.MHC.F2F ---
Service Date Service Date: 06/20/21 Encounter Date of encounter: 06/20/21 Reasons for Services Signs and symptoms assessed: weakness, pneumonia Reason for penitentiary: medication management, medication treatment and teach disease management Reason for physical therapy: home safety and mobility, gait/transfer training and energy conservation Homebound: Leaving the home is medically contraindicated at this time without the asist of a device and/or another person due th the listed conditions above and below. Reason homebound: unsteady gait / fall risk, leg weakness and weakness related to hospital stay Certification: Based on the above findings, I certify that this patient is confined to the home and needs intermittent penitentiary care, physical therapy and/or speech therapy, or continues to need occupational therapy. The patient is under my care, and I have initiated the establishment of the plan of care. The patient will be followed by a physician who will periodically review the plan of care.
--- NOTE | 2021-06-20 12:07 | PM.DS ---
DS: Providers Provider Date of Service: 06/20/21 Date of admission: 06/15/21 22:11 Primary care physician: Unknown Physician Consults: 06/16/21 01:02 Consult to Cardiology Routine Consulting Provider: Hammad Walsh Reason for consultation: bradycardia DS: Diagnosis Discharge Diagnosis (1) Bradycardia: Status: Acute (2) Pneumonia: Status: Acute (3) HTN (hypertension): Status: Acute DS: Summary Hospital Course Hospital Course: patient was admitted for right middle lobe pneumonia. she was treated with rocephin and doxy. her symptoms improved and she will be discharged on 7 more days of oral ceftin. she was also noted to hav chronic aflutter with slow ventricular response into the 20s. she was seen by cardiology who noted this was chronic and did not recommend for any pacer. Time Spent with Patient Time attestation: Total time spent providing and/or coordinating discharge services: Discharge coordination time: Greater than 30 minutes Quality: Stroke Does the patient have a stroke diagnosis?: No Physical Exam Vital Signs: Vital Signs: Last Vital Signs Temp 98.6 F 06/20/21 07:51 Pulse 64 06/20/21 10:18 Resp 20 06/20/21 07:51 BP 138/63 06/20/21 10:18 Pulse Ox 94 06/20/21 10:18 Oxygen Flow Rate 4 06/15/21 19:12 BMI result Body Mass Index 33.1 onst General:?cooperative and no acute distress Orientation/consciousness:?patient oriented x3 Resp Other:?crackles Effort & Inspection:?normal respiratory effort Cardio Rate:?regular rate Rhythm:?regular rhythm GI Palpation (GI):?Soft to palpation Auscultation:?normal bowel sounds Neuro General:?patient oriented x3 Extrem General:?Yes normal to inspection and Yes no pedal edema DS: Data Data Completed and Pending Completed studies during hospitalization [Text1]: Procedures Assistance with Respiratory Ventilation, Less than 24 Consecutive Hours, Continuous Positive Airway Pressure (06/03/20) Labs on day of discharge: Preliminary micro results at discharge 06/15/21 22:22 Blood Culture - Preliminary Blood - Venous No growth after 48 hours. 06/15/21 22:22 Blood Culture - Preliminary Blood - Venous No growth after 48 hours. Discharge Plan Discharge Patient Disposition: Home Health Service Discharge Diagnosis: pneumonia Referrals: [facility] [Outside] - 1 Week Physician,Unknown J [Primary Care Provider] - 1 Week Discharge Medications: New cefuroxime axetil 500 mg tablet 500 mg PO Q12H Qty: 14 RF: 0 Ensure Liquid 1 ea PO TID Qty: 5688 RF: 0 Continued nifedipine 30 mg tablet extended release 24hr 1 tab PO DAILY RF: 0 spironolactone 25 mg tablet 1 tab PO DAILY RF: 0 isosorbide mononitrate 60 mg tablet extended release 24 hr 1 tab PO DAILY RF: 0 ropinirole 0.5 mg tablet 1 tab PO DAILY@1600 RF: 0 bumetanide 1 mg tablet 1 tab PO DAILY RF: 0 darifenacin 7.5 mg tablet extended release 24 hr 1 tab PO DAILY RF: 0 Eliquis 2.5 mg tablet 1 tab PO BID RF: 0 prednisone 10 mg tablet 15 mg PO DAILY RF: 0 ropinirole 0.5 mg tablet 3 tab PO BEDTIME RF: 0 docusate sodium [Colace] 100 mg Capsule 100 mg PO BID PRN (Reason: Constipation) RF: 0 hydralazine 50 mg tablet 2 tab PO TID RF: 0 pantoprazole 40 mg tablet,delayed release (DR/EC) 1 tab PO BEDTIME RF: 0 guaifenesin 100 mg/5 mL Syrup 200 mg PO Q4H PRN (Reason: Cough) RF: 0 calcitriol 0.25 mcg capsule 250 mcg PO TUTH@1600 RF: 0 folic acid 1 mg tablet 1 mg PO DAILY@1600 RF: 0 ferrous sulfate 325 mg (65 mg iron) tablet 325 mg PO DAILY@1600 RF: 0 Discharge Orders: Discharge Order (Routine); Ordered 06/20/21 Ordered By: Rishi Pretty Diet: advance to usual diet Activity on Discharge: As tolerated Stand Alone Forms: Patient Portal Discharge page Care Plan Goals: recovery Health Concerns: pneumonia Plan of Treatment: one week ceftin Assessment: see above
[2021-06-20] MEDS: Doxycycline Hyclate 100 MG in 0.9 % Sodium Chloride 250 ML 166.67 MG IV ×2 (12:08→23:24)
--- NOTE | 2021-06-20 13:01 | MHC.CM.PN ---
PATIENT ORIGINALLY GOING TO DC HOME WITH [facility]. SHE NOW WANTS TO GO TO REHAB ( ANYWHERE EXCEPT [facility] AND [facility]. FACILITY GOING FOR AUTH FOR A BED ON SUNDAY. PATIENT AWARE. HOSPITALIST TO BE MADE AWARE.
--- NOTE | 2021-06-20 14:29 | HO.PM.IMPN ---
Subjective Subjective Date of Service: 06/20/21 Interval History: cc: weakness interval history: still weak, no sob Cardiovascular Cardiovascular: Reports no additional cardiovascular complaints Respiratory Respiratory: Reports no additional respiratory complaints Physical Exam Vital Signs: Vital Signs: Last Vital Signs Temp 98.4 F 06/20/21 12:00 Pulse 64 06/20/21 12:00 Resp 18 06/20/21 12:00 BP 141/65 H 06/20/21 12:00 Pulse Ox 94 06/20/21 10:18 Oxygen Flow Rate 4 06/15/21 19:12 BMI result Body Mass Index 33.1 onst General:?cooperative and no acute distress Orientation/consciousness:?patient oriented x3 Resp Other:?crackles Effort & Inspection:?normal respiratory effort Cardio Rate:?regular rate Rhythm:?regular rhythm GI Palpation (GI):?Soft to palpation Auscultation:?normal bowel sounds Neuro General:?patient oriented x3 Extrem General:?Yes normal to inspection and Yes no pedal edema Objective Data Active Medications Albuterol/Ipratropium (Albuterol/Iprat 2.5/0.5mg 3 Ml Ampul.Neb) 3 ml INHALE Q4H PRN PRN Reason: Shortness of Breath/Wheezing Apixaban (Apixaban 2.5 Mg Tablet) 2.5 mg PO BID [facility] Last Admin: 06/20/21 09:00 Dose: 2.5 mg Documented by: BENITO Bumetanide (Bumetanide 1 Mg Tablet) 1 mg PO DAILY [facility]; Protocol Last Admin: 06/20/21 09:00 Dose: 1 mg Documented by: BENITO Diphenhydramine HCl (Diphenhydramine Hcl 25 Mg Tablet) 25 mg PO Q8H PRN PRN Reason: Itching Last Admin: 06/18/21 20:55 Dose: 25 mg Documented by: DEEJAY Docusate Sodium (Docusate Sodium 100 Mg Capsule) 100 mg PO BID PRN PRN Reason: Constipation Folic Acid (Folic Acid 1 Mg Tablet) 1 mg PO BEDTIME [facility] Last Admin: 06/19/21 21:23 Dose: 1 mg Documented by: CELIA Hydralazine HCl (Hydralazine Hcl 50 Mg Tablet) 150 mg PO TID [facility]; Protocol Last Admin: 06/20/21 09:00 Dose: 150 mg Documented by: BENITO Doxycycline Hyclate 100 mg/ (Sodium Chloride) 250 mls @ 166.67 mls/hr IV Q12H [facility] Last Infusion: 06/20/21 13:40 Dose: 0 mls/hr Documented by: BENITO Ceftriaxone Sodium 1 gm/ (Sodium Chloride) 50 mls @ 100 mls/hr IV Q24H [facility] Last Infusion: 06/20/21 01:30 Dose: 0 mls/hr Documented by: CELIA Isosorbide Mononitrate (Isosorbide Mononitrate 60 Mg Tab.Er.24h) 60 mg PO DAILY [facility]; Protocol Last Admin: 06/20/21 09:00 Dose: 60 mg Documented by: BENITO Lidocaine (Lidocaine 4 % Patch Adh..Patch) 1 patch TRANSDERMA DAILY [facility]; Protocol Last Admin: 06/20/21 09:01 Dose: Not Given Documented by: BENITO Non-Admin Reason: Patient Refused Melatonin (Melatonin 3 Mg Tablet) 6 mg PO BEDTIME PRN PRN Reason: Insomnia Last Admin: 06/18/21 20:31 Dose: 6 mg Documented by: DEEJAY Nifedipine (Nifedipine Er 90 Mg Tab.Er.24) 90 mg PO DAILY [facility]; Protocol Last Admin: 06/20/21 09:00 Dose: 90 mg Documented by: BENITO Non-Formulary Medication (Darifenacin) 1 tab PO DAILY [facility] Omeprazole (Omeprazole 20 Mg Capsule.Dr) 20 mg PO BEDTIME [facility] Last Admin: 06/19/21 21:23 Dose: 20 mg Documented by: CELIA Pharmacy Consult (Consult Rx Perform Med Rec) 1 each MISCELLANE ONCE PRN PRN Reason: Consult order Prednisone (Prednisone 10 Mg Tablet) 10 mg PO DAILY [facility] Last Admin: 06/20/21 09:00 Dose: 10 mg Documented by: BENITO Ropinirole HCl (Ropinirole Hcl 0.5 Mg Tablet) 0.5 mg PO DAILY@1700 [facility] Last Admin: 06/19/21 16:39 Dose: 0.5 mg Documented by: SAURABH Ropinirole HCl (Ropinirole Hcl 1 Mg Tablet) 1.5 mg PO BEDTIME [facility] Last Admin: 06/19/21 21:23 Dose: 1.5 mg Documented by: HO.SANNAFA Senna (Sennosides 8.6 Mg Tablet) 17.2 mg PO BEDTIME PRN PRN Reason: Constipation Sodium Chloride (0.9 % Sodium Chloride Flush 3 Ml Syringe) 3 ml IVFLUSH QSHIFT [facility] Last Admin: 06/20/21 09:01 Dose: 3 ml Documented by: BENITO Spironolactone (Spironolactone 25 Mg Tablet) 25 mg PO DAILY [facility]; Protocol Last Admin: 06/20/21 09:00 Dose: 25 mg Documented by: BENITO Labs CBC & Chem 7: 06/18/21 08:52 06/18/21 08:52 Assessment and Plan (1) Bradycardia: Status: Acute (2) Pneumonia: Status: Acute Assessment and Plan: 86F prsented with weakness, found to have RML pneumonia right middle lobe pneumonia - continue rocephin, doxy day 5 - 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 full code dispo - intially planned for home with home pt, but patient requesting snf now Quality Stroke Does the patient have a stroke diagnosis?: No VTE Prior VTE?: No VTE Risk Level:: Medical - moderate - high VTE Device Contraindication: N/A - Device Ordered VTE Drug Contraindication: Treatment Not Indicated
[2021-06-20 14:44] LABS: COVID-19 Test Negative (Negative); IDNOW Serial# 55D5AD1C
--- NOTE | 2021-06-20 15:15 | P.PNCA_ITS ---
Subjective Subjective Date of Service: 06/20/21 Principal diagnosis: Atrial flutter, bradycardia, CHF Interval history: Patient bedside with no new symptoms. Denies lightheadedness, loss of consciousness. Blood pressure is better control. Heart rate on the lower side but no significant pauses. No significant shortness of breath. Review of Systems Review of Systems Yes all other systems are reviewed and are negative Physical Exam Vital Signs: Last Vital Signs Temp 98.4 F 06/20/21 12:00 Pulse 64 06/20/21 12:00 Resp 18 06/20/21 12:00 BP 141/65 H 06/20/21 12:00 Pulse Ox 94 06/20/21 10:18 Oxygen Flow Rate 4 06/15/21 19:12 BMI result Body Mass Index 33.1 Const General: cooperative, no acute distress, alert and awake Nutritional Appearance: overweight Orientation/consciousness: patient oriented x3 Neck Neck: Yes trachea midline, Yes supple and Yes no JVD Resp Effort & Inspection: decreased respiratory effort Auscultation: clear to auscultation bilaterally Cardio Rate: regular rate Rhythm: abnormal rhythm irregularly irregular Heart sounds: S1 normal heart sound present, S2 normal heart sound present, no click, no gallops and no murmurs GI Auscultation: normal bowel sounds Skin General skin exam: no rashes or lesions noted and ecchymosis Neuro General: patient oriented x3 and no focal motor deficits Objective Labs and Meds Result diagrams: 06/18/21 08:52 06/18/21 08:52 Lab results: Laboratory Results - last 24 hr 06/20/21 13:34 COVID-19 ([facility]IC[facility]) Negative COVID-19 Clin Com See Note Progress Note: A&P Assessment and plan (1) Atrial flutter: Status: Acute Assessment and Plan: Atrial flutter with occasional slow ventricular response without any symptoms. Currently not on any rate lowering medications. Will avoid any pacing therapy. Follow up with outpatient Holter monitor to assess rate response as well as any prolonged pauses that may require alternative therapy. Avoid rate lowering medications the future. (2) CHF (congestive heart failure): Status: Acute Assessment and Plan: Heart failure preserved ejection fraction, clinically euvolemic and well compensated. Continue current bumetanide dose. Blood pressure is better control on increase Procardia as well as isosorbide therapy continue the same. Also continue spironolactone therapy for neurohormonal modulation. Goal blood pressure less than 140/90. Advised to monitor blood pressure at home and maintain a log. Low-salt diet along with daily weight monitoring was discussed. Patient can be discharged from our perspective. Will sign of the case at this point in time. Fall Risk Details Current Medications: Current Medications Albuterol/Ipratropium (Albuterol/Iprat 2.5/0.5mg 3 Ml Ampul.Neb) 3 ml INHALE Q4H PRN PRN Reason: Shortness of Breath/Wheezing Apixaban (Apixaban 2.5 Mg Tablet) 2.5 mg PO BID [facility] Last Admin: 06/20/21 09:00 Dose: 2.5 mg Documented by: Bumetanide (Bumetanide 1 Mg Tablet) 1 mg PO DAILY [facility]; Protocol Last Admin: 06/20/21 09:00 Dose: 1 mg Documented by: Diphenhydramine HCl (Diphenhydramine Hcl 25 Mg Tablet) 25 mg PO Q8H PRN PRN Reason: Itching Last Admin: 06/18/21 20:55 Dose: 25 mg Documented by: Docusate Sodium (Docusate Sodium 100 Mg Capsule) 100 mg PO BID PRN PRN Reason: Constipation Folic Acid (Folic Acid 1 Mg Tablet) 1 mg PO BEDTIME [facility] Last Admin: 06/19/21 21:23 Dose: 1 mg Documented by: Hydralazine HCl (Hydralazine Hcl 50 Mg Tablet) 150 mg PO TID [facility]; Protocol Last Admin: 06/20/21 15:13 Dose: 150 mg Documented by: Doxycycline Hyclate 100 mg/ (Sodium Chloride) 250 mls @ 166.67 mls/hr IV Q12H [facility] Last Infusion: 06/20/21 13:40 Dose: Infused Documented by: Ceftriaxone Sodium 1 gm/ (Sodium Chloride) 50 mls @ 100 mls/hr IV Q24H [facility] Last Infusion: 06/20/21 01:30 Dose: Infused Documented by: Isosorbide Mononitrate (Isosorbide Mononitrate 60 Mg Tab.Er.24h) 60 mg PO DAILY [facility]; Protocol Last Admin: 06/20/21 09:00 Dose: 60 mg Documented by: Lidocaine (Lidocaine 4 % Patch Adh..Patch) 1 patch TRANSDERMA DAILY [facility]; Protocol Last Admin: 06/20/21 09:01 Dose: Not Given Documented by: Melatonin (Melatonin 3 Mg Tablet) 6 mg PO BEDTIME PRN PRN Reason: Insomnia Last Admin: 06/18/21 20:31 Dose: 6 mg Documented by: Nifedipine (Nifedipine Er 90 Mg Tab.Er.24) 90 mg PO DAILY [facility]; Protocol Last Admin: 06/20/21 09:00 Dose: 90 mg Documented by: Non-Formulary Medication (Darifenacin) 1 tab PO DAILY [facility] Omeprazole (Omeprazole 20 Mg Capsule.Dr) 20 mg PO BEDTIME [facility] Last Admin: 06/19/21 21:23 Dose: 20 mg Documented by: Pharmacy Consult (Consult Rx Perform Med Rec) 1 each MISCELLANE ONCE PRN PRN Reason: Consult order Prednisone (Prednisone 10 Mg Tablet) 10 mg PO DAILY [facility] Last Admin: 06/20/21 09:00 Dose: 10 mg Documented by: Ropinirole HCl (Ropinirole Hcl 0.5 Mg Tablet) 0.5 mg PO DAILY@1700 [facility] Last Admin: 06/19/21 16:39 Dose: 0.5 mg Documented by: Ropinirole HCl (Ropinirole Hcl 1 Mg Tablet) 1.5 mg PO BEDTIME [facility] Last Admin: 06/19/21 21:23 Dose: 1.5 mg Documented by: Senna (Sennosides 8.6 Mg Tablet) 17.2 mg PO BEDTIME PRN PRN Reason: Constipation Sodium Chloride (0.9 % Sodium Chloride Flush 3 Ml Syringe) 3 ml IVFLUSH QSHIFT [facility] Last Admin: 06/20/21 09:01 Dose: 3 ml Documented by: Spironolactone (Spironolactone 25 Mg Tablet) 25 mg PO DAILY [facility]; Protocol Last Admin: 06/20/21 09:00 Dose: 25 mg Documented by: Time Spent With Patient Time: Total time spent is greater than 50% in coordination of care (as documented) at patient's floor/unit and/or counseling patient: Time with patient: 15 - 24 minutes Progress Note: Quality Stroke Does the patient have a stroke diagnosis?: No Procedures Date of Service Date of Service: 06/20/21
[2021-06-20] MEDS: rOPINIRole HCL 0.5 MG TABLET PO (17:18)
[2021-06-20] MEDS: rOPINIRole HCL 1 MG TABLET 1.5 MG PO (20:24)
[2021-06-20] MEDS: Folic Acid 1 MG TABLET PO (20:24)
[2021-06-20] MEDS: Omeprazole 20 MG CAPSULE.DR PO (20:24)
[2021-06-20] MEDS: cefTRIAXone sodium 1 GM in 0.9 % Sodium Chloride 50 ML IV (21:39)
[2021-06-21] MEDS: Melatonin 3 MG TABLET 6 MG PO (02:17)
[2021-06-21 07:10] VITALS: BP 158/76; PULSE 48; RESP 18; TEMP 36.1; O2SAT 95
[2021-06-21 08:13] VITALS: PULSE 62
[2021-06-21] MEDS: Spironolactone 25 MG TABLET PO (08:19)
[2021-06-21] MEDS: Isosorbide Mononitrate 60 MG TAB.ER.24H PO (08:19)
[2021-06-21] MEDS: hydrALAZINE HCl 50 MG TABLET 150 MG PO (08:20)
[2021-06-21] MEDS: Apixaban 2.5 MG TABLET PO (08:20)
[2021-06-21] MEDS: predniSONE 10 MG TABLET PO (08:20)
[2021-06-21] MEDS: Bumetanide 1 MG TABLET PO (08:20)
[2021-06-21] MEDS: NIFEdipine ER 90 MG TAB.ER.24 PO (08:20)
[2021-06-21] MEDS: 0.9 % Sodium Chloride Flush 3 ML SYRINGE IVFLUSH (08:21)
[2021-06-21 11:26] VITALS: BP 140/65; PULSE 50; RESP 20; TEMP 36.6; O2SAT 95
--- NOTE | 2021-06-21 11:31 | P.DS_ITS ---
DS: Providers Provider Date of Service: 06/21/21 Date of admission: 06/15/21 22:11 Primary care physician: Phoenix Garvin MD Consults: 06/16/21 01:02 Consult to Cardiology Routine Consulting Provider: Hammad Walsh Reason for consultation: bradycardia DS: Diagnosis Discharge Diagnosis (1) Atrial flutter: Status: Acute (2) CHF (congestive heart failure): Status: Acute (3) Pneumonia: Status: Acute (4) Weakness: Status: Acute DS: Summary Hospital Course Hospital Course: Admission note HPI ?86-year-old female with a past medical history of hypertension, hyperlipidemia, diabetes, diastolic CHF, CAD, atrial flutter / AFib on Eliquis, osteopenia, history of recurrent UTIs, COPD, chronic kidney disease, restrictive lung disease, abdominal aortic aneurysm status post repair, history of cervical spine surgery presented to the hospital with a chief complaint of generalized weakness/ not feeling well over the past few days.? pt reports cough but denies any sputum production.? says feels congested.? denies any aspiration. Denies any fever chills.? Denies any chest pain or palpitations.? Denies any shortness of breath or dyspnea on exertion.? Per ER team patient on presentation noted mild leukocytosis a labs; exam fairly benign; chest x-ray showed right middle lobe pneumonia; urinalysis negative; admitted to the hospital for further management.? Given IV antibiotics. Hospital course patient was admitted for right middle lobe pneumonia. she was treated with rocephin and doxy. Blood cultures remain negative during the hospital stay. her symptoms improved and she will be discharged on 7 more days of oral ceftin. she was also noted to have chronic aflutter with slow ventricular response into the 20s. she was seen by cardiology who noted this was chronic and did not recommend for any pacer S she was asymptomatic. evaluated by physical therapy team who recommended short-term rehab. Time Spent with Patient Time attestation: Total time spent providing and/or coordinating discharge services: Discharge coordination time: Greater than 30 minutes Quality: Stroke Does the patient have a stroke diagnosis?: No Physical Exam Verdana 4l Vital Signs: Verdana 4d Verdana 4d Vital Signs: Verdana 4d Verdana 4Bd Last Vital Signs Verdana 4d Manager Social New 4d Manager Social New 4d Temp 98 F 06/21/21 11:26 Suki Burks 4d Pulse 50 06/21/21 11:26 Manager Social New 4d Resp 20 06/21/21 11:26 BP 140/65 H 06/21/21 11:26 Pulse Ox 95 06/21/21 11:26 Oxygen Flow Rate 4 06/15/21 19:12 BMI result Body Mass Index 33.1 Const: Other: Constitutional : Alert, oriented, not in distress Neck : Normal inspection, Supple Cardiovascular : RRR, S1 S2, no lower extremity edema Respiratory : Good bilateral air entry, no crackles, wheezes or rhonchi, on 3 L of oxygen Gastrointestinal: soft, lax, Normal bowel sounds, Non tender Skin : Warm, Dry Neurological : Alert & oriented x3, No focal deficit DS: Data Data Completed and Pending Completed studies during hospitalization [Text1]: Procedures Assistance with Respiratory Ventilation, Less than 24 Consecutive Hours, Continuous Positive Airway Pressure (06/03/20) Labs on day of discharge: Laboratory Results - last 24 hr 06/20/21 13:34 COVID-19 (NICOL) Negative COVID-19 Clin Com See Note Discharge Plan Discharge Patient Disposition: Xfer SNF Discharge Diagnosis: pneumonia Referrals: [facility] [Outside] - 1 Week [facility] [Outside] - 1 Week Physician,Unknown J [Physician] - 1 Week Discharge Medications: New cefuroxime axetil 500 mg tablet 500 mg PO Q12H Qty: 14 0RF Ensure Liquid 1 ea PO TID Qty: 5688 0RF Continued nifedipine 30 mg tablet extended release 24hr 1 tab PO DAILY 0RF spironolactone 25 mg tablet 1 tab PO DAILY 0RF isosorbide mononitrate 60 mg tablet extended release 24 hr 1 tab PO DAILY 0RF ropinirole 0.5 mg tablet 1 tab PO DAILY@1600 0RF bumetanide 1 mg tablet 1 tab PO DAILY 0RF darifenacin 7.5 mg tablet extended release 24 hr 1 tab PO DAILY 0RF Eliquis 2.5 mg tablet 1 tab PO BID 0RF prednisone 10 mg tablet 15 mg PO DAILY 0RF ropinirole 0.5 mg tablet 3 tab PO BEDTIME 0RF docusate sodium [Colace] 100 mg Capsule 100 mg PO BID PRN (Reason: Constipation) 0RF hydralazine 50 mg tablet 2 tab PO TID 0RF pantoprazole 40 mg tablet,delayed release (DR/EC) 1 tab PO BEDTIME 0RF guaifenesin 100 mg/5 mL Syrup 200 mg PO Q4H PRN (Reason: Cough) 0RF calcitriol 0.25 mcg capsule 250 mcg PO TUTH@1600 0RF Rx Instructions: 1 TAB SUNDAY AND SUNDAY folic acid 1 mg tablet 1 mg PO DAILY@1600 0RF ferrous sulfate 325 mg (65 mg iron) tablet 325 mg PO DAILY@1600 0RF Discharge Orders: Discharge Order (Routine); Ordered 06/21/21 Ordered By: Marjorie Lowry Diet: advance to usual diet Activity on Discharge: As tolerated Stand Alone Forms: Patient Portal Discharge page Care Plan Goals: recovery Health Concerns: pneumonia Plan of Treatment: one week ceftin Assessment: see above Discharge Date/Time: 06/21/21 16:42
--- NOTE | 2021-06-21 12:03 | MHC.CM.PN ---
3 PM AMBULANCE TRANSPORT REQUEST TO [facility] HAS INSURANCE AUTH TO ADMIT. RN AND PATIENT AWAR OF PLAN. IMM 06/19 IN CHART
[2021-06-21] MEDS: Doxycycline Hyclate 100 MG in 0.9 % Sodium Chloride 250 ML 166.67 MG IV (12:10)
[2021-06-21] MEDS: rOPINIRole HCL 0.5 MG TABLET PO (15:58)
== END 2021-06-21 16:42 | disposition skilled nursing facility (03) | DRG 194 ==
LOC: HO.ED 21:49 → HO.EDOVER 22:20 → HO.S3 06-16 14:15
PROVIDERS: Internal Medicine; Admitting Provider Hospitalist; Emergency Provider Internal Medicine; PCP Internal Medicine; Visit Provider Student in an Organized Health Care Education/Training Program
DX: J18.9 Pneumonia, unspecified organism (principal); J44.0 Chronic obstructive pulmonary disease with (acute) lower respiratory infection; I13.0 Hypertensive heart and chronic kidney disease with heart failure and stage 1 through stage 4 chronic kidney disease, or unspecified chronic kidney disease; I50.32 Chronic diastolic (congestive) heart failure; I48.92 Unspecified atrial flutter; E78.5 Hyperlipidemia, unspecified; N18.9 Chronic kidney disease, unspecified; R00.1 Bradycardia, unspecified; I25.10 Atherosclerotic heart disease of native coronary artery without angina pectoris; Z20.822 Contact with and (suspected) exposure to COVID-19; Z91.041 Radiographic dye allergy status; Z87.891 Personal history of nicotine dependence; Z79.01 Long term (current) use of anticoagulants; Z79.899 Other long term (current) drug therapy
CPT/HCPCS: 36415; 71045; 80048; 80053; 81003; 82947; 83036; 83605; 83880; 85025; 85027; 87040; 87635; 92526; 92610; 93005; 96365; 96367; 97110; 97162; 99285; J0696; Q0163

== ENCOUNTER → 2021-09-01 12:54 | Outpatient (BNVA) | payer MEDICARE, SELFPAY | PROVIDERS: PCP Internal Medicine; Referring Provider Internal Medicine; Visit Provider Internal Medicine Cardiovascular Disease | DX: I48.91 Unspecified atrial fibrillation (principal); I50.32 Chronic diastolic (congestive) heart failure; R00.1 Bradycardia, unspecified | CPT/HCPCS: 99212 ==

== ENCOUNTER → 2022-03-07 12:27 | Outpatient (BNVA) | payer MEDICARE, SELFPAY | PROVIDERS: PCP Internal Medicine; Referring Provider Internal Medicine; Visit Provider Nurse Practitioner Family | DX: R00.1 Bradycardia, unspecified (principal); I48.91 Unspecified atrial fibrillation; I50.32 Chronic diastolic (congestive) heart failure; Z95.0 Presence of cardiac pacemaker | CPT/HCPCS: 99212 ==

== ENCOUNTER → 2022-09-06 13:39 | Outpatient (BNVA) | payer MEDICARE, MEDICAID, SELFPAY | PROVIDERS: Referring Provider Internal Medicine; Visit Provider Internal Medicine Cardiovascular Disease | DX: I50.32 Chronic diastolic (congestive) heart failure (principal); I48.92 Unspecified atrial flutter; I25.10 Atherosclerotic heart disease of native coronary artery without angina pectoris; Z79.01 Long term (current) use of anticoagulants | CPT/HCPCS: 93005; 99212 ==

== ENCOUNTER 2023-03-22 14:20 | Outpatient (AMB) | payer MEDICARE, MEDICAID, SELFPAY ==
[2023-03-22 14:29] VITALS: BP 118/64; PULSE 61; BMI 26.1
--- NOTE | 2023-03-22 14:29 | MHC.OFFVIS ---
Intake Vital Signs 03/22/23 14:29 Height 5 ft 4 in Weight 152 lb BMI 26.1 BP 118/64 Pulse 61 Pulse Source Pulse Oximeter Intake Visit Reasons: 6 month follow up Intake Note: 6 month f/u Allergies Iodinated Contrast Media [IV CONTRAST] Allergy (Severe, Verified 03/22/23 14:32) Vomiting scallops [SCALLOPS] Allergy (Severe, Verified 03/22/23 14:32) Vomiting amlodipine [AMLODIPINE] Adverse Reaction (Severe, Verified 03/22/23 14:32) LEG SWELLING Medication List - Last Reconciled 03/22/23 by Tess Rosales, KARTIK A-C-E-zinc ox-cupric ox-lutein 7,160 unit- 113 mg-0.5 mg (Ocular Vitamins) 2 tabs PO BID acetaminophen (Tylenol) 325 mg PO QID PRN amlodipine 5 mg PO DAILY apixaban (Eliquis) 2.5 mg PO BID atorvastatin 80 mg PO QPM bisacodyl 10 mg ME DAILY PRN bumetanide 1 tab PO DAILY calcitriol 250 mcg PO TUTH@1600 clopidogrel 75 mg PO DAILY darifenacin ER 1 tab PO DAILY docusate sodium (Colace) 100 mg PO BID PRN ferrous sulfate 325 mg PO DAILY@1600 folic acid 1 mg PO DAILY@1600 food supplemt, lactose-reduced (Ensure oral liquid) 1 ea PO TID guaifenesin 200 mg PO Q4H PRN hydralazine 2 tabs PO TID isosorbide mononitrate ER 60 mg PO DAILY levothyroxine 25 mcg PO DAILY magnesium hydroxide (Milk of Magnesia) 5 mL PO DAILY PRN melatonin 3 mg PO BEDTIME PRN metoprolol tartrate 25 mg PO DAILY nifedipine ER 1 tab PO DAILY pantoprazole (Protonix) 40 mg PO DAILY pantoprazole 40 mg PO DAILY prednisone 15 mg PO DAILY ropinirole 1 tab PO DAILY@1600 ropinirole 3 tabs PO BEDTIME sodium phosphates 19-7 gram/118 mL (Fleet Enema) 118 mL ME DAILY PRN spironolactone 1 tab PO DAILY tolterodine 2 mg PO DAILY trazodone 50 mg PO BEDTIME HPI 6 month follow up HPI Details Sayda is an 87-year-old female with past medical history of chronic kidney disease, diastolic heart failure, CAD with LAD PCI, 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 Today she reports that she has been doing well since her last visit in August. She resides at a [place] [facility] facility and is in a wheelchair the majority of the time. She no longer ambulates. She denies any chest discomfort, shortness of breath, palpitations, presyncope, syncope, falls, PND, orthopnea. She takes the medications that are given to her. She has no noted bleeding issues. Daughter is present. [facility] Medical History Pacemaker Bradycardia Chronic respiratory failure Essential hypertension Atherosclerotic cardiovascular disease Chronic atrial flutter Preoperative cardiovascular examination Afib Dyspnea Chronic restrictive lung disease COPD (chronic obstructive pulmonary disease) CHF (congestive heart failure) Diastolic CHF Hypercholesteremia HTN (hypertension) CAD (coronary artery disease) CKD (chronic kidney disease) Vitamin D deficiency AAA (abdominal aortic aneurysm) Osteopenia Kidney mass Restless leg Atrial flutter C7 cervical fracture Frequent UTI Surgical History S/P AAA repair H/O cervical spine surgery History of appendectomy Family History Mother Aortic aneurysm Father Stroke Social History Household Members: Family Housing: House Do you presently have visiting nurse or other home services: Yes (visiting MANAGER ATHLETICS that helps bathe her on Mondays and ) Alcohol intake: never Patient Tobacco Use Status: Former Tobacco user Quit Date: 2000 Years Smoked: 40 Advance Directives Date on File: 05/19/20 service: No Current occupational status: retired Review of Systems Const All systems reviewed & are unremarkable except as noted in HPI and below ENT Denies dizziness Card Denies chest pain, Denies chest pain at rest, Denies chest pain with activity, Denies rapid heart rate, Denies pedal edema, Denies edema, Denies leg edema, Denies lightheadedness, Denies palpitations, Denies dyspnea, Denies dyspnea on exertion and Denies orthopnea Resp Denies cough, Denies dyspnea and Denies dyspnea on exertion GI Denies hematochezia and Denies change in stool character Musc Reports abnormal gait (doesnt walk), Reports limited range of motion, Reports muscle cramps, Reports muscle weakness, Denies numbness, Denies radiating pain into limb, Reports stiffness and Denies tingling Neuro Reports abnormal gait (doesnt walk), Denies dizziness, Denies numbness and Denies tingling Endo Denies palpitations Physical Exam Vital Signs: Last Vital Signs Pulse 61 03/22/23 14:29 BP 118/64 03/22/23 14:29 BMI result Body Mass Index 26.1 Const Other: sitting in wheelchair, frail elderly female General: cooperative, healthy appearing, comfortable and no acute distress Orientation/consciousness: patient oriented x3 Neck Neck: Yes normal visual inspection and Yes no JVD Resp Effort & Inspection: normal respiratory effort Auscultation: clear to auscultation bilaterally, no crackles, no rales, no rhonchi and no wheezes Cardio Jugular venous distension: no JVD Rate: regular rate Rhythm: regular rhythm Heart sounds: S1 normal heart sound present, S2 normal heart sound present, no murmurs and no rubs Neuro General: patient oriented x3 Extrem General: Yes normal to inspection and No no pedal edema Psych Appearance: grossly normal Mental Status: mental status grossly normal Office Procedures Cardiac Device Check Cardiac Device Check Details: Medtronic dual-chamber pacemaker interrogation done today. Battery life 13.2 years, A and V threshold testing normal, V paces 93.4% of time, a paces 30.4% of time, atrial fibrillation 57% of time. Currently in sinus rhythm with PACs. [id number] Cardiac Device Check, pacemaker dual lead Procedure code (CPT) selection complete Assessment & Plan Assessment & Plan (1) Pacemaker: Comment: February 2022 @ [employer]. [employer] dual-chamber Code(s): Z95.0 - Presence of cardiac pacemaker Plan: History of bradycardia, previously asymptomatic. Last fall she was admitted to [facility] for symptomatic bradycardia with AFib in the 40s. She did undergo a dual-chamber pacemaker placement on 02/27/2022. Pacemaker interrogation done today showing device is functioning normally. She has remote monitoring in place. Battery life currently 13 years. She is currently V pacing 93.4 % of the time. Cardiology follow-up in 6 months, sooner if needed (2) Afib: Code(s): I48.91 - Unspecified atrial fibrillation Qualifiers: Atrial fibrillation type: paroxysmal Qualified Code(s): I48.0 - Paroxysmal atrial fibrillation Plan: History of persist atrial fibrillation. Previous Pacemaker interrogation showed was 100% AFib. On interrogation today it is noted she has paroxysmal AFib and burden is 57% of time. She does not notice any heart palpitations. She is on a low-dose of metoprolol which she can continue. She is on low-dose Eliquis for anticoagulation. No reports of bleeding. Labs should be checked at least twice yearly. Last labs in our system from 06/18/2021 showed creatinine 1.14, hematocrit 37.8. (3) Chronic diastolic heart failure: Code(s): I50.32 - Chronic diastolic (congestive) heart failure Plan: Stable at present with no evidence of decompensation. Signs and symptoms of heart failure reviewed with her. Coding Level of Care Code Est Pt Level 4 (33593) Diagnoses Pacemaker Z95.0 Paroxysmal atrial fibrillation I48.0 Atrial fibrillation type: paroxysmal Chronic diastolic heart failure I50.32 CPT Codes Cardiac Device Check - Cardiac Device 2: 66842-[id number] Cardiac Device Check, pacemaker dual lead ([id number]) Time Spent (min) 28
== END 2023-03-22 15:16 | disposition home or self-care (01) ==
PROVIDERS: PCP Internal Medicine; Visit Provider Nurse Practitioner Family
DX: I48.0 Paroxysmal atrial fibrillation (principal); Z95.0 Presence of cardiac pacemaker; I50.32 Chronic diastolic (congestive) heart failure
CPT/HCPCS: 93280; 99214

== ENCOUNTER → 2023-03-22 14:20 | Outpatient (BNVA) | payer MEDICARE, MEDICAID, SELFPAY | PROVIDERS: PCP Internal Medicine; Visit Provider Nurse Practitioner Family | DX: Z45.018 Encounter for adjustment and management of other part of cardiac pacemaker (principal); I48.0 Paroxysmal atrial fibrillation; I50.32 Chronic diastolic (congestive) heart failure | CPT/HCPCS: 93280; 99212 ==

== ENCOUNTER → 2023-08-11 23:59 | Outpatient (BNV) | payer MEDICARE, MEDICAID, SELFPAY ==
--- NOTE | 2023-09-02 20:41 | MHC.OFFVIS ---
Intake Intake Visit Reasons: Remote Device Check- Medtronic Allergies Iodinated Contrast Media [IV CONTRAST] Allergy (Severe, Verified 03/22/23 14:32) Vomiting scallops [SCALLOPS] Allergy (Severe, Verified 03/22/23 14:32) Vomiting amlodipine [AMLODIPINE] Adverse Reaction (Severe, Verified 03/22/23 14:32) LEG SWELLING PFSH Medical History Pacemaker Bradycardia Chronic respiratory failure Essential hypertension Atherosclerotic cardiovascular disease Chronic atrial flutter Preoperative cardiovascular examination Afib Dyspnea Chronic restrictive lung disease COPD (chronic obstructive pulmonary disease) CHF (congestive heart failure) Diastolic CHF Hypercholesteremia HTN (hypertension) CAD (coronary artery disease) CKD (chronic kidney disease) Vitamin D deficiency AAA (abdominal aortic aneurysm) Osteopenia Kidney mass Restless leg Atrial flutter C7 cervical fracture Frequent UTI Surgical History S/P AAA repair H/O cervical spine surgery History of appendectomy Family History Mother Aortic aneurysm Father Stroke Social History Household Members: Family Housing: House Do you presently have visiting nurse or other home services: Yes (visiting CARDIOPULMONARY SUPERVISOR that helps bathe her on Mondays and ) Alcohol intake: never Comment: no BM yet Patient Tobacco Use Status: Former Tobacco user Quit Date: 2000 Years Smoked: 40 Advance Directives Date on File: 05/19/20 service: No Current occupational status: retired Office Procedures Cardiac Device Check Cardiac Device Check Details: PPM Good battery life. EXECUTIVE ASSISTANT 91% Background atrial fibrillation. [id number] Cardiac Device Interrogation, pacemaker Procedure code (CPT) selection complete Assessment & Plan Assessment & Plan (1) Pacemaker: Comment: February 2022 @ [facility]. [employer] dual-chamber Code(s): Z95.0 - Presence of cardiac pacemaker Plan: Coding Level of Care Code Procedure Only Diagnoses Pacemaker Z95.0 CPT Codes Cardiac Device Check - Cardiac Device 12: [id number] Cardiac Device Interrogation, pacemaker ([id number])
== END ==
PROVIDERS: PCP Internal Medicine; Visit Provider Internal Medicine Cardiovascular Disease
DX: I48.91 Unspecified atrial fibrillation (principal); Z95.0 Presence of cardiac pacemaker
CPT/HCPCS: 93294

== ENCOUNTER 2023-09-03 13:23 | Outpatient (AMB) | payer MEDICARE, MEDICAID, SELFPAY ==
--- NOTE | 2023-09-03 13:54 | A.OFFVIS_ITS ---
Intake Vital Signs 09/03/23 13:55 Height 5 ft 4 in Weight 162 lb BMI 27.8 BP 120/62 Blood Pressure Location Lt brachial Position Sitting Pulse 61 Intake Visit Reasons: 6M w/[employer] Campaign Marketing Specialist Required: No Hand Polisher: Hand Polisher Present Allergies Iodinated Contrast Media [IV CONTRAST] Allergy (Severe, Verified 09/03/23 13:55) Vomiting scallops [SCALLOPS] Allergy (Severe, Verified 09/03/23 13:55) Vomiting amlodipine [AMLODIPINE] Adverse Reaction (Severe, Verified 09/03/23 13:55) LEG SWELLING Medication List - Last Reconciled 09/03/23 by Tess Rosales, KARTIK A-C-E-zinc ox-cupric ox-lutein 7,160 unit- 113 mg-0.5 mg (Ocular Vitamins) 2 tabs PO BID acetaminophen (Tylenol) 325 mg PO QID PRN amlodipine 5 mg PO DAILY apixaban (Eliquis) 2.5 mg PO BID atorvastatin 80 mg PO QPM bisacodyl 10 mg LA DAILY PRN bumetanide 1 tab PO DAILY calcitriol 250 mcg PO TUTH@1600 clopidogrel 75 mg PO DAILY darifenacin ER 1 tab PO DAILY docusate sodium (Colace) 100 mg PO BID PRN ferrous sulfate 325 mg PO DAILY@1600 folic acid 1 mg PO DAILY@1600 food supplemt, lactose-reduced (Ensure oral liquid) 1 ea PO TID guaifenesin 200 mg PO Q4H PRN hydralazine 2 tabs PO TID isosorbide mononitrate ER 60 mg PO DAILY levothyroxine 25 mcg PO DAILY magnesium hydroxide (Milk of Magnesia) 5 mL PO DAILY PRN melatonin 3 mg PO BEDTIME PRN metoprolol tartrate 25 mg PO DAILY nifedipine ER 1 tab PO DAILY pantoprazole 40 mg PO DAILY pantoprazole DR (Protonix) 40 mg PO DAILY prednisone 15 mg PO DAILY ropinirole 1 tab PO DAILY@1600 ropinirole 3 tabs PO BEDTIME sodium phosphates 19-7 gram/118 mL (Fleet Enema) 118 mL LA DAILY PRN spironolactone 1 tab PO DAILY tolterodine 2 mg PO DAILY trazodone 50 mg PO BEDTIME HPI 6M w/[employer] HPI Details Sayda is an 87-year-old female with past medical history of chronic kidney disease, diastolic heart failure, CAD with LAD PCI, 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 Today she reports she has been feeling well. She has no specific complaints. She denies shortness of breath, chest discomfort, heart palpitations. She is mostly sedentary and is unable to walk. She sits in a wheelchair. She does do chair exercises at her [facility] facility. She is taking all her meds as directed. No bleeding issues reported. Daughter is present. [facility] Medical History (Updated 09/03/23 @ 17:57 by Tess Rosales, INDUSTRY SEGMENT SPECIALIST-C) Pacemaker Bradycardia Chronic respiratory failure Essential hypertension Atherosclerotic cardiovascular disease Chronic atrial flutter Preoperative cardiovascular examination Afib Dyspnea Chronic restrictive lung disease COPD (chronic obstructive pulmonary disease) CHF (congestive heart failure) Diastolic CHF Hypercholesteremia HTN (hypertension) CAD (coronary artery disease) CKD (chronic kidney disease) Vitamin D deficiency AAA (abdominal aortic aneurysm) Osteopenia Kidney mass Restless leg Atrial flutter C7 cervical fracture Frequent UTI Surgical History S/P AAA repair H/O cervical spine surgery History of appendectomy Family History Mother Aortic aneurysm Father Stroke Social History Household Members: Family Housing: House Do you presently have visiting nurse or other home services: Yes (visiting SUPERVISOR CONDITIONING YARD that helps bathe her on Mondays and ) Alcohol intake: never Comment: no BM yet Patient Tobacco Use Status: Former Tobacco user Quit Date: 2000 Years Smoked: 40 Advance Directives Date on File: 05/19/20 service: No Current occupational status: retired Review of Systems Const All systems reviewed & are unremarkable except as noted in HPI and below ENT Denies dizziness Card Denies chest pain, Denies chest pain at rest, Denies chest pain with activity, Denies rapid heart rate, Denies pedal edema, Denies edema, Denies leg edema, Denies lightheadedness, Denies palpitations, Denies dyspnea, Denies dyspnea on exertion and Denies orthopnea Resp Denies cough, Denies dyspnea and Denies dyspnea on exertion GI Denies hematochezia and Denies change in stool character Musc Details: sedentary, in wheel chair Reports abnormal gait, Reports limited range of motion, Denies muscle cramps, Reports muscle weakness, Denies numbness, Denies radiating pain into limb, Denies stiffness and Denies tingling Neuro Reports abnormal gait, Denies dizziness, Denies numbness and Denies tingling Endo Denies palpitations Physical Exam Vital Signs: Last Vital Signs BP 120/62 09/03/23 13:55 BMI result Body Mass Index 27.8 Const Other: frail elderly female in wheelchair. General: no acute distress Orientation/consciousness: patient oriented x3 Neck Neck: Yes normal visual inspection Resp Effort & Inspection: normal respiratory effort Auscultation: clear to auscultation bilaterally, no crackles, no rales, no rhonchi and no wheezes Cardio Jugular venous distension: no JVD Rate: regular rate Rhythm: regular rhythm Heart sounds: S1 normal heart sound present, S2 normal heart sound present, no murmurs and no rubs Neuro General: patient oriented x3 Extrem Other: Bilateral yareli wraps on her lower legs Psych Appearance: grossly normal Mental Status: mental status grossly normal Speech and movement: Normal speech and movement present Office Procedures Cardiac Device Check Cardiac Device Check Details: Medtronic dual chamber pacemaker interrogation, battery 11.3 years, DDDR Mode low carlos 60, RA threshold 1 V at 0.4 ms, RV threshold 1 V at 0.4 ms, AP 78.9%, CLINICAL FELLOW 97.6%, no recent afib. Last prolonged episode in May 2023. [id number] Cardiac Device Check, pacemaker dual lead Procedure code (CPT) selection complete EKG Details: Today, read by me, A/ V paced rhythm, rate 61, QTc 471ms [id number], Complete Assessment & Plan Assessment & Plan (1) Pacemaker: Comment: February 2022 @ [facility]. [employer] dual-chamber Code(s): Z95.0 - Presence of cardiac pacemaker Plan: History of bradycardia, previously asymptomatic. 02/2022 she was admitted to [facility] for symptomatic bradycardia with AFib in the 40s. She did undergo a dual-chamber pacemaker placement on 02/27/2022. Pacemaker interrogation done today showing device is functioning normally. Next office interrogation due in 6 months. She has remote monitoring. (2) Afib: Code(s): I48.91 - Unspecified atrial fibrillation Qualifiers: Atrial fibrillation type: paroxysmal Qualified Code(s): I48.0 - Paroxysmal atrial fibrillation Plan: Previously had persist atrial fibrillation. The frequency of her atrial fibrillation has lessened over the last 6 months. She now has only paroxysmal episodes. She has no complaints heart palpitations. She is on a low-dose of metoprolol to help with heart rate control and low-dose Eliquis for anticoagul ation. No reports of bleeding. Labs should be checked at least twice yearly. Last done 07/06/2023 shows hematocrit 38, creatinine 1.31. No med changes made (3) Chronic diastolic heart failure: Code(s): I50.32 - Chronic diastolic (congestive) heart failure Plan: Stable at present with no evidence of decompensation. Signs and symptoms of heart failure reviewed with her. (4) CAD (coronary artery disease): Code(s): I25.10 - Atherosclerotic heart disease of [place] coronary artery without angina pectoris Plan: History of CAD. 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 She denies any anginal sounding symptoms. She continues on Plavix, high- dose atorvastatin, isosorbide and metoprolol. No med changes made. [place] LDL goal should be less than 70. Labs are done at her [facility] facility. Plan Time spent on chart review, documentation, interview and assessment Coding Level of Care Code Est Pt Level 4 (96616) Diagnoses Pacemaker Z95.0 Paroxysmal atrial fibrillation I48.0 Atrial fibrillation type: paroxysmal Chronic diastolic heart failure I50.32 CAD (coronary artery disease) I25.10 CPT Codes Cardiac Device Check - Cardiac Device 2: [id number] Cardiac Device Check, pacemaker dual lead ([id number]) EKG - CPT: 40264-[id number], Complete ([id number]) Time Spent (min) 28
[2023-09-03 13:55] VITALS: BP 120/62; PULSE 61; BMI 27.8
== END 2023-09-03 14:25 | disposition home or self-care (01) ==
PROVIDERS: PCP Internal Medicine; Visit Provider Nurse Practitioner Family
DX: Z95.0 Presence of cardiac pacemaker (principal); I48.0 Paroxysmal atrial fibrillation; I50.32 Chronic diastolic (congestive) heart failure; I25.10 Atherosclerotic heart disease of native coronary artery without angina pectoris
CPT/HCPCS: 93010; 93280; 99214

== ENCOUNTER → 2023-09-03 13:23 | Outpatient (BNVA) | payer MEDICARE, MEDICAID, SELFPAY | PROVIDERS: PCP Internal Medicine; Visit Provider Nurse Practitioner Family | DX: I11.0 Hypertensive heart disease with heart failure (principal); I25.10 Atherosclerotic heart disease of native coronary artery without angina pectoris; I50.32 Chronic diastolic (congestive) heart failure; I48.0 Paroxysmal atrial fibrillation; Z95.5 Presence of coronary angioplasty implant and graft; Z45.018 Encounter for adjustment and management of other part of cardiac pacemaker | CPT/HCPCS: 93005; 93280; 99212 ==

== ENCOUNTER → 2023-11-10 23:59 | Outpatient (BNV) | payer MEDICARE, MEDICAID, SELFPAY ==
--- NOTE | 2023-11-25 19:40 | MHC.OFFVIS ---
Intake Visit Reasons: Remote Device Check- Medtronic Allergies Iodinated Contrast Media [IV CONTRAST] Allergy (Severe, Verified 09/03/23 13:55) Vomiting scallops [SCALLOPS] Allergy (Severe, Verified 09/03/23 13:55) Vomiting amlodipine [AMLODIPINE] Adverse Reaction (Severe, Verified 09/03/23 13:55) LEG SWELLING PFSH Medical History (Updated 09/03/23 @ 17:57 by Tess Rosales, ADVANCED MANUFACTURING ASSOCIATE-C) Pacemaker Bradycardia Chronic respiratory failure Essential hypertension Atherosclerotic cardiovascular disease Chronic atrial flutter Preoperative cardiovascular examination Afib Dyspnea Chronic restrictive lung disease COPD (chronic obstructive pulmonary disease) CHF (congestive heart failure) Diastolic CHF Hypercholesteremia HTN (hypertension) CAD (coronary artery disease) CKD (chronic kidney disease) Vitamin D deficiency AAA (abdominal aortic aneurysm) Osteopenia Kidney mass Restless leg Atrial flutter C7 cervical fracture Frequent UTI Surgical History S/P AAA repair H/O cervical spine surgery History of appendectomy Family History Mother Aortic aneurysm Father Stroke Social History Household Members: Family Housing: House Do you presently have visiting nurse or other home services: Yes (visiting SLINGER SEQUINS that helps bathe her on Mondays and ) Alcohol intake: never Comment: no BM yet Patient Tobacco Use Status: Former Tobacco user Years Smoked: 40 Advance Directives Date on File: 05/19/20 service: No Current occupational status: retired Office Procedures Cardiac Device Check Cardiac Device Check Details: PPM Good battery TATTOO TECHNICIAN 97%. Episodes of Afib noted. 13652-[id number] Cardiac Device Check, pacemaker dual lead Procedure code (CPT) selection complete Assessment & Plan Assessment & Plan (1) Pacemaker: Comment: February 2022 [facility]. [employer] dual-chamber Code(s): Z95.0 - Presence of cardiac pacemaker Category: Medical Plan: Coding Level of Care Code Procedure Only Diagnoses Pacemaker Z95.0 CPT Codes Cardiac Device Check - Cardiac Device 2: 59793-[id number] Cardiac Device Check, pacemaker dual lead ([id number])
== END ==
PROVIDERS: PCP Internal Medicine; Visit Provider Internal Medicine Cardiovascular Disease
DX: Z45.018 Encounter for adjustment and management of other part of cardiac pacemaker (principal)
CPT/HCPCS: 93294

== ENCOUNTER → 2024-02-08 23:59 | Outpatient (BNV) | payer MEDICARE, MEDICAID, SELFPAY ==
--- NOTE | 2024-02-22 18:40 | MHC.OFFVIS ---
Intake Visit Reasons: Remote Device Check- [employer]tronic Allergies Iodinated Contrast Media [IV CONTRAST] Allergy (Severe, Verified 09/03/23 13:55) Vomiting scallops [SCALLOPS] Allergy (Severe, Verified 09/03/23 13:55) Vomiting amlodipine [AMLODIPINE] Adverse Reaction (Severe, Verified 09/03/23 13:55) LEG SWELLING PFSH Medical History (Updated 09/03/23 @ 17:57 by Tess Rosales, ACCOUNTANT ASSISTANT-C) Pacemaker Bradycardia Chronic respiratory failure Essential hypertension Atherosclerotic cardiovascular disease Chronic atrial flutter Preoperative cardiovascular examination Afib Dyspnea Chronic restrictive lung disease COPD (chronic obstructive pulmonary disease) CHF (congestive heart failure) Diastolic CHF Hypercholesteremia HTN (hypertension) CAD (coronary artery disease) CKD (chronic kidney disease) Vitamin D deficiency AAA (abdominal aortic aneurysm) Osteopenia Kidney mass Restless leg Atrial flutter C7 cervical fracture Frequent UTI Surgical History S/P AAA repair H/O cervical spine surgery History of appendectomy Family History Mother Aortic aneurysm Father Stroke Social History Household Members: Family Housing: House Do you presently have visiting nurse or other home services: Yes (visiting FRAME STRIPPER that helps bathe her on Mondays and ) Alcohol intake: never Comment: no BM yet Patient Tobacco Use Status: Former Tobacco user Years Smoked: 40 Advance Directives Date on File: 05/19/20 service: No Current occupational status: retired Office Procedures Cardiac Device Check Cardiac Device Check Details: PPM Good battery life V paced 95%. Af/flutter episodes recorded. [id number] Cardiac Device Check, pacemaker dual lead Procedure code (CPT) selection complete Assessment & Plan Assessment & Plan (1) Atrial flutter: Code(s): I48.92 - Unspecified atrial flutter Category: Medical Plan: (2) Pacemaker: Comment: February 2022 @ [facility]. [employer] dual-chamber Code(s): Z95.0 - Presence of cardiac pacemaker Category: Medical Plan Coding Level of Care Code Procedure Only Diagnoses Atrial flutter I48.92 Pacemaker Z95.0 CPT Codes Cardiac Device Check - Cardiac Device 2: 71942-PE Cardiac Device Check, pacemaker dual lead ([id number])
== END ==
PROVIDERS: PCP Internal Medicine; Visit Provider Internal Medicine Cardiovascular Disease
DX: I48.92 Unspecified atrial flutter (principal); Z95.0 Presence of cardiac pacemaker
CPT/HCPCS: 93294

== ENCOUNTER 2024-03-11 13:48 | Outpatient (AMB) | payer MEDICARE, MEDICAID, SELFPAY ==
--- NOTE | 2024-03-11 14:01 | MHC.OFFVIS ---
Vital Signs 03/11/24 14:02 Height 5 ft 4 in BP 114/52 L Blood Pressure Location Lt brachial Position Sitting Pulse 60 Pulse Source Pulse Oximeter Intake Visit Reasons: 6 m follow up/device ck Instructor Technical Training Required: No Beadworker: Beadworker Present Allergies Iodinated Contrast Media [IV CONTRAST] Allergy (Severe, Verified 03/11/24 14:04) Vomiting scallops [SCALLOPS] Allergy (Severe, Verified 03/11/24 14:04) Vomiting amlodipine [AMLODIPINE] Adverse Reaction (Severe, Verified 03/11/24 14:04) LEG SWELLING Medication List - Last Reconciled 03/11/24 by Tess Rosales, KARTIK A-C-E-zinc ox-cupric ox-lutein 7,160 unit- 113 mg-0.5 mg (Ocular Vitamins) 2 tabs PO BID acetaminophen (Tylenol) 325 mg PO QID PRN amlodipine 5 mg PO DAILY apixaban (Eliquis) 2.5 mg PO BID atorvastatin 80 mg PO QPM bisacodyl 10 mg UT DAILY PRN bumetanide 1 tab PO DAILY calcitriol 250 mcg PO TUTH@1600 clopidogrel 75 mg PO DAILY docusate sodium (Colace) 100 mg PO BID PRN ferrous sulfate 325 mg PO DAILY@1600 folic acid 1 mg PO DAILY@1600 food supplemt, lactose-reduced (Ensure oral liquid) 1 ea PO TID guaifenesin 200 mg PO Q4H PRN hydralazine 2 tabs PO TID levothyroxine 25 mcg PO DAILY magnesium hydroxide (Milk of Magnesia) 5 mL PO DAILY PRN melatonin 3 mg PO BEDTIME PRN metoprolol tartrate 12.5 mg PO BID pantoprazole DR (Protonix) 40 mg PO DAILY prednisone 15 mg PO DAILY ropinirole 1 tab PO DAILY@1600 ropinirole 3 tabs PO BEDTIME sodium phosphates 19-7 gram/118 mL (Fleet Enema) 118 mL UT DAILY PRN spironolactone 1 tab PO DAILY trazodone 50 mg PO BEDTIME HPI HPI 6 m follow up/device ck: Details: Sayda is an 87-year-old female with past medical history of chronic kidney disease, diastolic heart failure, CAD with LAD PCI, 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 Today she reports she continues to feel well. She has no specific complaints. She denies shortness of breath, chest discomfort, heart palpitations. She is mostly sedentary and is unable to walk. She sits in a wheelchair. She does do chair exercises at her [place] [facility] facility. She is taking all her meds as directed. No bleeding issues reported. Daughter is present [facility] Medical History Pacemaker Bradycardia Chronic respiratory failure Essential hypertension Atherosclerotic cardiovascular disease Chronic atrial flutter Preoperative cardiovascular examination Afib Dyspnea Chronic restrictive lung disease COPD (chronic obstructive pulmonary disease) CHF (congestive heart failure) Diastolic CHF Hypercholesteremia HTN (hypertension) CAD (coronary artery disease) CKD (chronic kidney disease) Vitamin D deficiency AAA (abdominal aortic aneurysm) Osteopenia Kidney mass Restless leg Atrial flutter C7 cervical fracture Frequent UTI Surgical History S/P AAA repair H/O cervical spine surgery History of appendectomy Family History Mother Aortic aneurysm Father Stroke Social History Household Members: Family Housing: House Do you presently have visiting nurse or other home services: Yes (visiting DIALYSIS SOCIAL WORKER that helps bathe her on Mondays and ) Alcohol intake: never Comment: no BM yet Patient Tobacco Use Status: Former Tobacco user Years Smoked: 40 Advance Directives Date on File: 05/19/20 service: No Current occupational status: retired Review of Systems Const All systems reviewed & are unremarkable except as noted in HPI and below ENT Denies dizziness Card Denies chest pain, Denies chest pain at rest, Denies chest pain with activity, Denies rapid heart rate, Denies pedal edema, Denies edema, Denies leg edema, Denies lightheadedness, Denies palpitations, Denies dyspnea, Denies dyspnea on exertion and Denies orthopnea Resp Denies cough, Denies dyspnea and Denies dyspnea on exertion GI Denies hematochezia and Denies change in stool character Musc Reports abnormal gait (unable to walk - uses wheelchair), Reports limited range of motion, Denies muscle cramps, Reports muscle weakness, Denies numbness, Denies radiating pain into limb, Denies stiffness and Denies tingling Neuro Reports abnormal gait (unable to walk - uses wheelchair), Denies dizziness, Denies numbness and Denies tingling Endo Denies palpitations Physical Exam Vital Signs: Last Vital Signs Pulse 60 03/11/24 14:02 BP 114/52 L 03/11/24 14:02 Const Other: frail elderly female in wheelchair. General: no acute distress Orientation/consciousness: patient oriented x3 Neck Neck: Yes normal visual inspection Resp Effort & Inspection: normal respiratory effort Auscultation: clear to auscultation bilaterally, no crackles, no rales, no rhonchi and no wheezes Cardio Jugular venous distension: no JVD Rate: regular rate Rhythm: regular rhythm Heart sounds: S1 normal heart sound present, S2 normal heart sound present, no murmurs and no rubs Skin Other: Ecchymotic areas to hands, forearms, lower legs noted Neuro General: patient oriented x3 Extrem Other: soft pitting edema in lower legs Psych Appearance: grossly normal Mental Status: mental status grossly normal Speech and movement: Normal speech and movement present Office Procedures Cardiac Device Check Cardiac Device Check Details: Medtronic dual-chamber pacemaker interrogation today, battery 10.7 years, AAIR to DDDR mode, low rate 60, episodes of paroxysmal atrial fibrillation, burden 3.5%, right atrial threshold 0.75 volts at 0.4 milliseconds, RV threshold 0.75 volts at 0.4 milliseconds V paced 97.8%, a paced 82.6% [id number] Cardiac Device Check, pacemaker dual lead Procedure code (CPT) selection complete Assessment & Plan Assessment & Plan (1) Afib: Code(s): I48.91 - Unspecified atrial fibrillation Category: Medical Qualifiers: Atrial fibrillation type: paroxysmal Qualified Code(s): I48.0 - Paroxysmal atrial fibrillation Plan: Previously had persistant atrial fibrillation. The frequency of her atrial fibrillation has lessened over the last year. She now has only paroxysmal episodes. She has no complaints heart palpitations. She is on a low-dose of metoprolol to help with heart rate control and low-dose Eliquis for anticoagulation. No reports of bleeding. She lives in a [place] [facility] facility and uses a wheelchair. She does not ambulate. Lab results that were noted on last visit showed, 07/06/2023 hematocrit 38, creatinine 1.31. No recent labs sent along with her for my review. Recommend that labs be done on her 2-3 times yearly checking CBC, BMP. This was written on her paperwork for the SNF. She also has report of easy bruising. She is noted to have bruising along her hands, arms and legs. Med list includes clopidogrel as well as Eliquis. Will have her stop clopidogrel. (2) Pacemaker: Comment: February 2022 @ [facility]. [employer] dual-chamber Code(s): Z95.0 - Presence of cardiac pacemaker Category: Medical Plan: History of bradycardia, previously asymptomatic. In 02/2022 she was admitted to [facility] for symptomatic bradycardia with AFib in the 40s. She did undergo a dual-chamber pacemaker placement on 02/27/2022. Pacemaker interrogation done today showing device is functioning normally. Battery 10.7 years. Next office interrogation due in 6 months. She has remote monitoring. (3) Chronic diastolic heart failure: Code(s): I50.32 - Chronic diastolic (congestive) heart failure Category: Medical Plan: Stable at present with no evidence of decompensation. Signs and symptoms of heart failure reviewed with her. (4) CAD (coronary artery disease): Code(s): I25.10 - Atherosclerotic heart disease of [place] coronary artery without angina pectoris Category: Medical Plan: History of CAD. 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 She denies any anginal sounding symptoms. She continues on Plavix, high-dose atorvastatin, isosorbide and metoprolol. Due to frequent and easy bruising will have her stop clopidogrel. No other med changes made. Rosenberg LDL goal should be less than 70. Labs are done at her [place] [facility] facility. Plan Time spent on chart review, documentation, interview and assessment Coding Level of Care Code Est Pt Level 4 (01399) Complex EM visit Add On G2211 Diagnoses Paroxysmal atrial fibrillation I48.0 Atrial fibrillation type: paroxysmal Pacemaker Z95.0 Chronic diastolic heart failure I50.32 CAD (coronary artery disease) I25.10 CPT Codes Cardiac Device Check - Cardiac Device 2: [id number]-TV Cardiac Device Check, pacemaker dual lead ([id number]) Time Spent (min) 28
[2024-03-11 14:02] VITALS: BP 114/52; PULSE 60
== END 2024-03-11 14:40 | disposition home or self-care (01) ==
PROVIDERS: PCP Internal Medicine; Visit Provider Nurse Practitioner Family
DX: I48.0 Paroxysmal atrial fibrillation (principal); Z95.0 Presence of cardiac pacemaker; I50.32 Chronic diastolic (congestive) heart failure; I25.10 Atherosclerotic heart disease of native coronary artery without angina pectoris
CPT/HCPCS: 93280; 99214; G2211

== ENCOUNTER → 2024-03-11 13:48 | Outpatient (BNVA) | payer MEDICARE, MEDICAID, SELFPAY | PROVIDERS: PCP Internal Medicine; Visit Provider Nurse Practitioner Family | DX: Z45.018 Encounter for adjustment and management of other part of cardiac pacemaker (principal); I48.0 Paroxysmal atrial fibrillation; I50.32 Chronic diastolic (congestive) heart failure; I25.10 Atherosclerotic heart disease of native coronary artery without angina pectoris | CPT/HCPCS: 93280; 99212 ==

== ENCOUNTER → 2024-05-24 23:59 | Outpatient (BNV) | payer MEDICARE, MEDICAID, SELFPAY ==
--- NOTE | 2024-06-15 17:39 | MHC.OFFVIS ---
Intake Visit Reasons: Remote Device Check- [employer] Allergies Iodinated Contrast Media [IV CONTRAST] Allergy (Severe, Verified 03/11/24 14:04) Vomiting scallops [SCALLOPS] Allergy (Severe, Verified 03/11/24 14:04) Vomiting amlodipine [AMLODIPINE] Adverse Reaction (Severe, Verified 03/11/24 14:04) LEG SWELLING PFSH Medical History Pacemaker Bradycardia Chronic respiratory failure Essential hypertension Atherosclerotic cardiovascular disease Chronic atrial flutter Preoperative cardiovascular examination Afib Dyspnea Chronic restrictive lung disease COPD (chronic obstructive pulmonary disease) CHF (congestive heart failure) Diastolic CHF Hypercholesteremia HTN (hypertension) CAD (coronary artery disease) CKD (chronic kidney disease) Vitamin D deficiency AAA (abdominal aortic aneurysm) Osteopenia Kidney mass Restless leg Atrial flutter C7 cervical fracture Frequent UTI Surgical History S/P AAA repair H/O cervical spine surgery History of appendectomy Family History Mother Aortic aneurysm Father Stroke Social History Household Members: Family Housing: House Do you presently have visiting nurse or other home services: Yes (visiting SOUND TECHNICIAN that helps bathe her on Mondays and ) Alcohol intake: never Comment: no BM yet Patient Tobacco Use Status: Former Tobacco user Years Smoked: 40 Advance Directives Date on File: 05/19/20 service: No Current occupational status: retired Office Procedures Cardiac Device Check Cardiac Device Check Details: Dual chamber PPM Good battery life CANDY ATTENDANT 99% Background atrial flutter. [id number] Cardiac Device Check, pacemaker dual lead Procedure code (CPT) selection complete Assessment & Plan Assessment & Plan (1) Pacemaker: Comment: February 2022 @ [facility] [employer] dual-chamber Code(s): Z95.0 - Presence of cardiac pacemaker Category: Medical Plan Coding Level of Care Code Procedure Only Diagnoses Pacemaker Z95.0 CPT Codes Cardiac Device Check - Cardiac Device 2: 84058-TR Cardiac Device Check, pacemaker dual lead ([id number])
== END ==
PROVIDERS: PCP Internal Medicine; Visit Provider Internal Medicine Cardiovascular Disease
DX: I48.92 Unspecified atrial flutter (principal); Z95.0 Presence of cardiac pacemaker
CPT/HCPCS: 93294

== ENCOUNTER → 2024-08-07 23:59 | Outpatient (BNV) | payer MEDICARE, MEDICAID, SELFPAY ==
--- NOTE | 2024-09-02 12:55 | A.OFFVIS_ITS ---
Intake Visit Reasons: Remote Device Check- [employer]tronic Allergies Iodinated Contrast Media [IV CONTRAST] Allergy (Severe, Verified 03/11/24 14:04) Vomiting scallops [SCALLOPS] Allergy (Severe, Verified 03/11/24 14:04) Vomiting amlodipine [AMLODIPINE] Adverse Reaction (Severe, Verified 03/11/24 14:04) LEG SWELLING PFSH Medical History Pacemaker Bradycardia Chronic respiratory failure Essential hypertension Atherosclerotic cardiovascular disease Chronic atrial flutter Preoperative cardiovascular examination Afib Dyspnea Chronic restrictive lung disease COPD (chronic obstructive pulmonary disease) CHF (congestive heart failure) Diastolic CHF Hypercholesteremia HTN (hypertension) CAD (coronary artery disease) CKD (chronic kidney disease) Vitamin D deficiency AAA (abdominal aortic aneurysm) Osteopenia Kidney mass Restless leg Atrial flutter C7 cervical fracture Frequent UTI Surgical History S/P AAA repair H/O cervical spine surgery History of appendectomy Family History Mother Aortic aneurysm Father Stroke Social History Household Members: Family Housing: House Do you presently have visiting nurse or other home services: Yes (visiting CHEMISTRY QUALITY CONTROL ANALYST that helps bathe her on Mondays and ) Alcohol intake: never Comment: no BM yet Patient Tobacco Use Status: Former Tobacco user Years Smoked: 40 Advance Directives Date on File: 05/19/20 service: No Current occupational status: retired Office Procedures Cardiac Device Check Cardiac Device Check Details: Medtronic permanent pacemaker. Battery life 10.2 years. V paced 98.8%. A paced 88.2%. Episodes of atrial arrhythmia recorded. Likely atrial flutter which she is known to have. [id number] Cardiac Device Interrogation, pacemaker Procedure code (CPT) selection complete Assessment & Plan Assessment & Plan (1) Pacemaker: Comment: February 2022 @ [facility]. [employer] dual-chamber Code(s): Z95.0 - Presence of cardiac pacemaker Category: Medical Plan Coding Level of Care Code Procedure Only Diagnoses Pacemaker Z95.0 CPT Codes Cardiac Device Check - Cardiac Device 12: 29656-[id number] Cardiac Device Interrogation, pacemaker ([id number])
== END ==
PROVIDERS: PCP Internal Medicine; Visit Provider Internal Medicine Cardiovascular Disease
DX: I48.92 Unspecified atrial flutter (principal); Z95.0 Presence of cardiac pacemaker
CPT/HCPCS: 93294

== ENCOUNTER 2024-09-08 13:12 | Outpatient (AMB) | payer MEDICARE, MEDICAID, SELFPAY ==
[2024-09-08 13:51] VITALS: BP 118/50; PULSE 60
--- NOTE | 2024-09-08 13:51 | MHC.OFFVIS ---
Vital Signs 09/08/24 13:51 Height 5 ft 4 in BP 118/50 L Blood Pressure Location Lt brachial Position Sitting Pulse 60 Pulse Source Monitor Intake Visit Reasons: 6 mth w/ medtronic ck Small Equipment Operator Required: No Proof Inspector: Proof Inspector Present Allergies Iodinated Contrast Media [IV CONTRAST] Allergy (Severe, Verified 09/08/24 13:54) Vomiting scallops [SCALLOPS] Allergy (Severe, Verified 09/08/24 13:54) Vomiting amlodipine [AMLODIPINE] Adverse Reaction (Severe, Verified 09/08/24 13:54) LEG SWELLING Medication List - Last Reconciled 09/08/24 by Tess Rosales, KARTIK A-C-E-zinc ox-cupric ox-lutein 7,160 unit- 113 mg-0.5 mg (Ocular Vitamins) 2 tabs PO BID acetaminophen (Tylenol) 325 mg PO QID PRN amlodipine 5 mg PO DAILY apixaban (Eliquis) 2.5 mg PO BID atorvastatin 80 mg PO QPM bisacodyl 10 mg PA DAILY PRN bumetanide 1 tab PO DAILY calcitriol 250 mcg PO TUTH@1600 docusate sodium (Colace) 100 mg PO BID PRN ferrous sulfate 325 mg PO DAILY@1600 folic acid 1 mg PO DAILY@1600 food supplemt, lactose-reduced (Ensure oral liquid) 1 ea PO TID guaifenesin 200 mg PO Q4H PRN hydralazine 2 tabs PO TID levothyroxine 25 mcg PO DAILY magnesium hydroxide (Milk of Magnesia) 5 mL PO DAILY PRN melatonin 3 mg PO BEDTIME PRN metoprolol tartrate 12.5 mg PO BID pantoprazole DR (Protonix) 40 mg PO DAILY prednisone 15 mg PO DAILY ropinirole 1 tab PO DAILY@1600 ropinirole 3 tabs PO BEDTIME sodium phosphates 19-7 gram/118 mL (Fleet Enema) 118 mL PA DAILY PRN spironolactone 1 tab PO DAILY trazodone 50 mg PO BEDTIME HPI HPI 6 mth w/ e[employer]tr[employer] ck: Details: Sayda is an 89-year-old female with past medical history of chronic kidney disease, diastolic heart failure, CAD with LAD PCI, 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 Today she reports no concerning symptoms. She denies shortness of breath, chest discomfort, heart palpitations. She is mostly sedentary and is unable to walk. She sits in a wheelchair. She is taking all her meds as directed. No bleeding issues reported. Daughter is present [facility] Medical History Bradycardia Chronic respiratory failure Essential hypertension Atherosclerotic cardiovascular disease Chronic atrial flutter Preoperative cardiovascular examination Afib Dyspnea Chronic restrictive lung disease COPD (chronic obstructive pulmonary disease) CHF (congestive heart failure) Diastolic CHF Hypercholesteremia HTN (hypertension) CAD (coronary artery disease) CKD (chronic kidney disease) Vitamin D deficiency AAA (abdominal aortic aneurysm) Osteopenia Kidney mass Restless leg Atrial flutter C7 cervical fracture Frequent UTI Surgical History S/P AAA repair H/O cervical spine surgery History of appendectomy Family History Mother Aortic aneurysm Father Stroke Social History Household Members: Family Housing: House Do you presently have visiting nurse or other home services: Yes (visiting [employer] that helps bathe her on Mondays and ) Alcohol intake: never Comment: no BM yet Patient Tobacco Use Status: Former Tobacco user Years Smoked: 40 Advance Directives Date on File: 05/19/20 service: No Current occupational status: retired Review of Systems Const All systems reviewed & are unremarkable except as noted in HPI and below ENT Denies dizziness Card Denies chest pain, Denies chest pain at rest, Denies chest pain with activity, Denies rapid heart rate, Denies pedal edema, Denies edema, Denies leg edema, Denies lightheadedness, Denies palpitations, Denies dyspnea, Denies dyspnea on exertion and Denies orthopnea Resp Denies cough, Denies dyspnea and Denies dyspnea on exertion GI Denies hematochezia and Denies change in stool character Musc Details: uses wheelchair, Legs wrapped with eddie wraps Reports abnormal gait, Reports limited range of motion, Denies muscle cramps, Denies muscle weakness, Denies numbness, Denies radiating pain into limb, Denies stiffness and Denies tingling Neuro Reports abnormal gait, Denies dizziness, Denies numbness and Denies tingling Endo Denies palpitations Physical Exam Vital Signs: Last Vital Signs Pulse 60 09/08/24 13:51 BP 118/50 L 09/08/24 13:51 Const Other: frail elderly female, sitting in wheelchair General: comfortable and no acute distress Orientation/consciousness: patient oriented x3 Neck Neck: Yes normal visual inspection Resp Effort & Inspection: normal respiratory effort Auscultation: clear to auscultation bilaterally, no rales, no rhonchi and no wheezes Cardio Rate: regular rate Rhythm: regular rhythm Heart sounds: S1 normal heart sound present, S2 normal heart sound present, no murmurs and no rubs Neuro General: patient oriented x3 Psych Appearance: grossly normal Mental Status: mental status grossly normal Speech and movement: Normal speech and movement present Office Procedures Cardiac Device Check Cardiac Device Check Details: Medtronic dual-chamber pacemaker interrogation today, AAIR to DDDR mode low rate 60, battery 10.1 years, AFib 0.8%, right atrial threshold 0.75 volts at 0.4 milliseconds, RV threshold 0.75 volts at 0.4 millisecond V paced 99.1%, a paced 88.2% 70245-MK Cardiac Device Check, pacemaker dual lead Procedure code (CPT) selection complete EKG Details: today, read by me, atrial and ventricular paced rhythm, fusion complexes, cant exclude prior anterior infarct, rate 60, Qtc 464ms 10213-Wfjnvjlrxkqxyadin, Complete Assessment & Plan Assessment & Plan (1) Afib: Code(s): I48.91 - Unspecified atrial fibrillation Category: Medical Qualifiers: Atrial fibrillation type: paroxysmal Qualified Code(s): I48.0 - Paroxysmal atrial fibrillation Plan: History of atrial fibrillation which had been persistent and is now paroxysmal. She is on low-dose metoprolol for heart rate control. She is on Eliquis for anticoagulation. EKG done today shows atrial and ventricular paced rhythm, rate 60. Her device interrogation today shows AF burden 0.8%. Continue current med management. Will reach out to her half-way facility for most recent labs and weight. (2) Pacemaker: Comment: February 2022 @ [employer]. [employer] dual-chamber Code(s): Z95.0 - Presence of cardiac pacemaker Category: Medical Plan: History of symptomatic bradycardia resulting in dual-chamber pacemaker placement on 02/27/2022. Pacemaker interrogation done today showing device is functioning normally. Battery 10.1years. Next office interrogation due in 6 months. She has remote monitoring. (3) Chronic diastolic heart failure: Code(s): I50.32 - Chronic diastolic (congestive) heart failure Category: Medical Plan: History of diastolic heart failure. Last echocardiogram 09/22/2020 shows EF greater than 70%, diastolic function indeterminate, no regional wall motion abnormality. She does have some leg edema with Eddie wraps in place. Otherwise no signs of fluid overload. She is on amlodipine which can contribute to leg edema. Continue Bumex. Signs and symptoms of heart failure reviewed with her. (4) CAD (coronary artery disease): Code(s): I25.10 - Atherosclerotic heart disease of [place] coronary artery without angina pectoris Category: Medical Plan: History of CAD. 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 Continue high-dose atorvastatin, metoprolol. [place] LDL goal should be less than 70. Labs are done at her half-way facility. Plan Time spent on chart review, documentation, interview and assessment Coding Level of Care Code Est Pt Level 4 (59119) Complex EM visit Add On G2211 Diagnoses Paroxysmal atrial fibrillation I48.0 Atrial fibrillation type: paroxysmal Pacemaker Z95.0 Chronic diastolic heart failure I50.32 CAD (coronary artery disease) I25.10 CPT Codes Cardiac Device Check - Cardiac Device 2: 53065-NV Cardiac Device Check, pacemaker dual lead ([id number]) EKG - CPT: 04363-Xmekdondeyoxbkvdk, Complete ([id number]) Time Spent (min) 28
--- OUTSIDE RECORDS SUMMARY | 2024-09-08 15:09 | XMS_ITS | Encounter Summary ---
Author Organization [facility] Address [address] [place] [address] Phone Care Team Providers Care Ice Skating Teacher Name Role Phone Elder, Melinda FOX Primary Care Provider [phone] Encounter Details Date Type Department Care Team (Late Contact Info) Description 07/09/2020 Orders Only [facility] [address] [place] [address] Provider, MD [facility] [place] [phone] Social History Tobacco Use Types Packs/Day Years Used Date Smoking Tobacco: Never Alcohol Use Standard Drinks/Week Comments No 0 (1 standard drink = 0.6 oz pur e alcohol) Comments Unknown Sex and Gender Information Value Date Recorded Sex Assigned at Not on file Legal Sex Female 4:41 PM EST Gender Identity Not on file Sexual Orientation Not on file documented as of this encounter Plan of Treatment Upcoming Encounters Date Type Department Care Team (Late st Contact Info) Description 09/29/2024 2:00 PM EDT Office Visit [facility] [address] [facility] [address] [place] [address] Dante Man MD [address] [facility] [facility] [address] [place] [address] documented as of this encounter Procedures Procedure Name Priority Date/Time Associated Diagnosis Comments BASIC METABOLIC PANEL (BMP) (EXTERNAL LAB ENTRY) Routine 07/06/2020 EXT RESULT ENTRY Routine 07/06/2020 documented in this encounter Results * Basic Metabolic Panel (BMP) (07/06/2020) us Historical Provider LAB BLOOD ORDERABLES Christine l Result * EXT RESULT ENTRY (07/06/2020) us Historical Provider LAB BLOOD ORDERABLES Christine l Result documented in this encounter Visit Diagnoses Not on filedocumented in this encounter Care Teams Ice Skating Teacher Relationship Specialty Start Date End Date Melinda Best MD [address] [place] [address] PCP - General Physical Medicine and Rehabilitation 09/25/22 documented as of this encounter
--- OUTSIDE RECORDS SUMMARY | 2024-09-08 15:10 | XMS_ITS | Encounter Summary ---
Author Organization [facility] Address [address] [place] [address] Care Team Providers Care Pilot Plant Technician Name Role Phone Melinda Best MD Primary Care Provider + Encounter Details Date Type Department Care Team (Late st Contact Info) Description 04/26/2024 Lab Requisition [facility] - Main Lab [address] [facility] [place] [address] Melinda Best MD [address] [id number] Spontaneous ecchymoses Social History Tobacco Use Types Packs/Day Years Used Date Smoking Tobacco: Former Cigarettes Q uit: 02/25/2001 Smokeless Tobacco: Never Alcohol Use Standard Drinks/Week Comments No 0 (1 standard drink = 0.6 oz pur e alcohol) Comments Unknown Sex and Gender Information Value Date Recorded Sex Assigned at Not on file Legal Sex Female 9:40 AM EST Gender Identity Not on file Sexual Orientation Not on file documented as of this encounter Plan of Treatment Not on file documented as of this encounter Procedures Procedure Name Priority Date/Time Associated Diagnosis Comments SST - GOLD Routine 04/26/2024 7:06 AM EST Spontaneous ecchymoses ACTIVATED PARTIAL THROMBOPLASTIN TIME Routine 04/26/2024 7:06 AM EST Spontaneous ecchymoses PROTHROMBIN TIME WITH INR Routine 04/26/2024 7:06 AM EST Spontaneous ecchymoses COMPLETE BLOOD COUNT Routine 04/26/2024 7:06 AM EST Spontaneous ecchymoses documented in this encounter Results * SST tube (04/26/2024 7:06 AM EST) Extra Tube Hold for add-ons. 04/26/2024 12:01 PM EST [facility] Comment:Auto resulted. Blood Venous blood specimen / Unknown Venipuncture / Unknown 04/26/2024 7:06 AM EST 04/26/2024 10:08 AM EST Melinda Best MD LAB BLOOD ORDERABLES Fin al Result [facility] [address] [place] [address], [place] [phone] * Activated partial thromboplastin time (04/26/2024 7:06 AM EST) Pathologist [facility] aPTT 32.2 24.1 - 39.3 sec LAB COAGULATION METHOD 04/26/2024 10:52 AM EST [facility] Blood Venous blood specimen / Unknown Venipuncture / Unknown 04/26/2024 7:06 AM EST 04/26/2024 10:08 AM EST Melinda Best MD LAB BLOOD ORDERABLES Fin al Result [facility] [address] [place] [address], [place] [phone] * Prothrombin time with INR (04/26/2024 7:06 AM EST) Protime 11.8 10.6 - 13.9 sec LAB COAGULATION METHOD 04/26/2024 10:52 AM EST [facility] INR 0.9 LAB COAGULATION METHOD 04/26/2024 10:52 AM EST [facility] Blood Venous blood specimen / Unknown Venipuncture / Unknown 04/26/2024 7:06 AM EST 04/26/2024 10:08 AM EST us Melinda Best MD LAB BLOOD ORDERABLES Fin al Result [facility] [address] [place] [address], [place] [phone] * (ABNORMAL) Complete blood count (04/26/2024 7:06 AM EST) Pathologist [facility] WBC 5.2 4.8 - 10.8 K/mcL LAB HEMETOLOGY METHOD 04/26/2024 10:35 AM [facility] RBC 3.60(L) 3.80 - 4.80 M/mcL LAB HEMETOLOGY METHOD 04/26/2024 10:35 AM [facility] Hemoglobin 11.4(L) 11.5 - 16.0 g/dL LAB HEMETOLOGY METHOD 04/26/2024 10:35 AM [facility] Hematocrit 37.7 35.0 - 47.0 % LAB HEMETOLOGY METHOD 04/26/2024 10:35 AM [facility] MCV 105.0(H) 79.0 - 98.0 FL LAB HEMETOLOGY METHOD 04/26/2024 10:35 AM [facility] MCH 31.8 27.0 - 32.0 pcg LAB HEMETOLOGY METHOD 04/26/2024 10:35 AM [facility] MCHC 30.2(L) 32.0 - 37.0 g/dL LAB HEMETOLOGY METHOD 04/26/2024 10:35 AM [facility] RDW 14.6 11.0 - 15.0 % LAB HEMETOLOGY METHOD 04/26/2024 10:35 AM [facility] Platelets 155 130 - 400 K/mcL LAB HEMETOLOGY METHOD 04/26/2024 10:35 AM [facility] MPV 10.0 7.0 - 11.0 FL LAB HEMETOLOGY METHOD 04/26/2024 10:35 AM EST [facility] NRBC 0.0 <1.0 % LAB HEMETOLOG METHOD 04/26/2024 10:35 AM EST [facility] NRBC Absolute 0.00 <0.10 K/mcL LAB HEMETOLOGY METHOD 04/26/2024 10:35 AM EST [facility] Blood Venous blood specimen / Unknown Venipuncture / Unknown 04/26/2024 7:06 AM EST 04/26/2024 10:08 AM EST us Melinda Best MD LAB BLOOD ORDERABLES Fin al Result [facility] [address] [place] [address], documented in this encounter Visit Diagnoses Diagnosis Spontaneous ecchymoses documented in this encounter Care Teams Pilot Plant Technician Relationship Specialty Start Date End Date Melinda Best MD [address] [place] [address] PCP - General Family Medicine 04/26/24 documented as of this encounter
--- OUTSIDE RECORDS SUMMARY | 2024-09-08 15:10 | XMS_ITS | Encounter Summary ---
Author Organization [facility] Address [address] [place] [address] Phone Care Team Providers Care Energy Scheduler Name Role Phone Elder, Melinda FOX Primary Care Provider [phone] Encounter Details Date Type Department Care Team (Late Contact Info) Description 11/07/2021 Telephone [facility] [address] [place] [address] Dante Man MD [address] [address] Social History Tobacco Use Types Packs/Day Years Used Date Smoking Tobacco: Never Smokeless Tobacco: Never Alcohol Use Standard Drinks/Week Comments No 0 (1 standard drink = 0.6 oz pur e alcohol) Comments Unknown Sex and Gender Information Value Date Recorded Sex Assigned at Not on file Legal Sex Female 4:41 PM EST Gender Identity Not on file Sexual Orientation Not on file documented as of this encounter Miscellaneous Notes * Telephone Encounter - Candida Stern - 11/07/2021 11:01 AM EDT Pt called, she needs a refill for bumetanide. [facility] Thank you documented in this encounter Plan of Treatment Upcoming Encounters Date Type Department Care Team (Late Contact Info) Description 09/29/2024 2:00 PM EDT [facility] [address] [facility] [address] [place] [id number] Dante Man MD [address] [place] [address] documented as of this encounter Visit Diagnoses Not on filedocumented in this encounter Care Teams Energy Scheduler Relationship Specialty Start Date End Date Melinda Best MD [address] [facility] [address] [place] [address] PCP - General Physical Medicine and Rehabilitation 09/25/22 documented as of this encounter
--- OUTSIDE RECORDS SUMMARY | 2024-09-08 15:10 | XMS_ITS | Patient Health Record ---
Author Organization [facility] Address [address] [place] [address] Care Team Providers Care Beef Cattle Farm Manager Name Role Phone Bon Garvin MD Primary Care Provider Bear Sanches Unavailable [phone] Allergies Allergen (clinical drug ingredient) Drug/Non Drug Allergy documented on EMR Reaction Allergy Type Onset Date Status Sequela (uncoded) Unknown Allergy Ac tive amlodipine Amlodipine Unknown Drug Allergy Activ e Iodinated contrast media (substance) Iodinated Diagnostic Agents Unknown Drug Allergy Active Reason For Referral No Information Medications Medication SIG (Take, Route, Frequency, Duration) Notes Start Date End Date Status ProAir HFA Not-Takin g Docusate Sodium 100 MG 1 capsule as needed Orally Once a day for 30 day(s) Not-Taking hydrALAZINE HCl Not- Taking Anoro Ellipta 62.5-25 MCG/INH 1 puff Inhalation Once a day Not-Taking Milk of Magnesia Not -Taking Bisacodyl suppository Not-Taki ng Mucinex Not-Taking Fleet Enema Not-Taki ng amLODIPine Besylate 5 MG 1 tablet Orally Once a day Not-Taking Aspirin 81 MG 1 tablet Orally Once a day Not-Taking Claritin 10 MG 1 tablet Orally Once a day Not-Taking Flomax 0.4 MG 1 capsule Orally Once a day Not-Taking Potassium Chloride 20 MEQ 1 packet with food Orally Once a day Not-Taking HYDROcodone-Homatropi ne 5-1.5 MG/5ML 5 ml as needed Orally every 6 hrs Not-Taking Benadryl Not-Taking Zofran 4 MG 2 tablets Orally Once a day Not-Taking Zetia 10 MG 1 tablet Orally Once a day Not-Taking Calcitriol 0.25 MCG 1 capsule Orally Twice a week Active Tussin DM 100-10 MG/5ML 10 ml as needed Orally every 4 hrs Not-Taking Lorazepam 1 tab Oral Not-Takin g Furosemide 40 MG 2 tablet Orally Once a day Active cloNIDine HCl 0.1 MG 1 tablet Orally Once a day for 30 day(s) Active Omeprazole 20 MG 1 capsule Orally Once a day Not-Taking Prednisone 1 tab Oral for 14 days 20 MG & 5 MG Active Naloxone HCl 0.4 MG/ML Injection Not-Taking Isosorbide Mononitrate ER 30 MG 1 tablet in the morning Orally Once a day for 30 day(s) Active Pantoprazole Sodium 40 MG 1 tablet Orally Once a day for 30 day(s) Active hydrALAZINE HCl 50 MG Orally Three times a day Active Atorvastatin Calcium 80 MG 1 tablet Orally Once a day for 30 day(s) Active Ferrous Sulfate 325 (65 Fe) MG Orally Active Folic Acid 1 MG Orally Acti ve Clopidogrel Bisulfate 75 MG 1 tablet Orally Once a day for 30 day(s) Not-Taking Amoxicillin-Pot Clavulanate 875-125 MG TK 1 T PO BID WC FOR 3 DAYS Oral for 3 Not-Taking Ciprofloxacin HCl 500 MG TK 1 T PO BID Oral for 7 Not-Taking rOPINIRole HCl 0.5 MG TK 1 T PO HS Oral for 30 Not-Taking Furosemide 20 MG TK 1 T PO TID Oral for 30 Not-Taking albuterol Active Tylenol 325 MG 2 tablets as needed Orally every 6 hrs Not-Taking oxyCODONE HCl 5 MG (Schedule II Drug) TAKE 1 TABLET BY MOUTH EVERY 6 HOURS NEEDED FOR SEVERE PAIN Oral for 3 Not-Taking Eliquis 2.5 MG Orally Activ e Spironolactone 25 MG 1 tablet Orally Active Naloxone HCl Active Acetaminophen Active Nystatin Active rOPINIRole HCl .5 MG Activ e Erythrocin ointment 5mg/gm Act melody Protonix Active Requip 0.5 MG 1 tablet 1 to 3 hours before bedtime Orally Once a day Active Zofran 4MG Active Immunizations Vaccine Route Administration Date Status Comme nts Influenza Unknown 02/25/2021 Administered Social History Tobacco Use: Social History Observation Description Date Details (start date - stop date) Former Smoker NA - NA Tobacco Use/Smoking Question Answer Notes Are you a: former smoker Additional Findings: Tobacco Non-User Aggressive non-smoker Alcohol Screen Question Answer Notes Did you have a drink containing alcohol in the p ast year? No Points 0 Interpretation Negative Tobacco use other than smoking: Question Answer Notes Are you an other tobacco user? No Problems Problem Type SNOMED Code ICD Code Onset Dates Problem Status W/U Status Risk Notes Problem [id number] Atherosclerosis of [place] artery of both lower extremities, with unspecified presence of clinical manifestation (I70.203) Active confirmed Plan Of Treatment Pending Test Test Name Order Date 81122-IUHPSMC NAIL, 6 OR MORE 11/08/2018 69835-TSCUDHF NAIL, 6 OR MORE 03/14/2019 58347-SLYSIIP NAIL, 6 OR MORE 06/20/2019 49390-DMJWNGA NAIL, 6 OR MORE 10/17/2019 39228-CWRBUQB NAIL, 6 OR MORE 01/02/2020 01390-ZENWETA NAIL, 6 OR MORE 03/05/2020 10835-FBWBKWR NAIL, 6 OR MORE 07/22/2020 44339-CVMZTIN NAIL, 6 OR MORE 10/21/2020 76494-SECFTNR NAIL, 6 OR MORE 01/06/2021 11046-OKEECZZ NAIL, 6 OR MORE 03/24/2021 46398-DQKKFSY NAIL, 6 OR MORE 06/06/2021 80021-UGIGNCE NAIL, 6 OR MORE 08/24/2021 95247-YXAMAES NAIL, 6 OR MORE 11/03/2021 08900-QWRBVZT NAIL, 6 OR MORE 03/27/2017 80919-Nzkdexsf Plate 03/27/2017 03441-Qtnhkgos Plate 11/03/2021 68814-Zactnmsh Plate 08/24/2021 60053-Zdwmwmfj Plate 06/06/2021 01279-Qrdgdiyq Plate 03/24/2021 22368-Hnawzqew Plate 01/06/2021 71145-Vdbygdpq Plate 10/21/2020 98580-Vtmjjqmq Plate 07/22/2020 05981-Rbryiusy Plate 03/05/2020 44730-Gjuqjovw Plate 01/02/2020 59929-Lxrejelx Plate 10/17/2019 43827-Xuqpnyls Plate 06/20/2019 94151-Hijcwnjg Plate 03/14/2019 37723-Zqfsmohr Plate 11/08/2018 50762-Gunmxarh Plate Each Additional 21801-Ouzucgha Plate Each Additional 22710-Sqrcbvnf Plate Each Additional 56929-Kwztnhje Plate Each Additional 11/2019 02028-Fbftwilu Plate Each Additional 01/2020 85269-Kbsjbipe Plate Each Additional 43153-Nxbfvtgv Plate Each Additional 64913-Nevrzdiz Plate Each Additional 04/2021 58931-Zbynclgw Plate Each Additional 04419-Wgmrkxyx Plate Each Additional 02/2022 46672-Gvvkvnlm Plate Each Additional 61006-Btqacqkt Plate Each Additional 01/2022 32462 I&D ABSCESS- SIMPLE,SINGLE 019 47933-EUEW SKIN LESIONS, OVER 4 11/09/19 19 63146-TDMZ SKIN LESIONS, OVER 4 03/14/20 19 78282-ESAU SKIN LESIONS, OVER 4 10/17/19 20 92955-EGTW SKIN LESIONS, OVER 4 06/20/19 20 11238-BEDG SKIN LESIONS, OVER 4 10/22/19 21 74387-TIEP SKIN LESIONS, OVER 4 07/22/19 21 13632-JNJS SKIN LESIONS, OVER 4 03/05/20 20 99169-EIOC SKIN LESIONS, OVER 4 01/02/20 20 79073-VEFN SKIN LESIONS, OVER 4 11/04/19 22 91323-PQLG SKIN LESIONS, OVER 4 03/27/20 17 72723-TZXX SKIN LESIONS, OVER 4 08/25/19 22 76288-SFZO SKIN LESIONS, OVER 4 06/06/19 22 07558-XAYO SKIN LESIONS, OVER 4 03/24/20 21 20507-EJWS SKIN LESIONS, OVER 4 01/07/20 Insurance Providers Payer Name Payer Address Payer Phone Subscriber Number Group Number Insured Name Patient Relationship to Insured Coverage Start Date Coverage End Date [facility] 65 Medicare Preferred [address] [place] [address] [id number] Sayda Reynolds Self - patient is the insured Medical (General) History Medical History History ICD Code Heart disease kidney cancer Kidney disease Coronary artery disease Congestive heart failure Peripheral vascular disease Hyperlipidemia Restless leg syndrome Muscle Weakness Surgical History Surgery Date(Month/Year) Hospitalization History Reason Date(Month/Year) [facility] - anemia/fungal infection 09/2018 Hospital then rehab facility for 6 days 09/22/20, 09/29/20 [facility] 07/2021 [facility] [facility]-1 wk stay 01/2019 [facility]-mindy 02/2019 [facility]- mindy, UTI, low oxygen 05/2020
--- OUTSIDE RECORDS SUMMARY | 2024-09-08 15:10 | XMS_ITS | Encounter Summary ---
Author Organization [facility] Address [address] [place] [address] Care Team Providers Care Burn Crew Member Name Role Phone Melinda Best MD Primary Care Provider + Encounter Details Date Type Department Care Team (Late st Contact Info) Description 07/28/2024 Lab Requisition [facility] - Main Lab [address] [facility] [place] [address] Melinda Best MD [address] [address] Hypothyroidism, unspecified; Essential (primary) hypertension; Chronic kidney disease, stage 3 unspecified (CMS/HCC V24, CMS/HCC V28); Hyperlipidemia, unspecified Social History Tobacco Use Types Packs/Day Years [...] Procedure Name Priority Date/Time Associated Diagnosis Comments LIPID PANEL WITH REFLEX TO DIRECT LDL Routine 07/29/2024 5:33 AM EST Hypothyroidism, unspecified Essential (primary) hypertension Chronic kidney disease, stage 3 unspecified (CMS/HCC) Hyperlipidemia, unspecified COMPLETE BLOOD COUNT Routine 07/29/2024 5:33 AM EST Hypothyroidism, unspecified Essential (primary) hypertension Chronic kidney disease, stage 3 unspecified (CMS/HCC) Hyperlipidemia, unspecified THYROID STIMULATING HORMONE Routine 07/29/2024 5:33 AM EST Hypothyroidism, unspecified Essential (primary) hypertension Chronic kidney disease, stage 3 unspecified (CMS/HCC) Hyperlipidemia, unspecified COMPREHENSIVE METABOLIC PANEL Routine 07/29/2024 5:33 AM EST Hypothyroidism, unspecified Essential (primary) hypertension Chronic kidney disease, stage 3 unspecified (CMS/HCC) Hyperlipidemia, unspecified documented in this encounter Results * Thyroid stimulating hormone (07/29/2024 5:33 AM EST) Pathologist [facility] TSH 2.43 0.40 - 4.00 mcIU/mL LAB CHEMISTRY METHOD 07/29/2024 10:23 AM EST [facility] Blood Venous blood specimen / Unknown Venipuncture / Unknown 07/29/2024 5:33 AM EST 07/29/2024 9:32 AM EST us Melinda Best MD LAB BLOOD ORDERABLES Fin al Result [facility] [address] [place] [address], * (ABNORMAL) Lipid panel with reflex to direct LDL (07/29/2024 5:33 AM EST) Cholesterol 92 0 - 200 mg/dL LAB CHEMISTRY METHOD 07/29/2024 10:16 AM EST [facility] Triglycerides 93 0 - 150 mg/dL LAB CHEMISTRY METHOD 07/29/2024 10:16 AM EST [facility] HDL 39(L) >=40 mg/dL LAB CHEMISTRY METHOD 07/29/2024 10:16 AM EST [facility] LDL Calculated 34 0 - 100 mg/dL LAB CHEMISTRY METHOD 07/29/2024 10:16 AM EST [facility] VLDL Cholesterol Maurice 18.6 mg/dL LAB CHEMISTRY METHOD 07/29/2024 10:16 AM EST [facility] Non HDL Chol. (LDL+VLDL) 53 <145 mg/dL LAB CHEMISTRY METHOD 07/29/2024 10:16 AM [facility] Chol/HDL Ratio 2.4 0.0 - 4.4 LAB CHEMISTRY METHOD 07/29/2024 10:16 AM [facility] Blood Venous blood specimen / Unknown Venipuncture / Unknown 07/29/2024 5:33 AM EST 07/29/2024 9:32 AM EST us Melinda Best MD LAB BLOOD ORDERABLES Fin al Result [facility] [address] [place] [address], [place] [phone] * (ABNORMAL) Comprehensive metabolic panel (07/29/2024 5:33 AM EST) Sodium 140 133 - 145 mmol/L LAB CHEMISTRY METHOD 07/29/2024 10:32 AM [facility] Potassium 3.7 3.5 - 5.5 mmol/L LAB CHEMISTRY METHOD 07/29/2024 10:32 AM [facility] Chloride 101 96 - 110 mmol/L LAB CHEMISTRY METHOD 07/29/2024 10:32 AM [facility] CO2 37(H) 21 - 32 mmol/L LAB CHEMISTRY METHOD 07/29/2024 10:32 AM [facility] Anion Gap 2(L) 3 - 11 LAB CHEMISTRY METHOD 07/29/2024 10:32 AM [facility] Glucose 63(L) 70 - 100 mg/dL LAB CHEMISTRY METHOD 07/29/2024 10:32 AM [facility] BUN 34(H) 5 - 25 mg/dL LAB CHEMISTRY METHOD 07/29/2024 10:32 AM [facility] Creatinine 1.17(H) 0.50 - 1.10 mg/dL LAB CHEMISTRY METHOD 07/29/2024 10:32 AM [facility] eGFR 45(L) >=60 mL/min/1. 73m2 LAB CHEMISTRY METHOD 07/29/2024 10:32 AM [facility] Comment:Calculation based on the??Chronic Kidney Disease Epidemiology Collaboration (CKD-EPI) equation refit??without adjustment for race. BUN/Creatinine Ratio 29.1 LAB CHEMISTRY METHOD 07/29/2024 10:32 AM [facility] Calcium 8.3(L) 8.5 - 10.5 mg/dL LAB CHEMISTRY METHOD 07/29/2024 10:32 AM [facility] AST (SGOT) 12 10 - 42 unit/L LAB CHEMISTRY METHOD 07/29/2024 10:32 AM [facility] ALT (SGPT) 11 10 - 60 unit/L LAB CHEMISTRY METHOD 07/29/2024 10:32 AM [facility] Alkaline Phosphatase 59 42 - 121 unit/L LAB CHEMISTRY METHOD 07/29/2024 10:32 AM [facility] Total Protein 5.2(L) 6.0 - 8.0 g/dL LAB CHEMISTRY METHOD 07/29/2024 10:32 AM [facility] Albumin 2.6(L) 3.2 - 5.0 g/dL LAB CHEMISTRY METHOD 07/29/2024 10:32 AM [facility] Total Bilirubin 0.6 0.0 - 1.4 mg/dL LAB CHEMISTRY METHOD 07/29/2024 10:32 AM [facility] Blood Venous blood specimen / Unknown Venipuncture / Unknown 07/29/2024 5:33 AM EST 07/29/2024 9:32 AM EST us Melinda Best MD LAB BLOOD ORDERABLES Fin al Result [facility] [address] [place] [address], * (ABNORMAL) Complete blood count (07/29/2024 5:33 AM EST) [facility] WBC 7.2 4.8 - 10.8 K/mcL LAB HEMETOLOGY METHOD 07/29/2024 10:00 AM [facility] RBC 3.70(L) 3.80 - 4.80 M/mcL LAB HEMETOLOGY METHOD 07/29/2024 10:00 AM [facility] Hemoglobin 11.8 11.5 - 16.0 g/dL LAB HEMETOLOGY METHOD 07/29/2024 10:00 AM [facility] Hematocrit 37.8 35.0 - 47.0 % LAB HEMETOLOGY METHOD 07/29/2024 10:00 AM [facility] MCV 101.3(H) 79.0 - 98.0 FL LAB HEMETOLOGY METHOD 07/29/2024 10:00 AM [facility] MCH 31.6 27.0 - 32.0 pcg LAB HEMETOLOGY METHOD 07/29/2024 10:00 AM [facility] MCHC 31.2(L) 32.0 - 37.0 g/dL LAB HEMETOLOGY METHOD 07/29/2024 10:00 AM [facility] RDW 14.3 11.0 - 15.0 % LAB HEMETOLOGY METHOD 07/29/2024 10:00 AM [facility] Platelets 169 130 - 400 K/mcL LAB HEMETOLOGY METHOD 07/29/2024 10:00 AM [facility] MPV 9.7 7.0 - 11.0 FL LAB HEMETOLOGY METHOD 07/29/2024 10:00 AM [facility] NRBC 0.0 <1.0 % LAB HEMETOLOGY METHOD 07/29/2024 10:00 AM EST [facility] NRBC Absolute 0.00 <0.10 K/mcL LAB HEMETOLOGY METHOD 07/29/2024 10:00 AM EST [facility] Blood Venous blood specimen / Unknown Venipuncture / Unknown 07/29/2024 5:33 AM EST 07/29/2024 9:31 AM EST us Melinda Best MD LAB BLOOD ORDERABLES Fin al Result [facility] [address] [place] [address], documented in this encounter Visit Diagnoses Diagnosis Hypothyroidism, unspecified Essential (primary) hypertension Unspecified essential hypertension Chronic kidney disease, stage 3 unspecified (CMS/HCC V24, CMS/HCC V28) Hyperlipidemia, unspecified documented in this encounter Care Teams Burn Crew Member Relationship Specialty Start Date End Date Melinda Best MD [address] [place] [id number] PCP - General Family Medicine 04/26/24 documented as of this encounter
--- OUTSIDE RECORDS SUMMARY | 2024-09-08 15:10 | XMS_ITS | Clinical Summary ---
Author Organization [address] [facility] Address [address] [place] [address] Phone Care Team Providers Care Supervisor [employer] Name Role Phone Melinda Best MD Primary Care Provider + Encounters Date Type Department Care Team Description 07/28/2024 Lab Requisition [facility] - Main Lab [address] [facility] [place] [address] Melinda Best MD Hypothyroidism, unspecified; Essential (primary) hypertension; Chronic kidney disease, stage 3 unspecified (CMS/HCC V24, CMS/HCC V28); Hyperlipidemia, unspecified from Last 3 Months Surgical History Surgery Date Site/Laterality Comments HYSTERECTOMY PROCEDURE: HISTORICAL HYSTERECTOMY; COMMENT: uterine prolapse APPENDECTOMY PROCEDURE: HISTORICAL APPENDECTOMY TONSILLECTOMY PROCEDURE: HISTORICAL TONSILLECTOMY OTHER SURGICAL HISTORY 09/05 PROCEDURE: MAMMOGRAM CATARACT EXTRACTION 04/02 PROCEDURE: HISTORICAL CATARACT REMOVAL; COMMENT: left, right 04/05 Medical History Medical History Date Comments Coronary atherosclerosis of [place] coronary artery 04/15/04 DX:Coronary atherosclerosis of [place] coronary artery Essential hypertension, benign 04/15/04 D X:Essential hypertension, benign Herpes zoster with other ner vous system complications(053.19) 06/24/04 DX:Herpes zoster with oth er nervous system complications(053.19) Pure hypercholesterolemia 04/15/2004 DX:Pur e hypercholesterolemia Urticaria, unspecified 07/01/2005 DX:Urtica eric, unspecified; COMMENT: recurrent Atherosclerosis of renal art alicia (CMS/HCC V24) 07/01/2005 DX:Atherosclerosis of renal artery ([facility]); COMMENT: angioplasty right renal artery 12/26 Unspecified disorder of kidn ey and ureter 07/01/2005 DX:Unspecified disorder of k idney and ureter; COMMENT: left 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 DX:P ostherpetic polyneuropathy CKD (chronic kidney disease) stage 3, GFR 30-59 ml/min [place] [place] [facility] [place]28) 07/29/2010 DX:CKD (chronic kidney disea se) stage 3, GFR 30-59 ml/min ([facility]) Vitamin D deficiency 12/08/2010 DX:Vitamin D deficiency AAA (abdominal aortic aneury sm) [place] [place] 08/10/2014 DX:AAA (abdominal aortic ane urysm) ([facility]); COMMENT: 3.7 cm 02/08 Osteopenia 01/28/2015 DX:Osteopenia; C OMMENT: 02/09 T score spine +2.0 hip -1.3 FRAX score 13% 10 year fracture risk Kidney mass 08/16/2016 DX:Kidney mass; COMMENT: 1.5 cm mass, not seen on usn; pt deferring evaluation until after AAA surgery Restless leg syndrome 11/01/2016 DX:Restles s leg syndrome Atrial flutter ([facility] [place], [facility] V28) 04/11/2017 DX:Atrial flutter ([facility]) Bullous pemphigoid ([facility] [place]) 12/05/2017 DX:Bullous pemphigoid CHF (congestive heart failur e) [place] [place] [facility] [place]28) 02/06/2018 DX:CHF (congestive heart fa ilure) ([facility]) Family History Medical History Relation Name Comments Hypertension Father stroke Hypertension Mother aortic ane urysm Breast cancer Neg Hx Relation Name Status Comments Father Mother Social History Tobacco Use Types Packs/Day Years [...] on file Sexual Orientation Not on file Obstetrics History Last Filed Vital Signs Vital Sign Reading Time Taken Comments Blood Pressure 126/64 08/15/2021 1:01 PM EDT Pulse 70 08/15/2021 1:01 PM EDT Temperature - - Respiratory Rate - - Oxygen Saturation - - Inhaled Oxygen Concentration - - Weight - - Height 162.6 cm (5' 4 ) 08/15/2021 1:01 PM EDT Body Mass Index - - Plan of Treatment Health Maintenance Due Date Last Done Comments Zoster Vaccines (2 of 3) 08/24/2008 06/29/2008 RSV Immunization Adult Patients (1 - 1-dose 75+ series) 2010 DTaP,Tdap,and Td Vaccines (3 - Td or Tdap) 08/19/2022 08/19/2012, 03/01/2007 Depression Screening 11/09/2023 Falls Risk Assessment 11/09/2023 Medicare Annual Wellness Visit 11/09/2023 Osteoporosis Screening (Bone Density Screening) 11/09/2023 Social Influencers of Health Screening 11/09/2023 COVID-19 Vaccine ( season) 2024 07/20/2020, 06/22/2020 Influenza Vaccine (Season Ended) 2025 02/15/2021, 03/29/2020, 02/19/2019, Additional history exists Hypertension/CHF/CAD Annual BMP Blood Test 07/29/2025 07/29/2024, 04/30/2024, 07/15/2021 Cholesterol Screening (Lipid Panel) 07/29/2029 07/29/2024, 04/30/2024 Pneumococcal Vaccine: 50+ Years Completed 02/13/2019, 08/10/2014, 03/01/2007, Additional history exists HIB Vaccines Aged Out No longer eligi ble based on patient's age to complete this topic HPV Vaccines Aged Out No longer eligi ble based on patient's age to complete this topic Hepatitis A Vaccines Aged Out No long er eligible based on patient's age to complete this topic Hepatitis B Vaccines Aged Out No long er eligible based on patient's age to complete this topic IPV Vaccines Aged Out No longer eligi ble based on patient's age to complete this topic MMR Vaccines Aged Out No longer eligi ble based on patient's age to complete this topic Meningococcal ACWY Vaccine Aged Out N o longer eligible based on patient's age to complete this topic Meningococcal B Vaccine Aged Out No l onger eligible based on patient's age to complete this topic RSV Immunization Patients Under 20 months Aged Out No longer eligible based on patient's age to complete this topic Varicella Vaccines Aged Out No longer eligible based on patient's age to complete this topic Procedures Procedure Name Priority Date/Time Associated Diagnosis Comments THYROID STIMULATING HORMONE Routine 07/29/2024 5:33 AM EST Hypothyroidism, unspecified Essential (primary) hypertension Chronic kidney disease, stage 3 unspecified (CMS/HCC) Hyperlipidemia, unspecified LIPID PANEL WITH REFLEX TO DIRECT LDL [...] disease, stage 3 unspecified (CMS/HCC) Hyperlipidemia, unspecified from Last 3 Months Results * (ABNORMAL) Lipid panel with reflex to direct LDL (07/29/2024 5:33 AM EST) Cholesterol 92 0 - 200 mg/dL LAB CHEMISTRY METHOD 07/29/2024 10:16 AM [facility] Triglycerides 93 0 - 150 mg/dL LAB CHEMISTRY METHOD 07/29/2024 10:16 AM [facility] HDL 39(L) >=40 mg/dL LAB CHEMISTRY METHOD 07/29/2024 10:16 AM [facility] LDL Calculated 34 0 - 100 mg/dL LAB CHEMISTRY METHOD 07/29/2024 10:16 AM [facility] VLDL Cholesterol Maurice 18.6 mg/dL LAB CHEMISTRY METHOD 07/29/2024 10:16 AM [facility] Non HDL Chol. (LDL+VLDL) 53 <145 mg/dL LAB CHEMISTRY METHOD 07/29/2024 10:16 AM [facility] Chol/HDL Ratio 2.4 0.0 - 4.4 LAB CHEMISTRY METHOD 07/29/2024 10:16 AM [facility] Blood Venous blood specimen / Unknown Venipuncture / Unknown 07/29/2024 5:33 AM EST 07/29/2024 9:32 AM EST us Melinda Best MD LAB BLOOD ORDERABLES Fin al Result [facility] [address] [place] [address], [place] [phone] * (ABNORMAL) Complete blood count (07/29/2024 5:33 AM EST) WBC 7.2 4.8 - 10.8 K/mcL LAB HEMETOLOGY METHOD 07/29/2024 10:00 AM [facility] RBC 3.70(L) 3.80 - 4.80 M/mcL LAB HEMETOLOGY METHOD 07/29/2024 10:00 AM [facility] Hemoglobin 11.8 11.5 - 16.0 g/dL LAB HEMETOLOGY METHOD 07/29/2024 10:00 AM [facility] Hematocrit 37.8 35.0 - 47.0 % LAB HEMETOLOGY METHOD 07/29/2024 10:00 AM [facility] MCV 101.3(H) 79.0 - 98.0 FL LAB HEMETOLOGY METHOD 07/29/2024 10:00 AM [facility] MCH 31.6 27.0 - 32.0 pcg LAB HEMETOLOGY METHOD 07/29/2024 10:00 AM [facility] MCHC 31.2(L) 32.0 - 37.0 g/dL LAB HEMETOLOGY METHOD 07/29/2024 10:00 AM [facility] RDW 14.3 11.0 - 15.0 % LAB HEMETOLOGY METHOD 07/29/2024 10:00 AM EST [facility] Platelets 169 130 - 400 K/mcL LAB HEMETOLOGY METHOD 07/29/2024 10:00 AM EST [facility] MPV 9.7 7.0 - 11.0 FL LAB HEMETOLOGY METHOD 07/29/2024 10:00 AM [facility] NRBC 0.0 <1.0 % LAB HEMETOLOGY METHOD 07/29/2024 10:00 AM [facility] NRBC Absolute 0.00 <0.10 K/mcL LAB HEMETOLOGY METHOD 07/29/2024 10:00 AM [facility] Blood Venous blood specimen / Unknown Venipuncture / Unknown 07/29/2024 5:33 AM EST 07/29/2024 9:31 AM EST Melinda Best MD LAB BLOOD ORDERABLES Fin al Result Performing Organization Address City/[facility]/ZIP Co de Phone Number [facility] [address] [place] [address], [place] [phone] * Thyroid stimulating hormone (07/29/2024 5:33 AM EST) TSH 2.43 0.40 - 4.00 mcIU/mL LAB CHEMISTRY METHOD 07/29/2024 10:23 AM EST [facility] Blood Venous blood specimen / Unknown Venipuncture / Unknown 07/29/2024 5:33 AM EST 07/29/2024 9:32 AM EST Melinda Best MD LAB BLOOD ORDERABLES Fin al Result [facility] [address] [place] [address], [place] [phone] * (ABNORMAL) Comprehensive metabolic panel (07/29/2024 5:33 AM EST) Sodium 140 133 - 145 mmol/L LAB CHEMISTRY METHOD 07/29/2024 10:32 AM [facility] Potassium 3.7 3.5 - 5.5 mmol/L LAB CHEMISTRY METHOD 07/29/2024 10:32 AM [facility] Chloride 101 96 - 110 mmol/L LAB CHEMISTRY METHOD 07/29/2024 10:32 AM [facility] CO2 37(H) 21 - 32 mmol/L LAB CHEMISTRY METHOD 07/29/2024 10:32 AM [facility] Anion Gap 2(L) 3 - 11 LAB CHEMISTRY METHOD 07/29/2024 10:32 AM [facility] Glucose 63(L) 70 - 100 mg/dL LAB CHEMISTRY METHOD 07/29/2024 10:32 AM [facility] BUN 34(H) 5 - 25 mg/dL LAB CHEMISTRY METHOD 07/29/2024 10:32 AM [facility] Creatinine 1.17(H) 0.50 - 1.10 mg/dL LAB CHEMISTRY METHOD 07/29/2024 10:32 AM [facility] eGFR 45(L) >=60 mL/min/1. 73m2 LAB CHEMISTRY METHOD 07/29/2024 10:32 AM [facility] Comment:Calculation based on the??Chronic Kidney Disease Epidemiology Collaboration (CKD-EPI) equation refit??without adjustment for race. BUN/Creatinine Ratio 29.1 LAB CHEMISTRY METHOD 07/29/2024 10:32 AM [facility] Calcium 8.3(L) 8.5 - 10.5 mg/dL LAB CHEMISTRY METHOD 07/29/2024 10:32 AM [facility] AST (SGOT) 12 10 - 42 unit/L LAB CHEMISTRY METHOD 07/29/2024 10:32 AM [facility] ALT (SGPT) 11 10 - 60 unit/L LAB CHEMISTRY METHOD 07/29/2024 10:32 AM EST [facility] Alkaline Phosphatase 59 42 - 121 unit/L LAB CHEMISTRY METHOD 07/29/2024 10:32 AM EST [facility] Total Protein 5.2(L) 6.0 - 8.0 g/dL LAB CHEMISTRY METHOD 07/29/2024 10:32 AM EST [facility] Albumin 2.6(L) 3.2 - 5.0 g/dL LAB CHEMISTRY METHOD 07/29/2024 10:32 AM [facility] Total Bilirubin 0.6 0.0 - 1.4 mg/dL LAB CHEMISTRY METHOD 07/29/2024 10:32 AM [facility] Blood Venous blood specimen / Unknown Venipuncture / Unknown 07/29/2024 5:33 AM EST 07/29/2024 9:32 AM EST Melinda Best MD LAB BLOOD ORDERABLES Fin al Result [facility] [address] [place] [address], from Last 3 Months Insurance MEDICARE [place]ICA[place] - [place] Advance Directives Documents on File Type Date Recorded Patient Facilities Custodian Expl [facility] Health Care Decision (hx) 08/31/2016 RUEL CASTRO DIRECTIVE Care Teams Supervisor [employer] Relationship Specialty Start Date End Date ElderMelinda MD [address] [place] [id number] PCP - General Family Medicine 04/26/24
--- OUTSIDE RECORDS SUMMARY | 2024-09-08 15:10 | XMS_ITS | Encounter Summary ---
Author Organization [facility] Address [address] [place] [address] Care Team Providers Care Editor In Chief Name Role Phone Melinda Best MD Primary Care Provider + Encounter Details Date Type Department Care Team (Late st Contact Info) Description 04/30/2024 Lab Requisition [facility] - Main Lab [address] [facility] [place] [address] Melinda Best MD [address] [phone] Essential (primary) hypertension; Chronic kidney disease, stage 3 unspecified (CMS/HCC V24, CMS/HCC V28) Social History Tobacco Use Types Packs/Day Years [...] PANEL WITH REFLEX TO DIRECT LDL Routine 04/30/2024 4:59 AM EST Essential (primary) hypertension Chronic kidney disease, stage 3 unspecified (CMS/HCC) COMPLETE BLOOD COUNT Routine 04/30/2024 4:59 AM EST Essential (primary) hypertension Chronic kidney disease, stage 3 unspecified (CMS/HCC) THYROID STIMULATING HORMONE Routine 04/30/2024 4:59 AM EST Essential (primary) hypertension Chronic kidney disease, stage 3 unspecified (CMS/HCC) COMPREHENSIVE METABOLIC PANEL Routine 04/30/2024 4:59 AM EST Essential (primary) hypertension Chronic kidney disease, stage 3 unspecified (CMS/HCC) documented in this encounter Results * Thyroid stimulating hormone (04/30/2024 4:59 AM EST) Pathologist [facility] TSH 3.28 0.40 - 4.00 mcIU/mL LAB CHEMISTRY METHOD 04/30/2024 11:30 AM EST [facility] Blood Venous blood specimen / Unknown Venipuncture / Unknown 04/30/2024 4:59 AM EST 04/30/2024 9:27 AM EST us Melinda Best MD LAB BLOOD ORDERABLES Fin al Result [facility] [address] [place] [address], [place] [phone] * Lipid panel with reflex to direct LDL (04/30/2024 4:59 AM EST) [facility] Cholesterol 97 0 - 200 mg/dL LAB CHEMISTRY METHOD 04/30/2024 11:25 AM EST [facility] Triglycerides 128 0 - 150 mg/dL LAB CHEMISTRY METHOD 04/30/2024 11:25 AM EST [facility] HDL 47 >=40 mg/dL LAB CHEMISTRY METHOD 04/30/2024 11:25 AM [facility] LDL Calculated 24 0 - 100 mg/dL LAB CHEMISTRY METHOD 04/30/2024 11:25 AM EST [facility] VLDL Cholesterol Maurice 25.6 mg/dL LAB CHEMISTRY METHOD 04/30/2024 11:25 AM EST [facility] Non HDL Chol. (LDL+VLDL) 50 <145 mg/dL LAB CHEMISTRY METHOD 04/30/2024 11:25 AM [facility] Chol/HDL Ratio 2.1 0.0 - 4.4 LAB CHEMISTRY METHOD 04/30/2024 11:25 AM [facility] Blood Venous blood specimen / Unknown Venipuncture / Unknown 04/30/2024 4:59 AM EST 04/30/2024 9:27 AM EST us Melinda Best MD LAB BLOOD ORDERABLES Fin al Result [facility] [address] [place] [address], [place] [phone] * (ABNORMAL) Comprehensive metabolic panel (04/30/2024 4:59 AM EST) Sodium 143 133 - 145 mmol/L LAB CHEMISTRY METHOD 04/30/2024 11:25 AM [facility] Potassium 4.4 3.5 - 5.5 mmol/L LAB CHEMISTRY METHOD 04/30/2024 11:25 AM [facility] Chloride 108 96 - 110 mmol/L LAB CHEMISTRY METHOD 04/30/2024 11:25 AM [facility] CO2 31 21 - 32 mmol/L LAB CHEMISTRY METHOD 04/30/2024 11:25 AM [facility] Anion Gap 4 3 - 11 LAB CHEMISTRY METHOD 04/30/2024 11:25 AM [facility] Glucose 91 70 - 100 mg/dL LAB CHEMISTRY METHOD 04/30/2024 11:25 AM [facility] BUN 28(H) 5 - 25 mg/dL LAB CHEMISTRY METHOD 04/30/2024 11:25 AM [facility] Creatinine 1.27(H) 0.50 - 1.10 mg/dL LAB CHEMISTRY METHOD 04/30/2024 11:25 AM [facility] eGFR 41(L) >=60 mL/min/1. 73m2 LAB CHEMISTRY METHOD 04/30/2024 11:25 AM [facility] Comment:Calculation based on the??Chronic Kidney Disease Epidemiology Collaboration (CKD-EPI) equation refit??without adjustment for race. BUN/Creatinine Ratio 22.0 LAB CHEMISTRY METHOD 04/30/2024 11:25 AM [facility] Calcium 8.6 8.5 - 10.5 mg/dL LAB CHEMISTRY METHOD 04/30/2024 11:25 AM [facility] AST (SGOT) 29 10 - 42 unit/L LAB CHEMISTRY METHOD 04/30/2024 11:25 AM [facility] ALT (SGPT) 29 10 - 60 unit/L LAB CHEMISTRY METHOD 04/30/2024 11:25 AM [facility] Alkaline Phosphatase 74 42 - 121 unit/L LAB CHEMISTRY METHOD 04/30/2024 11:25 AM [facility] Total Protein 5.0(L) 6.0 - 8.0 g/dL LAB CHEMISTRY METHOD 04/30/2024 11:25 AM [facility] Albumin 2.7(L) 3.2 - 5.0 g/dL LAB CHEMISTRY METHOD 04/30/2024 11:25 AM [facility] Total Bilirubin 0.8 0.0 - 1.4 mg/dL LAB CHEMISTRY METHOD 04/30/2024 11:25 AM [facility] Blood Venous blood specimen / Unknown Venipuncture / Unknown 04/30/2024 4:59 AM EST 04/30/2024 9:27 AM EST us Melinda Best MD LAB BLOOD ORDERABLES Fin al Result [facility]) [facility] [address] [place] [address], * (ABNORMAL) Complete blood count (04/30/2024 4:59 AM EST) WBC 6.0 4.8 - 10.8 K/mcL LAB HEMETOLOGY METHOD 04/30/2024 10:40 AM [facility] RBC 3.50(L) 3.80 - 4.80 M/mcL LAB HEMETOLOGY METHOD 04/30/2024 10:40 AM [facility] Hemoglobin 11.2(L) 11.5 - 16.0 g/dL LAB HEMETOLOGY METHOD 04/30/2024 10:40 AM [facility] Hematocrit 36.5 35.0 - 47.0 % LAB HEMETOLOGY METHOD 04/30/2024 10:40 AM [facility] MCV 104.3(H) 79.0 - 98.0 FL LAB HEMETOLOGY METHOD 04/30/2024 10:40 AM [facility] MCH 32.0 27.0 - 32.0 pcg LAB HEMETOLOGY METHOD 04/30/2024 10:40 AM [facility] MCHC 30.7(L) 32.0 - 37.0 g/dL LAB HEMETOLOGY METHOD 04/30/2024 10:40 AM [facility] RDW 15.0 11.0 - 15.0 % LAB HEMETOLOGY METHOD 04/30/2024 10:40 AM [facility] Platelets 151 130 - 400 K/mcL LAB HEMETOLOGY METHOD 04/30/2024 10:40 AM [facility] MPV 10.2 7.0 - 11.0 FL LAB HEMETOLOGY METHOD 04/30/2024 10:40 AM [facility] NRBC 0.0 <1.0 % LAB HEMETOLOGY METHOD 04/30/2024 10:40 AM [facility] NRBC Absolute 0.00 <0.10 K/mcL LAB HEMETOLOGY METHOD 04/30/2024 10:40 AM [facility] Blood Venous blood specimen / Unknown Venipuncture / Unknown 04/30/2024 4:59 AM EST 04/30/2024 9:27 AM EST Melinda Best MD LAB BLOOD ORDERABLES Fin al Result [facility] [address] [place] [address], documented in this encounter Visit Diagnoses Diagnosis Essential (primary) hypertension Unspecified essential hypertension Chronic kidney disease, stage 3 unspecified (CMS/HCC V24, CMS/HCC V28) documented in this encounter Care Teams Editor In Chief Relationship Specialty Start Date End Date Melinda Best MD [address] [place] [id number] PCP - General Family Medicine 04/26/24 documented as of this encounter
--- OUTSIDE RECORDS SUMMARY | 2024-09-08 15:10 | XMS_ITS | Encounter Summary ---
Author Organization [facility] Address [address] [place] [address] Care Team Providers Care Full Stack Developer Name Role Phone Melinda Best MD Primary Care Provider + Encounter Details Date Type Department Care Team (Late st Contact Info) Description 04/28/2024 Lab Requisition [facility] - Main Lab [address] [facility] [place] [address] Melinda Best MD [address] [phone] Spontaneous ecchymoses Social History Tobacco Use Types [...] Procedure Name Priority Date/Time Associated Diagnosis Comments PROTHROMBIN TIME WITH INR Routine 04/28/2024 6:17 AM EST Spontaneous ecchymoses COMPLETE BLOOD COUNT Routine 04/28/2024 6:17 AM EST Spontaneous ecchymoses documented in this encounter Results * Prothrombin time with INR (04/28/2024 6:17 AM EST) Protime 11.2 10.6 - 13.9 sec LAB COAGULATION METHOD 04/28/2024 12:54 PM [facility] INR 0.9 LAB COAGULATION METHOD 04/28/2024 12:54 PM [facility] Blood Venous blood specimen / Unknown Venipuncture / Unknown 04/28/2024 6:17 AM EST 04/28/2024 12:27 PM EST us Melinda Best MD LAB BLOOD ORDERABLES Fin al Result [facility] [address] [place] [address], * (ABNORMAL) Complete blood count (04/28/2024 6:17 AM EST) WBC 6.8 4.8 - 10.8 K/mcL LAB HEMETOLOGY METHOD 04/28/2024 1:13 PM [facility] RBC 3.60(L) 3.80 - 4.80 M/mcL LAB HEMETOLOGY METHOD 04/28/2024 1:13 PM [facility] Hemoglobin 11.5 11.5 - 16.0 g/dL LAB HEMETOLOGY METHOD 04/28/2024 1:13 PM [facility] Hematocrit 38.0 35.0 - 47.0 % LAB HEMETOLOGY METHOD 04/28/2024 1:13 PM [facility] MCV 105.8(H) 79.0 - 98.0 FL LAB HEMETOLOGY METHOD 04/28/2024 1:13 PM [facility] MCH 32.0 27.0 - 32.0 pcg LAB HEMETOLOGY METHOD 04/28/2024 1:13 PM [facility] MCHC 30.3(L) 32.0 - 37.0 g/dL LAB HEMETOLOGY METHOD 04/28/2024 1:13 PM [facility] RDW 15.3(H) 11.0 - 15.0 % LAB HEMETOLOGY METHOD 04/28/2024 1:13 PM EST [facility] Platelets 164 130 - 400 K/mcL LAB HEMETOLOGY METHOD 04/28/2024 1:13 PM EST [facility] MPV 10.3 7.0 - 11.0 FL LAB HEMETOLOGY METHOD 04/28/2024 1:13 PM EST [facility] NRBC 0.0 <1.0 % LAB HEMETOLOGY METHOD 04/28/2024 1:13 PM EST [facility] NRBC Absolute 0.00 <0.10 K/mcL LAB HEMETOLOGY METHOD 04/28/2024 1:13 PM [facility] Blood Venous blood specimen / Unknown Venipuncture / Unknown 04/28/2024 6:17 AM EST 04/28/2024 12:27 PM EST us Melinda Best MD LAB BLOOD ORDERABLES Fin al Result [facility] [address] [place] [address], documented in this encounter Visit Diagnoses Diagnosis Spontaneous ecchymoses documented in this encounter Care Teams Full Stack Developer Relationship Specialty Start Date End Date Melinda Best MD [address] [place] [id number] PCP - General Family Medicine 04/26/24 documented as of this encounter
--- OUTSIDE RECORDS SUMMARY | 2024-09-08 15:10 | XMS_ITS | Clinical Summary ---
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 Name Role Phone Elder, Melinda FOX Primary Care Provider [phone] Allergies Active Allergy Reactions Criticality Noted Date Comments Amlodipine 04/11/2017 Severe edema Doxycycline Other (see comments) 10/30/2018 Fluvastatin 02/23/2005 elevated LFT's Other 07/16/2020 Medications sucralfate (CARAFATE) 1 GM/10ML suspension TK 10 ML PO HS FOR 30 DAYS 0 Active spironolactone (ALDACTONE) 25 MG tablet Take 1 tablet by mouth 1 (one) time each day 0 Active rOPINIRole (REQUIP) 0.5 MG tablet Take 2.5 tablets by mouth every night 0 Active predniSONE (DELTASONE) 10 MG tablet Take 1 tablet by mouth 1 (one) time each day 9 Active potassium chloride (KLOR-CON M20) 20 MEQ CR tablet Take 1 tablet by mouth 0 Active potassium chloride (KLOR-CON) 10 MEQ CR tablet Take 10 mEq by mouth 1 (one) time each day in the evening 0 Active pantoprazole (PROTONIX) 40 MG EC tablet Take 1 tablet by mouth 1 (one) time each day 0 Active Nyamyc powder 0 Active ipratropium-alb uterol (DUO-NEB) 0.5-2.5 mg/3 mL nebulizer solution 1 Active furosemide (LASIX) 40 MG tablet Take 1 tablet by mouth 2 (two) times a day 0 Active folic acid (FOLVITE) 1 MG tablet Take 1 tablet by mouth 1 (one) time each day Active ferrous sulfate 325 (65 Fe) MG tablet Take 1 tablet by mouth 1 (one) time each day Active cloNIDine (CATAPRES) 0.1 MG tablet Take 1 tablet by mouth 1 (one) time each day Active cephalexin (KEFELX) 250 MG/5ML suspension SHAKE LIQUID AND TAKE 5 ML BY MOUTH TWICE DAILY 0 Active budesonide (PULMICORT) 0.5 MG/2ML nebulizer solution 1 Active arformoterol (Brovana) 15 MCG/2ML nebulizer solution Inhale 15 mcg 0 Active apixaban (ELIQUIS) 2.5 MG tablet Take 1 tablet by mouth 2 (two) times a day 0 Active MULTIPLE VITAMINS-MINERA LS ER PO Take by mouth Active fosfomycin (MONUROL) 3 g packet DISSOLVE 1 PACKET IN LIQUID AND TAKE BY MOUTH ONCE TODAY. IF SYMPTOMS STILL PERSIST REPEAT DOSE ONCE IN 3 DAYS 1 Active levoFLOXacin (LEVAQUIN) 250 MG tablet TAKE 2 TABLETS BY MOUTH ON DAY 1 THEN TAKE 1 TABLET BY MOUTH EVERY DAY 1 Active albuterol (2.5 MG/3ML) 0.083% nebulizer solution Take 2.5 mg by nebulization every 6 (six) hours if needed for wheezing Active darifenacin (ENABLEX) 7.5 MG 24 hr tablet 1 Active oxyCODONE (ROXICODONE) 5 MG immediate release tablet TAKE 1 TABLET BY MOUTH EVERY 6 TO 8 HOURS NEEDED FOR PAIN 1 Active NIFEdipine XL (PROCARDIA XL) 30 MG 24 hr tablet 1 Active traMADol (ULTRAM) 50 MG tablet Take 50 mg by mouth every 6 (six) hours if needed for moderate pain Active isosorbide mononitrate (IMDUR) 60 MG 24 hr tablet TAKE 1 TABLET DAILY 90 tablet 3 1 Active hydrALAZINE 50 MG tablet 1 Active calcitriol (ROCALTROL) 0.25 MCG capsule TAKE 1 CAPSULE TWICE A WEEK 45 capsule 3 2 Active bumetanide (BUMEX) 1 MG tabletIndicatio ns:Stage 3b chronic kidney disease (HCC) Take 1 tablet (1 mg total) by mouth 1 (one) time each day 90 tablet 3 2 Active albuterol HFA (PROVENTIL HFA;VENTOLIN HFA) 108 (90 Base) MCG/ACT inhaler 3 Active atorvastatin (LIPITOR) 80 MG tablet 3 Active clopidogrel (PLAVIX) 75 MG tablet 3 Active levothyroxine (SYNTHROID, LEVOTHROID) 25 MCG tablet 3 Active tolterodine LA (DETROL LA) 2 MG 24 hr capsule 3 Active amLODIPine (NORVASC) 5 MG tablet Take 5 mg by mouth 1 (one) time each day Active magnesium hydroxide (MILK OF MAGNESIA) 400 MG/5ML suspension Take by mouth 1 (one) time each day if needed for constipation Active guaiFENesin (ROBITUSSIN) 100 MG/5ML liquid Take 200 mg by mouth 3 (three) times a day if needed for cough Active Melatonin 3 MG capsule Take by mouth Active sodium phosphate (FLEET) 3.5-9.5 GM/59ML enema Insert 1 enema into the rectum 1 (one) time Active Active Problems Problem Noted Date Diagnosed Date Diastolic heart failure 07/19/2020 Diastolic heart failure 07/19/2020 Acute nontraumatic kidney injury 07/16/2020 Anemia of chronic renal failure 07/16/2020 Chronic obstructive pulmonary disease 09/29/2019 Peptic ulcer 07/04/2019 Subclinical hypothyroidism 05/06/2019 Body mass index 40+ - severely obese 05/07/2018 Congestive heart failure 02/06/2018 Bullous pemphigoid 12/05/2017 Atrial flutter 04/11/2017 Fracture of seventh cervical vertebra 04/11/2017 Overview (07/16/2020): C7 fracture 01/11, subsequent C7-T1 decompression, ongoing right sided weakness Restless leg syndrome 11/01/2016 Renal mass 08/16/2016 Overview (07/16/2020): 1.5 cm mass, not seen on usn; pt deferring evaluation until after aneurysm surgery Osteopenia 01/28/2015 Overview (07/16/2020): 02/09 T score spine +2.0 hip -1.3 FRAX score 13% 10 year fracture risk Abdominal aortic aneurysm 08/10/2014 Overview (07/16/2020): 3.7 cm 02/08 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, endarterectomy right iliac and femoral arteries Vitamin D deficiency 12/08/2010 Chronic kidney disease 07/29/2010 Overview (07/16/2020): GFR 42 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 Disorder of kidney and/or ureter 07/01/2005 Overview (07/16/2020): left IMO update Renal artery stenosis 07/01/2005 Overview (07/16/2020): angioplasty right renal artery 12/26 Urticaria 07/01/2005 Overview (07/16/2020): recurrent Herpes zoster with other nervous system complica tions 06/24/2004 Overview (07/16/2020): 03/31 post herpetic neuralgia Coronary atherosclerosis of coquille coronary starla ry 04/15/2004 Overview (07/16/2020): single vessel Hypercholesterolemia 04/15/2004 Hypertension 04/15/2004 Immunizations Immunization Administration Dates Next Due H1N1 Inj Preservative Free 07/12/2009 Influenza Split High Dose Pr eservative Free IM 02/15/2021,03/29/2020,02/19/2019,02/06,02/20/2016,02/09/2015 Influenza TIV (IM) 04/02/2017, 4,02/11/2013,02/07,02/16/2011,03/17/2010,03/02/2009 ,03/09/2008,02/22/2007,04/22/2006,07/2004,04/01/2004 Pfizer SARS-COV-2 07/20/2020,06/22/2020 Pneumococcal Conjugate 13-Valent 08/10/2014 Pneumococcal Polysaccharide 02/13/2019, 7,03/28/1999 Td 03/01/2007 Tdap 08/19/2012 Zoster 06/29/2008 Social History Tobacco Use Types Packs/Day Years Used Date Smoking Tobacco: Never Smokeless Tobacco: Never Tobacco Cessation:Counseling Given: Not Answered Alcohol Use Standard Drinks/Week Comments No 0 (1 standard drink = 0.6 oz pur e alcohol) Comments Unknown Sex and Gender Information Value Date Recorded Sex Assigned at Not on file Legal Sex Female 4:41 PM EST Gender Identity Not on file Sexual Orientation Not on file Last Filed Vital Signs Vital Sign Reading Time Taken Comments Blood Pressure 116/54 10/01/2023 1:07 PM EDT Pulse 61 10/01/2023 1:07 PM EDT Temperature - - Respiratory Rate - - Oxygen Saturation 95% 09/25/2022 2:06 PM EDT Inhaled Oxygen Concentration - - Weight 73.5 kg (162 lb) 10/01/2023 1:07 PM EDT Height 162.6 cm (5' 4 ) 05/24/2020 12:00 PM EST Body Mass Index 27.81 05/24/2020 12:00 PM EST Plan of Treatment Upcoming Encounters Date Type Department Care Team (Late st Contact Info) Description 09/29/2024 2:00 PM EDT Office Visit [facility] [address] [address] Dante Man MD [address] [address] Health Maintenance Due Date Last Done Comments Influenza Vaccine (Season Ended) 2025 02/25/2021, 02/15/2021, 03/29/2020, Additional history exists Pneumococcal Vaccine: 50+ Years Completed 02/13/2019, 08/10/2014, 03/01/2007, Additional history exists Pneumococcal Vaccine: Peds (0 to 5 Years) and At-Risk Patients (6 to 49 Years) Discontinued 02/13/2019, 08/10/2014, 03/01/2007, Additional history exists Hepatitis B Vaccine Aged Out No longe r eligible based on patient's age to complete this topic Procedures Procedure Name Priority Date/Time Associated Diagnosis Comments EXT RESULT ENTRY Routine 02/27/2022 from Last 3 Months or Most Recently Relevant to Health Maintenance Results * (ABNORMAL) EXT RESULT ENTRY (02/27/2022) WBC 9.5 3.3 - 10.0 10*3/ML Red Blood Cell Count 3.71 Hemoglobin 12.2 12.0 - 16.0 Hematocrit 37.8 36.0 - 46.0 Platelets 173 150 - 399 10*3/UL Sodium 140 137 - 147 Potassium 4.3 3.4 - 5.5 Chloride 101.0 99.0 - 108.0 Carbon Dioxide 30 mmol/L Anion Gap 9 <=30 MMOL/L Glucose 72 60 - 200 BUN 30(A) 4 - 21 mg/dL Creatinine 1.50(A) 0.50 - 1.10 mg/dL Calcium 8.5(A) 8.7 - 10.7 mg/dL eGFR Non-Afr [place] 33 02/27/2022 us Historical Provider LAB BLOOD ORDERABLES Christine l Result from Last 3 Months or Most Recently Relevant to Health Maintenance Insurance Medicaid [place] Medicaid [place] Medicare Care Teams Dry Chain Puller Relationship Specialty Start Date End Date Melinda Best MD [address] [address] PCP - General Physical Medicine and Rehabilitation 09/25/22
== END 2024-09-08 14:39 | disposition home or self-care (01) ==
PROVIDERS: PCP Internal Medicine; Visit Provider Nurse Practitioner Family
DX: I48.0 Paroxysmal atrial fibrillation (principal); Z95.0 Presence of cardiac pacemaker; I50.32 Chronic diastolic (congestive) heart failure; I25.10 Atherosclerotic heart disease of native coronary artery without angina pectoris
CPT/HCPCS: 93010; 93280; 99214; G2211

== ENCOUNTER → 2024-09-08 13:12 | Outpatient (BNVA) | payer MEDICARE, MEDICAID, SELFPAY | PROVIDERS: PCP Internal Medicine; Visit Provider Nurse Practitioner Family | DX: Z45.018 Encounter for adjustment and management of other part of cardiac pacemaker (principal); I48.0 Paroxysmal atrial fibrillation; I50.32 Chronic diastolic (congestive) heart failure; I25.10 Atherosclerotic heart disease of native coronary artery without angina pectoris; R94.31 Abnormal electrocardiogram [ECG] [EKG] | CPT/HCPCS: 93005; 93280; 99212 ==

== ENCOUNTER → 2024-11-05 23:59 | Outpatient (BNV) | payer MEDICARE, MEDICAID, SELFPAY ==
--- NOTE | 2024-11-20 21:57 | A.OFFVIS_ITS ---
Intake Visit Reasons: Remote Device Check- [employer] Allergies Iodinated Contrast Media (IV CONTRAST) Allergy (Severe, Verified 09/08/24 13:54) Vomiting scallops (SCALLOPS) Allergy (Severe, Verified 09/08/24 13:54) Vomiting amlodipine (AMLODIPINE) Adverse Reaction (Severe, Verified 09/08/24 13:54) LEG SWELLING PFSH Medical History Bradycardia Chronic respiratory failure Essential hypertension Atherosclerotic cardiovascular disease Chronic atrial flutter Preoperative cardiovascular examination Afib Dyspnea Chronic restrictive lung disease COPD (chronic obstructive pulmonary disease) CHF (congestive heart failure) Diastolic CHF Hypercholesteremia HTN (hypertension) CAD (coronary artery disease) CKD (chronic kidney disease) Vitamin D deficiency AAA (abdominal aortic aneurysm) Osteopenia Kidney mass Restless leg Atrial flutter C7 cervical fracture Frequent UTI Surgical History S/P AAA repair H/O cervical spine surgery History of appendectomy Family History Mother Aortic aneurysm Father Stroke Social History Household Members: Family Housing: House Do you presently have visiting nurse or other home services: Yes (visiting [employer] IN[employer] that helps bathe her on Mondays and ) Alcohol intake: never Comment: no BM yet Patient Tobacco Use Status: Former Tobacco user Years Smoked: 40 Advance Directives Date on File: 05/19/20 service: No Current occupational status: retired Office Procedures Cardiac Device Check Cardiac Device Check Details: PPM Good battery life. 2 episodes of Afib recorded. [id number] Cardiac Device Interrogation, pacemaker Procedure code (CPT) selection complete Assessment & Plan Assessment & Plan (1) Pacemaker: Comment: February 2022 @ [facility]. [employer] dual-chamber Code(s): Z95.0 - Presence of cardiac pacemaker Category: Medical Plan Coding Level of Care Code Procedure Only Diagnoses Pacemaker Z95.0 CPT Codes Cardiac Device Check - Cardiac Device 12: [id number] Cardiac Device Interrogation, pacemaker ([id number])
== END ==
PROVIDERS: PCP Internal Medicine; Visit Provider Internal Medicine Cardiovascular Disease
DX: I48.91 Unspecified atrial fibrillation (principal); Z95.0 Presence of cardiac pacemaker
CPT/HCPCS: 93294

== ENCOUNTER → 2025-02-03 23:59 | Outpatient (BNV) | payer MEDICARE, MEDICAID, SELFPAY ==
--- NOTE | 2025-03-07 12:17 | A.OFFVIS_ITS ---
Intake Visit Reasons: Remote Device Check- [employer] Allergies Iodinated Contrast Media (IV CONTRAST) Allergy (Severe, Verified 09/08/24 13:54) Vomiting scallops (SCALLOPS) Allergy (Severe, Verified 09/08/24 13:54) Vomiting amlodipine (AMLODIPINE) Adverse Reaction (Severe, Verified 09/08/24 13:54) LEG SWELLING PFSH Medical History Bradycardia Chronic respiratory failure Essential hypertension Atherosclerotic cardiovascular disease Chronic atrial flutter Preoperative cardiovascular examination Afib Dyspnea Chronic restrictive lung disease COPD (chronic obstructive pulmonary disease) CHF (congestive heart failure) Diastolic CHF Hypercholesteremia HTN (hypertension) CAD (coronary artery disease) CKD (chronic kidney disease) Vitamin D deficiency AAA (abdominal aortic aneurysm) Osteopenia Kidney mass Restless leg Atrial flutter C7 cervical fracture Frequent UTI Surgical History S/P AAA repair H/O cervical spine surgery History of appendectomy Family History Mother Aortic aneurysm Father Stroke Social History Household Members: Family Housing: House Do you presently have visiting nurse or other home services: Yes (visiting [employer] that helps bathe her on Mondays and ) Alcohol intake: never Comment: no BM yet Patient Tobacco Use Status: Former Tobacco user Years Smoked: 40 Advance Directives Date on File: 05/19/20 service: No Current occupational status: retired Office Procedures Cardiac Device Check Cardiac Device Check Details: PPM Good battery life [employer]MING AC[employer] DUMPER 98% No new alerts. [id number] Cardiac Device Interrogation, pacemaker Procedure code (CPT) selection complete Assessment & Plan Assessment & Plan (1) Pacemaker: Comment: February 2022 @ [facility]. [employer] dual-chamber Code(s): Z95.0 - Presence of cardiac pacemaker Category: Medical Plan Coding Level of Care Code Procedure Only Diagnoses Pacemaker Z95.0 CPT Codes Cardiac Device Check - Cardiac Device 12: [id number] Cardiac Device Interrogation, pacemaker ([id number])
== END ==
PROVIDERS: PCP Internal Medicine; Visit Provider Internal Medicine Cardiovascular Disease
DX: Z45.018 Encounter for adjustment and management of other part of cardiac pacemaker (principal)
CPT/HCPCS: 93294